=== PATIENT | female | born 1945 | race Caucasian/White ===

== ENCOUNTER 2022-09-15 22:59 | Inpatient (IN) | payer MEDICARE, SELFPAY ==
[2022-09-15 22:43] VITALS: BP 115/87; PULSE 104; RESP 18; TEMP 35.9; O2SAT 97; BMI 29.7
[2022-09-15 22:44] VITALS: BP 115/87; O2SAT 93
--- NOTE | 2022-09-15 22:55 | ED_ITS ---
HPI - SOB/Dyspnea General Stated Complaint: SHORT OF BREATH Time Seen by Provider: 09/15/22 23:00 Source: patient and EMR Mode of arrival: ambulance Limitations: physical limitation History of Present Illness HPI Narrative: longterm patient DNRCC. Reportedly short of breath tonight. Pulse ox 88%. Patient has no specific complaint. denies pain. no fever or nausea. Transferred via squad with NRB mask in place. Arrives in no distress Related Data Allergies Allergy/AdvReac Type Severity Reaction Status Date / Time No Known Drug Allergies Allergy Verified 09/15/22 22:53 Review of Systems ROS Status of ROS 10 or more systems reviewed and unremarkable except as noted in history and below PFSH PFSH Social History Smoking status: Never smoker Exam Constitutional: Vital Signs - 24 hr 09/15/22 22:43 09/15/22 23:11 Temperature 96.7 F L Pulse Rate [Monito r] 104 H Respiratory Rate 18 Blood Pressure [Ri ght Arm] 115/87 H Pulse Oximetry 97 91 L Oxygen Delivery Me thod Nonrebreather Nonrebreather Oxygen Delivery Fl ow Rate 15 15 Common normals: no apparent distress HENMT: Common normals: normocephalic Face and sinus: normal facial exam Eye: Common normals: EOMs intact bilaterally and conjunctivae normal Neck & C-Spine: Common normals: full ROM Chest: Common normals: inspection of chest normal Other: diminished BS left chest Cardio: Rate: tachycardic GI: Common normals: Normal to inspection, nondistended, normoactive bowel sounds present, soft to palpation and non-tender Extremity: Common normals: normal to inspection Neuro: Common normals: oriented x3 Other: normal strength and ROM of the upper extremities able to wiggles toes and move both feet. Little movement of her legs Psych: Common normals: mental status grossly normal Skin: Common normals: no rashes or lesions noted Course Vital Signs Vital signs: Vital Signs Temperature 96.7 F L 09/15/22 22:43 Pulse Rate 104 H 09/15/22 22:43 Respiratory Rate 18 09/15/22 22:43 Blood Pressure 115/87 H 09/15/22 22:43 Pulse Oximetry 97 09/15/22 22:43 Oxygen Delivery Method Nonrebreather 09/15/22 22:43 Oxygen Delivery Flow Rate 15 09/15/22 22:43 Temperature 96.7 F L 09/15/22 22:43 Pulse Rate 104 H 09/15/22 22:43 Respiratory Rate 18 09/15/22 22:43 Blood Pressure 115/87 H 09/15/22 22:43 Pulse Oximetry 91 L 09/15/22 23:11 Oxygen Delivery Method Nonrebreather 09/15/22 23:11 Oxygen Delivery Flow Rate 15 09/15/22 23:11 MDM - SOB/Dyspnea MDM Narrative Medical decision making narrative: NHP DNRCC who presents with hypoxemia. Found to have left pleural effusion. Workup also demonstrated leukocytosis and UTI per straight cath urine. WBC 23.6. Discussed with the hospitalist and patient accepted for admission Lab Data Labs: Lab Results 09/15/22 09/16/22 Range/Units 23:15 01:05 WBC 23.6 H (4.0-11.0) 10^3/uL RBC 5.01 (4.20-5.40) 10^6/uL Hgb 15.0 (12.0-16.0) g/dL Hct 44.9 (36.0-48.0) % MCV 89.6 (81.0-99.0) fL MCH 29.9 (26.7-34.0) pg MCHC 33.4 (29.9-35.2) g/dL RDW 14.6 (11.0-15.0) % Plt Count 405 (150-450) 10^3/uL MPV 8.5 L (9.5-13.5) fL Seg Neuts % (Manual) 89.0 Lymphocytes % (Manual) 5.0 L (20.5-60.0) % Monocytes % (Manual) 6.0 (1.7-12.0) % Eosinophils % (Manual) 0.0 L (0.9-7.0) % Basophils % (Manual) 0.0 L (0.2-2.0) % Neutrophils # (Manual) 21.00 H (1.4-6.5) 10^3/uL Lymphocytes # (Manual) 1.18 L (1.20-3.80) 10^3/uL Monocytes # (Manual) 1.41 H (0.30-0.80) 10^3/uL Eosinophils # (Manual) 0.00 (0.00-0.70) 10^3/uL Basophils # (Manual) 0.00 (0.00-0.10) 10^3/uL Sodium 138 (136-145) mmol/L Potassium 4.0 (3.5-5.1) mmol/L Chloride 102 (98-107) mmol/L Carbon Dioxide 29.4 (21.0-32.0) mmol/L Anion Gap 10.6 BUN 22.0 H (7.0-18.0) mg/dL Creatinine 0.67 (0.55-1.02) mg/dL Est GFR ( Amer) >60 (>=60) Est GFR (Non-Af Amer) >60 (>=60) BUN/Creatinine Ratio 32.8 Glucose 148 H (74-106) mg/dL Calcium 8.7 (8.5-10.1) mg/dL Troponin I High Sens 12.1 (4.0-51.3) pg/mL NT-Pro-B Natriuret Pep 391.0 (<=1800.0) pg/mL Urine Color Yellow (YELLOW) Urine Clarity Clear (CLEAR) Urine pH 8.0 (5.0-9.0) Ur Specific [place] 1.020 (1.005-1.025) Urine Protein >=300 A (NEG/TRACE) mg/dL Urine Glucose (UA) 100 A (NEGATIVE) mg/dL Urine Ketones 15 A (NEGATIVE) mg/dL Urine Occult Blood Large A (NEGATIVE) Urine Nitrite Negative (NEGATIVE) Urine Bilirubin Moderate A (NEGATIVE) Urine Urobilinogen 4.0 A (0.2-1.0) EU/dL Ur Leukocyte Esterase Moderate A (NEGATIVE) Urine RBC 10-20 A (0-2) #/HPF Urine WBC 75-100 A (NONE SEEN) #/HPF Ur Squamous Epith Cells Rare (NONE/RARE) #/LPF Discharge Plan Discharge Clinical Impression: Urinary tract infection, Hypoxemia, Pleural effusion on left Patient Disposition: Admitted As Inpatient
--- NOTE | 2022-09-15 23:05 | XR_ITS ---
The [address] [address] Patient Name: WILLARD STOVER MRN: [id number] date: 1945 Sex: F Assigned Patient Location: ER Current Patient Location: ER Accession/Order Number: [id number] Exam Date: 09/15/2022 23:58 Report Date: 09/16/2022 00:22 At the request of: HALLIE ELIZONDO Procedure: XR chest 1V CHEST X-RAY HISTORY: 77-year-old female with dyspnea and chest pain. COMPARISON: None. TECHNIQUE: Frontal view of the chest is submitted for review. FINDINGS: Port-A-Cath is seen on the left with tip overlying the cavoatrial junction. The patient's chin overlies the upper apices. Blunting of the left costophrenic angle is present. The lungs are adequately expanded without evidence for acute infiltrate. The cardiac silhouette is enlarged, Pulmonary vascularity is prominent. Osseous structures are within expected limits for patients age. IMPRESSION: Cardiomegaly with left sided pleural effusion. Electronically authenticated by: HE BOWERS Date: 09/16/2022 00:22
--- NOTE | 2022-09-15 23:05 | ECG_ITS ---
The [facility] Test Date: 2022-09-15 Pat Name: Mayte Gavin Department: Room: - Gender: Female Manager Education: : 1945 Requested By: [id number] Order Number: [id number] Reading MD: CALI DECKER Measurements Intervals [place] Rate: 100 P: 2 [place]: 158 QRS: 8 QRSD: 86 T: 35 QT: 294 QTc: 351 Interpretive Statements 1108 Marked sinus arrhythmia 1120 Sinus tachycardia 8102 Low QRS voltage in chest leads 8305 Short QTc interval 9150 abnormal ECG No previous ECG available for comparison Artifact present Electronically Signed On 09-16-2022 15:40:57 EDT by CALI DECKER
[2022-09-15 23:11] VITALS: O2SAT 91
--- NOTE | 2022-09-15 23:15 | PC.NURSE ---
patient brought in by ems for SOB. patient covid+ 2weeks ago. Patient is a DNRCC, labs drawn with IV start. patient appears SOB and diaphoretic. EKG done, patient A&ox3.
[2022-09-15 23:24] LABS: Hematocrit 44.9 % (36.0-48.0); Mean Corpuscular HGB Conc 33.4 g/dL (29.9-35.2); Mean Corpuscular Hemoglobin 29.9 pg (26.7-34.0); Mean Corpuscular Volume 89.6 fL (81.0-99.0); Mean Platelet Volume 8.5 fL (9.5-13.5); Platelet Count 405 10^3/uL (150-450); Red Blood Count 5.01 10^6/uL (4.20-5.40); Red Cell Distribution Width 14.6 % (11.0-15.0); White Blood Count 23.6 10^3/uL (4.0-11.0)
[2022-09-15 23:45] LABS: Anion Gap 10.6; BUN Creatinine Ratio 32.8; Calcium 8.7 mg/dL (8.5-10.1); Carbon Dioxide 29.4 mmol/L (21.0-32.0); Chloride 102 mmol/L (98-107); Estimated GFR (African America >60 (>=60); Estimated GFR (Non-African Ame >60 (>=60); Glucose 148 mg/dL (74-106); Sodium 138 mmol/L (136-145); Troponin I High Sensitivity 12.1 pg/mL (4.0-51.3)
[2022-09-15 23:49] LABS: Lymphocytes Absolute Manual 1.18 10^3/uL (1.20-3.80); Monocytes Absolute Manual 1.41 10^3/uL (0.30-0.80)
[2022-09-16] VITALS (9 sets, daily range): BP systolic 107–139; BP diastolic 77–85; PULSE 104–123; RESP 18; TEMP 36.7–36.8; O2SAT 90–95; BMI 28.2
[2022-09-16 01:23] LABS: Bilirubin Urine MODERATE (NEGATIVE); Blood Urine LARGE (NEGATIVE); Clarity Urine CLEAR (CLEAR); Color Urine YELLOW (YELLOW); Glucose Urine UA 100 mg/dL (NEGATIVE); Ketones Urine 15 mg/dL (NEGATIVE); Leukocyte Esterase Urine MODERATE (NEGATIVE); Nitrite Urine NEGATIVE (NEGATIVE); Protein Urine >=300 mg/dL (NEG/TRACE)
[2022-09-16 01:31] LABS: WBC Urine 75-100 #/HPF (NONE SEEN)
[2022-09-16 01:32] LABS: Bacteria Urine LARGE #/HPF (NONE SEEN); Cast Seen? NONE SEEN #/LPF (NONE SEEN); Crystals Seen? None Seen #/HPF (None Seen); Mucus Urine LARGE (NONE SEEN); Squamous Epithelial Cell Urine RARE #/LPF (NONE/RARE)
--- NOTE | 2022-09-16 01:35 | PC.NURSE ---
patient began to urinate before cath insertion, large glob of mucus came out of the ureathra. Patient straight cathed, washed up and breif changed
--- NOTE | 2022-09-16 03:06 | PC.NURSE ---
attempted patient on NC 4l/min, per Dr. bustamante. Patient o2 dropped to 88% patient placed back on nonrebreather
[2022-09-16 03:34] LABS: Lactate/Lactic Acid 1.2 mmol/L (0.4-2.0)
[2022-09-16] MEDS: CEFTRIAXONE 1,000 MG in 0.9 % SODIUM CHLORIDE 50 ML 100 MG IV (03:36)
--- NOTE | 2022-09-16 06:49 | PC.NURSE ---
pt with watch and costume bracelets.
--- NOTE | 2022-09-16 09:38 | PM.HP ---
H&P: HPI History of Present Illness Chief complaint: SHORT OF BREATH Review of Systems ROS Status of ROS 10 or more systems reviewed and unremarkable except as noted in history and below [facility] Medical History (Updated 09/16/22 @ 14:27 by Kwame Sampson MD) Social History Smoking status: Never smoker Gender Identity: female Meds Home Medications and Allergies Home Medications Medication Instructions Recorded Confirmed Type acetaminophen 500 mg capsule 500 mg PO Q8H PRN fever or pain 09/16/22 09/16/22 History albuterol sulfate 90 mcg/actuation 2 inh inhalation BID 09/16/22 09/16/22 History aerosol inhaler albuterol sulfate 90 mcg/actuation 2 puff inhalation Q4H PRN 09/16/22 09/16/22 History aerosol inhaler shortness of breath or wheezing aripiprazole 2 mg tablet 2 mg PO BEDTIME depression 09/16/22 09/16/22 History aripiprazole 5 mg tablet 5 mg PO BEDTIME depression 09/16/22 09/16/22 History aspirin 81 mg capsule 81 mg PO BEDTIME 09/16/22 09/16/22 History carvedilol 6.25 mg tablet 6.25 mg PO BID hypertension 09/16/22 09/16/22 History cetirizine 10 mg capsule (All Day 10 mg PO DAILY PRN allergy symptoms 09/16/22 09/16/22 History Allergy (cetirizine)) cetirizine 10 mg tablet (24Hour 10 mg PO DAILY allergies 09/16/22 09/16/22 History Allergy) cholecalciferol (vitamin D3) 125 125 mcg PO DAILY supplement 09/16/22 09/16/22 History mcg (5,000 unit) tablet (Vitamin D3) diclofenac sodium 1 % topical gel 4 g topical BID knee pain 09/16/22 09/16/22 History (Aspercreme Arthritis Pain) duloxetine 20 mg capsule,delayed 60 mg PO DAILY depression 09/16/22 09/16/22 History release famotidine 20 mg tablet 20 mg PO DAILY GERD 09/16/22 09/16/22 History ferrous sulfate 325 mg (65 mg 325 mg PO BID 09/16/22 09/16/22 History iron) tablet gabapentin 100 mg capsule 100 mg PO DAILY neuropathy 09/16/22 09/16/22 History guaifenesin 100 mg/5 mL oral 100 mg PO BID 09/16/22 09/16/22 History liquid (Adult Tussin Chest Congestion) guaifenesin 100 mg/5 mL oral 100 mg PO Q4H PRN cough 09/16/22 09/16/22 History liquid (Adult Tussin Chest Congestion) hydrocortisone 1 % topical cream 1 applic topical DAILY PRN itching 09/16/22 09/16/22 History (Ala-Jos[place] Antonio) hydroxyzine pamoate 25 mg capsule 25 mg PO TID anxiety 09/16/22 09/16/22 History levothyroxine 100 mcg tablet 100 mcg PO DAILY 09/16/22 09/16/22 History levothyroxine 50 mcg tablet 50 mcg PO DAILY 09/16/22 09/16/22 History menthol 4 % topical gel (Pain 1 applic topical Q8H PRN pain 09/16/22 09/16/22 History Relief (menthol)) mirabegron 50 mg tablet,extended 50 mg PO Q24H 09/16/22 09/16/22 History release 24 hr (Myrbetriq) montelukast 10 mg tablet 10 mg PO DAILY COVID 09/16/22 09/16/22 History nystatin 100,000 unit/gram topical 1 applic topical BID PRN 09/16/22 09/16/22 History cream excoriation nystatin 100,000 unit/gram topical 1 applic topical BID excoriation 09/16/22 09/16/22 History powder oxygen 2 l continuous inhalation CONT 09/16/22 09/16/22 History polyethylene glycol 3350 17 17 g PO BID constipation 09/16/22 09/16/22 History gram/dose oral powder (ClearLax) rivaroxaban 10 mg tablet (Xarelto) 10 mg PO Q24H anticoagulant 09/16/22 09/16/22 History tramadol 50 mg tablet 50 mg PO Q6H PRN pain 09/16/22 09/16/22 History Allergies Allergy/AdvReac Type Severity Reaction Status Date / Time iodine Allergy Unknown Verified 09/16/22 09:26 Penicillins Allergy Unknown Verified 09/16/22 09:26 Sulfa (Sulfonamide Allergy Unknown Verified 09/16/22 09:26 Antibiotics) Exam Constitutional Vital Signs - 24 hr 09/15/22 22:43 09/15/22 23:11 09/15/22 22:44 Temperature 96.7 F L Pulse Rate Pulse Rate [Monitor] 104 H Respiratory Rate 18 Blood Pressure 115/87 H Blood Pressure [Right Arm] 115/87 H Pulse Oximetry 97 91 L 93 L Oxygen Delivery Method Nonrebreather Nonrebreather Oxygen Delivery Flow Rate 15 15 09/16/22 02:00 09/16/22 02:30 09/16/22 03:00 Temperature Pulse Rate Pulse Rate [Monitor] Respiratory Rate Blood Pressure 123/84 H 139/78 H 126/85 H Blood Pressure [Right Arm] Pulse Oximetry 94 L 95 Oxygen Delivery Method Oxygen Delivery Flow Rate 09/16/22 05:58 09/16/22 05:58 09/16/22 05:58 Temperature 98.2 F Pulse Rate 104 H Pulse Rate [Monitor] Respiratory Rate 18 Blood Pressure Blood Pressure [Right Arm] 107/80 H 130/84 H Pulse Oximetry 93 L 93 L Oxygen Delivery Method Nonrebreather Nonrebreather Nonrebreather Oxygen Delivery Flow Rate 15 15 Common normals: no apparent distress Respiratory Effort & inspection: able to speak in complete sentences and symmetric chest movement Auscultation: clear to auscultation bilaterally and diminished lung sounds on the left Cardio Common normals: regular rate and regular rhythm GI Common normals: Normal to inspection, nondistended, normoactive bowel sounds present Extremity General: edema (2+) Results Labs Labs: Short CBC 09/15/22 Range/Units 23:15 WBC 23.6 H (4.0-11.0) 10^3/uL Hgb 15.0 (12.0-16.0) g/dL Hct 44.9 (36.0-48.0) % Plt Count 405 (150-450) 10^3/uL BMP 09/15/22 23:15 Sodium 138 Potassium 4.0 Chloride 102 Carbon Dioxide 29.4 BUN 22.0 H Creatinine 0.67 Glucose 148 H Calcium 8.7 Urine 09/16/22 Range/Units 01:05 Urine Color Yellow (YELLOW) Urine Clarity Clear (CLEAR) Urine pH 8.0 (5.0-9.0) Ur Specific [place] 1.020 (1.005-1.025) Urine Protein >=300 A (NEG/TRACE) mg/dL Urine Glucose (UA) 100 A (NEGATIVE) mg/dL Assessment and Plan Assessment and Plan (1) Urinary tract infection: (2) Hypoxemia: (3) Pleural effusion on left: (4) Leukocytosis: (5) CKD (chronic kidney disease), stage II: (6) Oxygen dependent: (7) Asthma: (8) Hypertension: (9) Cardiomegaly: Plan Acute hypoxia secondary to left pleural effusion With peripheral edema-patient with a history of COPD oxygen dependent at 2 L but on nonrebreather currently. Try to wean that today. Bumex drip for diuresis. Leukocytosis, sinus tachycardia secondary to Acute UTI-urine culture pending. On IV antibiotics. Hypertension With cardiomegaly-continue with home medications Dementia-continue current medications We will change patient to inpatient status. Based on medical treatment requiring over 2 midnights. Patient unable to be discharged initially. Continues to be hypoxic and is on a nonrebreather. Possible discharge in a.m. if diuresis effective.
[2022-09-16] MEDS: LEVOFLOXACIN IN DEXTROSE 5 % 750 MG/150 ML PIGGYBACK IV (10:10)
[2022-09-16] MEDS: HYDRALAZINE HCL 20 MG/ML VIAL 10 MG IVP (10:11)
[2022-09-16 10:52] LABS: Basophils Absolute Auto 0.1 10^3/uL (0.0-0.1); Basophils Percent Auto 0.4 % (0.2-2.0); Eosinophils Percent Auto 0.1 % (0.9-7.0); Hematocrit 43.4 % (36.0-48.0); Hemoglobin 14.4 g/dL (12.0-16.0); Immature Granulocytes Abs Auto 0.28 10^3/uL (0.00-0.03); Immature Granulocytes Pct Auto 1.2 % (0.0-0.5); Lymphocytes Absolute Auto 1.2 10^3/uL (1.2-3.8); Lymphocytes Percent Auto 4.9 % (20.5-60.0); Mean Corpuscular HGB Conc 33.2 g/dL (29.9-35.2); Mean Corpuscular Hemoglobin 30.1 pg (26.7-34.0); Mean Corpuscular Volume 90.6 fL (81.0-99.0); Mean Platelet Volume 8.7 fL (9.5-13.5); Monocytes Absolute Auto 1.1 10^3/uL (0.3-0.8); Monocytes Percent Auto 4.6 % (1.7-12.0); Neutrophils Absolute Auto 21.5 10^3/uL (1.4-6.5); Neutrophils Percent Auto 88.8 % (43.0-75.0); Platelet Count 412 10^3/uL (150-450); Red Blood Count 4.79 10^6/uL (4.20-5.40); Red Cell Distribution Width 14.5 % (11.0-15.0); White Blood Count 24.1 10^3/uL (4.0-11.0)
[2022-09-16 12:19] LABS: Alanine Aminotransferase 38 U/L (14-59); Albumin Globulin Ratio 0.5; Albumin Level 1.9 g/dL (3.4-5.0); Alkaline Phosphatase 199 U/L (46-116); Anion Gap 11.5; Aspartate Amino Transferase 24 U/L (15-37); BUN Creatinine Ratio 42.6; Bilirubin Total 0.6 mg/dL (0.2-1.0); Calcium 8.8 mg/dL (8.5-10.1); Carbon Dioxide 28.4 mmol/L (21.0-32.0); Chloride 103 mmol/L (98-107); Estimated GFR (African America >60 (>=60); Estimated GFR (Non-African Ame >60 (>=60); Globulin 4.1 g/dL; Glucose 128 mg/dL (74-106); Magnesium 1.9 mg/dL (1.8-2.4); Potassium 3.9 mmol/L (3.5-5.1); Sodium 139 mmol/L (136-145)
[2022-09-16] MEDS: L. ACIDOPHILUS/L.BULGARICUS 1 PACKET GRAN.PACK PO ×2 (12:38→17:57)
[2022-09-16] MEDS: BUMETANIDE 10 MG in 0.9 % SODIUM CHLORIDE 160 ML 20 MG IV (12:38)
[2022-09-17] VITALS (8 sets, daily range): BP systolic 110–131; BP diastolic 68–85; PULSE 62–120; RESP 16–20; TEMP 36.1–36.4; O2SAT 88–92
[2022-09-17] MEDS: CEFTRIAXONE 1,000 MG in 0.9 % SODIUM CHLORIDE 50 ML 100 MG IV (02:24)
--- NOTE | 2022-09-17 04:48 | PC.NURSE ---
pts SPO2 noted 85% on 6L via NC, non-rebreather mask applied, SPO2 noted 93%
--- NOTE | 2022-09-17 08:33 | XR_ITS ---
[address] [address] Patient Name: WILLARD STOVER MRN: [id number] date: 1945 Sex: F Assigned Patient Location: MS Current Patient Location: MS Accession/Order Number: [id number] Exam Date: 09/17/2022 09:00 Report Date: 09/17/2022 09:20 At the request of: XANDER TURNER Procedure: XR chest 1V Exam: Radiographs: XR chest 1V Reason for exam: Dyspnea Comparison: Chest x-ray dated 09/15/2022 IMPRESSION: Left pleural effusion is likely moderate in size. Atelectasis and/or infiltrate in the left mid and lower lung. These are not substantially changed. Left IJ approach port with tip in the low SVC. Remainder unremarkable. Electronically authenticated by: JEAN CLAUDE MO Date: 09/17/2022 09:20
[2022-09-17] MEDS: ENSURE HP 237 ML LIQUID PO ×2 (09:52→21:26)
[2022-09-17] MEDS: L. ACIDOPHILUS/L.BULGARICUS 1 PACKET GRAN.PACK PO ×2 (09:53→16:39)
[2022-09-17 09:57] LABS: Basophils Absolute Auto 0.1 10^3/uL (0.0-0.1); Basophils Percent Auto 0.3 % (0.2-2.0); Hematocrit 44.3 % (36.0-48.0); Hemoglobin 15.1 g/dL (12.0-16.0); Immature Granulocytes Abs Auto 0.52 10^3/uL (0.00-0.03); Immature Granulocytes Pct Auto 1.6 % (0.0-0.5); Lymphocytes Absolute Auto 1.4 10^3/uL (1.2-3.8); Lymphocytes Percent Auto 4.5 % (20.5-60.0); Mean Corpuscular HGB Conc 34.1 g/dL (29.9-35.2); Mean Corpuscular Hemoglobin 29.8 pg (26.7-34.0); Mean Corpuscular Volume 87.4 fL (81.0-99.0); Mean Platelet Volume 8.8 fL (9.5-13.5); Monocytes Absolute Auto 1.6 10^3/uL (0.3-0.8); Neutrophils Absolute Auto 27.9 10^3/uL (1.4-6.5); Neutrophils Percent Auto 88.6 % (43.0-75.0); Platelet Count 444 10^3/uL (150-450); Red Blood Count 5.07 10^6/uL (4.20-5.40); Red Cell Distribution Width 14.6 % (11.0-15.0)
[2022-09-17 10:11] LABS: White Blood Count 31.6 10^3/uL (4.0-11.0)
[2022-09-17 10:20] LABS: Alanine Aminotransferase 28 U/L (14-59); Albumin Globulin Ratio 0.4; Albumin Level 1.9 g/dL (3.4-5.0); Alkaline Phosphatase 210 U/L (46-116); Anion Gap 13.4; Aspartate Amino Transferase 14 U/L (15-37); BUN Creatinine Ratio 29.5; Bilirubin Total 0.6 mg/dL (0.2-1.0); Calcium 8.7 mg/dL (8.5-10.1); Carbon Dioxide 30.5 mmol/L (21.0-32.0); Chloride 96 mmol/L (98-107); Estimated GFR (African America >60 (>=60); Estimated GFR (Non-African Ame 51 (>=60); Globulin 4.6 g/dL; Glucose 125 mg/dL (74-106); Sodium 137 mmol/L (136-145); Total Protein 6.5 g/dL (6.4-8.2)
[2022-09-17 10:24] LABS: Potassium 2.9 mmol/L (3.5-5.1)
[2022-09-17] MEDS: LEVOFLOXACIN IN DEXTROSE 5 % 750 MG/150 ML IV.SOLN 100 MG IV (11:22)
--- NOTE | 2022-09-17 11:27 | P.PN_ITS ---
Progress Note: Subjective Subjective Interval history: Patient alert this morning. Answers questions, states breathing somewhat better. Exam Constitutional Vital Signs - 24 hr 09/17/22 09:58 09/17/22 11:24 09/16/22 12:25 Temperature Pulse Rate Respiratory Rate Blood Pressure [Right Arm] Pulse Oximetry 90 L 92 L 90 L Oxygen Delivery Method Nasal Cannula Nasal Cannula Nasal Cannula Oxygen Delivery Flow Rate 6 6 6 09/16/22 14:23 09/16/22 19:50 09/16/22 21:00 Temperature 98.0 F 98.0 F Pulse Rate 123 H Respiratory Rate 18 18 Blood Pressure [Right Arm] 134/79 H 126/77 H Pulse Oximetry 90 L 90 L 90 L Oxygen Delivery Method Nasal Cannula Nasal Cannula Nasal Cannula Oxygen Delivery Flow Rate 6 6 6 09/17/22 02:25 09/17/22 04:33 Temperature 97.5 F L Pulse Rate 120 H Respiratory Rate 18 18 Blood Pressure [Right Arm] 110/68 Pulse Oximetry 91 L 88 L Oxygen Delivery Method Nasal Cannula Nasal Cannula Oxygen Delivery Flow Rate 6 6 HENMT Common normals: normocephalic Chest Common normals: inspection of chest normal Respiratory Common normals: normal respiratory effort (Diminished breath sounds left-sided) Cardio Rate: other (Irregularly irregular) GI Common normals: Normal to inspection, nondistended, normoactive bowel sounds present Progress Note: Objective Labs Labs: Short CBC 09/17/22 Range/Units 09:34 WBC 31.6 H* (4.0-11.0) 10^3/uL Hgb 15.1 (12.0-16.0) g/dL Hct 44.3 (36.0-48.0) % Plt Count 444 (150-450) 10^3/uL BMP 09/16/22 09/17/22 10:25 09:34 Sodium 139 137 Potassium 3.9 2.9 L* Chloride 103 96 L Carbon Dioxide 28.4 30.5 BUN 26.0 H 31.0 H Creatinine 0.61 1.05 H Glucose 128 H 125 H Calcium 8.8 8.7 Liver Function 09/16/22 09/17/22 Range/Units 10:25 09:34 Total Bilirubin 0.6 0.6 (0.2-1.0) mg/dL AST 24 14 L (15-37) U/L ALT 38 28 (14-59) U/L Albumin 1.9 L 1.9 L (3.4-5.0) g/dL Progress Note: A&P Assessment and Plan (1) Urinary tract infection: (2) Hypoxemia: (3) Pleural effusion on left: (4) Leukocytosis: (5) CKD (chronic kidney disease), stage II: (6) Oxygen dependent: (7) Asthma: (8) Hypertension: (9) Cardiomegaly: Plan Acute hypoxia secondary to left pleural effusion With peripheral edema-patient with a history of COPD oxygen dependent at 2 L but on 6 L overnight, somewhat down this morning. Not sure what her baseline oxygen runs. Repeat chest x-ray. Consider repeat diuresis based on laboratory evaluation Leukocytosis, sinus tachycardia secondary to Acute UTI-urine culture pending.? On IV antibiotics. Hypertension With cardiomegaly-continue with home medications Chronic kidney disease-monitor daily. Medications may need adjusted based on creatinine function Dementia-continue current medications We will change patient to inpatient status.Likely 2-3 more hospital days Fall Risk Details Archuleta Fall Scale Risk Level: High Fall Risk Current Medications: Current Medications Acetaminophen (Acetaminophen 325 Mg Tablet) 650 mg PO Q6H PRN PRN Reason: Fever Docusate Sodium (Docusate Sodium 100 Mg Capsule) 200 mg PO QD PRN PRN Reason: Constipation Enteral Nutritional Formula (Ensure Hp 237 Ml Liquid) 237 ml PO BID [facility] Last Admin: 09/17/22 09:52 Dose: 237 ml Levofloxacin/Dextrose (Levaquin 750 Mg/150 Ml-D5w) 750 mg in 150 mls @ 100 mls/hr IV Q24H [facility] Last Admin: 09/17/22 11:22 Dose: 100 ml/hr, 100 mls/hr Clindamycin Phosphate/Dextrose (Cleocin 600 Mg/50 Ml-D5w) 600 mg in 50 mls @ 100 mls/hr IV Q8H [facility] Ketorolac Tromethamine (Ketorolac Tromethamine 30 Mg/Ml Vial) 15 mg IVP Q6H PRN PRN Reason: Pain Lactobacillus Acidophilus (L. Acidophilus/L.Bulgaricus 1 Packet Gran.Pack) 1 packet PO WM [facility] Last Admin: 09/17/22 09:53 Dose: 1 packet Ondansetron HCl (Ondansetron Pf 4 Mg/2 Ml Vial) 4 mg IV Q6H PRN PRN Reason: Nausea And Vomiting Polyethylene Glycol (Polyethylene Glycol 3350 17 Gm Powder Packet) 17 gm PO QD PRN PRN Reason: Constipation Senna (Sennosides 8.6 Mg Tablet) 8.6 mg PO QD PRN PRN Reason: Constipation Temazepam (Temazepam 15 Mg Capsule) 15 mg PO BEDTIME PRN PRN Reason: Sleep Time Spent With Patient Time: Total time spent is greater than 50% in coordination of care (as documented) at patient's floor/unit and/or counseling patient:
[2022-09-17] MEDS: CLINDAMYCIN PHOSPHATE/D5W 900 MG/50 ML PIGGYBACK 50 MG IV (14:18)
[2022-09-17] MEDS: AZTREONAM 1 GM in 0.9 % SODIUM CHLORIDE 50 ML 100 MG IV ×2 (15:01→22:13)
[2022-09-17] MEDS: POTASSIUM CHLORIDE 40 MEQ in 0.9 % SODIUM CHLORIDE 250 ML 67.5 MEQ IV (15:01)
[2022-09-17 18:20] LABS: Anion Gap 11.6; BUN Creatinine Ratio 34.3; Calcium 8.4 mg/dL (8.5-10.1); Carbon Dioxide 30.8 mmol/L (21.0-32.0); Chloride 95 mmol/L (98-107); Estimated GFR (African America >60 (>=60); Estimated GFR (Non-African Ame 55 (>=60); Glucose 97 mg/dL (74-106); Potassium 3.4 mmol/L (3.5-5.1); Sodium 134 mmol/L (136-145)
[2022-09-17] MEDS: 0.9 % SODIUM CHLORIDE 250 ML 100 ML IV (21:20)
[2022-09-17] MEDS: CLINDAMYCIN PHOSPHATE/D5W 900 MG/50 ML PIGGYBACK 100 MG IV (21:26)
[2022-09-18] VITALS (9 sets, daily range): BP systolic 117–127; BP diastolic 78–81; PULSE 102–113; RESP 18–22; TEMP 36.2–36.7; O2SAT 90–94; BMI 28.1
--- NOTE | 2022-09-18 04:54 | RESP.RT ---
turned down to 3L at this time
[2022-09-18] MEDS: CLINDAMYCIN PHOSPHATE/D5W 900 MG/50 ML PIGGYBACK 50 MG IV ×2 (05:35→21:15)
[2022-09-18 05:56] LABS: Basophils Absolute Auto 0.1 10^3/uL (0.0-0.1); Basophils Percent Auto 0.2 % (0.2-2.0); Eosinophils Percent Auto 0.2 % (0.9-7.0); Hematocrit 39.2 % (36.0-48.0); Hemoglobin 13.2 g/dL (12.0-16.0); Immature Granulocytes Abs Auto 0.43 10^3/uL (0.00-0.03); Immature Granulocytes Pct Auto 1.8 % (0.0-0.5); Lymphocytes Absolute Auto 1.2 10^3/uL (1.2-3.8); Mean Corpuscular HGB Conc 33.7 g/dL (29.9-35.2); Mean Corpuscular Hemoglobin 29.9 pg (26.7-34.0); Mean Corpuscular Volume 88.7 fL (81.0-99.0); Mean Platelet Volume 8.9 fL (9.5-13.5); Monocytes Absolute Auto 1.1 10^3/uL (0.3-0.8); Monocytes Percent Auto 4.7 % (1.7-12.0); Neutrophils Absolute Auto 20.5 10^3/uL (1.4-6.5); Neutrophils Percent Auto 88.1 % (43.0-75.0); Platelet Count 402 10^3/uL (150-450); Red Blood Count 4.42 10^6/uL (4.20-5.40); Red Cell Distribution Width 14.6 % (11.0-15.0); White Blood Count 23.3 10^3/uL (4.0-11.0)
[2022-09-18 05:58] LABS: Alanine Aminotransferase 25 U/L (14-59); Albumin Globulin Ratio 0.4; Albumin Level 1.6 g/dL (3.4-5.0); Alkaline Phosphatase 176 U/L (46-116); Anion Gap 9.3; Aspartate Amino Transferase 22 U/L (15-37); BUN Creatinine Ratio 43.4; Bilirubin Total 0.5 mg/dL (0.2-1.0); Calcium 7.9 mg/dL (8.5-10.1); Carbon Dioxide 29.8 mmol/L (21.0-32.0); Chloride 96 mmol/L (98-107); Estimated GFR (African America >60 (>=60); Estimated GFR (Non-African Ame >60 (>=60); Globulin 3.8 g/dL; Glucose 77 mg/dL (74-106); Potassium 3.1 mmol/L (3.5-5.1); Sodium 132 mmol/L (136-145); Total Protein 5.4 g/dL (6.4-8.2)
[2022-09-18] MEDS: AZTREONAM 1 GM in 0.9 % SODIUM CHLORIDE 50 ML 100 MG IV ×2 (06:19→15:56)
--- NOTE | 2022-09-18 08:50 | CA_ITS ---
Patient: WILLARD STOVER Exam Date: 09/18/2022 : 1945 Gender:F Ordering : DR Kwame Sampson . Admission #: [id number] Family : Order #: [id number] CLICK HERE TO VIEW EXAM ECHOCARDIOGRAM REPORT PROCEDURE: CA ECHO LIMITED INDICATIONS: ABNORMAL EKG, SHORTNESS OF BREATH COMPARISON: None. DESCRIPTION: Limited ECHOCARDIOGRAM Real-time transthoracic echocardiography with 2D and M-mode performed. QUALITY: Technical quality was adequate. LEFT VENTRICLE: Normal chamber size. Thickened septal wall. Global left ventricular systolic function is normal. LV EF: Visual estimation of left ventricular ejection fraction is 55-60% DIASTOLIC: ATRIAL SEPTUM: LEFT ATRIUM: RIGHT ATRIUM: RIGHT VENTRICLE: TRICUSPID VALVE: Normal mobility and thickness. MITRAL VALVE: Normal mobility and thickness. Mitral annular calcification. AORTIC VALVE: Normal trileaflet appearance. No visible sclerosis. AORTIC ROOT: PULMONIC VALVE: Normal thickness and mobility. PERICARDIUM: Small anterior pericardial effusion. Anterior fat pad is seen. IVC: PLEURA: CONCLUSION: 1. Normal ventricular systolic function. Estimated LVEF is 55 to 60%. 2. The aortic valve opens well. 3. Small anterior pericardial effusion is seen. Adult Echocardiography Procedure Report Left Ventricle LVEDD (3.7 - 5.6 cm): 4.10 cm LVESD (2.2 - 4.0 cm): 2.80 cm LVIVS thickness (0.6 - 1.2 cm): 1.33 cm LVPW thickness (0.5 - 1.0 cm): 0.93 cm LVOT Diameter 1.86 cm Left Atrium Left Atrium Systolic Dimension: 2.92 cm Mitral Valve Right Ventricle RV Internal Diastolic Dimension: 2.95 cm Aorta AO Root Diam: 3.66 cm Aortic Valve Tricuspid Valve Pulmonic Valve Right Atrium Dictated by: Chris Rivera M.D. on 09/20/2022 at 10:00 Approved by: Chris Rivera M.D. on 09/20/2022 at 10:06
--- NOTE | 2022-09-18 09:20 | P.PN_ITS ---
Progress Note: Subjective Subjective Interval history: Patient alert this morning. No new complaint this morning Exam Constitutional Vital Signs - 24 hr 09/17/22 09:58 09/17/22 11:24 09/17/22 14:37 Temperature 97.0 F L Pulse Rate 62 Respiratory Rate 16 Blood Pressure [Right Arm] 116/79 Pulse Oximetry 90 L 92 L 92 L Oxygen Delivery Method Nasal Cannula Nasal Cannula Nasal Cannula Oxygen Delivery Flow Rate 6 6 5 Fraction of Inspired Oxygen 09/17/22 15:25 09/17/22 15:55 09/17/22 20:26 Temperature Pulse Rate Respiratory Rate Blood Pressure [Right Arm] Pulse Oximetry 91 L 90 L Oxygen Delivery Method Nasal Cannula Nasal Cannula Nasal Cannula Oxygen Delivery Flow Rate 4 4 4 Fraction of Inspired Oxygen 91 09/17/22 21:43 09/18/22 04:40 09/18/22 04:53 Temperature 97.0 F L Pulse Rate 112 H Respiratory Rate 20 Blood Pressure [Right Arm] 131/85 H Pulse Oximetry 90 L 94 L 94 L Oxygen Delivery Method Nasal Cannula Nasal Cannula Nasal Cannula Oxygen Delivery Flow Rate 4 4 4 Fraction of Inspired Oxygen 09/18/22 05:48 09/18/22 07:36 Temperature 97.7 F Pulse Rate 102 H Respiratory Rate 20 Blood Pressure [Right Arm] 127/81 H Pulse Oximetry 90 L 94 L Oxygen Delivery Method Nasal Cannula Nasal Cannula Oxygen Delivery Flow Rate 3 4 Fraction of Inspired Oxygen Chest Common normals: inspection of chest normal Other: Decreased breath sounds left-sided Respiratory Common normals: normal respiratory effort Cardio Rate: regular rate Progress Note: Objective Labs Labs: Short CBC 09/17/22 09/18/22 Range/Units 09:34 04:57 WBC 31.6 H* 23.3 H (4.0-11.0) 10^3/uL Hgb 15.1 13.2 (12.0-16.0) g/dL Hct 44.3 39.2 (36.0-48.0) % Plt Count 444 402 (150-450) 10^3/uL BMP 09/17/22 09/17/22 09/18/22 09:34 18:04 04:57 Sodium 137 134 L 132 L Potassium 2.9 L* 3.4 L 3.1 L Chloride 96 L 95 L 96 L Carbon Dioxide 30.5 30.8 29.8 BUN 31.0 H 34.0 H 36.0 H Creatinine 1.05 H 0.99 0.83 Glucose 125 H 97 77 Calcium 8.7 8.4 L 7.9 L Liver Function 09/17/22 09/18/22 Range/Units 09:34 04:57 Total Bilirubin 0.6 0.5 (0.2-1.0) mg/dL AST 14 L 22 (15-37) U/L ALT 28 25 (14-59) U/L Albumin 1.9 L 1.6 L (3.4-5.0) g/dL Progress Note: A&P Assessment and Plan (1) Urinary tract infection: (2) Hypoxemia: (3) Pleural effusion on left: (4) Leukocytosis: (5) CKD (chronic kidney disease), stage II: (6) Oxygen dependent: (7) Asthma: (8) Hypertension: (9) Cardiomegaly: Plan Acute hypoxia secondary to left pleural effusion With peripheral edema-patient with a history of COPD oxygen dependent at 2 L but on 3 L nasal, diuresed 1 more day, likely discharge back tomorrow Leukocytosis, sinus tachycardia secondary to Acute UTI-urine culture pending.? On IV antibiotics.Proteus and Klebsiella-check on sensitivities later today, White blood cell count improving Hypertension With cardiomegaly-continue with home medications Chronic kidney disease-monitor daily.? Medications may need adjusted based on creatinine function Dementia-continue current medications We will change patient to inpatient status.Likely 2-3 more hospital days Fall Risk Details Archuleta Fall Scale Risk Level: High Fall Risk Current Medications: Current Medications Acetaminophen (Acetaminophen 325 Mg Tablet) 650 mg PO Q6H PRN PRN Reason: Fever Docusate Sodium (Docusate Sodium 100 Mg Capsule) 200 mg PO QD PRN PRN Reason: Constipation Enteral Nutritional Formula (Ensure Hp 237 Ml Liquid) 237 ml PO BID [facility] Last Admin: 09/17/22 21:26 Dose: 237 ml Levofloxacin/Dextrose (Levaquin 750 Mg/150 Ml-D5w) 750 mg in 150 mls @ 100 mls/hr IV Q24H [facility] Last Infusion: 09/17/22 13:05 Dose: Infused Aztreonam 1 gm/ Sodium (Chloride) 50 mls @ 100 mls/hr IV Q8H [facility] Last Infusion: 09/18/22 07:16 Dose: Infused Clindamycin Phosphate/Dextrose (Cleocin Phosphate/D5w 900 Mg/50 Ml Piggyback) 900 mg in 50 mls @ 100 mls/hr IV Q8H [facility] Last Infusion: 09/18/22 07:16 Dose: Infused Potassium Chloride 40 meq/ (Sodium Chloride) 270 mls @ 67.5 mls/hr IV Q6H PRN PRN Reason: HYPOkalemia Last Infusion: 09/17/22 19:55 Dose: Infused Ketorolac Tromethamine (Ketorolac Tromethamine 30 Mg/Ml Vial) 15 mg IVP Q6H PRN PRN Reason: Pain Lactobacillus Acidophilus (L. Acidophilus/L.Bulgaricus 1 Packet Gran.Pack) 1 packet PO WM [facility] Last Admin: 09/17/22 16:39 Dose: 1 packet Ondansetron HCl (Ondansetron Pf 4 Mg/2 Ml Vial) 4 mg IV Q6H PRN PRN Reason: Nausea And Vomiting Polyethylene Glycol (Polyethylene Glycol 3350 17 Gm Powder Packet) 17 gm PO QD PRN PRN Reason: Constipation Potassium Chloride (Potassium Chloride 10 Meq Er Tablet) 20 meq PO BID [facility] Senna (Sennosides 8.6 Mg Tablet) 8.6 mg PO QD PRN PRN Reason: Constipation Temazepam (Temazepam 15 Mg Capsule) 15 mg PO BEDTIME PRN PRN Reason: Sleep Time Spent With Patient Time: Total time spent is greater than 50% in coordination of care (as documented) at patient's floor/unit and/or counseling patient:
--- NOTE | 2022-09-18 10:17 | CM.NOTE ---
Rounds made with Dr. Sampson. Currently on 3L/NC of oxygen--plan per Dr. Sampson is back down to home oxygen before discharge. [facility] currently [facility].
--- NOTE | 2022-09-18 10:36 | SWNOTE1 ---
SW reached out to [facility] and pt is there [facility]. SW sent updates.
[2022-09-18] MEDS: L. ACIDOPHILUS/L.BULGARICUS 1 PACKET GRAN.PACK PO (12:27)
[2022-09-18] MEDS: POTASSIUM CHLORIDE 10 MEQ ER TABLET 20 MEQ PO ×2 (12:27→21:15)
[2022-09-18] MEDS: LEVOFLOXACIN IN DEXTROSE 5 % 750 MG/150 ML IV.SOLN 100 MG IV (12:28)
[2022-09-18] MEDS: BUMETANIDE 10 MG in 0.9 % SODIUM CHLORIDE 160 ML IV (12:28)
--- NOTE | 2022-09-18 13:30 | DIETREC ---
1. Add Ensure HP BID. Reviewed with
[2022-09-18] MEDS: CLINDAMYCIN PHOSPHATE/D5W 900 MG/50 ML PIGGYBACK 100 MG IV (14:30)
--- NOTE | 2022-09-18 15:52 | SWNOTE1 ---
SW reviewed IMM form with pt, she voiced understanding, no questions/concerns. Pt signed form, original given to pt and copy placed in chart. SW did ask pt if she was happy at [facility], and she was. Plan is to return.
[2022-09-18] MEDS: ENSURE HP 237 ML LIQUID PO (21:15)
[2022-09-18] MEDS: ACETAMINOPHEN 325 MG TABLET 650 MG PO (21:19)
[2022-09-19] VITALS (7 sets, daily range): BP systolic 105–134; BP diastolic 70–82; PULSE 96–113; RESP 18–22; TEMP 36.1–36.7; O2SAT 88–99
[2022-09-19] MEDS: AZTREONAM 1 GM in 0.9 % SODIUM CHLORIDE 50 ML 100 MG IV ×4 (00:58→21:54)
[2022-09-19 04:46] LABS: Basophils Absolute Auto 0.1 10^3/uL (0.0-0.1); Basophils Percent Auto 0.4 % (0.2-2.0); Eosinophils Absolute Auto 0.1 10^3/uL (0.0-0.7); Eosinophils Percent Auto 0.6 % (0.9-7.0); Hematocrit 39.7 % (36.0-48.0); Hemoglobin 13.5 g/dL (12.0-16.0); Immature Granulocytes Abs Auto 0.22 10^3/uL (0.00-0.03); Immature Granulocytes Pct Auto 1.3 % (0.0-0.5); Lymphocytes Absolute Auto 1.5 10^3/uL (1.2-3.8); Lymphocytes Percent Auto 8.6 % (20.5-60.0); Mean Corpuscular Hemoglobin 29.7 pg (26.7-34.0); Mean Corpuscular Volume 87.3 fL (81.0-99.0); Mean Platelet Volume 8.6 fL (9.5-13.5); Monocytes Absolute Auto 1.1 10^3/uL (0.3-0.8); Monocytes Percent Auto 6.5 % (1.7-12.0); Neutrophils Percent Auto 82.6 % (43.0-75.0); Platelet Count 414 10^3/uL (150-450); Red Blood Count 4.55 10^6/uL (4.20-5.40); Red Cell Distribution Width 14.6 % (11.0-15.0); White Blood Count 16.9 10^3/uL (4.0-11.0)
[2022-09-19] MEDS: CLINDAMYCIN PHOSPHATE/D5W 900 MG/50 ML PIGGYBACK 100 MG IV (05:28)
[2022-09-19 07:23] LABS: Alanine Aminotransferase 39 U/L (14-59); Albumin Globulin Ratio 0.4; Albumin Level 1.7 g/dL (3.4-5.0); Alkaline Phosphatase 184 U/L (46-116); Anion Gap 12.9; Aspartate Amino Transferase 50 U/L (15-37); BUN Creatinine Ratio 39.5; Bilirubin Total 0.3 mg/dL (0.2-1.0); Calcium 8.2 mg/dL (8.5-10.1); Carbon Dioxide 31.2 mmol/L (21.0-32.0); Chloride 96 mmol/L (98-107); Estimated GFR (African America >60 (>=60); Estimated GFR (Non-African Ame >60 (>=60); Globulin 4.1 g/dL; Glucose 114 mg/dL (74-106); Potassium 3.1 mmol/L (3.5-5.1); Sodium 137 mmol/L (136-145); Total Protein 5.8 g/dL (6.4-8.2)
--- NOTE | 2022-09-19 09:36 | P.PN_ITS ---
Progress Note: Subjective Subjective Interval history: Sleep at this point will awaken easily, answers questions less inappropriate Exam Constitutional Vital Signs - 24 hr 09/18/22 15:53 09/18/22 19:34 09/18/22 21:46 Temperature 98.0 F 97.2 F L Pulse Rate 106 H 113 H Respiratory Rate 18 22 22 Blood Pressure [Left Arm] Blood Pressure [Right Arm] 117/78 120/79 H Pulse Oximetry 93 L 90 L Oxygen Delivery Method Nasal Cannula Simple Mask Oxygen Delivery Flow Rate 3 6 Fraction of Inspired Oxygen 09/18/22 21:40 09/18/22 22:00 09/19/22 06:00 Temperature 97.2 F L 97.9 F Pulse Rate 113 H 96 H Respiratory Rate 22 18 Blood Pressure [Left Arm] 125/74 H Blood Pressure [Right Arm] 120/79 H Pulse Oximetry 90 L 90 L 88 L Oxygen Delivery Method Simple Mask Simple Mask Nasal Cannula Oxygen Delivery Flow Rate 6 6 6 Fraction of Inspired Oxygen 91 09/19/22 06:00 Temperature 97.2 F L Pulse Rate 113 H Respiratory Rate 22 Blood Pressure [Left Arm] Blood Pressure [Right Arm] 120/79 H Pulse Oximetry 90 L Oxygen Delivery Method Simple Mask Oxygen Delivery Flow Rate 6 Fraction of Inspired Oxygen 91 Chest Common normals: inspection of chest normal Respiratory Common normals: normal respiratory effort (Overall lung sounds improved) Cardio Common normals: regular rate and regular rhythm GI Common normals: Normal to inspection, nondistended, normoactive bowel sounds present Progress Note: Objective Labs Labs: Short CBC 09/19/22 Range/Units 04:27 WBC 16.9 H (4.0-11.0) 10^3/uL Hgb 13.5 (12.0-16.0) g/dL Hct 39.7 (36.0-48.0) % Plt Count 414 (150-450) 10^3/uL BMP 09/19/22 04:27 Sodium 137 Potassium 3.1 L Chloride 96 L Carbon Dioxide 31.2 BUN 34.0 H Creatinine 0.86 Glucose 114 H Calcium 8.2 L Liver Function 09/19/22 Range/Units 04:27 Total Bilirubin 0.3 (0.2-1.0) mg/dL AST 50 H (15-37) U/L ALT 39 (14-59) U/L Alkaline Phosphatase 184 H (46-116) U/L Albumin 1.7 L (3.4-5.0) g/dL Progress Note: A&P Assessment and Plan (1) Urinary tract infection: (2) Hypoxemia: (3) Pleural effusion on left: (4) Leukocytosis: (5) CKD (chronic kidney disease), stage II: (6) Oxygen dependent: (7) Asthma: (8) Hypertension: (9) Cardiomegaly: Plan Acute hypoxia secondary to left pleural effusion With peripheral edema-patient with a history of COPD oxygen dependent at 2 L had a bump up to 6 L/months because she is breathing through her mouth when trying to sleep. Will check CT scan of chest today. CTA if iodine allergy not significant Leukocytosis, sinus tachycardia secondary to Acute UTI-urine culture pending.? infection resistant to current antibiotic treatment. We will adjust medications today. White blood cell count has been improving however Hypertension With cardiomegaly-continue with home medications Chronic kidney disease-monitor daily.? Medications may need adjusted based on creatinine function Dementia-continue current medications if continues to improve possible discharge back [facility] tomorrow Fall Risk Details Archuleta Fall Scale Risk Level: High Fall Risk Current Medications: Current Medications Acetaminophen (Acetaminophen 325 Mg Tablet) 650 mg PO Q6H PRN PRN Reason: Fever Last Admin: 09/18/22 21:19 Dose: 650 mg Docusate Sodium (Docusate Sodium 100 Mg Capsule) 200 mg PO QD PRN PRN Reason: Constipation Enteral Nutritional Formula (Ensure Hp 237 Ml Liquid) 237 ml PO BID [facility] Last Admin: 09/18/22 21:15 Dose: 237 ml Aztreonam 1 gm/ Sodium (Chloride) 50 mls @ 100 mls/hr IV Q8H [facility] Last Infusion: 09/19/22 06:56 Dose: Infused Potassium Chloride 40 meq/ (Sodium Chloride) 270 mls @ 67.5 mls/hr IV Q6H PRN PRN Reason: HYPOkalemia Last Infusion: 09/17/22 19:55 Dose: Infused Ceftriaxone Sodium 1,000 mg/ (Sodium Chloride) 50 mls @ 100 mls/hr IV Q24H [facility] Ketorolac Tromethamine (Ketorolac Tromethamine 30 Mg/Ml Vial) 15 mg IVP Q6H PRN PRN Reason: Pain Lactobacillus Acidophilus (L. Acidophilus/L.Bulgaricus 1 Packet Gran.Pack) 1 packet PO WM [facility] Last Admin: 09/18/22 19:48 Dose: Not Given Ondansetron HCl (Ondansetron Pf 4 Mg/2 Ml Vial) 4 mg IV Q6H PRN PRN Reason: Nausea And Vomiting Polyethylene Glycol (Polyethylene Glycol 3350 17 Gm Powder Packet) 17 gm PO QD PRN PRN Reason: Constipation Potassium Chloride (Potassium Chloride 10 Meq Er Tablet) 20 meq PO BID [facility] Last Admin: 09/18/22 21:15 Dose: 20 meq Senna (Sennosides 8.6 Mg Tablet) 8.6 mg PO QD PRN PRN Reason: Constipation Temazepam (Temazepam 15 Mg Capsule) 15 mg PO BEDTIME PRN PRN Reason: Sleep Time Spent With Patient Time: Total time spent is greater than 50% in coordination of care (as documented) at patient's floor/unit and/or counseling patient:
--- NOTE | 2022-09-19 09:40 | CT_ITS ---
[address] [address] Patient Name: WILLARD STOVER MRN: [id number] date: 1945 Sex: F Assigned Patient Location: Current Patient Location: Accession/Order Number: [id number] Exam Date: 09/19/2022 11:05 Report Date: 09/19/2022 11:32 At the request of: XANDER TURNER Procedure: CT chest wo con EXAM: CT chest wo con; [id number] REASON FOR EXAM: dyspnea TECHNIQUE: Helical CT images of the chest were obtained without contrast. Multiplanar reformats and maximum intensity projection images were generated at the scanner. Dose reduction technique used: Automated exposure control and/or adjustment of the mA and/or kV according to patient size and/or use of iterative reconstruction technique. COMPARISON: None FINDINGS: Note: Compared with contrasted CT exams, noncontrast images are less sensitive for the detection of various types of soft tissue, solid organ, and vascular pathologies. Chest: Support devices: Left-sided Port-A-Cath which terminates in the mid one third of the SVC. Visualized Thyroid: No nodules. Chest wall: Within normal limits. Martine/mediastinum/esophagus: -Small paraesophageal hernia containing less than 5% of the stomach. -Leftward mediastinal shift secondary to left lung volume loss. Thoracic lymph nodes: No enlarged supraclavicular, mediastinal, hilar or axillary lymph nodes. Heart and vasculature: -No pericardial effusion or aortic aneurysm. -Mild coronary artery calcifications. Visualized portions of the upper abdomen: Within normal limits. Musculoskeletal: No acute abnormality or suspicious osseous lesion. Lungs/airways: -Complete collapse of the left lower lobe with partial collapse of the left upper lobe. -Irregular moderate consolidation with groundglass opacification in the aerated portion of the left apex. -The right lung is clear. -Complete obstruction of the distal left mainstem bronchus. No definite external compressive lesion. There is a small amount of layering fluid in the partially obstructed portion of the left mainstem bronchus. Pleura: No pleural effusion or pneumothorax. IMPRESSION: 1. Complete collapse of the left lower lobe and partial collapse of the left upper lobe secondary to left mainstem bronchus obstruction. Consolidated lung surrounding the bronchus makes it difficult to differentiate lung tissue from potentially compressive or obstructive lesion. Differential for proximal obstruction includes mucus plugging, aspiration, endobronchial lesion, or radiographically occult external compressive lesion. 2. Irregular consolidation groundglass opacification the aerated portion of the left apex which could represent atelectasis versus pneumonia. 3. No significant pleural effusion. The right lung is within normal limits. Electronically authenticated by: KARINA PRICE Date: 09/19/2022 11:32
[2022-09-19] MEDS: FUROSEMIDE 40 MG TABLET PO (10:02)
[2022-09-19] MEDS: ENSURE HP 237 ML LIQUID PO ×2 (10:03→21:54)
[2022-09-19] MEDS: CEFTRIAXONE 1,000 MG in 0.9 % SODIUM CHLORIDE 50 ML 100 MG IV (10:07)
[2022-09-19] MEDS: POTASSIUM CHLORIDE 10 MEQ ER TABLET 20 MEQ PO ×3 (10:09→21:56)
--- NOTE | 2022-09-19 10:50 | CM.NOTE ---
Rounds made with Dr. Sampson. Plan to wean oxygen back to her chronic usage of 2L/NC at [facility].
--- NOTE | 2022-09-19 14:03 | PC.NURSE ---
Addendum entered by Wendy Herbert 09/19/22 14:05: added note for 1000 SpO2 Original Note: titrated to 4 LPM
--- NOTE | 2022-09-19 14:13 | P.PLCN_ITS ---
History of Present Illness History of Present Illness Requesting physician: Kwame Sampson Reason for consult: abnormal CXR/CT (Left lung atelectasis) Chief complaint: SHORT OF BREATH Narrative: 77yo female, whom I find to be a somewhat poor historian, presented to [facility] ER with dyspnea. She is very hard of hearing which also makes conversation difficult. She denied any history of respiratory illness or disease, including COPD or asthma (though she has an albuterol inhaler listed as an outpatient medication and I specifically asked her if she were on anything inhaled - inhalers, puffers, nebulizer, etc.). SpO2 88% on RA. Originally treated for asthma exacerbation and UTI. CXR was read as a pleural effusion. Patient's breathing was not improving, CT chest was done which showed complete collapse of the left lower lung and partial left upper lung collapse. No extrinsic source was noted on CT. Suspicion is for an endobronchial mass. She notes she is on Xarelto for some sort of bone cancer ... I asked if it were leukemia and she said yes. She states she wants to breathe better. I discussed a bronchoscopy with her along with risks. As I am very concerned about an endobronchial lesion, she would need to be off her Xarelto. She replied that she would get back to me. Review of Systems ROS Status of ROS 10 or more systems reviewed and unremarkable except as noted in history and below Respiratory Reports: shortness of breath, cough and chest congestion [facility] Medical History (Updated 09/19/22 @ 14:25 by Jewel Delgado DO) Social History Smoking status: Never smoker Gender Identity: female Meds Home Medications and Allergies Home Medications Medication Instructions Recorded Confirmed Type acetaminophen 500 mg capsule 500 mg PO Q8H PRN fever or pain 09/16/22 09/16/22 History albuterol sulfate 90 mcg/actuation 2 inh inhalation BID 09/16/22 09/16/22 History aerosol inhaler albuterol sulfate 90 mcg/actuation 2 puff inhalation Q4H PRN 09/16/22 09/16/22 History aerosol inhaler shortness of breath or wheezing aripiprazole 2 mg tablet 2 mg PO BEDTIME depression 09/16/22 09/16/22 History aripiprazole 5 mg tablet 5 mg PO BEDTIME depression 09/16/22 09/16/22 History aspirin 81 mg capsule 81 mg PO BEDTIME 09/16/22 09/16/22 History carvedilol 6.25 mg tablet 6.25 mg PO BID hypertension 09/16/22 09/16/22 History cetirizine 10 mg capsule (All Day 10 mg PO DAILY PRN allergy symptoms 09/16/22 09/16/22 History Allergy (cetirizine)) cetirizine 10 mg tablet (24Hour 10 mg PO DAILY allergies 09/16/22 09/16/22 History Allergy) cholecalciferol (vitamin D3) 125 125 mcg PO DAILY supplement 09/16/22 09/16/22 History mcg (5,000 unit) tablet (Vitamin D3) diclofenac sodium 1 % topical gel 4 g topical BID knee pain 09/16/22 09/16/22 History (Aspercreme Arthritis Pain) duloxetine 20 mg capsule,delayed 60 mg PO DAILY depression 09/16/22 09/16/22 History release famotidine 20 mg tablet 20 mg PO DAILY GERD 09/16/22 09/16/22 History ferrous sulfate 325 mg (65 mg 325 mg PO BID 09/16/22 09/16/22 History iron) tablet gabapentin 100 mg capsule 100 mg PO DAILY neuropathy 09/16/22 09/16/22 History guaifenesin 100 mg/5 mL oral 100 mg PO BID 09/16/22 09/16/22 History liquid (Adult Tussin Chest Congestion) guaifenesin 100 mg/5 mL oral 100 mg PO Q4H PRN cough 09/16/22 09/16/22 History liquid (Adult Tussin Chest Congestion) hydrocortisone 1 % topical cream 1 applic topical DAILY PRN itching 09/16/22 09/16/22 History (Ala-José Antonio) hydroxyzine pamoate 25 mg capsule 25 mg PO TID anxiety 09/16/22 09/16/22 History levothyroxine 100 mcg tablet 100 mcg PO DAILY 09/16/22 09/16/22 History levothyroxine 50 mcg tablet 50 mcg PO DAILY 09/16/22 09/16/22 History menthol 4 % topical gel (Pain 1 applic topical Q8H PRN pain 09/16/22 09/16/22 History Relief (menthol)) mirabegron 50 mg tablet,extended 50 mg PO Q24H 09/16/22 09/16/22 History release 24 hr (Myrbetriq) montelukast 10 mg tablet 10 mg PO DAILY COVID 09/16/22 09/16/22 History nystatin 100,000 unit/gram topical 1 applic topical BID PRN 09/16/22 09/16/22 History cream excoriation nystatin 100,000 unit/gram topical 1 applic topical BID excoriation 09/16/22 09/16/22 History powder oxygen 2 l continuous inhalation CONT 09/16/22 09/16/22 History polyethylene glycol 3350 17 17 g PO BID constipation 09/16/22 09/16/22 History gram/dose oral powder (ClearLax) rivaroxaban 10 mg tablet (Xarelto) 10 mg PO Q24H anticoagulant 09/16/22 09/16/22 History tramadol 50 mg tablet 50 mg PO Q6H PRN pain 09/16/22 09/16/22 History Allergies Allergy/AdvReac Type Severity Reaction Status Date / Time iodine Allergy Unknown Verified 09/16/22 09:26 Penicillins Allergy Unknown Verified 09/16/22 09:26 Sulfa (Sulfonamide Allergy Unknown Verified 09/16/22 09:26 Antibiotics) Exam Constitutional Vital Signs - 24 hr 09/18/22 15:53 09/18/22 19:34 09/18/22 21:46 Temperature 98.0 F 97.2 F L Pulse Rate 106 H 113 H Respiratory Rate 18 22 22 Blood Pressure [Left Arm] Blood Pressure [Right Arm] 117/78 120/79 H Pulse Oximetry 93 L 90 L Oxygen Delivery Method Nasal Cannula Simple Mask Oxygen Delivery Flow Rate 3 6 Fraction of Inspired Oxygen 09/18/22 21:40 09/18/22 22:00 09/19/22 06:00 Temperature 97.2 F L 97.9 F Pulse Rate 113 H 96 H Respiratory Rate 22 18 Blood Pressure [Left Arm] 125/74 H Blood Pressure [Right Arm] 120/79 H Pulse Oximetry 90 L 90 L 88 L Oxygen Delivery Method Simple Mask Simple Mask Nasal Cannula Oxygen Delivery Flow Rate 6 6 6 Fraction of Inspired Oxygen 91 09/19/22 06:00 09/19/22 10:34 09/19/22 13:36 Temperature 97.2 F L 97.6 F Pulse Rate 113 H 99 H Respiratory Rate 22 18 Blood Pressure [Left Arm] Blood Pressure [Right Arm] 120/79 H 107/70 Pulse Oximetry 90 L 92 L Oxygen Delivery Method Simple Mask Nasal Cannula Nasal Cannula Oxygen Delivery Flow Rate 6 4 Fraction of Inspired Oxygen 91 92 09/19/22 10:00 Temperature Pulse Rate Respiratory Rate Blood Pressure [Left Arm] Blood Pressure [Right Arm] Pulse Oximetry 97 Oxygen Delivery Method Nasal Cannula Oxygen Delivery Flow Rate 6 Fraction of Inspired Oxygen Other: Sitting up in bed, coughed in my face without making an effort to raise her arm to cover her mouth...thankfully I was wearing a mask. [facility] Other: Mallampati III, poor dentition Eye Common normals: PERRL Neck & C-Spine General: trachea midline Respiratory Other: Absent breath sounds on left. Right side has rhonchi. Cardio Rate: regular rate Rhythm: regular rhythm GI Common normals: soft to palpation and non-tender Extremity Common normals: no clubbing, cyanosis or edema Neuro Cranial nerves: no CN VIII (vestibulocochlear) (Very hard of hearing!) Psych Attitude: calm Results Laboratory Findings Abnormal lab findings: Abnormal Labs 09/15/22 09/16/22 09/16/22 23:15 01:05 10:25 WBC 23.6 H 24.1 H MPV 8.5 L 8.7 L Neut % (Auto) 88.8 H Lymph % (Auto) 4.9 L Eos % (Auto) 0.1 L Neut # (Auto) 21.5 H [place] # (Auto) 1.1 H Abs Immat Gran (auto) Lymphocytes % (Manual) 5.0 L Eosinophils % (Manual) 0.0 L Basophils % (Manual) 0.0 L Imm/Tot Granulo (auto) Neutrophils # (Manual) 21.00 H Lymphocytes # (Manual) 1.18 L Monocytes # (Manual) 1.41 H Sodium Potassium Chloride BUN 22.0 H 26.0 H Creatinine Est GFR (Non-Af Amer) Glucose 148 H 128 H Calcium AST Alkaline Phosphatase Total Protein 6.0 L Albumin 1.9 L Urine Protein >=300 A Urine Glucose (UA) 100 A Urine Ketones 15 A Urine Occult Blood Large A Urine Bilirubin Moderate A Urine Urobilinogen 4.0 A Ur Leukocyte Esterase Moderate A Urine RBC 10-20 A Urine WBC 75-100 A 09/17/22 09/17/22 09/18/22 09:34 18:04 04:57 WBC 31.6 H* 23.3 H MPV 8.8 L 8.9 L Neut % (Auto) 88.6 H 88.1 H Lymph % (Auto) 4.5 L 5.0 L Eos % (Auto) 0.0 L 0.2 L Neut # (Auto) 27.9 H 20.5 H [place] # (Auto) 1.6 H 1.1 H Abs Immat Gran (auto) Lymphocytes % (Manual) Eosinophils % (Manual) Basophils % (Manual) Imm/Tot Granulo (auto) Neutrophils # (Manual) Lymphocytes # (Manual) Monocytes # (Manual) Sodium 134 L 132 L Potassium 2.9 L* 3.4 L 3.1 L Chloride 96 L 95 L 96 L BUN 31.0 H 34.0 H 36.0 H Creatinine 1.05 H Est GFR (Non-Af Amer) 51 L 55 L Glucose 125 H Calcium 8.4 L 7.9 L AST 14 L Alkaline Phosphatase Total Protein 5.4 L Albumin 1.9 L 1.6 L Urine Protein Urine Glucose (UA) Urine Ketones Urine Occult Blood Urine Bilirubin Urine Urobilinogen Ur Leukocyte Esterase Urine RBC Urine WBC 09/19/22 04:27 WBC 16.9 H MPV 8.6 L Neut % (Auto) 82.6 H Lymph % (Auto) 8.6 L Eos % (Auto) 0.6 L Neut # (Auto) 14.0 H [place] # (Auto) 1.1 H Abs Immat Gran (auto) 0.22 H Lymphocytes % (Manual) Eosinophils % (Manual) Basophils % (Manual) Imm/Tot Granulo (auto) 1.3 H Neutrophils # (Manual) Lymphocytes # (Manual) Monocytes # (Manual) Sodium Potassium 3.1 L Chloride 96 L BUN 34.0 H Creatinine Est GFR (Non-Af Amer) Glucose 114 H Calcium 8.2 L AST 50 H Alkaline Phosphatase 184 H Total Protein 5.8 L Albumin 1.7 L Urine Protein Urine Glucose (UA) Urine Ketones Urine Occult Blood Urine Bilirubin Urine Urobilinogen Ur Leukocyte Esterase Urine RBC Urine WBC Diagnostic Findings CT scan - chest: image reviewed (left bronchial obstruction) Assessment and Plan Assessment and Plan (1) Atelectasis of left lung: Assessment and Plan: 1. Left lung atelectasis (entire LLL, partial SHANTI). This mimicked a pleural effusion on CXR (which no significant fluid is present). Working diagnosis is endobronchial obstruction, either neoplasm or mucus plug. A bronchoscopy is indicated to evaluate the area, and if an endobronchial lesion is present, it will need biopsied. Discussed risks of bronchoscopy including pain, infection, bleeding (on Xarelto, would need to be held), pneumothorax (increased risk in this case with near entire left lung collapse, all air would go into right lung), ventilator support, and . I explained to patient that I do not believe medications would work in this instance given the degree of the atelectasis. The patient stated I'll get back to you. I explained she can, but in order to get the procedure done tomorrow, Xarelto would need to be held and OR contacted to schedule time. She does not have anyone locally to assist her (only a brother in [place]). As she did not provide consent, will attempt to promote a good pulmonary toilet with postural drainage, IPV, PEP, nebs, etc. 2. Acute hypoxic respiratory failure. 88% on RA on presentation, exacerbated by #1. 3. Unspecified cancer. Follows with oncology, but I am not clear exactly which group. Obtaining records from them would be very helpful. Xarelto would need to be held 24 hours prior to procedure. 4. Hard of hearing. Makes communication very difficult. I had the patient repeat back to me what I said to verify at least she retained short-term memory of the conversation. Plan Acute hypoxia secondary to left pleural effusion With peripheral edema-patient with a history of COPD oxygen dependent at 2 L but on nonrebreather currently. Try to wean that today. Bumex drip for diuresis. Leukocytosis, sinus tachycardia secondary to Acute UTI-urine culture pending. On IV antibiotics. Hypertension With cardiomegaly-continue with home medications Dementia-continue current medications We will change patient to inpatient status. Based on medical treatment requiring over 2 midnights. Patient unable to be discharged initially. Continues to be hypoxic and is on a nonrebreather. Possible discharge in a.m. if diuresis effective.
[2022-09-19] MEDS: 0.9 % SODIUM CHLORIDE 250 ML 30 ML IV (14:43)
--- NOTE | 2022-09-19 15:20 | SWNOTE1 ---
Updates sent to [facility].
[2022-09-19] MEDS: L. ACIDOPHILUS/L.BULGARICUS 1 PACKET GRAN.PACK PO (17:48)
[2022-09-19] MEDS: SODIUM CHLORIDE 0.9% INHALATION 3 ML NEB 9 ML IH (20:33)
--- NOTE | 2022-09-19 21:54 | RESP.RT ---
patient decreased to 2L at this time: Spo2 taken with ear probe.
[2022-09-20 04:12] VITALS: O2SAT 91
[2022-09-20 04:21] VITALS: BP 130/79; PULSE 96; TEMP 36.6
[2022-09-20 05:25] LABS: Basophils Absolute Auto 0.1 10^3/uL (0.0-0.1); Basophils Percent Auto 0.5 % (0.2-2.0); Eosinophils Absolute Auto 0.2 10^3/uL (0.0-0.7); Eosinophils Percent Auto 0.9 % (0.9-7.0); Hematocrit 38.9 % (36.0-48.0); Hemoglobin 13.2 g/dL (12.0-16.0); Immature Granulocytes Pct Auto 1.2 % (0.0-0.5); Lymphocytes Absolute Auto 1.5 10^3/uL (1.2-3.8); Lymphocytes Percent Auto 8.8 % (20.5-60.0); Mean Corpuscular HGB Conc 33.9 g/dL (29.9-35.2); Mean Corpuscular Hemoglobin 29.9 pg (26.7-34.0); Mean Platelet Volume 8.5 fL (9.5-13.5); Monocytes Percent Auto 6.1 % (1.7-12.0); Neutrophils Absolute Auto 13.6 10^3/uL (1.4-6.5); Neutrophils Percent Auto 82.5 % (43.0-75.0); Platelet Count 438 10^3/uL (150-450); Red Blood Count 4.42 10^6/uL (4.20-5.40); Red Cell Distribution Width 14.8 % (11.0-15.0); White Blood Count 16.5 10^3/uL (4.0-11.0)
[2022-09-20 05:50] LABS: Alanine Aminotransferase 37 U/L (14-59); Albumin Globulin Ratio 0.4; Albumin Level 1.7 g/dL (3.4-5.0); Alkaline Phosphatase 181 U/L (46-116); Anion Gap 9.2; Aspartate Amino Transferase 36 U/L (15-37); BUN Creatinine Ratio 50.8; Bilirubin Total 0.3 mg/dL (0.2-1.0); Calcium 8.6 mg/dL (8.5-10.1); Carbon Dioxide 30.5 mmol/L (21.0-32.0); Chloride 100 mmol/L (98-107); Estimated GFR (African America >60 (>=60); Estimated GFR (Non-African Ame >60 (>=60); Globulin 3.9 g/dL; Glucose 103 mg/dL (74-106); Potassium 3.7 mmol/L (3.5-5.1); Sodium 136 mmol/L (136-145); Total Protein 5.6 g/dL (6.4-8.2)
[2022-09-20] MEDS: AZTREONAM 1 GM in 0.9 % SODIUM CHLORIDE 50 ML 50 MG IV (06:00)
[2022-09-20] MEDS: POTASSIUM CHLORIDE 10 MEQ ER TABLET 20 MEQ PO (06:01)
--- NOTE | 2022-09-20 08:10 | PM.PLPN ---
Progress Note: A&P Assessment and Plan (1) Atelectasis of left lung: Assessment and Plan: 1. Left lung atelectasis (entire LLL, partial SHANTI).? No improvement in breath sounds despite pulmonary toilet treatment. Differential remains endobronchial lesion vs. mucus plug. Bronchoscopy indicated but patient has refused. It is fine if she does not want the procedure, but I am unsure if she understands the risks involved if she does not proceed. I am still concerned about patient's ability to make informed medical decisions for herself. No procedure planned at this point. If she were to agree, would need to be off Xarelto at least 24 hours. 2. Acute hypoxic respiratory failure.? Improved. 3. Unspecified cancer.? Follows with oncology, unclear what exactly she has. 4. Hard of hearing.? Impacts communication. Fall Risk Details Archuleta Fall Scale Risk Level: High Fall Risk Current Medications: Current Medications Acetaminophen (Acetaminophen 325 Mg Tablet) 650 mg PO Q6H PRN PRN Reason: Fever Last Admin: 09/18/22 21:19 Dose: 650 mg Docusate Sodium (Docusate Sodium 100 Mg Capsule) 200 mg PO QD PRN PRN Reason: Constipation Enteral Nutritional Formula (Ensure Hp 237 Ml Liquid) 237 ml PO BID [facility] Last Admin: 09/19/22 21:54 Dose: 237 ml Furosemide (Furosemide 40 Mg Tablet) 40 mg PO QD [facility] Last Admin: 09/19/22 10:02 Dose: 40 mg Aztreonam 1 gm/ Sodium (Chloride) 50 mls @ 100 mls/hr IV Q8H [facility] Last Infusion: 09/20/22 07:07 Dose: Infused Potassium Chloride 40 meq/ (Sodium Chloride) 270 mls @ 67.5 mls/hr IV Q6H PRN PRN Reason: HYPOkalemia Last Infusion: 09/17/22 19:55 Dose: Infused Ceftriaxone Sodium 1,000 mg/ (Sodium Chloride) 50 mls @ 100 mls/hr IV Q24H [facility] Last Infusion: 09/19/22 11:17 Dose: Infused Ketorolac Tromethamine (Ketorolac Tromethamine 30 Mg/Ml Vial) 15 mg IVP Q6H PRN PRN Reason: Pain Lactobacillus Acidophilus (L. Acidophilus/L.Bulgaricus 1 Packet Gran.Pack) 1 packet PO WM [facility] Last Admin: 09/19/22 17:48 Dose: 1 packet Ondansetron HCl (Ondansetron Pf 4 Mg/2 Ml Vial) 4 mg IV Q6H PRN PRN Reason: Nausea And Vomiting Polyethylene Glycol (Polyethylene Glycol 3350 17 Gm Powder Packet) 17 gm PO QD PRN PRN Reason: Constipation Potassium Chloride (Potassium Chloride 10 Meq Er Tablet) 20 meq PO TID [facility] Last Admin: 09/20/22 06:01 Dose: 20 meq Senna (Sennosides 8.6 Mg Tablet) 8.6 mg PO QD PRN PRN Reason: Constipation Sodium Chloride (Sodium Chloride 0.9% Inhalation 3 Ml Neb) 9 ml IH TID@0900,1500,2100 [facility] Last Admin: 09/19/22 20:33 Dose: 9 ml Temazepam (Temazepam 15 Mg Capsule) 15 mg PO BEDTIME PRN PRN Reason: Sleep Subjective Subjective Interval history: Patient has rhonchorous cough. She states she is breathing a little better today. Continues to have absent breath sounds on the right. Had discussion with RN. Patient yesterday stated to her that she did not want to go through with the bronchoscopy. The patient once again states today that she is not interested in it. I replied that I am okay with her decision if she understands the risks of not investigating it, and if it were a cancer that were untreated, it could ultimately be fatal. I asked her to voice to me understanding, but she did not. A contact worker in the patient's chart was called yesterday, and claimed they knew nothing about this patient. They are attempting to call [facility] to get any more information. Exam Constitutional Vital Signs - 24 hr 09/19/22 10:34 09/19/22 13:36 09/19/22 10:00 Temperature 97.6 F Pulse Rate 99 H Respiratory Rate 18 Blood Pressure [Left Arm] Blood Pressure [Right Arm] 107/70 Pulse Oximetry 92 L 97 Oxygen Delivery Method Nasal Cannula Nasal Cannula Nasal Cannula Oxygen Delivery Flow Rate 4 6 Fraction of Inspired Oxygen 92 09/19/22 14:56 09/19/22 16:51 09/19/22 20:18 Temperature 97.0 F L 98.1 F Pulse Rate 105 H Respiratory Rate 18 18 Blood Pressure [Left Arm] 134/82 H 105/70 Blood Pressure [Right Arm] Pulse Oximetry 92 L 99 Oxygen Delivery Method Nasal Cannula Nasal Cannula Nasal Cannula Oxygen Delivery Flow Rate 4 4 3 Fraction of Inspired Oxygen 09/19/22 21:49 09/19/22 21:49 09/20/22 04:21 Temperature 97.8 F Pulse Rate 106 H 96 H Respiratory Rate 20 Blood Pressure [Left Arm] 130/79 H Blood Pressure [Right Arm] Pulse Oximetry 97 97 Oxygen Delivery Method Nasal Cannula Nasal Cannula Nasal Cannula Oxygen Delivery Flow Rate 3 3 2 Fraction of Inspired Oxygen 09/20/22 04:12 Temperature Pulse Rate Respiratory Rate Blood Pressure [Left Arm] Blood Pressure [Right Arm] Pulse Oximetry 91 L Oxygen Delivery Method Nasal Cannula Oxygen Delivery Flow Rate 2 Fraction of Inspired Oxygen Other: Laying in bed, once again coughing without making an effort to cover her mouth... HENMT Other: Wearing nasal cannula Eye Common normals: PERRL Chest Chest: abnormal inspection of the chest (Decreased rise on left side) Respiratory Common normals: normal respiratory effort Auscultation: crackles Laterality: right and anterior and breath sounds absent on th left Cardio Rate: regular rate Rhythm: regular rhythm Neuro Sensorium/orientation: awake Psych Thought process: confused (?) Urinary Catheter Management Urinary Catheter Management Straight: Cath placed during this visit: yes Urethral indwelling: No Insertion date: 09/16/22 Insertion time: 00:10
[2022-09-20] MEDS: SODIUM CHLORIDE 0.9% INHALATION 3 ML NEB 9 ML IH (08:57)
[2022-09-20 09:00] VITALS: O2SAT 88; O2SAT 95
--- NOTE | 2022-09-20 09:00 | P.DS_ITS ---
DS: Providers Provider Date of admission: 09/16/22 05:40 Primary care physician: Non-Staff Physician, Consults: 09/16/22 Consult to [employer]er Routine 09/19/22 12:50 Consult to Pulmonology Routine Consulting Provider: Jewel Delgado DS: Diagnosis Discharge Diagnosis (1) Atelectasis of left lung: Plan Acute hypoxia secondary to left pleural effusion With peripheral edema-patient with a history of COPD oxygen dependent at 2 L had a bump up to 6 L/months because she is breathing through her mouth when trying to sleep.? Will check CT scan of chest today.? CTA if iodine allergy not significant Leukocytosis, sinus tachycardia secondary to Acute UTI-urine culture pending.?? infection resistant to current antibiotic treatment.? We will adjust medications today.? White blood cell count has been improving however Hypertension With cardiomegaly-continue with home medications Chronic kidney disease-monitor daily.? Medications may need adjusted based on creatinine function Dementia-continue current medications ?if continues to improve possible discharge back [facility] tomorrow DS: Summary Hospital Course Hospital Course: Patient was admitted through the emergency room with acute hypoxic respiratory failure secondary to left pleural effusion as well as acute UTI complicating the above. She grew 2 organisms Proteus and Klebsiella. Unfortunate the 1 was resistant to Cipro which is the antibiotic she was placed on on admission. Antibiotics were changed in the last 24 hours. She has improved to her baseline oxygen supplementation needed at 2 L. To consult to pulmonology as CTA of her chest showed mucous plugging. To see if there is any benefit for bronchoscopy. Patient denied wanting to have that procedure done. Did not pursue it further. As patient was improved. Presently she is back to her stable O2 supplementation of 2 L should be discharged back to her assisted facility the cefdinir will cover the 2 infections. Can follow-up with pulmonology if the family wants to at a later date. Medications see list. Follow-up with PCP at nursing room Time Spent with Patient Time attestation: Total time spent providing and/or coordinating discharge services: Exam Constitutional Vital Signs - 24 hr 09/19/22 10:34 09/19/22 13:36 09/19/22 10:00 Temperature 97.6 F Pulse Rate 99 H Respiratory Rate 18 Blood Pressure [Left Arm] Blood Pressure [Right Arm] 107/70 Pulse Oximetry 92 L 97 Oxygen Delivery Method Nasal Cannula Nasal Cannula Nasal Cannula Oxygen Delivery Flow Rate 4 6 Fraction of Inspired Oxygen 92 09/19/22 14:56 09/19/22 16:51 09/19/22 20:18 Temperature 97.0 F L 98.1 F Pulse Rate 105 H Respiratory Rate 18 18 Blood Pressure [Left Arm] 134/82 H 105/70 Blood Pressure [Right Arm] Pulse Oximetry 92 L 99 Oxygen Delivery Method Nasal Cannula Nasal Cannula Nasal Cannula Oxygen Delivery Flow Rate 4 4 3 Fraction of Inspired Oxygen 09/19/22 21:49 09/19/22 21:49 09/20/22 04:21 Temperature 97.8 F Pulse Rate 106 H 96 H Respiratory Rate 20 Blood Pressure [Left Arm] 130/79 H Blood Pressure [Right Arm] Pulse Oximetry 97 97 Oxygen Delivery Method Nasal Cannula Nasal Cannula Nasal Cannula Oxygen Delivery Flow Rate 3 3 2 Fraction of Inspired Oxygen 09/20/22 04:12 Temperature Pulse Rate Respiratory Rate Blood Pressure [Left Arm] Blood Pressure [Right Arm] Pulse Oximetry 91 L Oxygen Delivery Method Nasal Cannula Oxygen Delivery Flow Rate 2 Fraction of Inspired Oxygen Chest Common normals: inspection of chest normal (Diminished breath sounds left worse than right.) Cardio Common normals: no JVD, regular rate, regular rhythm and S1 normal heart sound Neuro Common normals: no focal motor deficits; not oriented x3 (Does know who she is where she is, uncertain of date,) DS: Data Data Completed and Pending Labs on day of discharge: Labs from last 24 hours 09/20/22 05:11 WBC 16.5 H RBC 4.42 Hgb 13.2 Hct 38.9 MCV 88.0 MCH 29.9 MCHC 33.9 RDW 14.8 Plt Count 438 MPV 8.5 L Neut % (Auto) 82.5 H Lymph % (Auto) 8.8 L [place] % (Auto) 6.1 Eos % (Auto) 0.9 Baso % (Auto) 0.5 Neut # (Auto) 13.6 H Lymph # (Auto) 1.5 [place] # (Auto) 1.0 H Eos # (Auto) 0.2 Baso # (Auto) 0.1 Abs Immat Gran (auto) 0.20 H Imm/Tot Granulo (auto) 1.2 H Sodium 136 Potassium 3.7 Chloride 100 Carbon Dioxide 30.5 Anion Gap 9.2 BUN 32.0 H Creatinine 0.63 Est GFR ( Amer) >60 Est GFR (Non-Af Amer) >60 BUN/Creatinine Ratio 50.8 Glucose 103 Calcium 8.6 Total Bilirubin 0.3 AST 36 ALT 37 Alkaline Phosphatase 181 H NT-Pro-B Natriuret Pep 245.0 Total Protein 5.6 L Albumin 1.7 L Globulin 3.9 Albumin/Globulin Ratio 0.4 Discharge Plan Discharge Disposition: Xfer SNF Discharge Medications: New furosemide 40 mg Tablet 40 mg PO QD Qty: 30 11RF cefdinir 300 mg capsule 600 mg PO DAILY 10 Days Qty: 20 0RF Continued carvedilol 6.25 mg tablet 6.25 mg PO BID levothyroxine 100 mcg tablet 100 mcg PO DAILY Rx Instructions: Sunday and Fridays famotidine 20 mg tablet 20 mg PO DAILY levothyroxine 50 mcg tablet 50 mcg PO DAILY Rx Instructions: sunday, , sunday and sunday montelukast 10 mg tablet 10 mg PO DAILY Rx Instructions: for 2 weeks Stop on 09/21/22 gabapentin 100 mg capsule 100 mg PO DAILY albuterol sulfate 90 mcg/actuation HFA aerosol inhaler 2 puff INHALATION Q4H PRN (Reason: shortness of breath or wheezing) Patient Comments: give with spacer acetaminophen 500 mg capsule 500 mg PO Q8H PRN (Reason: fever or pain) hydroxyzine pamoate 25 mg capsule 25 mg PO TID aripiprazole 5 mg tablet 5 mg PO BEDTIME Rx Instructions: on sunday duloxetine 20 mg capsule,delayed release(DR/EC) 60 mg PO DAILY aripiprazole 2 mg tablet 2 mg PO BEDTIME Rx Instructions: Sunday, sunday, , sunday, sunday, sunday Xarelto 10 mg tablet 10 mg PO Q24H Myrbetriq 50 mg tablet extended release 24 hr 50 mg PO Q24H Rx Instructions: urinary spasms aspirin 81 mg capsule 81 mg PO BEDTIME All Day Allergy (cetirizine) 10 mg capsule 10 mg PO DAILY PRN (Reason: allergy symptoms) ferrous sulfate 325 mg (65 mg iron) tablet 325 mg PO BID nystatin 100,000 unit/gram powder 1 applic TOPICAL BID Patient Comments: to groin Pain Relief (menthol) 4 % gel 1 applic topical Q8H PRN (Reason: pain) Rx Instructions: ribs albuterol sulfate 90 mcg/actuation HFA aerosol inhaler 2 inh inhalation BID Rx Instructions: Stop on 09/20/22 cetirizine [24Hour Allergy] 10 mg tablet 10 mg PO DAILY diclofenac sodium [Aspercreme Arthritis Pain] 1 % gel 4 g topical BID Patient Comments: evening and HS Rx Instructions: apply to single knee, ankle, foot; for foot includes sole/toes/top of foot guaifenesin [Adult Tussin Chest Congestion] 100 mg/5 mL liquid 100 mg PO Q4H PRN (Reason: cough) Rx Instructions: stop 09/25/22 guaifenesin [Adult Tussin Chest Congestion] 100 mg/5 mL liquid 100 mg PO BID Rx Instructions: for 2 weeks stop on 09/25/22 hydrocortisone [Ala-José Antonio] 1 % cream 1 applic topical DAILY PRN (Reason: itching) polyethylene glycol 3350 [ClearLax] 17 gram/dose powder 17 g PO BID nystatin 100,000 unit/gram cream 1 applic topical BID PRN (Reason: excoriation) Rx Instructions: under breast tramadol 50 mg tablet 50 mg PO Q6H PRN (Reason: pain) cholecalciferol (vitamin D3) [Vitamin D3] 125 mcg (5,000 unit) tablet 125 mcg PO DAILY oxygen 2 l continuous inhalation CONT Admissions Counselor/Wet [employer] [place] Instructions: Patient will be returning to [facility] manager intermediate. Forms: Portal Instructions Discharge Date/Time: 09/20/22 13:16
--- NOTE | 2022-09-20 09:06 | RESP.RT ---
Decreased O2 to 1 lpm pt desated to 88% so increased O2 back to 2 lpm
[2022-09-20 09:13] VITALS: O2SAT 95
[2022-09-20] MEDS: FUROSEMIDE 40 MG TABLET PO (09:30)
[2022-09-20] MEDS: L. ACIDOPHILUS/L.BULGARICUS 1 PACKET GRAN.PACK PO (09:30)
[2022-09-20] MEDS: ENSURE HP 237 ML LIQUID PO (09:30)
--- NOTE | 2022-09-20 09:50 | CM.NOTE ---
Rounds made with Dr. Sampson. Plan for discharge is today returning to [facility].
--- NOTE | 2022-09-20 10:10 | SWNOTE1 ---
Pt will be dc back to [facility] fpc, SW to work on transport.
--- NOTE | 2022-09-20 11:27 | SWNOTE1 ---
Patient is returning to [facility] termination clerk. SW spoke with nursing and pt does need stretcher for transport. SW called [facility] and set up transport for 12:30pm. SW notified nursing, [facility], and attempted family listed in chart of time of dc. JENNIFER sent over dc orders and updated packet.
--- NOTE | 2022-09-20 11:38 | SWNOTE1 ---
JENNIFER notified yusef Lopez in pt's chart of dc time.
== END 2022-09-20 13:16 | DRG 689 ==
LOC: ER 09-16 02:53 → MS 09-16 05:58
PROVIDERS: Admitting Provider Family Medicine; Emergency Provider Internal Medicine; Visit Provider Family Medicine
DX: N39.0 Urinary tract infection, site not specified (principal); J96.01 Acute respiratory failure with hypoxia; J90 Pleural effusion, not elsewhere classified; J98.11 Atelectasis; Z16.23 Resistance to quinolones and fluoroquinolones; D72.829 Elevated white blood cell count, unspecified; N18.2 Chronic kidney disease, stage 2 (mild); Z99.81 Dependence on supplemental oxygen; F03.90 Unspecified dementia, unspecified severity, without behavioral disturbance, psychotic disturbance, mood disturbance, and anxiety; J44.9 Chronic obstructive pulmonary disease, unspecified; I13.10 Hypertensive heart and chronic kidney disease without heart failure, with stage 1 through stage 4 chronic kidney disease, or unspecified chronic kidney disease; Z53.20 Procedure and treatment not carried out because of patient's decision for unspecified reasons; B96.4 Proteus (mirabilis) (morganii) as the cause of diseases classified elsewhere; B96.1 Klebsiella pneumoniae [K. pneumoniae] as the cause of diseases classified elsewhere; J98.09 Other diseases of bronchus, not elsewhere classified; H91.90 Unspecified hearing loss, unspecified ear; C80.1 Malignant (primary) neoplasm, unspecified; Z66 Do not resuscitate; Z51.5 Encounter for palliative care; Z79.01 Long term (current) use of anticoagulants; Z79.1 Long term (current) use of non-steroidal anti-inflammatories (NSAID); Z79.82 Long term (current) use of aspirin; Z79.899 Other long term (current) drug therapy; Z88.0 Allergy status to penicillin; Z88.2 Allergy status to sulfonamides; Z91.041 Radiographic dye allergy status
CPT/HCPCS: 36415; 71045; 71250; 80048; 80053; 81001; 83605; 83735; 83880; 84484; 85007; 85025; 87086; 87150; 87186; 93005; 93308; 94640; 94667; 94668; 94761; 96365; 96366; 96367; 96368; 96375; 96376; 99285; J3480

== ENCOUNTER 2022-09-22 01:01 | Outpatient (REF) | payer MEDICARE, MEDICAID, SELFPAY ==
[2022-09-22 08:41] LABS: Basophils Absolute Auto 0.1 10^3/uL (0.0-0.1); Basophils Percent Auto 0.6 % (0.2-2.0); Eosinophils Absolute Auto 0.4 10^3/uL (0.0-0.7); Eosinophils Percent Auto 4.1 % (0.9-7.0); Hematocrit 38.8 % (36.0-48.0); Hemoglobin 12.8 g/dL (12.0-16.0); Immature Granulocytes Abs Auto 0.18 10^3/uL (0.00-0.03); Immature Granulocytes Pct Auto 1.9 % (0.0-0.5); Lymphocytes Absolute Auto 1.5 10^3/uL (1.2-3.8); Mean Corpuscular Hemoglobin 29.6 pg (26.7-34.0); Mean Corpuscular Volume 89.6 fL (81.0-99.0); Mean Platelet Volume 9.2 fL (9.5-13.5); Monocytes Absolute Auto 0.7 10^3/uL (0.3-0.8); Monocytes Percent Auto 7.1 % (1.7-12.0); Neutrophils Absolute Auto 6.6 10^3/uL (1.4-6.5); Neutrophils Percent Auto 70.3 % (43.0-75.0); Platelet Count 394 10^3/uL (150-450); Red Blood Count 4.33 10^6/uL (4.20-5.40); Red Cell Distribution Width 15.1 % (11.0-15.0); White Blood Count 9.5 10^3/uL (4.0-11.0)
[2022-09-22 10:05] LABS: Estimated GFR (African America >60 (>=60); Estimated GFR (Non-African Ame >60 (>=60); Glucose 81 mg/dL (74-106)
== END 2022-09-22 01:02 ==
LOC: LAB 01:01
DX: J90 Pleural effusion, not elsewhere classified (principal); E11.9 Type 2 diabetes mellitus without complications; S72.002D Fracture of unspecified part of neck of left femur, subsequent encounter for closed fracture with routine healing; D45 Polycythemia vera; I25.10 Atherosclerotic heart disease of native coronary artery without angina pectoris; M19.90 Unspecified osteoarthritis, unspecified site; F33.9 Major depressive disorder, recurrent, unspecified; E03.9 Hypothyroidism, unspecified; R13.12 Dysphagia, oropharyngeal phase; I10 Essential (primary) hypertension; E78.2 Mixed hyperlipidemia; H25.13 Age-related nuclear cataract, bilateral; M81.0 Age-related osteoporosis without current pathological fracture; K21.9 Gastro-esophageal reflux disease without esophagitis; R91.1 Solitary pulmonary nodule; J30.2 Other seasonal allergic rhinitis; D64.9 Anemia, unspecified; E55.9 Vitamin D deficiency, unspecified; F41.9 Anxiety disorder, unspecified; M25.552 Pain in left hip; M62.81 Muscle weakness (generalized); R26.9 Unspecified abnormalities of gait and mobility; R41.841 Cognitive communication deficit; R63.4 Abnormal weight loss; R94.31 Abnormal electrocardiogram [ECG] [EKG]; R94.39 Abnormal result of other cardiovascular function study; Z73.6 Limitation of activities due to disability; Z74.1 Need for assistance with personal care; Z86.718 Personal history of other venous thrombosis and embolism; Z91.81 History of falling
CPT/HCPCS: 36415; 82565; 82947; 83880; 84520; 85025

== ENCOUNTER 2022-11-17 02:13 | Outpatient (REF) | payer MEDICARE, MEDICAID, SELFPAY ==
[2022-11-17 08:57] LABS: Basophils Absolute Auto 0.1 10^3/uL (0.0-0.1); Basophils Percent Auto 0.9 % (0.2-2.0); Eosinophils Absolute Auto 0.4 10^3/uL (0.0-0.7); Eosinophils Percent Auto 5.9 % (0.9-7.0); Hematocrit 44.9 % (36.0-48.0); Hemoglobin 14.7 g/dL (12.0-16.0); Immature Granulocytes Abs Auto 0.02 10^3/uL (0.00-0.03); Immature Granulocytes Pct Auto 0.3 % (0.0-0.5); Lymphocytes Absolute Auto 1.1 10^3/uL (1.2-3.8); Lymphocytes Percent Auto 16.4 % (20.5-60.0); Mean Corpuscular HGB Conc 32.7 g/dL (29.9-35.2); Mean Corpuscular Hemoglobin 30.3 pg (26.7-34.0); Mean Corpuscular Volume 92.6 fL (81.0-99.0); Mean Platelet Volume 9.1 fL (9.5-13.5); Monocytes Absolute Auto 0.5 10^3/uL (0.3-0.8); Neutrophils Absolute Auto 4.6 10^3/uL (1.4-6.5); Neutrophils Percent Auto 69.5 % (43.0-75.0); Platelet Count 287 10^3/uL (150-450); Red Blood Count 4.85 10^6/uL (4.20-5.40); Red Cell Distribution Width 15.9 % (11.0-15.0); White Blood Count 6.6 10^3/uL (4.0-11.0)
[2022-11-17 10:14] LABS: Alanine Aminotransferase 23 U/L (14-59); Albumin Globulin Ratio 0.9; Albumin Level 3.1 g/dL (3.4-5.0); Alkaline Phosphatase 153 U/L (46-116); Aspartate Amino Transferase 28 U/L (15-37); Bilirubin Direct 0.1 mg/dL (0.0-0.2); Bilirubin Total 0.5 mg/dL (0.2-1.0); Globulin 3.6 g/dL; Total Protein 6.7 g/dL (6.4-8.2)
== END 2022-11-17 02:14 | disposition home or self-care (01) ==
LOC: LAB 02:13
DX: D45 Polycythemia vera (principal)
CPT/HCPCS: 36415; 80076; 85025

== ENCOUNTER 2023-01-29 08:55 | Outpatient (REF) | payer MEDICARE, MEDICAID, SELFPAY ==
[2023-01-29 09:24] LABS: Bilirubin Urine NEGATIVE (NEGATIVE); Blood Urine NEGATIVE (NEGATIVE); Clarity Urine CLEAR (CLEAR); Color Urine LT. YELLOW (YELLOW); Glucose Urine UA NEGATIVE (NEGATIVE); Ketones Urine NEGATIVE (NEGATIVE); Leukocyte Esterase Urine TRACE (NEGATIVE); Nitrite Urine POSITIVE (NEGATIVE); Protein Urine NEGATIVE (NEG/TRACE); Specific Gravity Urine 1.015 (1.005-1.025); Urobilinogen Urine 0.2 EU/dL (0.2-1.0); pH Urine 6.5 (5.0-9.0)
[2023-01-29 09:32] LABS: Urine Microscopic Indicated YES
[2023-01-29 09:45] LABS: Bacteria Urine LARGE #/HPF (NONE SEEN); Cast Seen? NONE SEEN #/LPF (NONE SEEN); Crystals Seen? None Seen #/HPF (None Seen); Mucus Urine NONE SEEN (NONE SEEN); RBC Urine 0-2 #/HPF (0-2); Squamous Epithelial Cell Urine RARE #/LPF (NONE/RARE); Urine Culture Indicated YES
== END 2023-01-29 08:56 | disposition home or self-care (01) ==
LOC: LAB 08:55
DX: R30.0 Dysuria (principal)
CPT/HCPCS: 81001; 87086; 87150; 87186

== ENCOUNTER 2023-03-19 12:26 | Outpatient (OUT) | payer MEDICARE, MEDICAID, SELFPAY ==
--- NOTE | 2023-03-19 | FL_ITS ---
The [address] [address] Patient Name: WILLARD STOVER MRN: [id number] date: 1945 Sex: F Assigned Patient Location: CT Current Patient Location: CT Accession/Order Number: [id number] Exam Date: 03/19/2023 13:05 Report Date: 03/19/2023 14:53 At the request of: KERRIE PLASCENCIA Procedure: FL modified barium swallow EXAMINATION: FL modified barium swallow HISTORY: Dysphagia COMPARISON: No relevant comparison available. TECHNIQUE: A swallowing evaluation was performed with fluoroscopy in the usual manner. Standard level fluoroscopic mode of operation utilized. FINDINGS: ORAL PHASE: Normal deglutition. PHARYNGEAL PHASE: Normal swallowing. ASPIRATION: None. STRUCTURE: Normal. No visible obstruction, stricture, or dilatation. OTHER: Negative. FL/FL modified barium swallow IMPRESSION: 1. Normal modified barium swallowing study. Electronically authenticated by: TIFFANIE LOPEZ Date: 03/19/2023 14:53
== END 2023-03-19 12:27 | disposition home or self-care (01) ==
LOC: FL 12:26
PROVIDERS: Visit Provider Internal Medicine
DX: R13.12 Dysphagia, oropharyngeal phase (principal)
CPT/HCPCS: 74230; 92611

== ENCOUNTER 2023-05-25 01:59 | Outpatient (REF) | payer MEDICARE, MEDICAID, SELFPAY ==
--- OUTSIDE RECORDS SUMMARY | 2023-05-25 02:09 | XMS_ITS | CCD ---
Author Name Unknown Address [address] [place] [address] [address] [place] [id number] Organization [facility] Care Team Providers Care Field Service Technician Name Role Phone TEMO, DR SY Primary Care Unavailable VALONE, DR SY Admitting Unavailable VALONE, DR SY Attending Unavailable VALONE, DR SY Consulting Unavailable VALONE, DR SY Primary Care Unavailable VALONE, DR SY Admitting Unavailable VALONE, DR SY Attending Unavailable VALONE, DR SY Primary Care Unavailable VALONE, DR SY Admitting Unavailable VALONE, DR SY Attending Unavailable VALONE, DR SY Consulting Unavailable MIKHAIL, HALLIE Admitting Unavailable MIKHAIL, HALLIE Attending Unavailable MIKHAIL, HALLIE Consulting Unavailable KYLIEONE, DR SY Primary Care Unavailable HARVEY BERG Consulting Unavailable DAVID ALONSO Consulting Unavailable Allergies Allergy Classification Reported Allergen(s) Allergy Type Date of Onset Reaction(s) Facility (1 source) Fish derivative Drug allergy (disorder) 02-11-2021 [facility] (1 source) Iodine Drug Allergy [facility] (1 source) Iodine (And Iodine Containting Drugs) Drug allergy (disorder) [facility] (1 source) Penicillins Drug allergy (disorder) [facility] (1 source) Sulfonamides (Antibiotic) Drug allergy (disorder) [facility] Problems Active Problems Problem Classification Problem Date Documented Date Episodic/Chronic Coronary atherosclerosis and other heart disease (4 sources) Atherosclerotic heart disease of [place] coronary artery without angina pectoris; Translations: [ASHD [place] CA W/O ANGINA PECTORIS] Onset: 08-09-2022 Chronic Diabetes mellitus without complication (1 source) Type 2 diabetes mellitus without complications; Translations: [TYPE 2 DM WITHOUT COMPLICATIONS] Onset: 08-10-2022 Chronic Essential hypertension (1 source) Essential (primary) hypertension; Translations: [ESSENTIAL PRIMARY HYPERTENSION] Onset: 08-10-2022 Chronic Multiple myeloma (1 source) Multiple myeloma not having achieved remission; Translations: [MX MYELOMA NOT ACHIEVED REMISSION] Onset: 04-11-2022 Chronic Thyroid disorders (4 sources) Hypothyroidism, unspecified; Translations: [HYPOTHYROIDISM UNSPECIFIED] Onset: 08-04-2022 Chronic Past or Other Problems Problem Classification Problem Date Documented Da te Episodic/Chronic E Codes: Fall (1 source) Fall on same level from slipping, tripping and stumbling with subsequent striking against unspecified object, initial encounter; Translations: [FALL SAME LVL SLIP STRK UNS OBJ INT] Onset: 04-11-2022 Episodic Open wounds of head; neck; and trunk (5 sources) Laceration without foreign body of other part of head, initial encounter; Translations: [Laceration without foreign body of nose, initial encounter] Onset: 04-05-2022 Episodic Other aftercare (1 source) custodial (current) use of anticoagulants; Translations: [HALF-WAY CURRNT USE ANTICOAGULANTS] Onset: 04-11-2022 Episodic Other aftercare (1 source) Other fpc (current) drug therapy; Translations: [OTH SUPPLY AIDE CURRENT DRUG THERAPY] Onset: 04-11-2022 Episodic Other injuries and conditions due to external causes (1 source) Unspecified injury of head, initial encounter; Translations: [UNSPECIFIED INJURY HEAD INITIAL ENC] Onset: 04-11-2022 Episodic Spondylosis; intervertebral disc disorders; other back problems (1 source) Spinal stenosis, lumbar region without neurogenic claudication; Translations: [SPINAL STENOSIS LUMBAR REGION NO NC] Onset: 04-11-2022 Episodic Results Test Name Value Interpretation Reference Range [facility] Natriuretic peptide B (Bld) [Mass/Vol] 124.0 pg/mL Normal <=1,800.0 [facility] Comment on above: Performed By: #### T SH, BNP, CREA, ELEC, BUN ####[facility] [address] [place], [place] [address]EvLadan Miranda Duffy BUNon 08-07-2022 Urea nitrogen [Mass/Vol] 13.0 mg/dL Normal 7.0-18.0 [facility] Comment on above: Performed By: #### T SH, BNP, CREA, ELEC, BUN ####[facility] [address] [place], [place] [address]Dr. Miranda Duffy CREATININEon 08-07-2022 Creatinine [Mass/Vol] 0.60 mg/dL Normal 0.55-1.02 [facility] Comment on above: Performed By: #### T SH, BNP, CREA, ELEC, BUN ####[facility] [address] [place], [place] [address]Dr. Miranda Duffy EGFR-AF MALAGASY >60 Normal >=60 [facility] Comment on above: Performed By: #### T SH, BNP, CREA, ELEC, BUN ####[facility] [address] [place], [place] [address]Dr. Miranda Duffy EGFR-NON AF MALAGASY >60 Normal >=60 [facility] Comment on above: Performed By: #### T SH, BNP, CREA, ELEC, BUN ####[facility] [address] [place], [place] [address]Dr. Miranda Duffy ELECTROLYTESon 08-07-2022 Anion gap [Moles/Vol] 14.0 mmol/L Normal [facility] Comment on above: Performed By: #### T SH, BNP, CREA, ELEC, BUN ####[facility] [address] [place], [place] [address]Dr. Miranda Duffy Chloride [Moles/Vol] 106 mmol/L Normal 98-107 [facility] Comment on above: Performed By: #### T SH, BNP, CREA, ELEC, BUN ####[facility] [address] [place], [place] [address]Dr. Miranda Duffy CO2 [Moles/Vol] 28.3 mmol/L Normal 21.0-32.0 [facility] Comment on above: Performed By: #### T SH, BNP, CREA, ELEC, BUN ####[facility] [address] [place], [place] [address]Dr. Miranda Duffy Potassium [Moles/Vol] 4.3 mmol/L Normal 3.5-5.1 [facility] Comment on above: Performed By: #### T SH, BNP, CREA, ELEC, BUN ####[facility] [address] [place] [address]Dr. Miranda Duffy Sodium [Moles/Vol] 144 mmol/L Normal 136-145 [facility] Comment on above: Performed By: #### T SH, BNP, CREA, ELEC, BUN ####[facility] [address] [place] [address]Dr. Miranda Duffy TSHon 08-07-2022 TSH 3.287 uIU/mL Normal 0.358-3.740 [facility] Comment on above: Performed By: #### T SH, BNP, CREA, ELEC, BUN ####[facility] [address] [place] [address]Dr. Miranda Duffy BNPon 08-04-2022 Natriuretic peptide B (Bld) [Mass/Vol] 70.0 pg/mL Normal <=1,800.0 [facility] Comment on above: Performed By: #### B HERD TESTER, BMP #### [facility] [address] [place] [address] Dr. Miranda Duffy CBC AUTO DIFFon 08-04-2022 BASO # 0.1 103/ul Normal 0.0-0.1 [facility] Comment on above: Performed By: #### C BC #### [facility] [address] [place] [address] Dr. Miranda Duffy Basophils/100 WBC (Bld) 0.9 % Normal 0.2-2.0 [facility] Comment on above: Performed By: #### C BC #### [facility] [address] [place] [address] Dr. Miranda Duffy EO # 0.5 103/ul Normal 0.0-0.7 [facility] Comment on above: Performed By: #### C BC #### [facility] [address] [place] [address] Dr. Miranda Duffy Eosinophils/100 WBC (Bld) 9.0 % Critically high 0.9-7.0 [facility] Comment on above: Performed By: #### C BC #### [facility] [address] [place] [address] Dr. Miranda Duffy Erythrocyte distribution width (RBC) [Ratio] 15.0 % Normal 11.0-15.0 [facility] Comment on above: Performed By: #### C BC #### [facility] [address] [place] [address] Dr. Miranda Duffy Hematocrit (Bld) [Volume fraction] 34.2 % Critically low 36.0-48.0 [facility] Comment on above: Performed By: #### C BC #### [facility] [address] [place] [address] Dr. Miranda Duffy Hemoglobin (Bld) [Mass/Vol] 10.9 g/dL Critically low 12.0-16.0 [facility] Comment on above: Performed By: #### C BC #### [facility] [address] [place] [address] Dr. Miranda Duffy IG # 0.04 10e3/ul Critically high 0.00-0.03 [facility] Comment on above: Performed By: #### C BC #### [facility] [address] [place] [address] Dr. Miranda Duffy IG % 0.7 % Critically high 0.0-0.5 [facility] Comment on above: Performed By: #### C BC #### [facility] [address] [place] [address] Dr. Miranda Duffy LYMPH # 1.1 103/ul Critically low 1.2-3.8 [facility] Comment on above: Performed By: #### C BC #### [facility] [address] [place] [address] Dr. Miranda Duffy Lymphocytes/100 WBC (Bld) 20.1 % Critically low 20.5-60.0 [facility] Comment on above: Performed By: #### C BC #### [facility] [address] [place] [address] Dr. Miranda Duffy MANUAL DIFF REQ NO Normal [facility] Comment on above: Performed By: #### C BC #### [facility] [address] [place] [address] Dr. Miranda Duffy MCH (RBC) [Entitic mass] 30.4 pg Normal 26.7-34.0 [facility] Comment on above: Performed By: #### C BC #### [facility] [address] [place] [address] Dr. Miranda Duffy MCHC (RBC) [Mass/Vol] 31.9 g/dL Normal 29.9-35.2 [facility] Comment on above: Performed By: #### C BC #### [facility] [address] [place] [address] Dr. Miranda Duffy MCV (RBC) [Entitic vol] 95.3 fL Normal 81.0-99.0 [facility] Comment on above: Performed By: #### C BC #### [facility] [address] [place] [address] Dr. Miranda Duffy MONO # 0.5 103/ul Normal 0.3-0.8 [facility] Comment on above: Performed By: #### C BC #### [facility] [address] [place] [address] Dr. Miranda Duffy Monocytes/100 WBC (Bld) 7.9 % Normal 1.7-12.0 [facility] Comment on above: Performed By: #### C BC #### [facility] [address] [place] [address] Dr. Miranda Duffy NEUT # 3.5 103/ul Normal 1.4-6.5 [facility] Comment on above: Performed By: #### C BC #### [facility] [address] [place] [address] Dr. Miranda Duffy Neutrophils/100 WBC (Bld) 61.4 % Normal 43.0-75.0 [facility] Comment on above: Performed By: #### C BC #### [facility] [address] [place] [address] Dr. Miranda Duffy Platelet mean volume (Bld) [Entitic vol] 8.7 fL Critically low 9.5-13.5 [facility] Comment on above: Performed By: #### C BC #### [facility] [address] [place] [address] Dr. Miranda Duffy PLT 433 103/ul Normal 150-450 [facility] Comment on above: Performed By: #### C BC #### [facility] [address] [address] [address] Miranda Duffy RBC 3.59 106/ul Critically low 4.20-5.40 [facility] Comment on above: Performed By: #### C BC #### [facility] [address] [address] [address] Miranda Duffy WBC 5.7 103/ul Normal 4.0-11.0 [facility] Comment on above: Performed By: #### C BC #### [facility] [address] [address] [address] Miranda Duffy GLYCOHEMOGLOBIN A1Con 2022 ADA RECOMMENDATION SEE BELOW Normal [facility] Comment on above: Result Comment: ADA RECOMMENDED LIMIT 4.0 - 6.0 ADA THERAPEUTIC TARGET < 7.0 ACTION SUGGESTED > 7.0 Performed By: #### A 1C ####[facility] [address] [place] [address]Dr. Miranda Duffy Glucose [Mass/Vol] 100 mg/dL Normal [facility] Comment on above: Performed By: #### A 1C ####[facility] [address] [place] [address]Dr. Miranda Duffy HbA1c (Bld) [Mass fraction] 5.1 % Normal 4.5-6.2 [facility] Comment on above: Performed By: #### A 1C ####[facility] [address] [place] [address]Dr. Miranda Duffy PROF CHEM 8 (BAS METB)on Anion gap [Moles/Vol] 7.0 mmol/L Normal [facility] Comment on above: Performed By: #### B HERD TESTER, BMP #### [facility] [address] [address] [address] Miranda Duffy Calcium [Mass/Vol] 8.4 mg/dL Critically low 8.5-10.1 [facility] Comment on above: Performed By: #### B HERD TESTER, BMP #### [facility] [address] [address] [address] Miranda Duffy Chloride [Moles/Vol] 107 mmol/L Normal 98-107 [facility] Comment on above: Performed By: #### B HERD TESTER, BMP #### [facility] [address] [place] [address] Dr. Miranda Duffy CO2 [Moles/Vol] 30.5 mmol/L Normal 21.0-32.0 [facility] Comment on above: Performed By: #### B HERD TESTER, BMP #### [facility] [address] [place] [address] Dr. Miranda Duffy Creatinine [Mass/Vol] 0.59 mg/dL Normal 0.55-1.02 [facility] Comment on above: Performed By: #### B HERD TESTER, BMP #### [facility] [address] [place] [address] Dr. Miranda Duffy EGFR-AF MALAGASY >60 Normal >=60 [facility] Comment on above: Performed By: #### B HERD TESTER, BMP #### [facility] [address] [place] [address] Dr. Miranda Duffy EGFR-NON AF MALAGASY >60 Normal >=60 [facility] Comment on above: Performed By: #### B HERD TESTER, BMP #### [facility] [address] [place] [address] Dr. Miranda Duffy Glucose [Mass/Vol] 85 mg/dL Normal 74-106 [facility] Comment on above: Performed By: #### B HERD TESTER, BMP #### [facility] [address] [address] [address] Miranda Duffy Potassium [Moles/Vol] 3.5 mmol/L Normal 3.5-5.1 [facility] Comment on above: Performed By: #### B HERD TESTER, BMP #### [facility] [address] [place] [address] Dr. Miranda Duffy Sodium [Moles/Vol] 141 mmol/L Normal 136-145 [facility] Comment on above: Performed By: #### B HERD TESTER, BMP #### [facility] [address] [place] [address] Dr. Miranda Duffy Urea nitrogen [Mass/Vol] 17.0 mg/dL Normal 7.0-18.0 [facility] Comment on above: Performed By: #### B HERD TESTER, BMP #### [facility] [address] [place] [address] Dr. Miranda Duffy Urea nitrogen/Creatinine [Mass ratio] 28.8 mg/mg Normal [facility] Comment on above: Performed By: #### B HERD TESTER, BMP #### [facility] [address] [address] [address] Miranda Duffy UA (CLEAN/CATCH) SAP SD ANALYST/MICRO I F IND.on 08-04-2022 Bilirubin Ql (U) Negative Normal NEGATIVE [facility] Comment on above: Performed By: #### U ACSIND #### [facility] [address] [place] [address] Dr. Miranda Duffy Clarity (U) SL CLOUDY Abnormal CLEAR [facility] Comment on above: Performed By: #### U ACSIND #### [facility] [address] [place] [address] Dr. Miranda Duffy Color (U) YELLOW Normal YELLOW [facility] Comment on above: Performed By: #### U ACSIND #### [facility] [address] [place] [address] Dr. Miranda Duffy Glucose Ql (U) Negative Normal NEGATIVE [facility] Comment on above: Performed By: #### U ACSIND #### [facility] [address] [place] [address] Dr. Miranda Duffy Hemoglobin Ql (U) Negative Normal NEGATIVE [facility] Comment on above: Performed By: #### U ACSIND #### [facility] [address] [place] [address] Dr. Miranda Duffy Ketones Ql (U) Negative Normal NEGATIVE [facility] Comment on above: Performed By: #### U ACSIND #### [facility] [address] [place] [address] Dr. Miranda Duffy LEUKOCYTES Negative Normal NEGATIVE [facility] Comment on above: Performed By: #### U ACSIND #### [facility] [address] [place] [address] Dr. Miranda Duffy Nitrite Ql (U) Negative Normal NEGATIVE [facility] Comment on above: Performed By: #### U ACSIND #### [facility] [address] [place] [address] Dr. Miranda Duffy pH (U) 5.5 [pH] Normal 5-9 [facility] Comment on above: Performed By: #### U ACSIND #### [facility] [address] [place] [address] Dr. Miranda Duffy SPEC GRAVITY 1.030 Abnormal 1.005-<=1.025 [facility] Comment on above: Performed By: #### U ACSIND #### [facility] [address] [place] [address] Dr. Miranda Duffy UA PROTEIN Negative Normal NEGATIVE/ TRACE [facility] Comment on above: Performed By: #### U ACSIND #### [facility] [address] [place] [address] Dr. Miranda Duffy UR MICRO IND NOT INDICATED Normal [facility] Comment on above: Performed By: #### U ACSIND #### [facility] [address] [place] [address] Dr. Miranda Duffy Urobilinogen Qn (U) 0.2 {Alondra'U}/dL Normal 0.2 - 1. 0 [facility] Comment on above: Performed By: #### U ACSIND #### [facility] [address] [place] [address] Dr. Miranda Duffy CULTURE URINEon 04-07-2022 CULTURE URINE Isolate 1 Klebsiella pneumoniae >100,000 cfu/mL of ORGANISM 1 Klebsiella pneumoniae ANTIBIOTIC M.I.C RX STATUS Ampicillin 4 R F Ampicillin/Sulbactam <=2 S F Piperacillin/Tazobact am <=4 S F Cefazolin <=4 S F Ceftazidime <=1 S F Ceftriaxone <=1 S F Ertapenem <=0.5 S F Imipenem <=0.25 S F Amikacin <=2 S F Gentamicin <=1 S F Tobramycin <=1 S F Ciprofloxacin <=0.25 S F Levofloxacin <=0.12 S F Nitrofurantoin <=16 S F Trimethoprim/Sulfamet hoxazole <=20 S F Normal [facility] Comment on above: Performed By: #### U RCX ####[facility] [address] [place], [place] [address]Dr. Miranda Duffy CARDIAC TUTU 3-6on 2 CK [Catalytic activity/Vol] 134 U/L Normal 26-192 [facility] Comment on above: Performed By: #### C MREP #### [facility] [address] [address] [address] Miranda Duffy CK.MB [Mass/Vol] 3.51 ng/mL Normal <=3.60 [facility] Comment on above: Performed By: #### C MREP #### [facility] [address] [address] [address] Miranda Duffy HSTROP 7.8 pg/mL Normal 4.0-51.3 [facility] Comment on above: Result Comment: CUT- OFF POINTS HAVE BEEN ESTABLISHED BASED ON THE FOURTH UNIVERSAL DEFINITIONS OF MYOCARDIAL INFARCTION. THE UPPER REFERENCE LIMIT (URL) OF TROPONIN, DEFINED THE 99TH PERCENTILE OF cTnI DISTRIBUTION IN A REFERENCE POPULATION, HAS BEEN CONFIRMED THE DECISION THRESHOLD FOR VA DIAGNOSIS. Performed By: #### C MREP #### [facility] [address] [address] [address] Miranda Duffy CARDIAC TUTU ADMITon 022 CK [Catalytic activity/Vol] 90 U/L Normal 26-192 [facility] Comment on above: Performed By: #### B DUSTIN ERICKSON #### [facility] [address] [address] [address] Miranda Duffy CK.MB [Mass/Vol] 1.95 ng/mL Normal <=3.60 [facility] Comment on above: Performed By: #### DUSTIN Velazco MP #### [facility] [address] [address] [address] Miranda Duffy HSTROP 7.7 pg/mL Normal 4.0-51.3 [facility] Comment on above: Result Comment: CUT- OFF POINTS HAVE BEEN ESTABLISHED BASED ON THE FOURTH UNIVERSAL DEFINITIONS OF MYOCARDIAL INFARCTION. THE UPPER REFERENCE LIMIT (URL) OF TROPONIN, DEFINED THE 99TH PERCENTILE OF cTnI DISTRIBUTION IN A REFERENCE POPULATION, HAS BEEN CONFIRMED THE DECISION THRESHOLD FOR VA DIAGNOSIS. Performed By: #### B DUSTIN ERICKSON #### [facility] [address] [address] [address] Miranda Duffy SHELBY 426 ng/mL Critically high 9-82 [facility] Comment on above: Performed By: #### B DUSTIN ERICKSON #### [facility] [address] [address] [address] Miranda Duffy CBC AUTO DIFFon 04-05-2022 BASO # 0.1 103/ul Normal 0.0-0.1 [facility] Comment on above: Performed By: #### C BC ####[facility] [address] [place] [address]DrLadan Duffy Basophils/100 WBC (Bld) 0.7 % Normal 0.2-2.0 [facility] Comment on above: Performed By: #### C BC ####[facility] [address] [place] [address]DrLadan Duffy EO # 0.7 103/ul Normal 0.0-0.7 [facility] Comment on above: Performed By: #### C BC ####[facility] [address] [place] [address]DrLadan Duffy Eosinophils/100 WBC (Bld) 6.3 % Normal 0.9-7.0 [facility] Comment on above: Performed By: #### C BC ####[facility] [address] [place] [address]DrLadan Duffy Erythrocyte distribution width (RBC) [Ratio] 14.4 % Normal 11.0-15.0 [facility] Comment on above: Performed By: #### C BC ####[facility] [address] [place] [address]DrLadan Duffy Hematocrit (Bld) [Volume fraction] 43.7 % Normal 36.0-48.0 [facility] Comment on above: Performed By: #### C BC ####[facility] [address] [place] [id number]. Miranda Duffy Hemoglobin (Bld) [Mass/Vol] 14.8 g/dL Normal 12.0-16.0 [facility] Comment on above: Performed By: #### C BC ####[facility] [address] [place] [id number]. Miranda Duffy IG # 0.06 10e3/ul Critically high 0.00-0.03 [facility] Comment on above: Performed By: #### C BC ####[facility] [address] [place] [address]Dr. Miranda Duffy IG % 0.5 % Normal 0.0-0.5 [facility] Comment on above: Performed By: #### C BC ####[facility] [address] [place] [address]Dr. Miranda Duffy LYMPH # 1.7 103/ul Normal 1.2-3.8 [facility] Comment on above: Performed By: #### C BC ####[facility] [address] [place] [address]Dr. Miranda Duffy Lymphocytes/100 WBC (Bld) 14.7 % Critically low 20.5-60.0 [facility] Comment on above: Performed By: #### C BC ####[facility] [address] [place] [address]Dr. Miranda Duffy MANUAL DIFF REQ NO Normal [facility] Comment on above: Performed By: #### C BC ####[facility] [address] [place], [place] [address]Dr. Miranda Duffy MCH (RBC) [Entitic mass] 31.1 pg Normal 26.7-34.0 [facility] Comment on above: Performed By: #### C BC ####[facility] [address] [place], [place] [address]Dr. Miranda Duffy MCHC (RBC) [Mass/Vol] 33.9 g/dL Normal 29.9-35.2 [facility] Comment on above: Performed By: #### C BC ####[facility] [address] [place] [id number]. Miranda Duffy MCV (RBC) [Entitic vol] 91.8 fL Normal 81.0-99.0 [facility] Comment on above: Performed By: #### C BC ####[facility] [address] [place] [id number]. Miranda Duffy MONO # 0.9 103/ul Critically high 0.3-0.8 [facility] Comment on above: Performed By: #### C BC ####[facility] [address] [place] [id number]. Miranda Duffy Monocytes/100 WBC (Bld) 8.2 % Normal 1.7-12.0 [facility] Comment on above: Performed By: #### C BC ####[facility] [address] [place] [id number]. Miranda Duffy NEUT # 7.8 103/ul Critically high 1.4-6.5 [facility] Comment on above: Performed By: #### C BC ####[facility] [address] [place] [id number]. Miranda Duffy Neutrophils/100 WBC (Bld) 69.6 % Normal 43.0-75.0 [facility] Comment on above: Performed By: #### C BC ####[facility] [address] [place] [id number]. Miranda Duffy Platelet mean volume (Bld) [Entitic vol] 9.0 fL Critically low 9.5-13.5 [facility] Comment on above: Performed By: #### C BC ####[facility] [facility] [id number] [place] [id number]. Miranda Duffy PLT 248 103/ul Normal 150-450 [facility] Comment on above: Performed By: #### C BC ####[facility] [address] [place] [id number]. Miranda Duffy RBC 4.76 106/ul Normal 4.20-5.40 [facility] Comment on above: Performed By: #### C BC ####[facility] [address] [place], [place] [address]Tj. Miranda Duffy WBC 11.2 103/ul Critically high 4.0-11.0 The [facility] Comment on above: Performed By: #### C ####[facility] [address] [place], [place] [address]Qy. Miranda Duffy CT CSPINE WO CONon 2 CT CSPINE WO CON EXAM: CT CSPINE WO CON 04/05/2022 12:32 AM EST [place]001 CLINICAL STATEMENT: UNSPECIFIED INJURY OF HEAD, INITIAL ENCOUNTER COMPARISON: No prior studies are available at the time of dictation. TECHNIQUE: Helically acquired images were obtained of the cervical spine without contrast. AEC is utilized. 2D reformatted images were reviewed FINDINGS: There is no acute fracture or subluxation. There is straightening of the normal lordotic curvature of the cervical spine. There is no prevertebral soft tissue swelling. There is diffuse osteopenia. The visualized portions of the lung apices are clear. The visualized portions of the skull base are intact. IMPRESSION: No acute fracture or subluxation. Straightening of the normal lordotic curvature of the cervical spine. FOLLOW-UP: Follow-up as clinically indicated. Electronically authenticated by: DAVID ALONSO Date: 2022-04-05 01:16 Normal [facility] CT FACIAL BONES WO CONon CT FACIAL BONES WO CON INDICATION: 77 years old; Female. Pain. Fall. TECHNIQUE: CT Head (ax/cor/sag reformats). Ionizing radiation dose reduced via iterative reconstruction/FBP blend and body size kV/mA adjustment. Comparison: Head CT dated 05/29/2019. FINDINGS: POSTOPERATIVE CHANGES: None. BRAIN PARENCHYMA: No intraparenchymal or extra-axial hemorrhage. No mass effect. No midline shift or herniation. Patchy low-density in the periventricular and subcortical white matter consistent with small vessel ischemic change. VENTRICLES/EXTRA-AXIA L SPACES: White, consistent with atrophy. SINUSES/MASTOIDS: Visualized sinuses are clear. Please see the facial bone portion of this report. Nasal septal deviation to the left with spur formation. Mastoid sclerosis on the right. Mastoid air cells and middle ears are clear. MSK: No displaced or depressed calvarial fracture is seen. There is bilateral nasal fracture noted. Please refer to the facial bone portion of this report. Extracranial soft tissue swelling is seen in the supraorbital region greater on the left than the right with a tiny focus of subcutaneous emphysema. OTHER: No hyperdense intraluminal thrombus is seen. Vascular calcifications are noted. TECHNIQUE: CT of the facial bones was performed. IV contrast: None. Axial, coronal, sagittal reformats were created and reviewed. Dose reduction techniques were achieved by using automated exposure control and/or adjustment of mA and/or kV according to patient size and/or use of iterative reconstruction technique. COMPARISON: None FINDINGS: FRONTAL BONES: SUPRAORBITAL SOFT TISSUES: [Supraorbital soft tissue swelling present bilaterally worse on the left than the right. There is a punctate focus of subcutaneous emphysema. No subjacent bony abnormality is noted. ORBITS: Globes: Normal without proptosis or evidence of disruption or intraocular foreign body. Retrobulbar fat: normal without mass or hematoma. Extraocular Muscles: Normal and symmetric without prolapse or evidence of entrapment. Optic Nerves: Normal without mass-effect or evidence of disruption. Preseptal Soft Tissues: Normal without swelling, laceration or foreign body. Wood: Intact without evidence of fracture. MAXILLA AND MANDIBLE: Maxillary and buccal soft tissues: Normal without swelling, laceration or foreign body. Maxillary bones: Patient is essentially edentulous within the maxilla. No fracture is seen. Mandible: Multiple missing teeth. Dental caries. No fracture is seen. Nasal bones and septum: Soft tissue swelling over the nasal bones. There is bilateral nasal fracture with subtle displacement laterally on the right. Soft tissue swelling of the anterior septum is noted. The bony septum is intact. Maxillary spine is intact. Nasal septal deviation with spur formation to the left. PARANASAL SINUSES: Frontal: Hypoplastic frontal sinus on the right. Ethmoid: Clear. Maxillary: Clear. Sphenoid: Clear. Zygomatic arch: Intact bilaterally. Pterygoid plates: Intact bilaterally. IMPRESSION: 1. No acute intracranial abnormality. No hemorrhage or mass effect. 2. Small vessel ischemic changes. 3. Atrophy. 4. Vascular calcification. 5. Bilateral nasal fractures with subtle displacement on the right. Overlying soft tissue swelling is seen. Electronically authenticated by: HARVEY BERG Date: 2022-04-04 23:53 Normal [facility] ER URINE PROFILEon 2 Bilirubin Ql (U) Negative Normal NEGATIVE [facility] Comment on above: Performed By: #### ANANT GREGGRO ####[facility] [address] [place], [place] [address]Dr. Miranda Duffy Clarity (U) CLEAR Normal CLEAR [facility] Comment on above: Performed By: #### ANANT GREGGRO ####[facility] [address] [place] [address]Dr. Cherellealex Duffy Color (U) LT. YELLOW Normal YELLOW [facility] Comment on above: Performed By: #### ANANT GREGGRO ####[facility] [address] [place], [place] [address]Dr. Miranda Duffy ERUAHD A micrscopic examination will be performed if indicated. Normal [facility] Comment on above: Performed By: #### ANANT GREGGRO ####[facility] [address] [place], [place] [address]Dr. Miranda Duffy Glucose Ql (U) Negative Normal NEGATIVE The [facility] Comment on above: Performed By: #### ANANT GREGGRO ####[facility] [address] [place], [place] [address]Dr. Miranda Duffy Hemoglobin Ql (U) Negative Normal NEGATIVE The [facility] Comment on above: Performed By: #### ANANT GREGGRO ####[facility] [address] [place], [place] [address]Dr. Miranda Duffy Ketones Ql (U) 15 mg/dl Abnormal NEGATIVE [facility] Comment on above: Performed By: #### ANANT GREGGRO ####[facility] [address] [place], [place] [address]Dr. Miranda Duffy LEUKOCYTES SMALL Abnormal NEGATIVE [facility] Comment on above: Performed By: #### ANANT GREGGRO ####[facility] [address] [place], [place] [address]Dr. Miranda Duffy Nitrite Ql (U) Positive Abnormal NEGATIVE [facility] Comment on above: Performed By: #### ANANT GREGGRO ####[facility] [address] [place], [place] [address]DrLadan Duffy pH (U) 5.5 [pH] Normal 5-9 [facility] Comment on above: Performed By: #### LEIGHA GREGG ####[facility] [address] [place] [address]Dr. Miranda Duffy SPEC GRAVITY 1.015 Normal 1.005-<=1.025 The [facility] Comment on above: Performed By: #### LEIGHA GREGG ####[facility] [address] [place] [address]DrLadan Duffy UA PROTEIN Negative Normal NEGATIVE/ TRACE [facility] Comment on above: Performed By: #### LEIGHA GREGG ####[facility] [address] [place] [address]DrLadan Duffy UR MICRO IND INDICATED Normal [facility] Comment on above: Performed By: #### LEIGHA GREGG ####[facility] [address]wm[address] [place] [address]DrLadan Duffy Urobilinogen Qn (U) 1.0 {Alondra'U}/dL Normal 0.2 - 1. 0 [facility] Comment on above: Performed By: #### LEIGHA GREGG ####[facility] [address] [place] [address]DrLadan Duffy PROF CHEM 8 (BAS METB)on Anion gap [Moles/Vol] 8.2 mmol/L Normal [facility] Comment on above: Performed By: #### DUSTIN Velazco MP #### [facility] [address] [place] [address] Dr. Miranda Duffy Calcium [Mass/Vol] 9.2 mg/dL Normal 8.5-10.1 [facility] Comment on above: Performed By: #### DUSTIN Velazco MP #### [facility] [address] [place] [address] [address] Miranda Duffy Chloride [Moles/Vol] 103 mmol/L Normal 98-107 [facility] Comment on above: Performed By: #### B MP, CMADM #### [facility] [address] [place] [address] [address] Miranda Duffy CO2 [Moles/Vol] 30.7 mmol/L Normal 21.0-32.0 [facility] Comment on above: Performed By: #### B GEORGINA, CMADM #### [facility] [address] [place] [address] [address] Miranda Duffy Creatinine [Mass/Vol] 0.73 mg/dL Normal 0.55-1.02 [facility] Comment on above: Performed By: #### B GEORGINA, CMADM #### [facility] [address] [place] [address] [address] Miranda Duffy EGFR-AF MALAGASY >60 Normal >=60 [facility] Comment on above: Performed By: #### B GEORGINA, CMADM #### [facility] [address] [place] [address] [address] Miranda Duffy EGFR-NON AF MALAGASY >60 Normal >=60 [facility] Comment on above: Performed By: #### B GEORGINA, CMADM #### [facility] [address] [place] [address] [address] Miranda Duffy Glucose [Mass/Vol] 116 mg/dL Critically high 74-106 [facility] Comment on above: Performed By: #### B GEORGINA, CMADM #### [facility] [address] [place] [address] [address] Miranda Duffy Potassium [Moles/Vol] 3.9 mmol/L Normal 3.5-5.1 [facility] Comment on above: Performed By: #### B GEORGINA, CMADM #### [facility] [address] [place] [address] [address] Miranda Duffy Sodium [Moles/Vol] 138 mmol/L Normal 136-145 [facility] Comment on above: Performed By: #### B GEORGINA, CMADM #### [facility] [address] [place] [address] [address] Miranda Duffy Urea nitrogen [Mass/Vol] 22.0 mg/dL Critically high 7.0-18.0 [facility] Comment on above: Performed By: #### B DUSTIN ERICKSON #### [facility] [address] [place] [address] [address] Miranda Duffy Urea nitrogen/Creatinine [Mass ratio] 30.1 mg/mg Normal [facility] Comment on above: Performed By: #### B DUSTIN ERICKSON #### [facility] [address] [place] [address] [address] Miranda Duffy URINE MICROSCOPIC ONLYon BACTERIA LARGE Abnormal NONE SEEN [facility] Comment on above: Performed By: #### Patel AGUILA UMICRO ####[facility] [address] [place] [address]Dr. Miranda Duffy Bacteria identified Cx Nom (U) INDICATED Normal [facility] Comment on above: Performed By: #### Patel AGUILA UMICRO ####[facility] [address] [place] [address]Dr. Miranda Duffy CAST NONE SEEN Normal NONE SEEN [facility] Comment on above: Performed By: #### Patel AGUILA UMSUJEYRO ####[facility] [address] [place] [address]Dr. Miranda Duffy Crystals LM Nom (Urine sed) NONE SEEN Normal NONE SEEN [facility] Comment on above: Performed By: #### Patel AGUILA UMICRO ####[facility] [address] [place] [address]Dr. Miranda Duffy Epithelial cells LM Ql (Urine sed) FEW Abnormal NONE SEEN /RARE [facility] Comment on above: Performed By: #### SUSAN GREGGICRO ####[facility] [address] [place], [place] [address]Dr. Miranda Duffy MUCOUS NONE SEEN Normal NONE SEEN [facility] Comment on above: Performed By: #### Patel AGUILA UMICRO ####[facility] [address] [place], [place] [address]Dr. Miranda Duffy RBC 0-2 Normal 0-2 [facility] Comment on above: Performed By: #### ANANT GREGGRO ####[facility] [address] [place], [place] [address]Dr. Miranda Duffy WBC 5-10 Abnormal NONE SEEN [facility] Comment on above: Performed By: #### E LEIGHA AGUILA ####[facility] [address] [place], [place] [address]YbLadan Duffy XR HIP LT 2 3V W PELVISon XR HIP LT 2 3V W PELVIS EXAM: XR HIP LT 2 3V W PELVIS 04/04/2022 10:28 PM EST [place]001 CLINICAL STATEMENT: Pain COMPARISON: No prior studies are available at the time of dictation. TECHNIQUE: AP and lateral views of the left hip are submitted. FINDINGS: There is no acute fracture and/or dislocation. The hip joint space is preserved. Soft tissues are unremarkable. Bone mineralization is within normal limits for the patient's age. IMPRESSION: Unremarkable hip radiograph.. FOLLOW UP: Follow-up as clinically indicated. Electronically authenticated by: DAVID ALONSO Date: 2022-04-05 00:12 Normal [facility] Encounters Encounter Date Encounter Type Care Provider Facility Start: 08-09-2022 End: 08-09-[address] KERRIE PLASCENCIA Facility:[facility] Start: 08-07-2022 End: 08-07-[address] KERRIE PLASCENCIA Facility:[facility] Start: 08-04-2022 End: 08-04-[address] KERRIE PLASCENCIA Facility:[facility] Start: 04-05-2022 End: 04-05-2022 ambulatory HALLIE ELIZONDO Facility:[facility] Payers Date Payer Category Payer Unknown [id number] 1945 Unknown [id number] [id number] [id number] 1945 Unknown [id number] [id number] 1945 Unknown [id number] 2.16.84 [id number] 1945 Unknown [id number] [id number] Summary Purpose Family History No Family History Records Found Advance Directives No Advanced Directives Records Found Additional Source Comments INFORMATION SOURCE (unrecogn ized section and content) DATE CREATED AUTHOR 08/12/2022 [facility] RECORDS PERTAINING TO PATIENTS WHO ARE OR HAVE BEEN ENROLLED IN A CHEMICAL DEPENDENCY/SUBSTANCEABUSE PROGRAM, SOME INFORMATION MAY BE OMITTED. This clinical summary was aggregated from multiple sources. Caution should be exercised in using it in the provision of clinical care. This summary normalizes information from multiple sources, and as a consequence, information in this document may materially change the coding, format and clinical context of patient data. In addition, data may be omitted in some cases. CLINICAL DECISIONS SHOULD BE BASED ON THE PRIMARY CLINICAL RECORDS. [facility] [employer] [facility]. provides no warranty or guarantee of the accuracy or completeness of information in this document.
[2023-05-25 09:34] LABS: Thyroid Stimulating Hormone 7.735 uIU/mL (0.358-3.740)
[2023-05-25 09:43] LABS: Basophils Absolute Auto 0.1 10^3/uL (0.0-0.1); Basophils Percent Auto 1.2 % (0.2-2.0); Eosinophils Absolute Auto 0.4 10^3/uL (0.0-0.7); Eosinophils Percent Auto 5.8 % (0.9-7.0); Hematocrit 44.6 % (36.0-48.0); Hemoglobin 14.2 g/dL (12.0-16.0); Immature Granulocytes Abs Auto 0.01 10^3/uL (0.00-0.03); Immature Granulocytes Pct Auto 0.2 % (0.0-0.5); Lymphocytes Percent Auto 16.5 % (20.5-60.0); Mean Corpuscular HGB Conc 31.8 g/dL (29.9-35.2); Mean Corpuscular Hemoglobin 30.5 pg (26.7-34.0); Mean Corpuscular Volume 95.9 fL (81.0-99.0); Mean Platelet Volume 9.6 fL (9.5-13.5); Monocytes Absolute Auto 0.3 10^3/uL (0.3-0.8); Monocytes Percent Auto 5.4 % (1.7-12.0); Neutrophils Absolute Auto 4.3 10^3/uL (1.4-6.5); Neutrophils Percent Auto 70.9 % (43.0-75.0); Platelet Count 241 10^3/uL (150-450); Red Blood Count 4.65 10^6/uL (4.20-5.40); Red Cell Distribution Width 13.5 % (11.0-15.0); White Blood Count 6.1 10^3/uL (4.0-11.0)
== END 2023-05-25 02:00 | disposition home or self-care (01) ==
LOC: LAB 01:59
PROVIDERS: Visit Provider Internal Medicine
DX: D75.1 Secondary polycythemia (principal)
CPT/HCPCS: 36415; 84443; 85025

== ENCOUNTER 2023-06-20 02:35 | Outpatient (REF) | payer MEDICARE, MEDICAID, SELFPAY ==
--- OUTSIDE RECORDS SUMMARY | 2023-06-20 02:39 | XMS_ITS | CCD ---
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 Role Phone TEMO, DR SY Primary [...] HALLIE Attending Unavailable MIKHAIL, HALLIE Consulting Unavailable VALONE, DR SY Primary Care Unavailable MORENA, HARVEY Consulting Unavailable CELESTE, DAVID Consulting Unavailable Allergies Allergy Classification Reported Allergen(s) Allergy Type Date of Onset Reaction(s) Facility (1 source) Fish derivative Drug allergy (disorder) 02-11-2021 [facility] Repository (1 source) Iodine Drug Allergy [facility] Repository (1 source) Iodine (And Iodine Containting Drugs) Drug allergy (disorder) [facility] Repository (1 source) Penicillins Drug allergy (disorder) [facility] Repository (1 source) Sulfonamides (Antibiotic) Drug allergy (disorder) [facility] Repository Problems Active Problems Problem Classification Problem Date Documented Date Episodic/Chronic Coronary atherosclerosis and other heart disease (4 sources) Atherosclerotic heart disease of [place] coronary artery without angina pectoris; 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] Onset: 08-09-2022 Chronic [...] Onset: 04-05-2022 Episodic Other aftercare (1 source) correction (current) use of anticoagulants; Translations: [LEAD CARGOMAN CURRNT USE ANTICOAGULANTS] Onset: 04-11-2022 Episodic Other aftercare (1 source) Other correction (current) drug therapy; Translations: [OTH LEAD CARGOMAN CURRENT DRUG THERAPY] Onset: 04-11-2022 Episodic Other [...] Test Name Value Interpretation Reference Range Facility BNPon 08-07-2022 Natriuretic peptide B (Bld) [Mass/Vol] 124.0 pg/mL Normal <=1,800.0 [facility] Comment on above: Performed By: #### T SH, BNP, CREA, ELEC, BUN ####[facility] [address] [place], [place] [address]UeLadan Miranda Duffy BUNon 08-07-2022 Urea nitrogen [Mass/Vol] 13.0 mg/dL Normal 7.0-18.0 [facility] Comment on above: Performed By: #### T SH, BNP, CREA, ELEC, BUN ####[facility] [address] [place] [address]Dr. Miranda Duffy CREATININEon 08-07-2022 Creatinine [Mass/Vol] 0.60 mg/dL Normal 0.55-1.02 [facility] Comment on above: Performed By: #### T SH, BNP, CREA, ELEC, BUN ####[facility] F[address] [place], [place] [address]Dr. Miranda Duffy EGFR-AF SAMOAN >60 Normal >=60 [facility] Comment on above: Performed By: #### T SH, BNP, CREA, ELEC, BUN ####[facility] [address] [place], [place] [address]Dr. Miranda Duffy EGFR-NON AF SAMOAN >60 Normal >=60 [facility] Comment on above: Performed By: #### T SH, BNP, CREA, ELEC, BUN ####[facility] [address] [place], [place] [address]Dr. Miranda Duffy ELECTROLYTESon 08-07-2022 Anion gap [Moles/Vol] 14.0 mmol/L Normal [facility] Comment on above: Performed By: #### T SH, BNP, CREA, ELEC, BUN ####[facility] [address] [place], [place] [address]Dr. Miranda Duffy Chloride [Moles/Vol] 106 mmol/L Normal 98-107 [facility] Comment on above: Performed By: #### T SH, BNP, CREA, ELEC, BUN ####[facility] [address] [place], [place] [address]Dr. Miranda Duffy CO2 [Moles/Vol] 28.3 mmol/L Normal 21.0-32.0 [facility] Comment on above: Performed By: #### T SH, BNP, CREA, ELEC, BUN ####[facility] [address] [place], [place] [address]Dr. Miranda Duffy Potassium [Moles/Vol] 4.3 mmol/L Normal 3.5-5.1 [facility] Comment on above: Performed By: #### T SH, BNP, CREA, ELEC, BUN ####[facility] [address] [place] [address]DrLadan Duffy Sodium [Moles/Vol] 144 mmol/L Normal 136-145 [facility] [place] [facility] Comment on above: Performed By: #### T SH, BNP, CREA, ELEC, BUN ####[facility] [address] [place] [address]DrLadan Duffy TSHon 08-07-2022 TSH 3.287 uIU/mL Normal 0.358-3.740 [facility] Comment on above: Performed By: #### T SH, BNP, CREA, ELEC, BUN ####[facility] [address] [place] [address]DrLadan Duffy BNPon 08-04-2022 Natriuretic peptide B (Bld) [Mass/Vol] 70.0 pg/mL Normal <=1,800.0 [facility] Comment on above: Performed By: #### B SLPS, BMP #### [facility] [address] [place] [address] Dr. Miranda Duffy CBC AUTO DIFFon 08-04-2022 BASO # 0.1 103/ul Normal 0.0-0.1 [facility] Comment on above: Performed By: #### C BC #### [facility] [address] [place] [address] Dr. Miranda Duffy Basophils/100 WBC (Bld) 0.9 % Normal 0.2-2.0 [facility] Comment on above: Performed By: #### C BC #### [facility] [address] [place] [address] Dr. Miranda Duffy EO # 0.5 103/ul Normal 0.0-0.7 [facility] Comment on above: Performed By: #### C BC #### [facility] [address] [place] [address] Dr. Miranda Duffy Eosinophils/100 WBC (Bld) 9.0 % Critically high 0.9-7.0 [facility] Comment on above: Performed By: #### C BC #### [facility] [address] [place] [address] Dr. Miranda Duffy Erythrocyte distribution width (RBC) [Ratio] 15.0 % Normal 11.0-15.0 [facility] Comment on above: Performed By: #### C BC #### [facility] [address] [place] [address] Dr. Miranda Duffy Hematocrit (Bld) [Volume fraction] 34.2 % Critically low 36.0-48.0 [facility] Comment on above: Performed By: #### C BC #### [facility] [address] [place] [address] Dr. Miranda Duffy Hemoglobin (Bld) [Mass/Vol] 10.9 g/dL Critically low 12.0-16.0 [facility] Comment on above: Performed By: #### C BC #### [facility] [address] [place] [address] Dr. Miranda Duffy IG # 0.04 10e3/ul Critically high 0.00-0.03 [facility] [place] [facility] Comment on above: Performed By: #### C BC #### [facility] [address] [place] [address] Dr. Miranda Duffy IG % 0.7 % Critically high 0.0-0.5 [facility] Comment on above: Performed By: #### C BC #### [facility] [address] [place] [address] Dr. Miranda Duffy LYMPH # 1.1 103/ul Critically low 1.2-3.8 [facility] Comment on above: Performed By: #### C BC #### [facility] [address] [place] [address] Dr. Miranda Duffy Lymphocytes/100 WBC (Bld) 20.1 % Critically low 20.5-60.0 [facility] Comment on above: Performed By: #### C BC #### [facility] [address] [place] [address] Dr. Miranda Duffy MANUAL DIFF REQ NO Normal [facility] Comment on above: Performed By: #### C BC #### [facility] [address] [place] [address] Dr. Miranda Duffy MCH (RBC) [Entitic mass] 30.4 pg Normal 26.7-34.0 [facility] Comment on above: Performed By: #### C BC #### [facility] [address] [place] [address] Dr. Miranda Duffy MCHC (RBC) [Mass/Vol] 31.9 g/dL Normal 29.9-35.2 [facility] Comment on above: Performed By: #### C BC #### [facility] [address] [place] [address] Dr. Miranda Duffy MCV (RBC) [Entitic vol] 95.3 fL Normal 81.0-99.0 [facility] Comment on above: Performed By: #### C BC #### [facility] [address] [place] [address] Dr. Miranda Duffy MONO # 0.5 103/ul Normal 0.3-0.8 [facility] Comment on above: Performed By: #### C BC #### [facility] [address] [place] [address] Dr. Miranda Duffy Monocytes/100 WBC (Bld) 7.9 % Normal 1.7-12.0 [facility] Comment on above: Performed By: #### C BC #### [facility] [address] [place] [address] Dr. Miranda Duffy NEUT # 3.5 103/ul Normal 1.4-6.5 [facility] Comment on above: Performed By: #### C BC #### [facility] [address] [place] [address] Dr. Miranda Duffy Neutrophils/100 WBC (Bld) 61.4 % Normal 43.0-75.0 [facility] Comment on above: Performed By: #### C BC #### [facility] [address] [place] [address] Dr. Miranda Duffy Platelet mean volume (Bld) [Entitic vol] 8.7 fL Critically low 9.5-13.5 [facility] Comment on above: Performed By: #### C BC #### [facility] [address] [place] [address] Dr. Miranda Duffy PLT 433 103/ul Normal 150-450 [facility] Comment on above: Performed By: #### C BC #### [facility] [address] [address] [address] Miranda Duffy RBC 3.59 106/ul Critically low 4.20-5.40 [facility] Comment on above: Performed By: #### C BC #### [facility] [address] [address] [address] Miranda Duffy WBC 5.7 103/ul Normal 4.0-11.0 [facility] Comment on above: Performed By: #### C BC #### [facility] [address] [address] [address] Miranda Duffy GLYCOHEMOGLOBIN A1Con 2022 ADA RECOMMENDATION SEE BELOW Normal [facility] Comment on above: Result Comment: ADA RECOMMENDED LIMIT 4.0 - 6.0 ADA THERAPEUTIC TARGET < 7.0 ACTION SUGGESTED > 7.0 Performed By: #### A 1C ####[facility] [address] [place] [address]Dr. Miranda Duffy Glucose [Mass/Vol] 100 mg/dL Normal [facility] Comment on above: Performed By: #### A 1C ####[facility] [address] [place] [id number]. Miranda Duffy HbA1c (Bld) [Mass fraction] 5.1 % Normal 4.5-6.2 [facility] Comment on above: Performed By: #### A 1C ####[facility] [address] [place] [address]Dr. Miranda Duffy PROF CHEM 8 (BAS METB)on Anion gap [Moles/Vol] 7.0 mmol/L Normal [facility] Comment on above: Performed By: #### B SLPS, BMP #### [facility] [address] [address] [address] Miranda Duffy Calcium [Mass/Vol] 8.4 mg/dL Critically low 8.5-10.1 [facility] Comment on above: Performed By: #### B SLPS, BMP #### [facility] [address] [address] [address] Miranda Duffy Chloride [Moles/Vol] 107 mmol/L Normal 98-107 [facility] Comment on above: Performed By: #### B SLPS, BMP #### [facility] [address] [address] [address] Miranda Duffy CO2 [Moles/Vol] 30.5 mmol/L Normal 21.0-32.0 [facility] Comment on above: Performed By: #### B SLPS, BMP #### [facility] [address] [address] [address] Miranda Duffy Creatinine [Mass/Vol] 0.59 mg/dL Normal 0.55-1.02 [facility] Comment on above: Performed By: #### B SLPS, BMP #### [facility] [address] [address] [address] Miranda Duffy EGFR-AF SAMOAN >60 Normal >=60 [facility] Comment on above: Performed By: #### B SLPS, BMP #### [facility] [address] [address] [address] Miranda Duffy EGFR-NON AF SAMOAN >60 Normal >=60 [facility] Comment on above: Performed By: #### B SLPS, BMP #### [facility] [address] [address] [address] Miranda Duffy Glucose [Mass/Vol] 85 mg/dL Normal 74-106 [facility] [place] [facility] Comment on above: Performed By: #### B SLPS, BMP #### [facility] [address] [address] [address] Miranda Duffy Potassium [Moles/Vol] 3.5 mmol/L Normal 3.5-5.1 [facility] Comment on above: Performed By: #### B SLPS, BMP #### [facility] [address] [address] [address] Miranda Duffy Sodium [Moles/Vol] 141 mmol/L Normal 136-145 [facility] [place] [facility] Comment on above: Performed By: #### B SLPS, BMP #### [facility] [address] [place] [address] Dr. Miranda Duffy Urea nitrogen [Mass/Vol] 17.0 mg/dL Normal 7.0-18.0 [facility] Comment on above: Performed By: #### B SLPS, BMP #### [facility] [address] [place] [address] Dr. Miranda Duffy Urea nitrogen/Creatinine [Mass ratio] 28.8 mg/mg Normal [facility] Comment on above: Performed By: #### B SLPS, BMP #### [facility] [address] [place] [address] Dr. Miranda Duffy UA (CLEAN/CATCH) EDGE WORKER/MICRO I F IND.on 08-04-2022 Bilirubin Ql (U) Negative Normal NEGATIVE [facility] Comment on above: Performed By: #### U ACSIND #### [facility] [address] [place] [address] Dr. Miranda Duffy Clarity (U) SL CLOUDY Abnormal CLEAR [facility] Comment on above: Performed By: #### U ACSIND #### [facility] [address] [place] [address] Dr. Miranda Duffy Color (U) YELLOW Normal YELLOW [facility] Comment on above: Performed By: #### U ACSIND #### [facility] [address] [place] [address] Dr. Miranda Duffy Glucose Ql (U) Negative Normal NEGATIVE [facility] Comment on above: Performed By: #### U ACSIND #### [facility] [address] [place] [address] Dr. Miranda Duffy Hemoglobin Ql (U) Negative Normal NEGATIVE [facility] [place] [facility] Comment on above: Performed By: #### U ACSIND #### [facility] [address] [place] [address] Dr. Miranda Duffy Ketones Ql (U) Negative Normal NEGATIVE [facility] Comment on above: Performed By: #### U ACSIND #### [facility] [address] [place] [address] Dr. Miranda Duffy LEUKOCYTES Negative Normal NEGATIVE [facility] Comment on above: Performed By: #### U ACSIND #### [facility] [address] [place] [address] Dr. Miranda Duffy Nitrite Ql (U) Negative Normal NEGATIVE [facility] Comment on above: Performed By: #### U ACSIND #### [facility] [address] [place] [address] Dr. Miranda Duffy pH (U) 5.5 [pH] Normal 5-9 [facility] Comment on above: Performed By: #### U ACSIND #### [facility] [address] [place] [address] Dr. Miranda Duffy SPEC GRAVITY 1.030 Abnormal 1.005-<=1.025 [facility] Comment on above: Performed By: #### U ACSIND #### [facility] [address] [place] [address] Dr. Miranda Duffy UA PROTEIN Negative Normal NEGATIVE/ TRACE [facility] Comment on above: Performed By: #### U ACSIND #### [facility] [address] [place] [address] Dr. Miranda Duffy UR MICRO IND NOT INDICATED Normal [facility] Comment on above: Performed By: #### U ACSIND #### [facility] [address] [place] [address] Dr. Miranda Duffy Urobilinogen Qn (U) 0.2 {Alondra'U}/dL Normal 0.2 - 1. 0 [facility] Comment on above: Performed By: #### U ACSIND #### [facility] [address] [place] [address] Dr. Miranda Duffy CULTURE URINEon 04-07-2022 CULTURE [...] F Trimethoprim/Sulfamet hoxazole <=20 S F Normal [facility] Comment on above: Performed By: #### U RCX ####[facility] [address] [place], [place] [address]CgDr. Miranda Duffy CARDIAC TUTU 3-6on 2 CK [Catalytic activity/Vol] 134 U/L Normal 26-192 [facility] Comment on above: Performed By: #### C MREP #### [facility] [address] [address] [address] Miranda Duffy CK.MB [Mass/Vol] 3.51 ng/mL Normal <=3.60 [facility] Comment on above: Performed By: #### C MREP #### [facility] [address] [place] [address] Dr. Miranda Duffy HSTROP 7.8 pg/mL Normal 4.0-51.3 [facility] Comment on above: Result Comment: CUT- OFF POINTS HAVE BEEN ESTABLISHED BASED ON THE FOURTH UNIVERSAL DEFINITIONS OF MYOCARDIAL INFARCTION. THE UPPER REFERENCE LIMIT (URL) OF TROPONIN, DEFINED THE 99TH PERCENTILE OF cTnI DISTRIBUTION IN A REFERENCE POPULATION, HAS BEEN CONFIRMED THE DECISION THRESHOLD FOR OK DIAGNOSIS. Performed By: #### C MREP #### [facility] [address] [place] [address] Dr. Miranda Duffy CARDIAC TUTU ADMITon 022 CK [Catalytic activity/Vol] 90 U/L Normal 26-192 [facility] Comment on above: Performed By: #### B ESTRELLITA ERICKSONDM #### [facility] [address] [address] [address] Miranda Duffy CK.MB [Mass/Vol] 1.95 ng/mL Normal <=3.60 [facility] Comment on above: Performed By: #### B ESTRELLITA ERICKSONDM #### [facility] [address] [address] [address] Miranda Duffy HSTROP 7.7 pg/mL Normal 4.0-51.3 [facility] Comment on above: Result Comment: CUT- OFF POINTS HAVE BEEN ESTABLISHED BASED ON THE FOURTH UNIVERSAL DEFINITIONS OF MYOCARDIAL INFARCTION. THE UPPER REFERENCE LIMIT (URL) OF TROPONIN, DEFINED THE 99TH PERCENTILE OF cTnI DISTRIBUTION IN A REFERENCE POPULATION, HAS BEEN CONFIRMED THE DECISION THRESHOLD FOR OK DIAGNOSIS. Performed By: #### B DUSTIN ERICKSON #### [facility] [address] [address] [address] Miranda Duffy SHELBY 426 ng/mL Critically high 9-82 [facility] Comment on above: Performed By: #### B GEORGINA, DUSTIN #### [facility] [address] [address] [address] Miranda Duffy CBC AUTO DIFFon 04-05-2022 BASO # 0.1 103/ul Normal 0.0-0.1 [facility] Comment on above: Performed By: #### C BC ####[facility] [address] [place] [address]DrLadan Duffy Basophils/100 WBC (Bld) 0.7 % Normal 0.2-2.0 [facility] Comment on above: Performed By: #### C BC ####[facility] [address] [place] [address]DrLadan Duffy EO # 0.7 103/ul Normal 0.0-0.7 [facility] Comment on above: Performed By: #### C BC ####[facility] [address] [place] [address]DrLadan Duffy Eosinophils/100 WBC (Bld) 6.3 % Normal 0.9-7.0 [facility] Comment on above: Performed By: #### C BC ####[facility] [address] [place] [address]DrLadan Duffy Erythrocyte distribution width (RBC) [Ratio] 14.4 % Normal 11.0-15.0 [facility] Comment on above: Performed By: #### C BC ####[facility] [address] [place] [address]DrLadan Duffy Hematocrit (Bld) [Volume fraction] 43.7 % Normal 36.0-48.0 [facility] Comment on above: Performed By: #### C BC ####[facility] [address] [place] [id number]. Miranda Duffy Hemoglobin (Bld) [Mass/Vol] 14.8 g/dL Normal 12.0-16.0 [facility] Comment on above: Performed By: #### C BC ####[facility] [address] [place] [id number]. Miranda Duffy IG # 0.06 10e3/ul Critically high 0.00-0.03 [facility] [place] [facility] Comment on above: Performed By: #### C BC ####[facility] [address] [place] [id number]. Miranda Clive IG % 0.5 % Normal 0.0-0.5 [facility] Comment on above: Performed By: #### C BC ####[facility] [address] [place] [address]Dr. Cherellealex Duffy LYMPH # 1.7 103/ul Normal 1.2-3.8 [facility] Comment on above: Performed By: #### C BC ####[facility] [address] [place] [id number]. Miranda Clive Lymphocytes/100 WBC (Bld) 14.7 % Critically low 20.5-60.0 [facility] Comment on above: Performed By: #### C BC ####[facility] [address] [place] [id number]. Cherellealex Duffy MANUAL DIFF REQ NO Normal [facility] Comment on above: Performed By: #### C BC ####[facility] [address] [place] [id number]. Miranda Clive MCH (RBC) [Entitic mass] 31.1 pg Normal 26.7-34.0 [facility] Comment on above: Performed By: #### C BC ####[facility] [address] [place] [phone]. Miranda Clive MCHC (RBC) [Mass/Vol] 33.9 g/dL Normal 29.9-35.2 [facility] Comment on above: Performed By: #### C BC ####[facility] [address] [place] [id number]. Miranda Duffy MCV (RBC) [Entitic vol] 91.8 fL Normal 81.0-99.0 [facility] Comment on above: Performed By: #### C BC ####[facility] [address] [place] [id number]. Miranda Duffy MONO # 0.9 103/ul Critically high 0.3-0.8 [facility] Comment on above: Performed By: #### C BC ####[facility] [address] [place] [id number]. Miranda Duffy Monocytes/100 WBC (Bld) 8.2 % Normal 1.7-12.0 [facility] Comment on above: Performed By: #### C BC ####[facility] [address] [place], [place] [address]Dr. Miranda Duffy NEUT # 7.8 103/ul Critically high 1.4-6.5 [facility] Comment on above: Performed By: #### C BC ####[facility] [address] [place], [place] [address]Dr. Miranda Duffy Neutrophils/100 WBC (Bld) 69.6 % Normal 43.0-75.0 [facility] Comment on above: Performed By: #### C BC ####[facility] [address] [place], [place] [address]Dr. Miranda Duffy Platelet mean volume (Bld) [Entitic vol] 9.0 fL Critically low 9.5-13.5 [facility] Comment on above: Performed By: #### C BC ####[facility] [address] [place], [place] [id number]. Miranda Duffy PLT 248 103/ul Normal 150-450 [facility] Comment on above: Performed By: #### C BC ####[facility] [address] [place] [id number]. Cherellealex Clive RBC 4.76 106/ul Normal 4.20-5.40 [facility] Comment on above: Performed By: #### C BC ####[facility] [address] [place], [place] [address]Xu. Miranda Duffy WBC 11.2 103/ul Critically high 4.0-11.0 [facility] Comment on above: Performed By: #### C BC ####[facility] [address] [place], [place] [address]l. Miranda D[address] CT CSPINE WO CONon 2 [...] DAVID ALONSO Date: 2022-04-05 01:16 Normal [facility] CT FACIAL BONES WO CONon CT [...] HARVEY BERG Date: 2022-04-04 23:53 Normal [facility] URINE PROFILEon 2 Bilirubin Ql (U) Negative Normal NEGATIVE [facility] Comment on above: Performed By: #### Patel AGUILA UMICRO ####[facility] [address] [place] [address]Dr. Miranda Duffy Clarity (U) CLEAR Normal CLEAR [facility] Comment on above: Performed By: #### Patel AGUILA UMICRO ####[facility] [address] [place] [address]Dr. Miranda Duffy Color (U) LT. YELLOW Normal YELLOW [facility] Comment on above: Performed By: #### Patel AGUILA UMICRO ####[facility] [address] [place], [place] [address]Dr. Miranda ASCENCIOAHD A micrscopic examination will be performed if indicated. Normal [facility] Comment on above: Performed By: #### Patel AGUILA UMICRO ####[facility] [address] [place], [place] [address]Dr. Miranda Duffy Glucose Ql (U) Negative Normal NEGATIVE [facility] Comment on above: Performed By: #### Patel AGUILA UMICRO ####[facility] [address] [place], [place] [address]Dr. Miranda Clive Hemoglobin Ql (U) Negative Normal NEGATIVE [facility] Comment on above: Performed By: #### Patel AGUILA UMICRO ####[facility] [address] [place], [place] [address]Dr. Miranda Duffy Ketones Ql (U) 15 mg/dl Abnormal NEGATIVE [facility] Comment on above: Performed By: #### Patel AGUILA UMICRO ####[facility] [address] [place], [place] [address]Dr. Miranda Duffy LEUKOCYTES SMALL Abnormal NEGATIVE [facility] Comment on above: Performed By: #### Patel AGUILA UMICRO ####[facility] [address] [place], [place] [address]Dr. Miranda Duffy Nitrite Ql (U) Positive Abnormal NEGATIVE [facility] Comment on above: Performed By: #### Patel AGUILA UMICRO ####[facility] [address] [address]Dr. Miranda Duffy pH (U) 5.5 [pH] Normal 5-9 [facility] Comment on above: Performed By: #### LEIGHA GREGG ####[facility] [address] [id number]. Miranda Duffy SPEC GRAVITY 1.015 Normal 1.005-<=1.025 [facility] Comment on above: Performed By: #### LEIGHA GREGG ####[facility] [address] [address]Dr. Miranda Duffy UA PROTEIN Negative Normal NEGATIVE/ TRACE [facility] Comment on above: Performed By: #### LEIGHA GREGG ####[facility] [address] [place] [address]Dr. Miranda Duffy UR MICRO IND INDICATED Normal [facility] Comment on above: Performed By: #### LEIGHA GREGG ####[facility] [address] [address]Dr. Miranda Duffy Urobilinogen Qn (U) 1.0 {Alondra'U}/dL Normal 0.2 - 1. 0 [facility] Comment on above: Performed By: #### LEIGHA GREGG ####[facility] [address] [address]Dr. Miranda Duffy PROF CHEM 8 (BAS METB)on Anion gap [Moles/Vol] 8.2 mmol/L Normal [facility] Comment on above: Performed By: #### B DUSTIN ERICKSON #### [facility] [address] [address] [address] Miranda Duffy Calcium [Mass/Vol] 9.2 mg/dL Normal 8.5-10.1 [facility] [place] [facility] Comment on above: Performed By: #### B ESTRELLITA ERICKSONDM #### [facility] [address] [address] [address] Miranda Duffy Chloride [Moles/Vol] 103 mmol/L Normal 98-107 [facility] Comment on above: Performed By: #### B MP, CMADM #### [facility] [address] [address] [address] Miranda Duffy CO2 [Moles/Vol] 30.7 mmol/L Normal 21.0-32.0 [facility] Comment on above: Performed By: #### B MP, CMADM #### [facility] [address] [address] [address] Miranda Duffy Creatinine [Mass/Vol] 0.73 mg/dL Normal 0.55-1.02 [facility] Comment on above: Performed By: #### B MP, CMADM #### [facility] [address] [address] [address] Miranda Duffy EGFR-AF SAMOAN >60 Normal >=60 [facility] Comment on above: Performed By: #### B GEORGINA, CMADM #### [facility] [address] [address] [address] Miranda Duffy EGFR-NON AF SAMOAN >60 Normal >=60 [facility] Comment on above: Performed By: #### B GEORGINA, CMADM #### [facility] [address] [address] [address] Miranda Duffy Glucose [Mass/Vol] 116 mg/dL Critically high 74-106 [facility] Comment on above: Performed By: #### B GEORGINA, CMADM #### [facility] [address] [address] [address] Miranda Duffy Potassium [Moles/Vol] 3.9 mmol/L Normal 3.5-5.1 [facility] Comment on above: Performed By: #### B MP, CMADM #### [facility] [address] [address] [address] Miranda Duffy Sodium [Moles/Vol] 138 mmol/L Normal 136-145 [facility] Comment on above: Performed By: #### B MP, CMADM #### [facility] [address] [address] [address] Miranda Duffy Urea nitrogen [Mass/Vol] 22.0 mg/dL Critically high 7.0-18.0 [facility] Comment on above: Performed By: #### B DUSTIN ERICKSON #### [facility] [address] [address] [address] Miranda Duffy Urea nitrogen/Creatinine [Mass ratio] 30.1 mg/mg Normal [facility] Comment on above: Performed By: #### B DUSTIN ERICKSON #### [facility] [address] [address] [address] Miranda Duffy URINE MICROSCOPIC ONLYon BACTERIA LARGE Abnormal NONE SEEN [facility] Comment on above: Performed By: #### Patel AGUILA UMICRO ####[facility] [address] [address]Dr. Miranda Duffy Bacteria identified Cx Nom (U) INDICATED Normal [facility] Comment on above: Performed By: #### Patel AGUILA UMICRO ####[facility] [address] [address]Dr. Miranda Duffy CAST NONE SEEN Normal NONE SEEN [facility] Comment on above: Performed By: #### Patel AGUILA UMICRO ####[facility] [address] [place] [address]Dr. Miranda Duffy Crystals LM Nom (Urine sed) NONE SEEN Normal NONE SEEN [facility] Comment on above: Performed By: #### Patel AGUILA UMICRO ####[facility] [address] [place] [address]Dr. Miranda Duffy Epithelial cells LM Ql (Urine sed) FEW Abnormal NONE SEEN /RARE [facility] Comment on above: Performed By: #### Patel AGUILA UMICRO ####[facility] [address] [place] [address]DrLadan Duffy MUCOUS NONE SEEN Normal NONE SEEN [facility] Comment on above: Performed By: #### Patel AGUILA UMICRO ####[facility] [address] [place] [address]DrLadan Duffy RBC 0-2 Normal 0-2 [facility] Comment on above: Performed By: #### Patel AGUILA UMICRO ####[facility] [address] [place], [place] [address]Ns. Miranda Duffy WBC 5-10 Abnormal NONE SEEN [facility] Comment on above: Performed By: #### LEIGHA GREGG ####[facility] [address] [place], [place] [address]Iu. Miranda Duffy XR HIP LT 2 3V W [...] DAVID ALONSO Date: 2022-04-05 00:12 Normal [facility] Encounters Encounter Date Encounter Type Care Provider Facility Start: 08-09-2022 End: 08-09-[address] KERRIE PLASCENCIA Facility:[facility] Start: 08-07-2022 End: 08-07-[address] KERRIE PLASCENCIA Facility:[facility] Start: 08-04-2022 End: 08-04-[address] KERRIE PLASCENCIA Facility:[facility] Start: 04-05-2022 End: 04-05-2022 ambulatory HALLIE ELIZONDO Facility:[facility] Payers Date Payer Category Payer Unknown [id number] 1945 Unknown [id number] [id number] 1945 Unknown [id number] [id number] 1945 Unknown [id number] 2.16.84 [id number] 1945 Unknown [id number] [id number] Summary Purpose Family History No Family History Records Found Advance Directives No Advanced Directives Records Found Additional Source Comments INFORMATION SOURCE (unrecogn ized section and content) DATE CREATED AUTHOR 08/12/2022 The [facility] FOR RECORDS PERTAINING TO PATIENTS WHO ARE [...] BE BASED ON THE PRIMARY CLINICAL RECORDS. [facility] [employer] [facility]. provides no warranty or guarantee of the accuracy or completeness of information in this document.
[2023-06-20 08:04] LABS: Basophils Absolute Auto 0.1 10^3/uL (0.0-0.1); Basophils Percent Auto 0.8 % (0.2-2.0); Eosinophils Absolute Auto 0.4 10^3/uL (0.0-0.7); Eosinophils Percent Auto 6.7 % (0.9-7.0); Hematocrit 42.3 % (36.0-48.0); Hemoglobin 13.7 g/dL (12.0-16.0); Immature Granulocytes Abs Auto 0.02 10^3/uL (0.00-0.03); Immature Granulocytes Pct Auto 0.3 % (0.0-0.5); Lymphocytes Absolute Auto 1.2 10^3/uL (1.2-3.8); Lymphocytes Percent Auto 17.8 % (20.5-60.0); Mean Corpuscular HGB Conc 32.4 g/dL (29.9-35.2); Mean Corpuscular Hemoglobin 30.5 pg (26.7-34.0); Mean Corpuscular Volume 94.2 fL (81.0-99.0); Mean Platelet Volume 9.8 fL (9.5-13.5); Monocytes Absolute Auto 0.7 10^3/uL (0.3-0.8); Monocytes Percent Auto 10.6 % (1.7-12.0); Neutrophils Absolute Auto 4.2 10^3/uL (1.4-6.5); Neutrophils Percent Auto 63.8 % (43.0-75.0); Platelet Count 217 10^3/uL (150-450); Red Blood Count 4.49 10^6/uL (4.20-5.40); Red Cell Distribution Width 13.9 % (11.0-15.0); White Blood Count 6.5 10^3/uL (4.0-11.0)
[2023-06-20 08:47] LABS: Alanine Aminotransferase 24 U/L (14-59); Albumin Globulin Ratio 0.8; Albumin Level 2.6 g/dL (3.4-5.0); Alkaline Phosphatase 124 U/L (46-116); Anion Gap 8.6; Aspartate Amino Transferase 21 U/L (15-37); BUN Creatinine Ratio 35.2; Bilirubin Total 0.4 mg/dL (0.2-1.0); Calcium 8.3 mg/dL (8.5-10.1); Carbon Dioxide 31.2 mmol/L (21.0-32.0); Chloride 103 mmol/L (98-107); Chol HDL Ratio 4.7; Cholesterol 161 mg/dL (<=200); Estimated GFR (African America >60 (>=60); Estimated GFR (Non-African Ame >60 (>=60); Globulin 3.4 g/dL; Glucose 80 mg/dL (74-106); HDL Cholesterol 34 mg/dL (40-60); Potassium 3.8 mmol/L (3.5-5.1); Sodium 139 mmol/L (136-145); Thyroid Stimulating Hormone 7.535 uIU/mL (0.358-3.740); Triglycerides 97 mg/dL (<=150); VLDL CHOLESTEROL 19.4 mg/dL
[2023-06-20 08:55] LABS: Estimated Average Glucose 100 mg/dL; Glycohemoglobin A1C 5.1 % (4.5-6.2)
== END 2023-06-20 02:36 | disposition home or self-care (01) ==
LOC: LAB 02:35
PROVIDERS: Visit Provider Internal Medicine
DX: E11.8 Type 2 diabetes mellitus with unspecified complications (principal); E03.9 Hypothyroidism, unspecified; I10 Essential (primary) hypertension
CPT/HCPCS: 36415; 80053; 80061; 82306; 83036; 83880; 84443; 85025

== ENCOUNTER 2023-07-27 02:34 | Outpatient (REF) | payer MEDICARE, MEDICAID, SELFPAY ==
--- OUTSIDE RECORDS SUMMARY | 2023-07-27 02:39 | XMS_ITS | CCD ---
Author Organization [facility] Care Team Providers Care Worship Pastor Name Role Phone TEMO, DR SY Primary [...] Unavailable KYLIEONE, DR SY Primary Care Unavailable MORENA, HARVEY Consulting Unavailable DAVID ALONSO Consulting Unavailable Allergies Allergy Classification Reported Allergen(s) Allergy Type Date of Onset Reaction(s) Facility (1 source) Fish derivative Drug allergy (disorder) 02-11-2021 [facility] Repository (1 source) Iodine Drug Allergy [facility] Repository (1 source) Iodine (And Iodine Containting Drugs) Drug allergy (disorder) [facility] Rep[facility] (1 source) Penicillins Drug allergy (disorder) [facility] Rep[facility] (1 source) Sulfonamides (Antibiotic) Drug allergy (disorder) [facility] Repository Problems Active Problems Problem Classification Problem Date Documented Date Episodic/Chronic Coronary atherosclerosis and other heart disease (4 sources) Atherosclerotic heart disease of habematolel coronary artery without angina pectoris; 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] Onset: 08-09-2022 Chronic [...] Onset: 04-05-2022 Episodic Other aftercare (1 source) skilled nursing (current) use of anticoagulants; Translations: [SONG WRITER CURRNT USE ANTICOAGULANTS] Onset: 04-11-2022 Episodic Other aftercare (1 source) Other technician terminal and repeater (current) drug therapy; Translations: [OTH SONG WRITER CURRENT DRUG THERAPY] Onset: 04-11-2022 Episodic Other [...] (Bld) [Mass/Vol] 124.0 pg/mL Normal <=1,800.0 [facility] Comment on above: Performed By: #### T SH, BNP, CREA, ELEC, BUN ####[facility] [address] [place] [address]DrLadan Duffy BUNon 08-07-2022 Urea nitrogen [Mass/Vol] 13.0 mg/dL Normal 7.0-18.0 [facility] Comment on above: Performed By: #### T SH, BNP, CREA, ELEC, BUN ####[facility] [address] [place] [address]DrLadan Duffy CREATININEon 08-07-2022 Creatinine [Mass/Vol] 0.60 mg/dL Normal 0.55-1.02 [facility] Comment on above: Performed By: #### T SH, BNP, CREA, ELEC, BUN ####[facility] [address] [place] [address]Dr. Miranda Duffy EGFR-AF SAO TOMEAN >60 Normal >=60 [facility] Comment on above: Performed By: #### T SH, BNP, CREA, ELEC, BUN ####[facility] [address] [place] [address]Dr. Miranda Duffy EGFR-NON AF SAO TOMEAN >60 Normal >=60 [facility] Comment on above: Performed By: #### T SH, BNP, CREA, ELEC, BUN ####[facility] [address] [place], [place] [address]Dr. Miranda Duffy ELECTROLYTESon 08-07-2022 Anion gap [Moles/Vol] 14.0 mmol/L Normal [facility] Comment on above: Performed By: #### T SH, BNP, CREA, ELEC, BUN ####[facility] [address] [place], [place] [address]Dr. Miranda Duffy Chloride [Moles/Vol] 106 mmol/L Normal 98-107 [facility] Comment on above: Performed By: #### T SH, BNP, CREA, ELEC, BUN ####[facility] [address] [place] [address]Dr. Miranda Duffy CO2 [Moles/Vol] 28.3 mmol/L Normal 21.0-32.0 [facility] Comment on above: Performed By: #### T SH, BNP, CREA, ELEC, BUN ####[facility] [address] [place], [place] [address]Dr. Miranda Duffy Potassium [Moles/Vol] 4.3 mmol/L Normal 3.5-5.1 [facility] Comment on above: Performed By: #### T SH, BNP, CREA, ELEC, BUN ####[facility] [address] [place], [place] [address]DrLadan Duffy Sodium [Moles/Vol] 144 mmol/L Normal 136-145 [facility] Comment on above: Performed By: #### T SH, BNP, CREA, ELEC, BUN ####[facility] [address] [place] [address]DrLadan Duffy TSHon 08-07-2022 TSH 3.287 uIU/mL Normal 0.358-3.740 [facility] Comment on above: Performed By: #### T SH, BNP, CREA, ELEC, BUN ####[facility] [address] [place] [address]DrLadan Duffy BNPon 08-04-2022 Natriuretic peptide B (Bld) [Mass/Vol] 70.0 pg/mL Normal <=1,800.0 [facility] Comment on above: Performed By: #### B GLOVE CLEANER, BMP #### [facility] [address] [place] [address] Dr. Miranda Duffy CBC AUTO DIFFon 08-04-2022 BASO # 0.1 103/ul Normal 0.0-0.1 [facility] Comment on above: Performed By: #### C BC #### [facility] [address] [place] [address] Dr. Miranda Duffy Basophils/100 WBC (Bld) 0.9 % Normal 0.2-2.0 [facility] Comment on above: Performed By: #### C BC #### [facility] [address] [place] [address] Dr. Miranda Duffy EO # 0.5 103/ul Normal 0.0-0.7 [facility] Comment on above: Performed By: #### C BC #### [facility] [address] [place] [address] Dr. Miranda Duffy Eosinophils/100 WBC (Bld) 9.0 % Critically high 0.9-7.0 [facility] Comment on above: Performed By: #### C BC #### [facility] [address] [place] [address] Dr. Miranda Duffy Erythrocyte distribution width (RBC) [Ratio] 15.0 % Normal 11.0-15.0 [facility] Comment on above: Performed By: #### C BC #### [facility] [address] [place] [address] Dr. Miranda Duffy Hematocrit (Bld) [Volume fraction] 34.2 % Critically low 36.0-48.0 [facility] Comment on above: Performed By: #### C BC #### [facility] [address] [place] [address] Dr. Miranda Duffy Hemoglobin (Bld) [Mass/Vol] 10.9 g/dL Critically low 12.0-16.0 [facility] Comment on above: Performed By: #### C BC #### [facility] [address] [place] [address] Dr. Miranda Duffy IG # 0.04 10e3/ul Critically high 0.00-0.03 [facility] Comment on above: Performed By: #### C BC #### [facility] [address] [place] [address] Dr. Miranda Duffy IG % 0.7 % Critically high 0.0-0.5 [facility] Comment on above: Performed By: #### C BC #### [facility] [address] [place] [address] Dr. Miranda Duffy LYMPH # 1.1 103/ul Critically low 1.2-3.8 [facility] Comment on above: Performed By: #### C BC #### [facility] [address] [place] [address] Dr. Miranda Duffy Lymphocytes/100 WBC (Bld) 20.1 % Critically low 20.5-60.0 [facility] Comment on above: Performed By: #### C BC #### [facility] [address] [place] [address] Dr. Miranda Duffy MANUAL DIFF REQ NO Normal [facility] Comment on above: Performed By: #### C BC #### [facility] [address] [place] [address] Dr. Miranda Duffy MCH (RBC) [Entitic mass] 30.4 pg Normal 26.7-34.0 [facility] Comment on above: Performed By: #### C BC #### [facility] [address] [address] [address] Miranda Duffy MCHC (RBC) [Mass/Vol] 31.9 g/dL Normal 29.9-35.2 [facility] Comment on above: Performed By: #### C BC #### [facility] [address] [address] [address] Miranda Duffy MCV (RBC) [Entitic vol] 95.3 fL Normal 81.0-99.0 [facility] Comment on above: Performed By: #### C BC #### [facility] [address] [place] [address] Dr. Miranda Duffy MONO # 0.5 103/ul Normal 0.3-0.8 [facility] Comment on above: Performed By: #### C BC #### [facility] [address] [place] [address] Dr. Miranda Duffy Monocytes/100 WBC (Bld) 7.9 % Normal 1.7-12.0 [facility] Comment on above: Performed By: #### C BC #### [facility] [address] [place] [address] Dr. Miranda Duffy NEUT # 3.5 103/ul Normal 1.4-6.5 [facility] Comment on above: Performed By: #### C BC #### [facility] [address] [address] [address] Miranda Duffy Neutrophils/100 WBC (Bld) 61.4 % Normal 43.0-75.0 [facility] Comment on above: Performed By: #### C BC #### [facility] [address] [address] [address] Miranda Duffy Platelet mean volume (Bld) [Entitic vol] 8.7 fL Critically low 9.5-13.5 [facility] Comment on above: Performed By: #### C BC #### [facility] [address] [address] [address] Miranda Duffy PLT 433 103/ul Normal 150-450 [facility] Comment on above: Performed By: #### C BC #### [facility] [address] [address] [address] Miranda Duffy RBC 3.59 106/ul Critically low 4.20-5.40 [facility] Comment on above: Performed By: #### C BC #### [facility] [address] [address] [address] Miranda Duffy WBC 5.7 103/ul Normal 4.0-11.0 [facility] Comment on above: Performed By: #### C BC #### [facility] [address] [address] [address] Miranda Duffy GLYCOHEMOGLOBIN A1Con 2022 ADA RECOMMENDATION SEE BELOW Normal [facility] Comment on above: Result Comment: ADA RECOMMENDED LIMIT 4.0 - 6.0 ADA THERAPEUTIC TARGET < 7.0 ACTION SUGGESTED > 7.0 Performed By: #### A 1C ####[facility] [address] [place] [address]Dr. Miranda Duffy Glucose [Mass/Vol] 100 mg/dL Normal [facility] Comment on above: Performed By: #### A 1C ####[facility] [address] [place] [address]Dr. Miranda Duffy HbA1c (Bld) [Mass fraction] 5.1 % Normal 4.5-6.2 [facility] Comment on above: Performed By: #### A 1C ####[facility] [address] [place] [address]Dr. Miranda Duffy PROF CHEM 8 (BAS METB)on Anion gap [Moles/Vol] 7.0 mmol/L Normal [facility] Comment on above: Performed By: #### B GLOVE CLEANER, BMP #### [facility] [address] [address] [address] Miranda Duffy Calcium [Mass/Vol] 8.4 mg/dL Critically low 8.5-10.1 [facility] Comment on above: Performed By: #### B GLOVE CLEANER, BMP #### [facility] [address] [address] [address] Miranda Duffy Chloride [Moles/Vol] 107 mmol/L Normal 98-107 [facility] Comment on above: Performed By: #### B GLOVE CLEANER, BMP #### [facility] [address] [place] [address] Dr. Miranda Duffy CO2 [Moles/Vol] 30.5 mmol/L Normal 21.0-32.0 [facility] Comment on above: Performed By: #### B GLOVE CLEANER, BMP #### [facility] [address] [place] [address] Dr. Miranda Duffy Creatinine [Mass/Vol] 0.59 mg/dL Normal 0.55-1.02 [facility] Comment on above: Performed By: #### B GLOVE CLEANER, BMP #### [facility] [address] [place] [address] Dr. Miranda Duffy EGFR-AF SAO TOMEAN >60 Normal >=60 [facility] Comment on above: Performed By: #### B GLOVE CLEANER, BMP #### [facility] [address] [place] [address] Dr. Miranda Duffy EGFR-NON AF SAO TOMEAN >60 Normal >=60 [facility] Comment on above: Performed By: #### B GLOVE CLEANER, BMP #### [facility] [address] [place] [address] Dr. Miranda Duffy Glucose [Mass/Vol] 85 mg/dL Normal 74-106 [facility] Comment on above: Performed By: #### B GLOVE CLEANER, BMP #### [facility] [address] [place] [address] Dr. Miranda Duffy Potassium [Moles/Vol] 3.5 mmol/L Normal 3.5-5.1 [facility] Comment on above: Performed By: #### B GLOVE CLEANER, BMP #### [facility] [address] [place] [address] Dr. Miranda Duffy Sodium [Moles/Vol] 141 mmol/L Normal 136-145 [facility] Comment on above: Performed By: #### B GLOVE CLEANER, BMP #### [facility] [address] [place] [address] Dr. Miranda Duffy Urea nitrogen [Mass/Vol] 17.0 mg/dL Normal 7.0-18.0 [facility] Comment on above: Performed By: #### B GLOVE CLEANER, BMP #### [facility] [address] [place] [address] Dr. Miranda Duffy Urea nitrogen/Creatinine [Mass ratio] 28.8 mg/mg Normal [facility] Comment on above: Performed By: #### B GLOVE CLEANER, BMP #### [facility] [address] [place] [address] Dr. Miranda Duffy UA (CLEAN/CATCH) NUTRITION PROGRAM INSTRUCTOR/MICRO I F IND.on 08-04-2022 Bilirubin Ql (U) Negative Normal NEGATIVE [facility] Comment on above: Performed By: #### U ACSIND #### [facility] [address] [place] [address] Dr. Miranda Duffy Clarity (U) SL CLOUDY Abnormal CLEAR [facility] Comment on above: Performed By: #### U ACSIND #### [facility] [address] [place] [address] Dr. Miranda Duffy Color (U) YELLOW Normal YELLOW [facility] Comment on above: Performed By: #### U ACSIND #### [facility] [address] [place] [address] Dr. Miranda Duffy Glucose Ql (U) Negative Normal NEGATIVE [facility] Comment on above: Performed By: #### U ACSIND #### [facility] [address] [place] [address] Dr. Miranda Duffy Hemoglobin Ql (U) Negative Normal NEGATIVE [facility] Comment on above: Performed By: #### U ACSIND #### [facility] [address] [place] [address] Dr. Miranda Duffy Ketones Ql (U) Negative Normal NEGATIVE [facility] Comment on above: Performed By: #### U ACSIND #### [facility] [address] [place] [address] Dr. Miranda Duffy LEUKOCYTES Negative Normal NEGATIVE [facility] Comment on above: Performed By: #### U ACSIND #### [facility] [address] [place] [address] Dr. Miranda Duffy Nitrite Ql (U) Negative Normal NEGATIVE [facility] Comment on above: Performed By: #### U ACSIND #### [facility] [address] [address] [address] Miranda Duffy pH (U) 5.5 [pH] Normal 5-9 [facility] Comment on above: Performed By: #### U ACSIND #### [facility] [address] [address] [address] Miranda Duffy SPEC GRAVITY 1.030 Abnormal 1.005-<=1.025 [facility] Comment on above: Performed By: #### U ACSIND #### [facility] [address] [address] [address] Miranda Duffy UA PROTEIN Negative Normal NEGATIVE/ TRACE [facility] Comment on above: Performed By: #### U ACSIND #### [facility] [address] [place] [address] Dr. Miranda Duffy UR MICRO IND NOT INDICATED Normal [facility] Comment on above: Performed By: #### U ACSIND #### [facility] [address] [address] [address] Miranda Duffy Urobilinogen Qn (U) 0.2 {Alondra'U}/dL Normal 0.2 - 1. 0 [facility] Comment on above: Performed By: #### U ACSIND #### [facility] [address] [place] [address] Dr. Miranda Duffy CULTURE URINEon 04-07-2022 CULTURE [...] F Trimethoprim/Sulfamet hoxazole <=20 S F Normal [facility] Comment on above: Performed By: #### U RCX ####[facility] [address] [place] [address]Dr. Miranda Duffy CARDIAC TUTU 3-6on 2 CK [Catalytic activity/Vol] 134 U/L Normal 26-192 [facility] Comment on above: Performed By: #### C MREP #### [facility] [address] [address] [address] Miranda Duffy CK.MB [Mass/Vol] 3.51 ng/mL Normal <=3.60 [facility] Comment on above: Performed By: #### C MREP #### [facility] [address] [place] [address] Dr. Miranda Duffy HSTROP 7.8 pg/mL Normal 4.0-51.3 [facility] Comment on above: Result Comment: CUT- OFF POINTS HAVE BEEN ESTABLISHED BASED ON THE FOURTH UNIVERSAL DEFINITIONS OF MYOCARDIAL INFARCTION. THE UPPER REFERENCE LIMIT (URL) OF TROPONIN, DEFINED THE 99TH PERCENTILE OF cTnI DISTRIBUTION IN A REFERENCE POPULATION, HAS BEEN CONFIRMED THE DECISION THRESHOLD FOR VA DIAGNOSIS. Performed By: #### C MREP #### [facility] [address] [address] [address] Miranda Duffy CARDIAC TUTU ADMITon 022 CK [Catalytic activity/Vol] 90 U/L Normal 26-192 [facility] Comment on above: Performed By: #### DUSTIN Velazco MP #### [facility] [address] [place] [address] Dr. Miranda Duffy CK.MB [Mass/Vol] 1.95 ng/mL Normal <=3.60 [facility] Comment on above: Performed By: #### DUSTIN Velazco MP #### [facility] [address] [place] [address] Dr. Miranda Duffy HSTROP 7.7 pg/mL Normal 4.0-51.3 [facility] Comment on above: Result Comment: CUT- OFF POINTS HAVE BEEN ESTABLISHED BASED ON THE FOURTH UNIVERSAL DEFINITIONS OF MYOCARDIAL INFARCTION. THE UPPER REFERENCE LIMIT (URL) OF TROPONIN, DEFINED THE 99TH PERCENTILE OF cTnI DISTRIBUTION IN A REFERENCE POPULATION, HAS BEEN CONFIRMED THE DECISION THRESHOLD FOR VA DIAGNOSIS. Performed By: #### B DUSTIN ERICKSON #### [facility] [address] [address] [address] Miranda Duffy SHELBY 426 ng/mL Critically high 9-82 [facility] Comment on above: Performed By: #### B DUSTIN ERICKSON #### [facility] [address] [address] [address] Miranda Duffy CBC AUTO DIFFon 04-05-2022 BASO # 0.1 103/ul Normal 0.0-0.1 [facility] Comment on above: Performed By: #### C BC ####[facility] [address] [place] [address]DrLadan Duffy Basophils/100 WBC (Bld) 0.7 % Normal 0.2-2.0 [facility] Comment on above: Performed By: #### C BC ####[facility] [address] [place] [address]DrLadan Duffy EO # 0.7 103/ul Normal 0.0-0.7 [facility] Comment on above: Performed By: #### C BC ####[facility] [address] [place] [address]Dr. Miranda Duffy Eosinophils/100 WBC (Bld) 6.3 % Normal 0.9-7.0 [facility] Comment on above: Performed By: #### C BC ####[facility] [address] [place] [address]DrLadan Duffy Erythrocyte distribution width (RBC) [Ratio] 14.4 % Normal 11.0-15.0 [facility] Comment on above: Performed By: #### C BC ####[facility] [address] [place], [place] [address]DrLadan Duffy Hematocrit (Bld) [Volume fraction] 43.7 % Normal 36.0-48.0 [facility] Comment on above: Performed By: #### C BC ####[facility] [address] [place] [address]Dr. Miranda Duffy Hemoglobin (Bld) [Mass/Vol] 14.8 g/dL Normal 12.0-16.0 [facility] Comment on above: Performed By: #### C BC ####[facility] [address] [place] [address]. Miranda Duffy IG # 0.06 10e3/ul Critically high 0.00-0.03 [facility] Comment on above: Performed By: #### C BC ####[facility] [address] [place] [address]Dr. Miranda Duffy IG % 0.5 % Normal 0.0-0.5 [facility] Comment on above: Performed By: #### C BC ####[facility] [address] [place] [address]Dr. Miranda Duffy LYMPH # 1.7 103/ul Normal 1.2-3.8 [facility] Comment on above: Performed By: #### C BC ####[facility] [address] [place] [address]Dr. Miranda Duffy Lymphocytes/100 WBC (Bld) 14.7 % Critically low 20.5-60.0 [facility] Comment on above: Performed By: #### C BC ####[facility] [address] [place] [place] [address]Dr. Miranda Duffy MANUAL DIFF REQ NO Normal [facility] Comment on above: Performed By: #### C BC ####[facility] [address] [address]Dr. Miranda Duffy MCH (RBC) [Entitic mass] 31.1 pg Normal 26.7-34.0 [facility] Comment on above: Performed By: #### C BC ####[facility] [address] [place] [address]Dr. Miranda Duffy MCHC (RBC) [Mass/Vol] 33.9 g/dL Normal 29.9-35.2 [facility] Comment on above: Performed By: #### C BC ####[facility] [address] [place], [place] [address]Dr. Miranda Duffy MCV (RBC) [Entitic vol] 91.8 fL Normal 81.0-99.0 [facility] Comment on above: Performed By: #### C BC ####[facility] [address] [place] [address]Dr. Miranda Duffy MONO # 0.9 103/ul Critically high 0.3-0.8 [facility] Comment on above: Performed By: #### C BC ####[facility] [address] [place], [place] [address]Dr. Miranda Duffy Monocytes/100 WBC (Bld) 8.2 % Normal 1.7-12.0 [facility] Comment on above: Performed By: #### C BC ####[facility] [address] [place], [place] [address]Dr. Miranda Duffy NEUT # 7.8 103/ul Critically high 1.4-6.5 [facility] Comment on above: Performed By: #### C BC ####[facility] [address] [place], [place] [address]Dr. Miranda Duffy Neutrophils/100 WBC (Bld) 69.6 % Normal 43.0-75.0 [facility] Comment on above: Performed By: #### C BC ####[facility] [address] [place], [place] [address]Dr. Miranda Duffy Platelet mean volume (Bld) [Entitic vol] 9.0 fL Critically low 9.5-13.5 [facility] Comment on above: Performed By: #### C BC ####[facility] [address] [place], [place] [address]Dr. Miranda Clive PLT 248 103/ul Normal 150-450 [facility] Comment on above: Performed By: #### C BC ####[facility] [address] [place], [place] [address]Dr. Miranda Clive RBC 4.76 106/ul Normal 4.20-5.40 [facility] Comment on above: Performed By: #### C BC ####[facility] [address] [place], [place] [address]Dr. Miranda Duffy WBC 11.2 103/ul Critically high 4.0-11.0 [facility] Comment on above: Performed By: #### C ####[facility] [address] [place], [place] [address]. [address] Duffy CT CSPINE WO CONon CT CSPINE WO CON EXAM: CT CSPINE [...] DAVID ALONSO Date: 2022-04-05 01:16 Normal [facility] CT FACIAL BONES WO CONon CT FACIAL [...] HARVEY BERG Date: 2022-04-04 23:53 Normal [facility] ER URINE PROFILEon 2 Bilirubin Ql (U) Negative Normal NEGATIVE [facility] Comment on above: Performed By: #### E ANANT AGUILARO ####[facility] [address] [place], [place] [address]Dr. Miranda Duffy Clarity (U) CLEAR Normal CLEAR [facility] Comment on above: Performed By: #### ANANT GREGGRO ####[facility] [address] [place] [address]Dr. Miranda Duffy Color (U) LT. YELLOW Normal YELLOW [facility] Comment on above: Performed By: #### ANANT GREGGRO ####[facility] [address] [place], [place] [address]Dr. Miranda Duffy ERUAHD A micrscopic examination will be performed if indicated. Normal [facility] Comment on above: Performed By: #### ANANT GREGGRO ####[facility] [address] [place], [place] [address]Dr. Miranda Duffy Glucose Ql (U) Negative Normal NEGATIVE [facility] Comment on above: Performed By: #### ANANT GREGGRO ####[facility] [address] [place], [place] [address]Dr. Miranda Duffy Hemoglobin Ql (U) Negative Normal NEGATIVE [facility] Comment on above: Performed By: #### ANANT GREGGRO ####[facility] [address] [place], [place] [address]Dr. Miranda Duffy Ketones Ql (U) 15 mg/dl Abnormal NEGATIVE [facility] Comment on above: Performed By: #### ANANT GREGGRO ####[facility] [address] [place], [place] [address]Dr. Miranda Duffy LEUKOCYTES SMALL Abnormal NEGATIVE [facility] Comment on above: Performed By: #### ANANT GREGGRO ####[facility] [address] [place], [place] [address]Dr. Miranda Duffy Nitrite Ql (U) Positive Abnormal NEGATIVE [facility] Comment on above: Performed By: #### ANANT GREGGRO ####[facility] [address] [place], [place] [address]Dr. Miranda Duffy pH (U) 5.5 [pH] Normal 5-9 [facility] Comment on above: Performed By: #### LEIGHA GREGG ####[facility] [address] [place] [address]DrLadan Duffy SPEC GRAVITY 1.015 Normal 1.005-<=1.025 [facility] Comment on above: Performed By: #### LEIGHA GREGG ####[facility] [address] [place] [address]DrLadan Duffy UA PROTEIN Negative Normal NEGATIVE/ TRACE [facility] Comment on above: Performed By: #### LEIGHA GREGG ####[facility] [id number] [place] [address]Dr. Miranda Duffy UR MICRO IND INDICATED Normal [facility] Comment on above: Performed By: #### LEIGHA GREGG ####[facility] [id number] [place] [address]DrLadan Duffy Urobilinogen Qn (U) 1.0 {Alondra'U}/dL Normal 0.2 - 1. 0 [facility] Comment on above: Performed By: #### LEIGHA GREGG ####[facility] [id number] [place] [address]DrLadan Duffy PROF CHEM 8 (BAS METB)on Anion gap [Moles/Vol] 8.2 mmol/L Normal [facility] Comment on above: Performed By: #### DUSTIN Velazco MP #### [facility] [address] [place] [address] Dr. Miranda Duffy Calcium [Mass/Vol] 9.2 mg/dL Normal 8.5-10.1 [facility] Comment on above: Performed By: #### DUSTIN Velazco MP #### [facility] [address] [address] [address] Miranda Duffy Chloride [Moles/Vol] 103 mmol/L Normal 98-107 [facility] Comment on above: Performed By: #### DUSTIN Velazco MP #### [facility] [address] [address] [address] Miranda Duffy CO2 [Moles/Vol] 30.7 mmol/L Normal 21.0-32.0 [facility] Comment on above: Performed By: #### B GEORGINA, ESTRELLITADM #### [facility] [address] [address] [address] Miranda Duffy Creatinine [Mass/Vol] 0.73 mg/dL Normal 0.55-1.02 [facility] Comment on above: Performed By: #### B GEORGINA, CMADM #### [facility] [address] [address] [address] Miranda Duffy EGFR-AF SAO TOMEAN >60 Normal >=60 [facility] Comment on above: Performed By: #### B GEORGINA, ESTRELLITADM #### [facility] [address] [address] [address] Miranda Duffy EGFR-NON AF SAO TOMEAN >60 Normal >=60 [facility] Comment on above: Performed By: #### B DUSTIN ERICKSON #### [facility] [address] [address] [address] Miranda Duffy Glucose [Mass/Vol] 116 mg/dL Critically high 74-106 [facility] Comment on above: Performed By: #### B DUSTIN ERICKSON #### [facility] [address] [address] [address] Miranda Duffy Potassium [Moles/Vol] 3.9 mmol/L Normal 3.5-5.1 [facility] Comment on above: Performed By: #### B GEORGINA, ESTRELLITADM #### [facility] [address] [address] [address] Miranda Duffy Sodium [Moles/Vol] 138 mmol/L Normal 136-145 [facility] Comment on above: Performed By: #### B GEORGINA, DUSTIN #### [facility] [address] [address] [address] Miranda Duffy Urea nitrogen [Mass/Vol] 22.0 mg/dL Critically high 7.0-18.0 [facility] Comment on above: Performed By: #### B DUSTIN ERICKSON #### [facility] [address] [address] [address] Miranda Duffy Urea nitrogen/Creatinine [Mass ratio] 30.1 mg/mg Normal [facility] Comment on above: Performed By: #### DUSTIN Velazco MP #### [facility] [address] [address] [address] Miranda Duffy URINE MICROSCOPIC ONLYon BACTERIA LARGE Abnormal NONE SEEN [facility] Comment on above: Performed By: #### ANANT GREGGRO ####[facility] [id number] [place] [address]Dr. Miranda Duffy Bacteria identified Cx Nom (U) INDICATED Normal [facility] Comment on above: Performed By: #### ANANT GREGGRO ####[facility] [id number] [place] [address]Dr. Miranda Duffy CAST NONE SEEN Normal NONE SEEN [facility] Comment on above: Performed By: #### ANANT GREGGRO ####[facility] [address] [place] [address]Dr. Miranda Duffy Crystals LM Nom (Urine sed) NONE SEEN Normal NONE SEEN [facility] Comment on above: Performed By: #### ANANT GREGGRO ####[facility] [address] [place] [address]Dr. Miranda Duffy Epithelial cells LM Ql (Urine sed) FEW Abnormal NONE SEEN /RARE [facility] Comment on above: Performed By: #### ANANT GREGGRO ####[facility] [address] [place] [address]Dr. Miranda Duffy MUCOUS NONE SEEN Normal NONE SEEN [facility] Comment on above: Performed By: #### ANANT GREGGRO ####[facility] [address] [place], [place] [address]Dr. Miranda Duffy RBC 0-2 Normal 0-2 [facility] Comment on above: Performed By: #### ANANT GREGGRO ####[facility] [address] [place], [place] [address]Dr. Miranda Duffy WBC 5-10 Abnormal NONE SEEN [facility] Comment on above: Performed By: #### E LEIGHA AGUILA ####[facility] [address] [place], [place] [address]DrLadan Duffy XR HIP LT 2 3V W [...] DAVID ALONSO Date: 2022-04-05 00:12 Normal [facility] Encounters Encounter Date Encounter Type Care Provider Facility Start: 08-09-2022 End: 08-09-[address] KERRIE PLASCENCIA Facility:[facility] Start: 08-07-2022 End: 08-07-[address] KERRIE PLASCENCIA Facility:[facility] Start: 08-04-2022 End: 08-04-[address] KERRIE PLASCENCIA Facility:[facility] Start: 04-05-2022 End: 04-05-2022 ambulatory HALLIE ELIZONDO Facility:[facility] Payers Date Payer Category Payer Unknown [id number] 1945 Unknown [id number] 2.16.84 [id number] 1945 Unknown [id number] 2.16.84 [id number] 1945 Unknown [id number] 2.16.84 [id number] 1945 Unknown [id number] [id number] Summary Purpose Family History No Family History Records Found Advance Directives No Advanced Directives Records Found Additional Source Comments INFORMATION SOURCE (unrecogn ized section and content) DATE CREATED AUTHOR 08/12/2022 [facility] PERTAINING TO PATIENTS WHO [...] BE BASED ON THE PRIMARY CLINICAL RECORDS. [facility] [employer] [facility]. provides no warranty or guarantee of the accuracy or completeness of information in this document.
[2023-07-27 14:43] LABS: Estimated Average Glucose 100 mg/dL; Glycohemoglobin A1C 5.1 % (4.5-6.2)
== END 2023-07-27 02:35 | disposition home or self-care (01) ==
LOC: LAB 02:34
PROVIDERS: Visit Provider Internal Medicine
DX: R73.9 Hyperglycemia, unspecified (principal)
CPT/HCPCS: 36415; 83036

== ENCOUNTER 2023-08-14 19:30 | Outpatient (REF) | payer MEDICARE, MEDICAID, SELFPAY ==
--- OUTSIDE RECORDS SUMMARY | 2023-08-15 00:45 | XMS_ITS | CCD ---
Author Organization [facility] Care Team Providers Care A P Mechanic Name Role Phone VALALICE, DR SY Primary Care Unavailable VALONE, DR [...] Unavailable VALONE, DR SY Primary Care Unavailable BERG, HARVEY Consulting Unavailable CELESTE, DAVID Consulting Unavailable ALBERTO, LIZBET Referring Unavailable ALBERTO, LIZBET Primary Care Unavailable ALBERTO, LIZBET Referring Unavailable ALBERTO, LIZBET Primary Care Unavailable ALBERTO, LIZBET Referring Unavailable ALBERTO, LIZBET Primary Care Unavailable Allergies Allergy Classification Reported Allergen(s) Allergy Type Date of Onset Reaction(s) Facility (1 source) Fish derivative Drug allergy (disorder) 1 [facility] Repository (1 source) Iodine Drug Allergy [facility] Repository (1 source) Iodine (And Iodine Containting Drugs) Drug allergy (disorder) [facility] Repository (2 sources) Penicillins; Translations: [PENICILLINS] Drug allergy (disorder) 8 [facility] Repository (1 source) Sulfonamides (Antibiotic) Drug allergy (disorder) [facility] (1 source) Sulfonamides (Antibiotic); Translations: [SULFA (SULFONAMIDE ANTIBIOTICS)] Propensity to adverse reactions to drug (disorder) 8 [facility] Repository (1 source) IODINATED CONTRAST MEDIA; Translations: [IODINATED CONTRAST MEDIA] Propensity to adverse reactions to drug (disorder) 02-05-201 9 [facility] Repository Problems Active Problems Problem Classification Problem Date Documented Date Episodic/Chronic Coronary atherosclerosis and other heart disease (4 sources) Atherosclerotic heart disease of [place] coronary artery without angina pectoris; Translations: [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] Onset: 08-09-2022 Chronic [...] unspecified; Translations: [HYPOTHYROIDISM UNSPECIFIED] Onset: 08-04-2022 Chronic Unclassified (1 source) Port/VAD Care Onset: 06-11-2023 Unclassified (1 source) Labs Only Onset: 04-03-2023 Past or Other Problems Problem Classification Problem [...] Onset: 04-05-2022 Episodic Other aftercare (1 source) 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; Translations: [USP CURRNT USE ANTICOAGULANTS] Onset: 04-11-2022 Episodic Other aftercare (1 source) Other retirement (current) drug therapy; Translations: [OTH SENIOR ATTORNEY CURRENT DRUG THERAPY] Onset: 04-11-2022 Episodic Other hematologic conditions (1 source) Secondary polycythemia; Translations: [Secondary polycythemia] Onset: 09-06-2017 Episodic Other injuries and conditions due to external causes (1 source) Unspecified injury of head, initial encounter; Translations: [UNSPECIFIED INJURY HEAD INITIAL ENC] Onset: 04-11-2022 Episodic Spondylosis; intervertebral disc disorders; other back problems (1 source) Spinal stenosis, lumbar region without neurogenic claudication; Translations: [SPINAL STENOSIS LUMBAR REGION NO NC] Onset: 04-11-2022 Episodic Results Test Name Value Interpretation Reference Range Facility CBC AND AUTO DIFFon 08-09-19 ABSOLUTE BASOPHIL 0.1 X10E9/L Normal 0.0-0.2 [facility] Comment on above: Performed By: #### C BCA #### [facility] ([id number]) [address] [place] [address] 74177 ABSOLUTE NEUTROPHIL 5.2 X10E9/L Normal 1.5-6.6 [facility] Comment on above: Performed By: #### C BCA #### [facility] ([id number]) [address] [place] [address] 36857 Basophils/100 WBC (Bld) 1.2 % Normal [facility] Comment on above: Performed By: #### C BCA #### [facility] ([id number]) [address] [place] [address] 85672 Eosinophils (Bld) [#/Vol] 0.5 10*3/uL High 0.0-0.4 [facility] Comment on above: Performed By: #### C BCA #### [facility] ([id number]) [address] [place] [address] 19257 Eosinophils/100 WBC (Bld) 6.7 % Normal [facility] Comment on above: Performed By: #### C BCA #### [facility] ([id number]) [address] [place] [address] 09909 Erythrocyte distribution width (RBC) [Ratio] 14.6 % Normal 11.5-15.0 [facility] Comment on above: Performed By: #### C BCA #### [facility] ([id number]) [address] [place] [address] 27184 Hematocrit (Bld) [Volume fraction] 41.1 % Normal 35-47 [facility] Comment on above: Performed By: #### C BCA #### [facility] ([id number]) [address] [place] [address] 25568 Hemoglobin (Bld) [Mass/Vol] 14.1 g/dL Normal 11.7-15.5 [facility] Comment on above: Performed By: #### C BCA #### [facility] ([id number]) [address] [place] [address] 18911 Lymphocytes (Bld) [#/Vol] 1.5 10*3/uL Normal 1.0-3.5 [facility] Comment on above: Performed By: #### C BCA #### [facility] ([id number]) [address] [place] [address] 63784 Lymphocytes/100 WBC (Bld) 19.1 % Normal [facility] Comment on above: Performed By: #### C BCA #### [facility] ([id number]) [address] [place] [address] 22643 MCH (RBC) [Entitic mass] 30.9 pg Normal 27-34 [facility] Comment on above: Performed By: #### C BCA #### [facility] ([id number]) [address] [place] [address] 24988 MCHC (RBC) [Mass/Vol] 34.2 g/dL Normal 32-36 [facility] Comment on above: Performed By: #### C BCA #### [facility] ([id number]) [address] [place] [address] 52529 MCV (RBC) [Entitic vol] 90 fL Normal 80-100 [facility] Comment on above: Performed By: #### C BCA #### [facility] ([id number]) [address] [place] [address] 63653 Monocytes (Bld) [#/Vol] 0.6 10*3/uL Normal 0-0.9 [facility] Comment on above: Performed By: #### C BCA #### [facility] ([id number]) [address] [place] [address] 73393 Monocytes/100 WBC (Bld) 7.5 % Normal [facility] Comment on above: Performed By: #### C BCA #### [facility] ([id number]) [address] [place] [address] 95463 Neutrophils/100 WBC (Bld) 65.5 % Normal [facility] Comment on above: Performed By: #### C BCA #### [facility] ([id number]) [address] [place] [address] 97810 Platelet mean volume (Bld) [Entitic vol] 7.9 fL Normal 7-12 [facility] Comment on above: Performed By: #### C BCA #### [facility] ([id number]) [address] [place] [address] 89684 Platelets (Bld) [#/Vol] 277 10*3/uL Normal 150-450 [facility] Comment on above: Performed By: #### C BCA #### [facility] ([id number]) [address] [place] [address] 54000 RBC COUNT 4.55 X10E12/L Normal 3.80-5.20 [facility] Comment on above: Performed By: #### C BCA #### [facility] ([id number]) [address] [place] [address] 85950 WBC (Bld) [#/Vol] 8.0 10*3/uL Normal 4.0-11.0 [facility] Comment on above: Performed By: #### C BCA #### [facility] ([id number]) [address] [place] [address] 60601 CBC AND AUTO DIFFon 06-11-19 24 ABSOLUTE BASOPHIL 0.0 X10E9/L Normal 0.0-0.2 [facility] Comment on above: Performed By: #### C BCA #### [facility] ([id number]) [address] [place] [address] 38781 ABSOLUTE NEUTROPHIL 5.1 X10E9/L Normal 1.5-6.6 [facility] Comment on above: Performed By: #### C BCA #### [facility] ([id number]) [address] [place] [address] 17781 Basophils/100 WBC (Bld) 0.2 % Normal [facility] Comment on above: Performed By: #### C BCA #### [facility] ([id number]) [address] [place] [address] 92759 Eosinophils (Bld) [#/Vol] 0.5 10*3/uL High 0.0-0.4 [facility] Comment on above: Performed By: #### C BCA #### [facility] ([id number]) [address] [place] [address] 77375 Eosinophils/100 WBC (Bld) 6.9 % Normal [facility] Comment on above: Performed By: #### C BCA #### [facility] ([id number]) [address] [place] [address] 28438 Erythrocyte distribution width (RBC) [Ratio] 14.2 % Normal 11.5-15.0 [facility] Comment on above: Performed By: #### C BCA #### [facility] ([id number]) [address] [place] [address] 96630 Hematocrit (Bld) [Volume fraction] 40.8 % Normal 35-47 [facility] Comment on above: Performed By: #### C BCA #### [facility] ([id number]) [address] [place] [address] 34232 Hemoglobin (Bld) [Mass/Vol] 14.0 g/dL Normal 11.7-15.5 [facility] Comment on above: Performed By: #### C BCA #### [facility] ([id number]) [address] [place] [address] 94266 Lymphocytes (Bld) [#/Vol] 1.2 10*3/uL Normal 1.0-3.5 [facility] Comment on above: Performed By: #### C BCA #### [facility] ([id number]) [address] [place] [address] 10003 Lymphocytes/100 WBC (Bld) 16.5 % Normal [facility] Comment on above: Performed By: #### C BCA #### [facility] ([id number]) [address] [place] [address] 07386 MCH (RBC) [Entitic mass] 31.2 pg Normal 27-34 [facility] Comment on above: Performed By: #### C BCA #### [facility] ([id number]) [address] [place] [address] 63922 MCHC (RBC) [Mass/Vol] 34.3 g/dL Normal 32-36 [facility] Comment on above: Performed By: #### C BCA #### [facility] ([id number]) [address] [place] [address] 07460 MCV (RBC) [Entitic vol] 91 fL Normal 80-100 [facility] Comment on above: Performed By: #### C BCA #### [facility] ([id number]) [address] [place] [address] 26519 Monocytes (Bld) [#/Vol] 0.6 10*3/uL Normal 0-0.9 [facility] Comment on above: Performed By: #### C BCA #### [facility] ([id number]) [address] [place] [address] 80460 Monocytes/100 WBC (Bld) 8.0 % Normal [facility] Comment on above: Performed By: #### C BCA #### [facility] ([id number]) [address] [place] [address] 36713 Neutrophils/100 WBC (Bld) 68.4 % Normal [facility] Comment on above: Performed By: #### C BCA #### [facility] ([id number]) [address] [place] [address] 54415 Platelet mean volume (Bld) [Entitic vol] 8.3 fL Normal 7-12 [facility] Comment on above: Performed By: #### C BCA #### [facility] ([id number]) [address] [place] [address] 69055 Platelets (Bld) [#/Vol] 258 10*3/uL Normal 150-450 [facility] Comment on above: Performed By: #### C BCA #### [facility] ([id number]) [address] [place] [address] 05300 RBC COUNT 4.49 X10E12/L Normal 3.80-5.20 [facility] Comment on above: Performed By: #### C BCA #### [facility] ([id number]) [address] [place] [address] 71205 WBC (Bld) [#/Vol] 7.4 10*3/uL Normal 4.0-11.0 [facility] Comment on above: Performed By: #### C BCA #### [facility] ([id number]) [address] [place] [address] 18868 CBC AND AUTO DIFFon 04-03-20 23 ABSOLUTE BASOPHIL 0.1 X10E9/L Normal 0.0-0.2 [facility] Comment on above: Performed By: #### C BCA #### [facility] ([id number]) [address] [place] [address] [place] [address] ABSOLUTE NEUTROPHIL 5.1 X10E9/L Normal 1.5-6.6 [facility] Comment on above: Performed By: #### C BCA #### [facility] ([id number]) [address] [place] [address] [place] [address] Basophils/100 WBC (Bld) 1.4 % Normal [facility] Comment on above: Performed By: #### C BCA #### [facility] ([id number]) [address] [place] [address] [place] [address] Eosinophils (Bld) [#/Vol] 0.5 10*3/uL High 0.0-0.4 [facility] Comment on above: Performed By: #### C BCA #### [facility] ([id number]) [address] [place] [address] [place] [address] Eosinophils/100 WBC (Bld) 7.1 % Normal [facility] Comment on above: Performed By: #### C BCA #### [facility] ([id number]) [address] [place] [address] [place] [address] Erythrocyte distribution width (RBC) [Ratio] 14.4 % Normal 11.5-15.0 [facility] Comment on above: Performed By: #### C BCA #### [facility] ([id number]) [address] [place] [address] [place] [address] Hematocrit (Bld) [Volume fraction] 42.1 % Normal 35-47 [facility] Comment on above: Performed By: #### C BCA #### [facility] ([id number]) [address] [place] [address] [place] [address] Hemoglobin (Bld) [Mass/Vol] 14.2 g/dL Normal 11.7-15.5 [facility] Comment on above: Performed By: #### C BCA #### [facility] ([id number]) [address] [place] [address] [place] [address] Lymphocytes (Bld) [#/Vol] 1.4 10*3/uL Normal 1.0-3.5 [facility] Comment on above: Performed By: #### C BCA #### [facility] ([id number]) [address] [place] [address] [place] [address] Lymphocytes/100 WBC (Bld) 17.6 % Normal [facility] Comment on above: Performed By: #### C BCA #### [facility] ([id number]) [address] [place] [address] [place] [address] MCH (RBC) [Entitic mass] 31.2 pg Normal 27-34 [facility] Comment on above: Performed By: #### C BCA #### [facility] ([id number]) [address] [place] [address] [place] [address] MCHC (RBC) [Mass/Vol] 33.7 g/dL Normal 32-36 [facility] Comment on above: Performed By: #### C BCA #### [facility] ([id number]) [address] [place] [address] [address] [facility] [address] MCV (RBC) [Entitic vol] 93 fL Normal 80-100 [facility] Comment on above: Performed By: #### C BCA #### [facility] ([id number]) [address] [place] [address] [address] [facility] [place] [address] Monocytes (Bld) [#/Vol] 0.6 10*3/uL Normal 0-0.9 [facility] Comment on above: Performed By: #### C BCA #### [facility] ([id number]) [address] [place] [address] [place] [address] Monocytes/100 WBC (Bld) 8.0 % Normal [facility] Comment on above: Performed By: #### C BCA #### [facility] ([id number]) [address] [place] [address] [place] [address] Neutrophils/100 WBC (Bld) 65.9 % Normal [facility] Comment on above: Performed By: #### C BCA #### [facility] ([id number]) [address] [place] [address] [place] [address] Platelet mean volume (Bld) [Entitic vol] 7.4 fL Normal 7-12 [facility] Comment on above: Performed By: #### C BCA #### [facility] ([id number]) [address] [place] [address] [place] [address] Platelets (Bld) [#/Vol] 248 10*3/uL Normal 150-450 [facility] Comment on above: Performed By: #### C BCA #### [facility] ([id number]) [address] [place] [address] [place] [address] RBC COUNT 4.55 X10E12/L Normal 3.80-5.20 [facility] Comment on above: Performed By: #### C BCA #### [facility] ([id number]) [address] [place] [address] [place] [address] WBC (Bld) [#/Vol] 7.7 10*3/uL Normal 4.0-11.0 [facility] Comment on above: Performed By: #### C BCA #### [facility] ([id number]) [address] [place] [address] [place] [address] BNPon 08-07-2022 Natriuretic peptide B (Bld) [Mass/Vol] 124.0 pg/mL Normal <=1,800.0 [facility] Comment on above: Performed By: #### T SH, BNP, CREA, ELEC, BUN ####[facility] [address] [place], [place] [address]Dr. alex Duffy BUNon 08-07-2022 Urea nitrogen [Mass/Vol] 13.0 mg/dL Normal 7.0-18.0 [facility] Comment on above: Performed By: #### T SH, BNP, CREA, ELEC, BUN ####[facility] [address] [place] [address]. [facility] CREATININEon 08-07-2022 Creatinine [Mass/Vol] 0.60 mg/dL Normal 0.55-1.02 [facility] Comment on above: Performed By: #### T SH, BNP, CREA, ELEC, BUN ####[facility] [address] [place] [address]Dr. Miranda Duffy EGFR-AF MONTSERRATIAN >60 Normal >=60 [facility] Comment on above: Performed By: #### T SH, BNP, CREA, ELEC, BUN ####[facility] [address] [address]Dr. Miranda Duffy EGFR-NON AF [place]TSERRATIAN >60 Normal >=60 [facility] Comment on above: Performed By: #### T SH, BNP, CREA, ELEC, BUN ####[facility] [address] [address]Dr. Miranda Duffy ELECTROLYTESon 08-07-2022 Anion gap [Moles/Vol] 14.0 mmol/L Normal [facility] Comment on above: Performed By: #### T SH, BNP, CREA, ELEC, BUN ####[facility] [address] [place], [place] [address]Dr. Miranda Duffy Chloride [Moles/Vol] 106 mmol/L Normal 98-107 [facility] Comment on above: Performed By: #### T SH, BNP, CREA, ELEC, BUN ####[facility] [address] [place], [place] [address]Dr. Miranda Duffy CO2 [Moles/Vol] 28.3 mmol/L Normal 21.0-32.0 [facility] Comment on above: Performed By: #### T SH, BNP, CREA, ELEC, BUN ####[facility] [address] [place], [place] [address]Dr. Miranda Duffy Potassium [Moles/Vol] 4.3 mmol/L Normal 3.5-5.1 [facility] Comment on above: Performed By: #### T SH, BNP, CREA, ELEC, BUN ####[facility] [address] [place], [place] [address]Dr. Miranda Duffy Sodium [Moles/Vol] 144 mmol/L Normal 136-145 [facility] Comment on above: Performed By: #### T SH, BNP, CREA, ELEC, BUN ####[facility] [address] [place] [address]Dr. Miranda Duffy TSHon 08-07-2022 TSH 3.287 uIU/mL Normal 0.358-3.740 [facility] Comment on above: Performed By: #### T SH, BNP, CREA, ELEC, BUN ####[facility] [address] [place] [address]Dr. Miranda Duffy BNPon 08-04-2022 Natriuretic peptide B (Bld) [Mass/Vol] 70.0 pg/mL Normal <=1,800.0 [facility] Comment on above: Performed By: #### B INTERNATIONAL LOGISTICS MANAGER, BMP #### [facility] [address] [place] [address] Dr. Miranda Duffy CBC AUTO DIFFon 08-04-2022 BASO # 0.1 103/ul Normal 0.0-0.1 [facility] Comment on above: Performed By: #### C BC #### [facility] [address] [place] [address] Dr. Miranda Duffy Basophils/100 WBC (Bld) 0.9 % Normal 0.2-2.0 [facility] Comment on above: Performed By: #### C BC #### [facility] [address] [place] [address] Dr. Miranda Duffy EO # 0.5 103/ul Normal 0.0-0.7 [facility] Comment on above: Performed By: #### C BC #### [facility] [address] [place] [address] Dr. Miranda Duffy Eosinophils/100 WBC (Bld) 9.0 % Critically high 0.9-7.0 [facility] Comment on above: Performed By: #### C BC #### [facility] [address] [place] [address] Dr. Miranda Duffy Erythrocyte distribution width (RBC) [Ratio] 15.0 % Normal 11.0-15.0 [facility] Comment on above: Performed By: #### C BC #### [facility] [address] [place] [address] Dr. Miranda Duffy Hematocrit (Bld) [Volume fraction] 34.2 % Critically low 36.0-48.0 [facility] Comment on above: Performed By: #### C BC #### [facility] [address] [place] [address] Dr. Miranda Duffy Hemoglobin (Bld) [Mass/Vol] 10.9 g/dL Critically low 12.0-16.0 [facility] Comment on above: Performed By: #### C BC #### [facility] [address] [address] [address] Miranda Duffy IG # 0.04 10e3/ul Critically high 0.00-0.03 [facility] Comment on above: Performed By: #### C BC #### [facility] [address] [place] [address] Dr. Mirnada Duffy IG % 0.7 % Critically high 0.0-0.5 [facility] Comment on above: Performed By: #### C BC #### [facility] [address] [place] [address] Dr. Miranda Duffy LYMPH # 1.1 103/ul Critically low 1.2-3.8 [facility] Comment on above: Performed By: #### C BC #### [facility] [address] [place] [address] Dr. Miranda Duffy Lymphocytes/100 WBC (Bld) 20.1 % Critically low 20.5-60.0 [facility] Comment on above: Performed By: #### C BC #### [facility] [address] [place] [address] Dr. Miranda Duffy MANUAL DIFF REQ NO Normal [facility] Comment on above: Performed By: #### C BC #### [facility] [address] [address] [address] Miranda Duffy MCH (RBC) [Entitic mass] 30.4 pg Normal 26.7-34.0 [facility] Comment on above: Performed By: #### C BC #### [facility] [address] [place] [address] Dr. Miranda Duffy MCHC (RBC) [Mass/Vol] 31.9 g/dL Normal 29.9-35.2 [facility] Comment on above: Performed By: #### C BC #### [facility] [address] [place] [address] Dr. Miranda Duffy MCV (RBC) [Entitic vol] 95.3 fL Normal 81.0-99.0 [facility] Comment on above: Performed By: #### C BC #### [facility] [address] [place] [address] Dr. Miranda Duffy MONO # 0.5 103/ul Normal 0.3-0.8 [facility] Comment on above: Performed By: #### C BC #### [facility] [address] [place] [address] Dr. Miranda Duffy Monocytes/100 WBC (Bld) 7.9 % Normal 1.7-12.0 [facility] Comment on above: Performed By: #### C BC #### [facility] [address] [place] [address] Dr. Miranda Duffy NEUT # 3.5 103/ul Normal 1.4-6.5 [facility] Comment on above: Performed By: #### C BC #### [facility] [address] [place] [address] Dr. Miranda Duffy Neutrophils/100 WBC (Bld) 61.4 % Normal 43.0-75.0 [facility] Comment on above: Performed By: #### C BC #### [facility] [address] [place] [address] Dr. Miranda Duffy Platelet mean volume (Bld) [Entitic vol] 8.7 fL Critically low 9.5-13.5 [facility] Comment on above: Performed By: #### C BC #### [facility] [address] [place] [address] Dr. Miranda Duffy PLT 433 103/ul Normal 150-450 [facility] Comment on above: Performed By: #### C BC #### [facility] [address] [place], [place] [id number] Dr. Miranda Duffy RBC 3.59 106/ul Critically low 4.20-5.40 [facility] Comment on above: Performed By: #### C BC #### [facility] [address] [address] [address] Miranda Duffy WBC 5.7 103/ul Normal 4.0-11.0 [facility] Comment on above: Performed By: #### C BC #### [facility] [address] [address] [address] Miranda Duffy GLYCOHEMOGLOBIN A1Con 2022 ADA RECOMMENDATION SEE BELOW Normal [facility] Comment on above: Result Comment: ADA RECOMMENDED LIMIT 4.0 - 6.0 ADA THERAPEUTIC TARGET < 7.0 ACTION SUGGESTED > 7.0 Performed By: #### A 1C ####[facility] [address] [place] [address]Dr. Miranda Duffy Glucose [Mass/Vol] 100 mg/dL Normal [facility] Comment on above: Performed By: #### A 1C ####[facility] [address] [place] [address]Dr. Miranda Duffy HbA1c (Bld) [Mass fraction] 5.1 % Normal 4.5-6.2 [facility] Comment on above: Performed By: #### A 1C ####[facility] [address] [place] [address]Dr. Miranda Duffy PROF CHEM 8 (BAS METB)on Anion gap [Moles/Vol] 7.0 mmol/L Normal [facility] Comment on above: Performed By: #### B INTERNATIONAL LOGISTICS MANAGER, BMP #### [facility] [address] [place] [address] Dr. Miranda Duffy Calcium [Mass/Vol] 8.4 mg/dL Critically low 8.5-10.[address] [facility] Comment on above: Performed By: #### B INTERNATIONAL LOGISTICS MANAGER, BMP #### [facility] [address] [place] [address] Dr. Miranda Duffy Chloride [Moles/Vol] 107 mmol/L Normal 98-107 [facility] Comment on above: Performed By: #### B INTERNATIONAL LOGISTICS MANAGER, BMP #### [facility] [address] [place] [address] Dr. Miranda Duffy CO2 [Moles/Vol] 30.5 mmol/L Normal 21.0-32.0 [facility] Comment on above: Performed By: #### B INTERNATIONAL LOGISTICS MANAGER, BMP #### [facility] [address] [place] [address] Dr. Miranda Duffy Creatinine [Mass/Vol] 0.59 mg/dL Normal 0.55-1.02 [facility] Comment on above: Performed By: #### B INTERNATIONAL LOGISTICS MANAGER, BMP #### [facility] [address] [place] [address] Dr. Miranda Duffy EGFR-AF MONTSERRATIAN >60 Normal >=60 [facility] Comment on above: Performed By: #### B INTERNATIONAL LOGISTICS MANAGER, BMP #### [facility] [address] [place] [address] Dr. Miranda Duffy EGFR-NON AF MONTSERRATIAN >60 Normal >=60 [facility] Comment on above: Performed By: #### B INTERNATIONAL LOGISTICS MANAGER, BMP #### [facility] [address] [place] [address] Dr. Miranda Duffy Glucose [Mass/Vol] 85 mg/dL Normal 74-106 [facility] Comment on above: Performed By: #### B INTERNATIONAL LOGISTICS MANAGER, BMP #### [facility] [address] [place] [address] Dr. Miranda Duffy Potassium [Moles/Vol] 3.5 mmol/L Normal 3.5-5.1 [facility] Comment on above: Performed By: #### B INTERNATIONAL LOGISTICS MANAGER, BMP #### [facility] [address] [place] [address] Dr. Miranda Duffy Sodium [Moles/Vol] 141 mmol/L Normal 136-145 [facility] Comment on above: Performed By: #### B INTERNATIONAL LOGISTICS MANAGER, BMP #### [facility] [address] [place] [address] Dr. Miranda Duffy Urea nitrogen [Mass/Vol] 17.0 mg/dL Normal 7.0-18.0 [facility] Comment on above: Performed By: #### B INTERNATIONAL LOGISTICS MANAGER, BMP #### [facility] [address] [place] [address] Dr. Miranda Duffy Urea nitrogen/Creatinine [Mass ratio] 28.8 mg/mg Normal [facility] Comment on above: Performed By: #### B INTERNATIONAL LOGISTICS MANAGER, BMP #### [facility] [address] [address] [address] Miranda Duffy UA (CLEAN/CATCH) SURVEY RESEARCH TEACHER/MICRO I F IND.on 08-04-2022 Bilirubin Ql (U) Negative Normal NEGATIVE [facility] Comment on above: Performed By: #### U ACSIND #### [facility] [address] [place] [address] Dr. Miranda Duffy Clarity (U) SL CLOUDY Abnormal CLEAR [facility] Comment on above: Performed By: #### U ACSIND #### [facility] [address] [place] [address] Dr. Miranda Duffy Color (U) YELLOW Normal YELLOW [facility] Comment on above: Performed By: #### U ACSIND #### [facility] [address] [place] [address] Dr. Miranda Duffy Glucose Ql (U) Negative Normal NEGATIVE [facility] Comment on above: Performed By: #### U ACSIND #### [facility] [address] [place] [address] Dr. Miranda Duffy Hemoglobin Ql (U) Negative Normal NEGATIVE [facility] Comment on above: Performed By: #### U ACSIND #### [facility] [address] [place] [address] Dr. Miranda Duffy Ketones Ql (U) Negative Normal NEGATIVE [facility] Comment on above: Performed By: #### U ACSIND #### [facility] [address] [place] [address] Dr. Miranda Duffy LEUKOCYTES Negative Normal NEGATIVE [facility] Comment on above: Performed By: #### U ACSIND #### [facility] [address] [place] [address] Dr. Miranda Duffy Nitrite Ql (U) Negative Normal NEGATIVE [facility] Comment on above: Performed By: #### U ACSIND #### [facility] [address] [place] [address] Dr. Miranda Duffy pH (U) 5.5 [pH] Normal 5-9 [facility] Comment on above: Performed By: #### U ACSIND #### [facility] [address] [address] [address] Miranda Duffy SPEC GRAVITY 1.030 Abnormal 1.005-<=1.025 [facility] Comment on above: Performed By: #### U ACSIND #### [facility] [address] [address] [address] Miranda Duffy UA PROTEIN Negative Normal NEGATIVE/ TRACE [facility] Comment on above: Performed By: #### U ACSIND #### [facility] [address] [address] [address] Miranda Duffy UR MICRO IND NOT INDICATED Normal [facility] Comment on above: Performed By: #### U ACSIND #### [facility] [address] [address] [address] Miranda Duffy Urobilinogen Qn (U) 0.2 {Alondra'U}/dL Normal 0.2 - 1. 0 [facility] Comment on above: Performed By: #### U ACSIND #### [facility] [address] [address] [address] Miranda Duffy CULTURE URINEon 04-07-2022 CULTURE [...] F Trimethoprim/Sulfamet hoxazole <=20 S F Normal [facility] Comment on above: Performed By: #### U RCX ####[facility] [address] [place] [address]Dr. Miranda Duffy CARDIAC TUTU 3-6on 2 CK [Catalytic activity/Vol] 134 U/L Normal 26-192 [facility] Comment on above: Performed By: #### C MREP #### [facility] [address] [place] [address] Dr. Miranda Duffy CK.MB [Mass/Vol] 3.51 ng/mL Normal <=3.60 [facility] Comment on above: Performed By: #### C MREP #### [facility] [address] [place] [address] Dr. Miranda Duffy HSTROP 7.8 pg/mL Normal 4.0-51.3 [facility] Comment on above: Result Comment: CUT- OFF POINTS HAVE BEEN ESTABLISHED BASED ON THE FOURTH UNIVERSAL DEFINITIONS OF MYOCARDIAL INFARCTION. THE UPPER REFERENCE LIMIT (URL) OF TROPONIN, DEFINED THE 99TH PERCENTILE OF cTnI DISTRIBUTION IN A REFERENCE POPULATION, HAS BEEN CONFIRMED THE DECISION THRESHOLD FOR [place] DIAGNOSIS. Performed By: #### C MREP #### [facility] [address] [place] [address] Dr. Miranda Duffy CARDIAC TUTU ADMITon 022 CK [Catalytic activity/Vol] 90 U/L Normal 26-192 [facility] Comment on above: Performed By: #### DUSTIN Velazco MP #### [facility] [address] [place] [address] Dr. Miranda Duffy CK.MB [Mass/Vol] 1.95 ng/mL Normal <=3.60 [facility] Comment on above: Performed By: #### Mora ERICKSON CMADM #### [facility] [address] [place] [address] Dr. Miranda Duffy HSTROP 7.7 pg/mL Normal 4.0-51.3 [facility] Comment on above: Result Comment: CUT- OFF POINTS HAVE BEEN ESTABLISHED BASED ON THE FOURTH UNIVERSAL DEFINITIONS OF MYOCARDIAL INFARCTION. THE UPPER REFERENCE LIMIT (URL) OF TROPONIN, DEFINED THE 99TH PERCENTILE OF cTnI DISTRIBUTION IN A REFERENCE POPULATION, HAS BEEN CONFIRMED THE DECISION THRESHOLD FOR [place] DIAGNOSIS. Performed By: #### Mora ERICKSON CMADM #### [facility] [address] [address] [address] Miranda Duffy SHELBY 426 ng/mL Critically high 9-82 [facility] Comment on above: Performed By: #### B ESTRELLITA ERICKSONDM #### [facility] [id number] Miranda Duffy CBC AUTO DIFFon 04-05-2022 BASO # 0.1 103/ul Normal 0.0-0.1 [facility] Comment on above: Performed By: #### C BC ####[facility] [address] [place] [address]DrLadan Duffy Basophils/100 WBC (Bld) 0.7 % Normal 0.2-2.0 [facility] Comment on above: Performed By: #### C BC ####[facility] [address] [place] [address]DrLadan Duffy EO # 0.7 103/ul Normal 0.0-0.7 [facility] Comment on above: Performed By: #### C BC ####[facility] [address] [place] [address]DrLadan Duffy Eosinophils/100 WBC (Bld) 6.3 % Normal 0.9-7.0 [facility] Comment on above: Performed By: #### C BC ####[facility] [address] [place] [address]DrLadan Duffy Erythrocyte distribution width (RBC) [Ratio] 14.4 % Normal 11.0-15.0 [facility] Comment on above: Performed By: #### C BC ####[facility] [address] [place] [address]DrLadan Duffy Hematocrit (Bld) [Volume fraction] 43.7 % Normal 36.0-48.0 [facility] Comment on above: Performed By: #### C BC ####[facility] [address] [place] [address]DrLadan Duffy Hemoglobin (Bld) [Mass/Vol] 14.8 g/dL Normal 12.0-16.0 [facility] Comment on above: Performed By: #### C BC ####[facility] [address] [place] [address]Dr. Miranda Duffy IG # 0.06 10e3/ul Critically high 0.00-0.03 [facility] Comment on above: Performed By: #### C BC ####[facility] [address] [place] [address]Dr. Miranda Duffy IG % 0.5 % Normal 0.0-0.5 [facility] Comment on above: Performed By: #### C BC ####[facility] [address] [place] [address]Dr. Miranda Duffy LYMPH # 1.7 103/ul Normal 1.2-3.8 [facility] Comment on above: Performed By: #### C BC ####[facility] [address] [place] [address]Dr. Miranda Duffy Lymphocytes/100 WBC (Bld) 14.7 % Critically low 20.5-60.0 [facility] Comment on above: Performed By: #### C BC ####[facility] [address] [place] [address]Dr. Miranda Duffy MANUAL DIFF REQ NO Normal [facility] Comment on above: Performed By: #### C BC ####[facility] [address] [place] [address]Dr. Miranda Duffy MCH (RBC) [Entitic mass] 31.1 pg Normal 26.7-34.0 [facility] Comment on above: Performed By: #### C BC ####[facility] [address] [place] [address]Dr. Miranda Duffy MCHC (RBC) [Mass/Vol] 33.9 g/dL Normal 29.9-35.2 [facility] Comment on above: Performed By: #### C BC ####[facility] [address] [place] [address]Dr. Miranda Duffy MCV (RBC) [Entitic vol] 91.8 fL Normal 81.0-99.0 [facility] Comment on above: Performed By: #### C BC ####[facility] [address] [place] [address]Dr. Miranda Duffy MONO # 0.9 103/ul Critically high 0.3-0.8 [facility] Comment on above: Performed By: #### C BC ####[facility] [address] [place] [address]Dr. Miranda Duffy Monocytes/100 WBC (Bld) 8.2 % Normal 1.7-12.0 [facility] Comment on above: Performed By: #### C BC ####[facility] [address]fa[address] [place] [address]Dr. Miranda Duffy NEUT # 7.8 103/ul Critically high 1.4-6.5 [facility] Comment on above: Performed By: #### C BC ####[facility] [address]ivswxx[address] [place] [address]Dr. Miranda Duffy Neutrophils/100 WBC (Bld) 69.6 % Normal 43.0-75.0 [facility] Comment on above: Performed By: #### C BC ####[facility] [address] [place] [address]Dr. Miranda Duffy Platelet mean volume (Bld) [Entitic vol] 9.0 fL Critically low 9.5-13.5 [facility] Comment on above: Performed By: #### C BC ####[facility] [address]dkry[address] [place] [address]Dr. Miranda Duffy PLT 248 103/ul Normal 150-450 [facility] Comment on above: Performed By: #### C BC ####[facility] [address] [place], [place] [address]Dr. Miranda Duffy RBC 4.76 106/ul Normal 4.20-5.40 [facility] Comment on above: Performed By: #### C BC ####[facility] [address] [place] [address]Dr. Miranda Duffy WBC 11.2 103/ul Critically high 4.0-11.0 [facility] Comment on above: Performed By: #### C BC ####[facility] [address] [place], [place] [address]Jb. [address] CSPINE WO CONon 2 [...] DAVID ALONSO Date: 2022-04-05 01:16 Normal [facility] CT FACIAL BONES WO CONon CT FACIAL [...] HARVEY BERG Date: 2022-04-04 23:53 Normal [facility] ER URINE PROFILEon 2 Bilirubin Ql (U) Negative Normal NEGATIVE [facility] Comment on above: Performed By: #### E LEIGHA AGUILA ####[facility] [address] [place], [place] [address]PbLadan Miranda Clive Clarity (U) CLEAR Normal CLEAR [facility] Comment on above: Performed By: #### E AYLA UMICRO ####[facility] [address] [place], [place] [address]Dr. Miranda Duffy Color (U) LT. YELLOW Normal YELLOW [facility] Comment on above: Performed By: #### ANANT GREGGRO ####[facility] [address] [place] [address]Dr. Miranda Duffy ERUAHD A micrscopic examination will be performed if indicated. Normal [facility] Comment on above: Performed By: #### Patel AGUILA UMICRO ####[facility] [address] [place], [place] [address]Dr. Miranda Duffy Glucose Ql (U) Negative Normal NEGATIVE [facility] Comment on above: Performed By: #### ANANT GREGGRO ####[facility] Fvf[address]idc[address] [place], [place] [address]Dr. Miranda Duffy Hemoglobin Ql (U) Negative Normal NEGATIVE [facility] Comment on above: Performed By: #### ANANT GREGGRO ####[facility] [address] [place], [place] [address]Dr. Miranda Duffy Ketones Ql (U) 15 mg/dl Abnormal NEGATIVE [facility] Comment on above: Performed By: #### ANANT GREGGRO ####[facility] [address] [place], [place] [address]Dr. Miranda Duffy LEUKOCYTES SMALL Abnormal NEGATIVE [facility] Comment on above: Performed By: #### ANANT GREGGRO ####[facility] Nwtry[address] [place], [place] [address]Dr. Miranda Duffy Nitrite Ql (U) Positive Abnormal NEGATIVE [facility] Comment on above: Performed By: #### ANANT GREGGRO ####[facility] [address] [place], [place] [address]Dr. Miranda Duffy pH (U) 5.5 [pH] Normal 5-9 [facility] Comment on above: Performed By: #### ANANT GREGGRO ####[facility] [address] [place], [place] [address]Dr. Miranda Duffy SPEC GRAVITY 1.015 Normal 1.005-<=1.025 [facility] Comment on above: Performed By: #### LEIGHA GREGG ####[facility] [address]jb[address] [place] [address]DrLadan Duffy UA PROTEIN Negative Normal NEGATIVE/ TRACE [facility] Comment on above: Performed By: #### LEIGHA GREGG ####[facility] [address] [place] [address]Dr. Miranda Duffy UR MICRO IND INDICATED Normal [facility] Comment on above: Performed By: #### LEIGHA GREGG ####[facility] [address] [place] [address]Dr. Miranda Duffy Urobilinogen Qn (U) 1.0 {Alondra'U}/dL Normal 0.2 - 1. 0 [facility] Comment on above: Performed By: #### LEIGHA GREGG ####[facility] [address]ms[address] [place] [address]DrLadan Duffy PROF CHEM 8 (BAS METB)on Anion gap [Moles/Vol] 8.2 mmol/L Normal [facility] Comment on above: Performed By: #### B DUSTIN ERICKSON #### [facility] [address] [address] [address] Miranda Duffy Calcium [Mass/Vol] 9.2 mg/dL Normal 8.5-10.1 [facility] Comment on above: Performed By: #### DUSTIN Velazco MP #### [facility] [address] [address] [address] Miranda Duffy Chloride [Moles/Vol] 103 mmol/L Normal 98-107 [facility] Comment on above: Performed By: #### B DUSTIN ERICKSON #### [facility] [address] [address] [address] Miranda Duffy CO2 [Moles/Vol] 30.7 mmol/L Normal 21.0-32.0 [facility] Comment on above: Performed By: #### B MP, CMADM #### [facility] [address] [address] [address] Miranda Duffy Creatinine [Mass/Vol] 0.73 mg/dL Normal 0.55-1.02 [facility] Comment on above: Performed By: #### B GEORGINA, CMADM #### [facility] [address] [address] [address] Miranda Duffy EGFR-AF MONTSERRATIAN >60 Normal >=60 [facility] Comment on above: Performed By: #### B GEORGINA, CMADM #### [facility] [address] [address] [address] Miranda Duffy EGFR-NON AF MONTSERRATIAN >60 Normal >=60 [facility] Comment on above: Performed By: #### B GEORGINA, CMADM #### [facility] [address] [address] [address] Miranda Duffy Glucose [Mass/Vol] 116 mg/dL Critically high 74-106 [facility] Comment on above: Performed By: #### B GEORGINA, CMADM #### [facility] [address] [address] [address] Miranda Duffy Potassium [Moles/Vol] 3.9 mmol/L Normal 3.5-5.1 [facility] Comment on above: Performed By: #### B GEORGINA, CMADM #### [facility] [address] [address] [address] Miranda Duffy Sodium [Moles/Vol] 138 mmol/L Normal 136-145 [facility] Comment on above: Performed By: #### B GEORGINA, CMADM #### [facility] [address] [address] [address] Miranda Duffy Urea nitrogen [Mass/Vol] 22.0 mg/dL Critically high 7.0-18.0 [facility] Comment on above: Performed By: #### B GEORGINA, CMADM #### [facility] [address] [address] [address] Miranda Duffy Urea nitrogen/Creatinine [Mass ratio] 30.1 mg/mg Normal [facility] Comment on above: Performed By: #### B GEORGINA, CMADM #### [facility] [address] [address] [address] Miranda Duffy URINE MICROSCOPIC ONLYon BACTERIA LARGE Abnormal NONE SEEN [facility] Comment on above: Performed By: #### ANANT GREGGRO ####[facility] [address] [place] [address]Dr. Miranda Duffy Bacteria identified Cx Nom (U) INDICATED Normal [facility] Comment on above: Performed By: #### ANANT GREGGRO ####[facility] [address] [place] [address]Dr. Miranda Duffy CAST NONE SEEN Normal NONE SEEN [facility] Comment on above: Performed By: #### ANANT GREGGRO ####[facility] [address] [place] [address]Dr. Miranda Duffy Crystals LM Nom (Urine sed) NONE SEEN Normal NONE SEEN [facility] Comment on above: Performed By: #### ANANT GREGGRO ####[facility] [address] [place], [place] [address]Dr. Miranda Duffy Epithelial cells LM Ql (Urine sed) FEW Abnormal NONE SEEN /RARE [facility] Comment on above: Performed By: #### ANANT GREGGRO ####[facility] [address] [place] [address]Dr. Miranda Duffy MUCOUS NONE SEEN Normal NONE SEEN [facility] Comment on above: Performed By: #### ANANT GREGGRO ####[facility] [address]zlr[address] [place] [address]Dr. Miranda Duffy RBC 0-2 Normal 0-2 [facility] Comment on above: Performed By: #### ANANT GREGGRO ####[facility] [address] [place], [place] [address]Dr. Miranda Duffy WBC 5-10 Abnormal NONE SEEN [facility] Comment on above: Performed By: #### ANANT GREGGRO ####[facility] [address] [place], [place] [address]Dr. Miranda Duffy XR HIP LT 2 3V [...] as clinically indicated. Electronically authenticated by: DAVID SAID Date: 2022-04-05 00:[address] [facility] Encounters Encounter Date Encounter Type Care Provider Facility Start: 08-09-2023 End: 08-09-2023 ambulatory LIZBET ALBERTORA [facility] Start: 06-11-2023 End: 06-11-2023 ambulatory LIZBET ALBERTO [facility] Start: 04-03-2023 End: 04-03-2023 ambulatory LIZBET ALBERTORA [facility] Start: 08-09-2022 End: 08-09-[address] KERRIE PLASCENCIA Facility:[facility] Start: 08-07-2022 End: 08-07-[address] KERRIE PLASCENCIA Facility:[facility] Start: 08-04-2022 End: 08-04-[address] KERRIE PLASCENCIA Facility:[facility] Start: 04-05-2022 End: 04-05-2022 ambulatory HALLIE ELIZONDO Facility:[facility] Payers Date Payer Category Payer Medicaid [id number] 2001 Medicare [id number] 1958 Unknown [id number] 1945 Unknown [id number] 2.16.84 [id number] 1945 Unknown [id number] 2.16.84 [id number] 1946 Unknown [id number] 2.16.84 [id number] 1946 Unknown [id number] 2.16.84 [id number] 1946 Unknown [id number] 2.16.8 [id number] 1946 Unknown [id number] 2.16.8 [id number] 1946 Unknown [id number] Summary Purpose Family History No Family History Records FoundNo Family History Records Found Advance Directives No Advanced Directives Records FoundNo Advanced Directives Records Found Additional Source Comments INFORMATION SOURCE (unrecogn ized section and content) DATE CREATED AUTHOR 08/12/2022 [facility] DATE CREATED AUTHOR 'S NONI MCKEON 08/11/2023 [facility] FOR RECORDS PERTAINING TO PATIENTS WHO ARE [...] BE BASED ON THE PRIMARY CLINICAL RECORDS. [facility]. provides no warranty or guarantee of the accuracy or completeness of information in this document.
[2023-08-15 08:58] LABS: Bilirubin Urine NEGATIVE (NEGATIVE); Blood Urine NEGATIVE (NEGATIVE); Clarity Urine CLEAR (CLEAR); Color Urine LT. YELLOW (YELLOW); Glucose Urine UA NEGATIVE (NEGATIVE); Ketones Urine NEGATIVE (NEGATIVE); Leukocyte Esterase Urine SMALL (NEGATIVE); Nitrite Urine POSITIVE (NEGATIVE); Protein Urine NEGATIVE (NEG/TRACE); Specific Gravity Urine 1.025 (1.005-1.025); Urobilinogen Urine 0.2 EU/dL (0.2-1.0); pH Urine 5.5 (5.0-9.0)
[2023-08-15 09:12] LABS: Urine Microscopic Indicated YES
[2023-08-15 09:36] LABS: Bacteria Urine SMALL #/HPF (NONE SEEN); Mucus Urine TRACE (NONE SEEN); RBC Urine 0-2 #/HPF (0-2); Squamous Epithelial Cell Urine RARE #/LPF (NONE/RARE)
[2023-08-15 09:37] LABS: Calcium Oxalate Crystals Urine RARE; Cast Seen? NONE SEEN #/LPF (NONE SEEN); Crystals Seen? Seen #/HPF (None Seen); Urine Culture Indicated YES
== END 2023-08-14 19:31 | disposition home or self-care (01) ==
LOC: LAB 19:30
PROVIDERS: Visit Provider Nurse Practitioner Family
DX: R35.0 Frequency of micturition (principal); R30.0 Dysuria
CPT/HCPCS: 81001; 87086; 87150; 87186

== ENCOUNTER 2023-09-04 12:39 | Outpatient (OUT) | payer MEDICARE, MEDICAID, SELFPAY ==
--- NOTE | 2023-09-04 | CONS_ITS ---
PROCEDURE DATE: 09/04/2023 PROCEDURE: Right knee joint injection in the office. PREOPERATIVE DIAGNOSIS: Pain secondary to degenerative joint disease right knee joint. POSTOPERATIVE DIAGNOSIS: Pain secondary to degenerative joint disease right knee joint. SOLUTION USED FOR INJECTION: 2 mL of 2% lidocaine, 2 mL of 0.25% Marcaine and 2 mg of Kenalog, total of 5 mL, and 5 mL used for the injection. IMMEDIATE COMPLICATIONS: None. PROCEDURE: After informed consent was obtained, the patient placed in the sitting position. Skin overlying the area was prepped with alcohol. A 25 gauge, 1 ?? needle was inserted into the right knee joint space using a medial approach. After encountering the joint space, we injected the solution. Needle was removed post procedurally. She reports reduction of pain symptoms. RITA
--- NOTE | 2023-09-04 | CONS_ITS ---
CONSULTATION DATE: 09/04/2023 TO: Dr. Ramirez CHIEF COMPLAINT: Includes left knee pain. HISTORY OF PRESENT ILLNESS: Review of systems, past medical/surgical history were obtained and documented on the health questionnaire and is available upon request. She is a 78-year-old female, reports having pain in her left knee for the last two years. It occurred spontaneously, increased gradually to its present state. Described as a deep aching pain with a sharp component and it is quite stiff at times. This patient was being sedentary for even short periods of time. She has limited mobility and usually ambulates with the use of a walker with one assist. She currently reports that her pain increased with activity such as standing, walking and performing transitioning maneuvers. She feels most comfortable in the semi-recumbent position, along with sitting. She denies any change in bowel and bladder habits or new sensorimotor change in the lower extremities. MEDICATION: Her current medication includes Abilify, diclofenac gel. She is unable to tolerate nonsteroidal agents secondary to concomitant anti-coagulant use. EXAM: Her examination was limited at this time, as she could not get on to the examination table. She had no clinical radiculopathy involving the lower extremities. She had no clinical myelopathy involving the lower extremities. Examination of her right knee revealed the patient to have a moderate amount of edema. There was mild to moderate crepitus of her right knee joint. She had a negative J-sign. She had no appreciable ligamental laxity. She had pain with medial and lateral compartment loading maneuvers. She had more pain with medial compartment loading maneuvers, and she had significant myofascial spasm and tightness of soft tissue including gastrocnemius and hamstrings. IMPRESSION: Patient appears to have chronic pain secondary to degenerative joint disease of the right knee. RECOMMENDATIONS: I recommend a right knee joint injection in the office, and right knee films as well. The details were explained to the patient. She agrees to proceed with the outlined plan. As part of providing excellent, safe, comprehensive care, the following was completed at our patient's visit: 1. A medication reconciliation and review to ensure accurate knowledge of current/active medications, including asking our patients to inform us about any [id number] medications or herbal remedies/nutritional supplements/alternative remedies. 2. A review to specifically ensure our patients have had annual screening for: elevated body mass index (BMI, see intake chart for exact total), tobacco use, screening for depression, and screening for unhealthy alcohol use. When screening is concerning, patients are provided with education and the specific recommendation to discuss the concerning health issue and treatment options with their primary care provider. RITA
== END 2023-09-04 12:40 | disposition home or self-care (01) ==
LOC: PM 12:39
PROVIDERS: Visit Provider Anesthesiology Pain Medicine
DX: M25.562 Pain in left knee (principal)
CPT/HCPCS: 20610

== ENCOUNTER 2023-09-25 18:07 | Outpatient (REF) | payer MEDICARE, MEDICAID, SELFPAY ==
--- OUTSIDE RECORDS SUMMARY | 2023-09-24 02:28 | XMS_ITS | CCD ---
Author Organization [facility] Care Team Providers Care Nuclear Chemistry Technician Name Role Phone TEMO, DR SY [...] Primary Care Unavailable HARVEY BERG Consulting Unavailable CELESTE, DAVID Consulting Unavailable ALBERTO, LIZBET Referring Unavailable ALBERTO, LIZBET Primary Care Unavailable CLIVE VOGT Attending Unavailable ALBERTO, LIZBET Referring Unavailable ALBERTO, LIZBET Primary Care Unavailable ALBERTO, LIZBET Referring Unavailable ALBERTO, LIZBET Primary Care Unavailable ALBERTO, LIZBET Referring Unavailable ALBERTO, LIZBET Primary Care Unavailable AMADOU HOWARD Attending Unavailable NORA CEBALLOS Referring Unavailable JARAD GAY Attending Unavailable AMADOU HOWARD Referring Unavailable Allergies Allergy Classification Reported Allergen(s) Allergy Type Date of Onset Reaction(s) Facility (1 source) Fish derivative Drug allergy (disorder) 1 [facility] (1 source) Iodine Drug Allergy [facility] (1 source) Iodine (And Iodine Containting Drugs) Drug allergy (disorder) [facility] (3 sources) Penicillins; Translations: [PENICILLINS] Drug allergy (disorder) 8 [facility] (1 source) Sulfonamides (Antibiotic) Drug allergy (disorder) [facility] (2 sources) Sulfonamides (Antibiotic); Translations: [SULFA (SULFONAMIDE ANTIBIOTICS)] Propensity to adverse reactions to drug (disorder) 8 [facility] Repository (2 sources) IODINATED CONTRAST MEDIA; Translations: [IODINATED CONTRAST MEDIA] Propensity to adverse reactions to drug (disorder) 9 [facility] Repository Problems Active Problems Problem Classification Problem Date Documented Date Episodic/Chronic Coronary atherosclerosis and other heart disease (4 sources) Atherosclerotic heart disease of [place] coronary artery without angina pectoris; Translations: [ASHD [place] W/O ANGINA PECTORIS] Onset: 08-09-2022 Chronic Diabetes mellitus without complication (1 source) Type 2 diabetes mellitus without complications; Translations: [TYPE 2 DM WITHOUT COMPLICATIONS] Onset: 08-10-2022 Chronic Essential hypertension (1 source) Essential (primary) hypertension; Translations: [ESSENTIAL PRIMARY HYPERTENSION] Onset: 08-10-2022 Chronic Multiple myeloma (1 source) Multiple myeloma not having achieved remission; Translations: [MX MYELOMA NOT ACHIEVED REMISSION] Onset: 04-11-2022 Chronic Osteoarthritis (2 sources) Unilateral primary osteoarthritis, right knee; Translations: [Unilateral primary osteoarthritis, right knee] Onset: 07-19-2023 Chronic Other connective tissue disease (2 sources) Presence of left artificial knee joint; Translations: [Presence of left artificial knee joint] Onset: 09-17-2023 Chronic Other connective tissue disease (2 sources) Other symptoms and signs involving the musculoskeletal system; Translations: [Other symptoms and signs involving the musculoskeletal system] Onset: 09-17-2023 Episodic Other non-traumatic joint disorders (2 sources) Pain in right knee; Translations: [Pain in right knee] Onset: 07-19-2023 Episodic Thyroid disorders (4 sources) Hypothyroidism, unspecified; Translations: [...] skilled nursing (current) use of anticoagulants; Translations: [NURSING HOME CURRNT USE ANTICOAGULANTS] Onset: 04-11-2022 Episodic Other aftercare (1 source) Other mcfp (current) drug therapy; Translations: [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 She reports constant aching and throbbing in her right knee this is worse with walking and standing slightly improved with rest. reports she has previously had injections in her right knee, reports her most recent injections failed to relieve her pain Pain [136] - ongoing right knee pain for multiple years, reports pain is gradually been worsening. She reports constant aching and throbbing in her right knee this is worse with walking and standing slightly improved with rest. reports she has previously had injections in her right knee, reports her most recent injections failed to relieve her pain [facility] CBC AND AUTO DIFFon 08-09-19 ABSOLUTE BASOPHIL 0.1 X10E9/L [facility] 0[facility]0-0.2 [facility] Comment on above: Performed By: #### C BCA #### [facility] ([id number]) [address] [place] [address] 82293 ABSOLUTE NEUTROPHIL 5.2 X10E9/L Normal 1.5-6.6 [facility] Comment on above: Performed By: #### C BCA #### [facility] ([id number]) [address] [place] [address] 93772 Basophils/100 WBC (Bld) 1.2 % Normal [facility] Comment on above: Performed By: #### C BCA #### [facility] ([id number]) [address] [place] [address] 23915 Eosinophils (Bld) [#/Vol] 0.5 10*3/uL High 0.0-0.4 [facility] Comment on above: Performed By: #### C BCA #### [facility] ([id number]) [address] [place] [address] 68398 Eosinophils/100 WBC (Bld) 6.7 % Normal [facility] Comment on above: Performed By: #### C BCA #### [facility] ([id number]) [address] [place] [address] 82461 Erythrocyte distribution width (RBC) [Ratio] 14.6 % Normal 11.5-15.0 [facility] Comment on above: Performed By: #### C BCA #### [facility] ([id number]) [address] [place] [address] 94078 Hematocrit (Bld) [Volume fraction] 41.1 % Normal 35-47 [facility] Comment on above: Performed By: #### C BCA #### [facility] ([id number]) [address] [place] [address] 30195 Hemoglobin (Bld) [Mass/Vol] 14.1 g/dL Normal 11.7-15.5 [facility] Comment on above: Performed By: #### C BCA #### [facility] ([id number]) [address] [place] [address] 05856 Lymphocytes (Bld) [#/Vol] 1.5 10*3/uL Normal 1.0-3.5 [facility] Comment on above: Performed By: #### C BCA #### [facility] ([id number]) [address] [place] [address] 53202 Lymphocytes/100 WBC (Bld) 19.1 % Normal [facility] Comment on above: Performed By: #### C BCA #### [facility] ([id number]) [address] [place] [address] 42392 MCH (RBC) [Entitic mass] 30.9 pg Normal 27-34 [facility] Comment on above: Performed By: #### C BCA #### [facility] ([id number]) [address] [place] [address] 42608 MCHC (RBC) [Mass/Vol] 34.2 g/dL Normal 32-36 [facility] Comment on above: Performed By: #### C BCA #### [facility] ([id number]) [address] [place] [address] 03054 MCV (RBC) [Entitic vol] 90 fL Normal 80-100 [facility] Comment on above: Performed By: #### C BCA #### [facility] ([id number]) [address] [place] [address] 94420 Monocytes (Bld) [#/Vol] 0.6 10*3/uL Normal 0-0.9 [facility] Comment on above: Performed By: #### C BCA #### [facility] ([id number]) [address] [place] [address] 42410 Monocytes/100 WBC (Bld) 7.5 % Normal [facility] Comment on above: Performed By: #### C BCA #### [facility] ([id number]) [address] [place] [address] 02030 Neutrophils/100 WBC (Bld) 65.5 % Normal [facility] Comment on above: Performed By: #### C BCA #### [facility] ([id number]) [address] [place] [address] 36132 Platelet mean volume (Bld) [Entitic vol] 7.9 fL Normal 7-12 [facility] Comment on above: Performed By: #### C BCA #### [facility] ([id number]) [address] [place] [address] 82531 Platelets (Bld) [#/Vol] 277 10*3/uL Normal 150-450 [facility] Comment on above: Performed By: #### C BCA #### [facility] ([id number]) [address] [place] [address] 19557 RBC COUNT 4.55 X10E12/L Normal 3.80-5.20 [facility] Comment on above: Performed By: #### C BCA #### [facility] ([id number]) [address] [place] [address] 36334 WBC (Bld) [#/Vol] 8.0 10*3/uL Normal 4.0-11.0 [facility] Comment on above: Performed By: #### C BCA #### [facility] ([id number]) [address] [place] [address] 30818 Office Visiton 07-19-2023 Follow-up visit [id number] Willard Gavin 1945 F Date Provider Department Center 07/19/2023 AMADOU ALFARO MP ORTHO [facility] Family History Family history unknown: Yes Level of Service:42739 ME OFFICE/OUTPATIENT NEW LOW MDM 30 MINUTES Reason for Visit and Comments: Pain [136] Normal [facility] CBC AND AUTO DIFFon 06-11-19 24 ABSOLUTE BASOPHIL 0.0 X10E9/L Normal 0.0-0.2 [facility] Comment on above: Performed By: #### C BCA #### [facility] ([id number]) [address] [place] [address] 38789 ABSOLUTE NEUTROPHIL 5.1 X10E9/L Normal 1.5-6.6 [facility] Comment on above: Performed By: #### C BCA #### [facility] ([id number]) [address] [place] [address] 26764 Basophils/100 WBC (Bld) 0.2 % Normal [facility] Comment on above: Performed By: #### C BCA #### [facility] ([id number]) [address] [place] [address] 31934 Eosinophils (Bld) [#/Vol] 0.5 10*3/uL High 0.0-0.4 [facility] Comment on above: Performed By: #### C BCA #### [facility] ([id number]) [address] [place] [address] 59533 Eosinophils/100 WBC (Bld) 6.9 % Normal [facility] Comment on above: Performed By: #### C BCA #### [facility] ([id number]) [address] [place] [address] 88676 Erythrocyte distribution width (RBC) [Ratio] 14.2 % Normal 11.5-15.0 [facility] Comment on above: Performed By: #### C BCA #### [facility] ([id number]) [address] [place] [address] 65427 Hematocrit (Bld) [Volume fraction] 40.8 % Normal 35-47 [facility] Comment on above: Performed By: #### C BCA #### [facility] ([id number]) [address] [place] [address] 83500 Hemoglobin (Bld) [Mass/Vol] 14.0 g/dL Normal 11.7-15.5 [facility] Comment on above: Performed By: #### C BCA #### [facility] ([id number]) [address] [place] [address] 82879 Lymphocytes (Bld) [#/Vol] 1.2 10*3/uL Normal 1.0-3.5 [facility] Comment on above: Performed By: #### C BCA #### [facility] ([id number]) [address] [place] [address] 74020 Lymphocytes/100 WBC (Bld) 16.5 % Normal [facility] Comment on above: Performed By: #### C BCA #### [facility] ([id number]) [address] [place] [address] 36428 MCH (RBC) [Entitic mass] 31.2 pg Normal 27-34 [facility] Comment on above: Performed By: #### C BCA #### [facility] ([id number]) [address] [place] [address] 67232 MCHC (RBC) [Mass/Vol] 34.3 g/dL Normal 32-36 [facility] Comment on above: Performed By: #### C BCA #### [facility] ([id number]) [address] [place] [address] 74123 MCV (RBC) [Entitic vol] 91 fL Normal 80-100 [facility] Comment on above: Performed By: #### C BCA #### [facility] ([id number]) [address] [place] [address] 99044 Monocytes (Bld) [#/Vol] 0.6 10*3/uL Normal 0-0.9 [facility] Comment on above: Performed By: #### C BCA #### [facility] ([id number]) [address] [place] [address] 96973 Monocytes/100 WBC (Bld) 8.0 % Normal [facility] Comment on above: Performed By: #### C BCA #### [facility] ([id number]) [address] [place] [address] 59499 Neutrophils/100 WBC (Bld) 68.4 % Normal [facility] Comment on above: Performed By: #### C BCA #### [facility] ([id number]) [address] [place] [address] 38247 Platelet mean volume (Bld) [Entitic vol] 8.3 fL Normal 7-12 [facility] Comment on above: Performed By: #### C BCA #### [facility] ([id number]) [address] [place] [address] 50359 Platelets (Bld) [#/Vol] 258 10*3/uL Normal 150-450 [facility] Comment on above: Performed By: #### C BCA #### [facility] ([id number]) [address] [place] [address] 30957 RBC COUNT 4.49 X10E12/L Normal 3.80-5.20 [facility] Comment on above: Performed By: #### C BCA #### [facility] ([id number]) [address] [place] [address] 25574 WBC (Bld) [#/Vol] 7.4 10*3/uL Normal 4.0-11.0 [facility] Comment on above: Performed By: #### C BCA #### [facility] ([id number]) [address] [place] [address] 57701 CBC AND AUTO DIFFon 04-03-20 23 ABSOLUTE BASOPHIL 0.1 X10E9/L Normal 0.0-0.2 [facility] Comment on above: Performed By: #### C BCA #### [facility] ([id number]) [address] [place] [address] [place] [address] ABSOLUTE NEUTROPHIL 5.1 X10E9/L Normal 1.5-6.6 [facility] Comment on above: Performed By: #### C BCA #### [facility] ([id number]) [address] [place] [address] [place] [address] Basophils/100 WBC (Bld) 1.4 % Normal [facility] Comment on above: Performed By: #### C BCA #### [facility] ([id number]) [address] [place] [address] [place] [address] Eosinophils (Bld) [#/Vol] 0.5 10*3/uL High 0.0-0.4 [facility] Comment on above: Performed By: #### C BCA #### [facility] ([id number]) [address] [place] [address] [place] [address] Eosinophils/100 WBC (Bld) 7.1 % Normal [facility] Comment on above: Performed By: #### C BCA #### [facility] ([id number]) [address] [place] [address] [place] [address] Erythrocyte distribution width (RBC) [Ratio] 14.4 % Normal 11.5-15.0 [facility] Comment on above: Performed By: #### C BCA #### [facility] ([id number]) [address] [place] [address] [place] [address] Hematocrit (Bld) [Volume fraction] 42.1 % Normal 35-47 [facility] Comment on above: Performed By: #### C BCA #### [facility] ([id number]) [address] [place] [address] [place] [address] Hemoglobin (Bld) [Mass/Vol] 14.2 g/dL Normal 11.7-15.5 [facility] Comment on above: Performed By: #### C BCA #### [facility] ([id number]) [address] [place] [address] [place] [address] Lymphocytes (Bld) [#/Vol] 1.4 10*3/uL Normal 1.0-3.5 [facility] Comment on above: Performed By: #### C BCA #### [facility] ([id number]) [address] [place] [address] [place] [address] Lymphocytes/100 WBC (Bld) 17.6 % Normal [facility] Comment on above: Performed By: #### C BCA #### [facility] ([id number]) [address] [place] [address] [place] [address] MCH (RBC) [Entitic mass] 31.2 pg Normal 27-34 [facility] Comment on above: Performed By: #### C BCA #### [facility] ([id number]) [address] [place] [address] [place] [address] MCHC (RBC) [Mass/Vol] 33.7 g/dL Normal 32-36 [facility] Comment on above: Performed By: #### C BCA #### [facility] ([id number]) [address] [place] [address] [place] [address] MCV (RBC) [Entitic vol] 93 fL Normal 80-100 [facility] Comment on above: Performed By: #### C BCA #### [facility] ([id number]) [address] [place] [address] [place] [address] Monocytes (Bld) [#/Vol] 0.6 10*3/uL Normal 0-0.9 [facility] Comment on above: Performed By: #### C BCA #### [facility] ([id number]) [address] [place] [address] [place] [address] Monocytes/100 WBC (Bld) 8.0 % Normal [facility] Comment on above: Performed By: #### C BCA #### [facility] ([id number]) [address] [place] [address] [place] [address] Neutrophils/100 WBC (Bld) 65.9 % Normal [facility] Comment on above: Performed By: #### C BCA #### [facility] ([id number]) [address] [place] [address] [place] [address] Platelet mean volume (Bld) [Entitic vol] 7.4 fL Normal 7-12 [facility] Comment on above: Performed By: #### C BCA #### [facility] ([id number]) [address] [place] [address] [place] [address] Platelets (Bld) [#/Vol] 248 10*3/uL Normal 150-450 [facility] Comment on above: Performed By: #### C BCA #### [facility] ([id number]) [address] [place] [address] [place] [address] RBC COUNT 4.55 X10E12/L Normal 3.80-5.20 [facility] Comment on above: Performed By: #### C BCA #### [facility] ([id number]) [address] [place] [address] [place] [address] WBC (Bld) [#/Vol] 7.7 10*3/uL Normal 4.0-11.0 [facility] Comment on above: Performed By: #### C BCA #### [facility] ([id number]) [address] [place] [address] [place] [address] BNPon 08-07-2022 Natriuretic peptide B (Bld) [Mass/Vol] 124.0 pg/mL Normal <=1,800.0 [facility] Comment on above: Performed By: #### T SH, BNP, CREA, ELEC, BUN ####[facility] [address] [place], [place] [address]Dr. alex Duffy BUNon 08-07-2022 Urea nitrogen [Mass/Vol] 13.0 mg/dL Normal 7.0-18.0 [facility] Comment on above: Performed By: #### T SH, BNP, CREA, ELEC, BUN ####[facility] [address] [place] [address]. [facility] CREATININEon 08-07-2022 Creatinine [Mass/Vol] 0.60 mg/dL Normal 0.55-1.02 [facility] Comment on above: Performed By: #### T SH, BNP, CREA, ELEC, BUN ####[facility] [address] [place] [address]Dr. Miranda Duffy EGFR-AF RUSSIAN >60 Normal >=60 [facility] Comment on above: Performed By: #### T SH, BNP, CREA, ELEC, BUN ####[facility] [address] [place] [address]Dr. Miranda Duffy EGFR-NON AF RUSSIAN >60 Normal >=60 [facility] Comment on above: Performed By: #### T SH, BNP, CREA, ELEC, BUN ####[facility] [address] [place] [address]Dr. Miranda Duffy ELECTROLYTESon 08-07-2022 Anion gap [Moles/Vol] 14.0 mmol/L Normal [facility] Comment on above: Performed By: #### T SH, BNP, CREA, ELEC, BUN ####[facility] [address] [place], [place] [address]Dr. Miranda Duffy Chloride [Moles/Vol] 106 mmol/L Normal 98-107 [facility] Comment on above: Performed By: #### T SH, BNP, CREA, ELEC, BUN ####[facility] [address] [place], [place] [address]Dr. Miranda Duffy CO2 [Moles/Vol] 28.3 mmol/L Normal 21.0-32.0 [facility] Comment on above: Performed By: #### T SH, BNP, CREA, ELEC, BUN ####[facility] [address] [place], [place] [address]Dr. Miranda Duffy Potassium [Moles/Vol] 4.3 mmol/L Normal 3.5-5.1 [facility] Comment on above: Performed By: #### T SH, BNP, CREA, ELEC, BUN ####[facility] [address] [place], [place] [address]Dr. Miranda Duffy Sodium [Moles/Vol] 144 mmol/L Normal 136-145 [facility] Comment on above: Performed By: #### T SH, BNP, CREA, ELEC, BUN ####[facility] [address] [place] [id number][address] Miranda Duffy TSHon 08-07-2022 TSH 3.287 uIU/mL Normal 0.358-3.740 [facility] Comment on above: Performed By: #### T SH, BNP, CREA, ELEC, BUN ####[facility] [address] [place] [address]Dr. Miranda Duffy BNPon 08-04-2022 Natriuretic peptide B (Bld) [Mass/Vol] 70.0 pg/mL Normal <=1,800.0 [facility] Comment on above: Performed By: #### B COMPUTER TYPESETTER KEYLINER, BMP #### [facility] [address] [place] [address] Dr. Miranda Duffy CBC AUTO DIFFon 08-04-2022 BASO # 0.1 103/ul Normal 0.0-0.1 [facility] Comment on above: Performed By: #### C BC #### [facility] [address] [place] [address] Dr. Miranda Duffy Basophils/100 WBC (Bld) 0.9 % Normal 0.2-2.0 [facility] Comment on above: Performed By: #### C BC #### [facility] [address] [place] [address] Dr. Miranda Duffy EO # 0.5 103/ul Normal 0.0-0.7 [facility] Comment on above: Performed By: #### C BC #### [facility] [address] [place] [address] Dr. Miranda Duffy Eosinophils/100 WBC (Bld) 9.0 % Critically high 0.9-7.0 [facility] Comment on above: Performed By: #### C BC #### [facility] [address] [place] [address] Dr. Miranda Duffy Erythrocyte distribution width (RBC) [Ratio] 15.0 % Normal 11.0-15.0 [facility] Comment on above: Performed By: #### C BC #### [facility] [address] [place] [address] Dr. Miranda Duffy Hematocrit (Bld) [Volume fraction] 34.2 % Critically low 36.0-48.0 [facility] Comment on above: Performed By: #### C BC #### [facility] [address] [place] [address] Dr. Miranda Duffy Hemoglobin (Bld) [Mass/Vol] 10.9 g/dL Critically low 12.0-16.0 [facility] Comment on above: Performed By: #### C BC #### [facility] [address] [address] [address] Miranda Duffy IG # 0.04 10e3/ul Critically high 0.00-0.03 [facility] Comment on above: Performed By: #### C BC #### [facility] [address] [place] [address] Dr. Miranda Duffy IG % 0.7 % Critically high 0.0-0.5 [facility] Comment on above: Performed By: #### C BC #### [facility] [address] [place] [address] Dr. Miranda Duffy LYMPH # 1.1 103/ul Critically low 1.2-3.8 [facility] Comment on above: Performed By: #### C BC #### [facility] [address] [place] [address] Dr. Miranda Duffy Lymphocytes/100 WBC (Bld) 20.1 % Critically low 20.5-60.0 [facility] Comment on above: Performed By: #### C BC #### [facility] [address] [place] [address] Dr. Miranda Duffy MANUAL DIFF REQ NO Normal [facility] Comment on above: Performed By: #### C BC #### [facility] [address] [address] [address] Miranda Duffy MCH (RBC) [Entitic mass] 30.4 pg Normal 26.7-34.0 [facility] Comment on above: Performed By: #### C BC #### [facility] [address] [place] [address] Dr. Miranda Duffy MCHC (RBC) [Mass/Vol] 31.9 g/dL Normal 29.9-35.2 [facility] Comment on above: Performed By: #### C BC #### [facility] [address] [place] [address] Dr. Miranda Duffy MCV (RBC) [Entitic vol] 95.3 fL Normal 81.0-99.0 [facility] Comment on above: Performed By: #### C BC #### [facility] [address] [place] [address] Dr. Miranda Duffy MONO # 0.5 103/ul Normal 0.3-0.8 [facility] Comment on above: Performed By: #### C BC #### [facility] [address] [place] [address] Dr. Miranda Duffy Monocytes/100 WBC (Bld) 7.9 % Normal 1.7-12.0 [facility] Comment on above: Performed By: #### C BC #### [facility] [address] [place] [address] Dr. Miranda Duffy NEUT # 3.5 103/ul Normal 1.4-6.5 [facility] Comment on above: Performed By: #### C BC #### [facility] [address] [place] [address] Dr. Miranda Duffy Neutrophils/100 WBC (Bld) 61.4 % Normal 43.0-75.0 [facility] Comment on above: Performed By: #### C BC #### [facility] [address] [place] [address] Dr. Miranda Duffy Platelet mean volume (Bld) [Entitic vol] 8.7 fL Critically low 9.5-13.5 [facility] Comment on above: Performed By: #### C BC #### [facility] [address] [place] [address] Dr. Miranda Duffy PLT 433 103/ul Normal 150-450 [facility] Comment on above: Performed By: #### C BC #### [facility] [address] [place], [place] [id number] Dr. Miranda Duffy RBC 3.59 106/ul Critically low 4.20-5.40 [facility] Comment on above: Performed By: #### C BC #### [facility] [address] [address] [address] Miranda Duffy WBC 5.7 103/ul Normal 4.0-11.0 [facility] Comment on above: Performed By: #### C BC #### [facility] [address] [address] [address] Miranda Duffy GLYCOHEMOGLOBIN A1Con 2022 ADA RECOMMENDATION SEE BELOW Normal [facility] Comment on above: Result Comment: ADA RECOMMENDED LIMIT 4.0 - 6.0 ADA THERAPEUTIC TARGET < 7.0 ACTION SUGGESTED > 7.0 Performed By: #### A 1C ####[facility] [address] [address]Dr. Miranda Duffy Glucose [Mass/Vol] 100 mg/dL Normal [facility] Comment on above: Performed By: #### A 1C ####[facility] [address] [address]Dr. Miranda Duffy HbA1c (Bld) [Mass fraction] 5.1 % Normal 4.5-6.2 [facility] Comment on above: Performed By: #### A 1C ####[facility] [address] [address]Dr. Miranda Duffy PROF CHEM 8 (BAS METB)on Anion gap [Moles/Vol] 7.0 mmol/L Normal [facility] Comment on above: Performed By: #### B COMPUTER TYPESETTER KEYLINER, BMP #### [facility] [address] [place] [address] Dr. Miranda Duffy Calcium [Mass/Vol] 8.4 mg/dL Critically low 8.5-10.1 [facility] Comment on above: Performed By: #### B COMPUTER TYPESETTER KEYLINER, BMP #### [facility] [address] [place] [address] Dr. Miranda Duffy Chloride [Moles/Vol] 107 mmol/L Normal 98-107 [facility] Comment on above: Performed By: #### B COMPUTER TYPESETTER KEYLINER, BMP #### [facility] [address] [place] [address] Dr. Miranda Duffy CO2 [Moles/Vol] 30.5 mmol/L Normal 21.0-32.0 [facility] Comment on above: Performed By: #### B COMPUTER TYPESETTER KEYLINER, BMP #### [facility] [address] [place] [address] Dr. Miranda Duffy Creatinine [Mass/Vol] 0.59 mg/dL Normal 0.55-1.02 [facility] Comment on above: Performed By: #### B COMPUTER TYPESETTER KEYLINER, BMP #### [facility] [address] [place] [address] Dr. Miranda Duffy EGFR-AF RUSSIAN >60 Normal >=60 [facility] Comment on above: Performed By: #### B COMPUTER TYPESETTER KEYLINER, BMP #### [facility] [address] [place] [address] Dr. Miranda Duffy EGFR-NON AF RUSSIAN >60 Normal >=60 [facility] Comment on above: Performed By: #### B COMPUTER TYPESETTER KEYLINER, BMP #### [facility] [address] [place] [address] Dr. Miranda Duffy Glucose [Mass/Vol] 85 mg/dL Normal 74-106 [facility] Comment on above: Performed By: #### B COMPUTER TYPESETTER KEYLINER, BMP #### [facility] [address] [place] [address] Dr. Miranda Duffy Potassium [Moles/Vol] 3.5 mmol/L Normal 3.5-5.1 [facility] Comment on above: Performed By: #### B COMPUTER TYPESETTER KEYLINER, BMP #### [facility] [address] [place] [address] Dr. Miranda Duffy Sodium [Moles/Vol] 141 mmol/L Normal 136-145 [facility] Comment on above: Performed By: #### B COMPUTER TYPESETTER KEYLINER, BMP #### [facility] [address] [place] [address] Dr. Miranda Duffy Urea nitrogen [Mass/Vol] 17.0 mg/dL Normal 7.0-18.0 [facility] Comment on above: Performed By: #### B COMPUTER TYPESETTER KEYLINER, BMP #### [facility] [address] [place] [address] Dr. Miranda Duffy Urea nitrogen/Creatinine [Mass ratio] 28.8 mg/mg Normal [facility] Comment on above: Performed By: #### B COMPUTER TYPESETTER KEYLINER, BMP #### [facility] [address] [address] [address] Miranda Duffy UA (CLEAN/CATCH) PHYSICIAN SPECIALIST/MICRO I F IND.on 08-04-2022 Bilirubin Ql (U) Negative Normal NEGATIVE [facility] Comment on above: Performed By: #### U ACSIND #### [facility] [address] [place] [address] Dr. Miranda Duffy Clarity (U) SL CLOUDY Abnormal CLEAR [facility] Comment on above: Performed By: #### U ACSIND #### [facility] [address] [place] [address] Dr. Miranda Duffy Color (U) YELLOW Normal YELLOW [facility] Comment on above: Performed By: #### U ACSIND #### [facility] [address] [place] [address] Dr. Miranda Duffy Glucose Ql (U) Negative Normal NEGATIVE [facility] Comment on above: Performed By: #### U ACSIND #### [facility] [address] [place] [address] Dr. Miranda Dfufy Hemoglobin Ql (U) Negative Normal NEGATIVE [facility] Comment on above: Performed By: #### U ACSIND #### [facility] [address] [place] [address] Dr. Miranda Duffy Ketones Ql (U) Negative Normal NEGATIVE [facility] Comment on above: Performed By: #### U ACSIND #### [facility] [address] [place] [address] Dr. Miranda Duffy LEUKOCYTES Negative Normal NEGATIVE [facility] Comment on above: Performed By: #### U ACSIND #### [facility] [address] [place] [address] Dr. Miranda Duffy Nitrite Ql (U) Negative Normal NEGATIVE [facility] Comment on above: Performed By: #### U ACSIND #### [facility] [address] [place] [address] Dr. Miranda Duffy pH (U) 5.5 [pH] Normal 5-9 [facility] Comment on above: Performed By: #### U ACSIND #### [facility] [address] [address] [address] Miranda Duffy SPEC GRAVITY 1.030 Abnormal 1.005-<=1.025 [facility] Comment on above: Performed By: #### U ACSIND #### [facility] [address] [address] [address] Miranda Duffy UA PROTEIN Negative Normal NEGATIVE/ TRACE [facility] Comment on above: Performed By: #### U ACSIND #### [facility] [address] [address] [address] Miranda Duffy UR MICRO IND NOT INDICATED Normal [facility] Comment on above: Performed By: #### U ACSIND #### [facility] [address] [address] [address] Miranda Duffy Urobilinogen Qn (U) 0.2 {Alondra'U}/dL Normal 0.2 - 1. 0 [facility] Comment on above: Performed By: #### U ACSIND #### [facility] [address] [address] [address] Miranda Duffy CULTURE URINEon 04-07-2022 CULTURE [...] Trimethoprim/Sulfamet hoxazole <=20 S F Normal [facility] Comment on above: Performed By: #### U RCX ####[facility] [address] [address]Dr. Miranda Duffy CARDIAC TUTU 3-6on 2 CK [Catalytic activity/Vol] 134 U/L Normal 26-192 [facility] Comment on above: Performed By: #### C MREP #### [facility] [address] [place] [address] Dr. Miranda Duffy CK.MB [Mass/Vol] 3.51 ng/mL Normal <=3.60 [facility] Comment on above: Performed By: #### C MREP #### [facility] [address] [place] [address] Dr. Miranda Duffy HSTROP 7.8 pg/mL Normal 4.0-51.3 [facility] Comment on above: Result Comment: CUT- OFF POINTS HAVE BEEN ESTABLISHED BASED ON THE FOURTH UNIVERSAL DEFINITIONS OF MYOCARDIAL INFARCTION. THE UPPER REFERENCE LIMIT (URL) OF TROPONIN, DEFINED THE 99TH PERCENTILE OF cTnI DISTRIBUTION IN A REFERENCE POPULATION, HAS BEEN CONFIRMED THE DECISION THRESHOLD FOR ID DIAGNOSIS. Performed By: #### C MREP #### [facility] [address] [place] [address] Dr. Miranda Duffy CARDIAC TUTU ADMITon 022 CK [Catalytic activity/Vol] 90 U/L Normal 26-192 [facility] Comment on above: Performed By: #### DUSTIN Velazco MP #### [facility] [address] [place] [address] Dr. Miranda Duffy CK.MB [Mass/Vol] 1.95 ng/mL Normal <=3.60 [facility] Comment on above: Performed By: #### Mora ERICKSON CMADM #### [facility] [address] [place] [address] Dr. Miranda Duffy HSTROP 7.7 pg/mL Normal 4.0-51.3 [facility] Comment on above: Result Comment: CUT- OFF POINTS HAVE BEEN ESTABLISHED BASED ON THE FOURTH UNIVERSAL DEFINITIONS OF MYOCARDIAL INFARCTION. THE UPPER REFERENCE LIMIT (URL) OF TROPONIN, DEFINED THE 99TH PERCENTILE OF cTnI DISTRIBUTION IN A REFERENCE POPULATION, HAS BEEN CONFIRMED THE DECISION THRESHOLD FOR ID DIAGNOSIS. Performed By: #### Mora ERICKSON CMADM #### [facility] [address] [address] [address] Miranda Duffy SHELBY 426 ng/mL Critically high 9-82 [facility] Comment on above: Performed By: #### B ESTRELLITA ERICKSONDM #### [facility] [id number] [address] Miranda Duffy CBC AUTO DIFFon 04-05-2022 BASO # 0.1 103/ul Normal 0.0-0.1 [facility] Comment on above: Performed By: #### C BC ####[facility] [address] [id number] Duffy Basophils/100 WBC (Bld) 0.7 % Normal 0.2-2.0 [facility] Comment on above: Performed By: #### C BC ####[facility] [address] [address]DrLadan Duffy EO # 0.7 103/ul Normal 0.0-0.7 [facility] Comment on above: Performed By: #### C BC ####[facility] [address] [address]DrLadan Duffy Eosinophils/100 WBC (Bld) 6.3 % Normal 0.9-7.0 [facility] Comment on above: Performed By: #### C BC ####[facility] [address] [id number] Duffy Erythrocyte distribution width (RBC) [Ratio] 14.4 % Normal 11.0-15.0 [facility] Comment on above: Performed By: #### C BC ####[facility] [address] [id number] Duffy Hematocrit (Bld) [Volume fraction] 43.7 % Normal 36.0-48.0 [facility] Comment on above: Performed By: #### C BC ####[facility] [address] [id number] Duffy Hemoglobin (Bld) [Mass/Vol] 14.8 g/dL Normal 12.0-16.0 [facility] Comment on above: Performed By: #### C BC ####[facility] [address] [id number]. Miranda Duffy IG # 0.06 10e3/ul Critically high 0.00-0.03 [facility] Comment on above: Performed By: #### C BC ####[facility] [address] [id number]. Miranda Duffy IG % 0.5 % Normal 0.0-0.5 [facility] Comment on above: Performed By: #### C BC ####[facility] [address] [address]Dr. Miranda Duffy LYMPH # 1.7 103/ul Normal 1.2-3.8 [facility] Comment on above: Performed By: #### C BC ####[facility] [address] [address]Dr. Miranda Duffy Lymphocytes/100 WBC (Bld) 14.7 % Critically low 20.5-60.0 [facility] Comment on above: Performed By: #### C BC ####[facility] [address] [address]Dr. Miranda Duffy MANUAL DIFF REQ NO Normal [facility] Comment on above: Performed By: #### C BC ####[facility] [address] [address]Dr. Miranda Duffy MCH (RBC) [Entitic mass] 31.1 pg Normal 26.7-34.0 [facility] Comment on above: Performed By: #### C BC ####[facility] [address] [address]Dr. Miranda Duffy MCHC (RBC) [Mass/Vol] 33.9 g/dL Normal 29.9-35.2 [facility] Comment on above: Performed By: #### C BC ####[facility] [address] [address]Dr. Miranda Duffy MCV (RBC) [Entitic vol] 91.8 fL Normal 81.0-99.0 [facility] Comment on above: Performed By: #### C BC ####[facility] [address] [id number]. Miranda Duffy MONO # 0.9 103/ul Critically high 0.3-0.8 [facility] Comment on above: Performed By: #### C BC ####[facility] [address] [id number]. Miranda Duffy Monocytes/100 WBC (Bld) 8.2 % Normal 1.7-12.0 [facility] Comment on above: Performed By: #### C BC ####[facility] [address] [id number]. Miranda Duffy NEUT # 7.8 103/ul Critically high 1.4-6.5 [facility] Comment on above: Performed By: #### C BC ####[facility] [address] [address]Dr. Miranda Duffy Neutrophils/100 WBC (Bld) 69.6 % Normal 43.0-75.0 [facility] Comment on above: Performed By: #### C BC ####[facility] [address] [address]Dr. Miranda Duffy Platelet mean volume (Bld) [Entitic vol] 9.0 fL Critically low 9.5-13.5 [facility] Comment on above: Performed By: #### C BC ####[facility] [address] [id number]. Miranda Duffy PLT 248 103/ul Normal 150-450 [facility] Comment on above: Performed By: #### C BC ####[facility] [address] [place], [place] [address]Dr. Miranda Duffy RBC 4.76 106/ul Normal 4.20-5.40 [facility] Comment on above: Performed By: #### C BC ####[facility] [address] [id number]. Miranda Duffy WBC 11.2 103/ul Critically high 4.0-11.0 [facility] Comment on above: Performed By: #### C BC ####[facility] [address] [place], [place] [address]Rm. Miranda Duffy CT CSPINE WO CONon 2 [...] DAVID ALONSO Date: 2022-04-05 01:16 Normal [facility] CT FACIAL BONES WO CONon CT [...] HARVEY BERG Date: 2022-04-04 23:53 Normal [facility] ER URINE PROFILEon 2 Bilirubin Ql (U) Negative Normal NEGATIVE [facility] Comment on above: Performed By: #### E LEIGHA AGUILA ####[facility] [address] [place], [place] [address]XcLadan Miranda Clive Clarity (U) CLEAR Normal CLEAR [facility] Comment on above: Performed By: #### E AYLA UMICRO ####[facility] [address] [place], [place] [address]Dr. Miranda Duffy Color (U) LT. YELLOW Normal YELLOW [facility] Comment on above: Performed By: #### ANANT GREGGRO ####[facility] [address] [address]Dr. Miranda Duffy ERUAHD A micrscopic examination will be performed if indicated. Normal [facility] Comment on above: Performed By: #### Patel AGUILA UMICRO ####[facility] [address] [place], [place] [address]Dr. Miranda Duffy Glucose Ql (U) Negative Normal NEGATIVE [facility] Comment on above: Performed By: #### ANANT GREGGRO ####[facility] [address] [place], [place] [address]Dr. Miranda Duffy Hemoglobin Ql (U) Negative Normal NEGATIVE [facility] Comment on above: Performed By: #### ANANT GREGGRO ####[facility] [address] [place], [place] [address]Dr. Miranda Duffy Ketones Ql (U) 15 mg/dl Abnormal NEGATIVE [facility] Comment on above: Performed By: #### ANANT GREGGRO ####[facility] [address] [place], [place] [address]Dr. Miranda Duffy LEUKOCYTES SMALL Abnormal NEGATIVE [facility] Comment on above: Performed By: #### ANANT GREGGRO ####[facility] [address] [place], [place] [address]Dr. Miranda Duffy Nitrite Ql (U) Positive Abnormal NEGATIVE [facility] Comment on above: Performed By: #### ANANT GREGGRO ####[facility] [address] [place], [place] [address]Dr. Miranda Duffy pH (U) 5.5 [pH] Normal 5-9 [facility] Comment on above: Performed By: #### ANANT GREGGRO ####[facility] [address] [place], [place] [address]Dr. Miranda Duffy SPEC GRAVITY 1.015 Normal 1.005-<=1.025 [facility] Comment on above: Performed By: #### LEIGHA GREGG ####[facility] [address] [address]DrLadan Duffy UA PROTEIN Negative Normal NEGATIVE/ TRACE [facility] Comment on above: Performed By: #### LEIGHA GREGG ####[facility] [address] [address]Dr. Miranda Duffy UR MICRO IND INDICATED Normal [facility] Comment on above: Performed By: #### LEIGHA GREGG ####[facility] [address] [address]Dr. Miranda Duffy Urobilinogen Qn (U) 1.0 {Alondra'U}/dL Normal 0.2 - 1. 0 [facility] Comment on above: Performed By: #### LEIGHA GREGG ####[facility] [address] [address]DrLadan Duffy PROF CHEM 8 (BAS METB)on Anion gap [Moles/Vol] 8.2 mmol/L Normal [facility] Comment on above: Performed By: #### B DUSTIN ERICKSON #### [facility] [address] [address] [address] Miranda Duffy Calcium [Mass/Vol] 9.2 mg/dL Normal 8.5-10.1 [facility] Comment on above: Performed By: #### DUSTIN Velazco MP #### [facility] [address] [address] [address] Miranda Duffy Chloride [Moles/Vol] 103 mmol/L Normal 98-107 [facility] Comment on above: Performed By: #### B DUSTIN ERICKSON #### [facility] [address] [address] [address] Miranda Duffy CO2 [Moles/Vol] 30.7 mmol/L Normal 21.0-32.0 [facility] Comment on above: Performed By: #### B MP, CMADM #### [facility] [address] [address] [address] Miranda Duffy Creatinine [Mass/Vol] 0.73 mg/dL Normal 0.55-1.02 [facility] Comment on above: Performed By: #### B GEORGINA, CMADM #### [facility] [address] [address] [address] Miranda Duffy EGFR-AF RUSSIAN >60 Normal >=60 [facility] Comment on above: Performed By: #### B GEORGINA, CMADM #### [facility] [address] [address] [address] Miranda Duffy EGFR-NON AF RUSSIAN >60 Normal >=60 [facility] Comment on above: Performed By: #### B GEORGINA, CMADM #### [facility] [address] [address] [address] Miranda Duffy Glucose [Mass/Vol] 116 mg/dL Critically high 74-106 [facility] Comment on above: Performed By: #### B GEORGINA, CMADM #### [facility] [address] [address] [address] Miranda Duffy Potassium [Moles/Vol] 3.9 mmol/L Normal 3.5-5.1 [facility] Comment on above: Performed By: #### B GEORGINA, CMADM #### [facility] [address] [address] [address] Miranda Duffy Sodium [Moles/Vol] 138 mmol/L Normal 136-145 [facility] Comment on above: Performed By: #### B GEORGINA, CMADM #### [facility] [address] [address] [address] Miranda Duffy Urea nitrogen [Mass/Vol] 22.0 mg/dL Critically high 7.0-18.0 [facility] Comment on above: Performed By: #### B GEORGINA, CMADM #### [facility] [address] [address] [address] Miranda Duffy Urea nitrogen/Creatinine [Mass ratio] 30.1 mg/mg Normal [facility] Comment on above: Performed By: #### B GEORGINA, CMADM #### [facility] [address] [address] [address] Miranda Duffy URINE MICROSCOPIC ONLYon BACTERIA LARGE Abnormal NONE SEEN [facility] Comment on above: Performed By: #### ANANT GREGGRO ####[facility] [address] [address]Dr. Miranda Duffy Bacteria identified Cx Nom (U) INDICATED Normal [facility] Comment on above: Performed By: #### ANANT GREGGRO ####[facility] [address] [address]Dr. Miranda Duffy CAST NONE SEEN Normal NONE SEEN [facility] Comment on above: Performed By: #### ANANT GREGGRO ####[facility] [address] [address]Dr. Miranda Duffy Crystals LM Nom (Urine sed) NONE SEEN Normal NONE SEEN [facility] Comment on above: Performed By: #### ANANT GREGGRO ####[facility] [address] [place], [place] [address]Dr. Miranda Duffy Epithelial cells LM Ql (Urine sed) FEW Abnormal NONE SEEN /RARE [facility] Comment on above: Performed By: #### ANANT GREGGRO ####[facility] [address] [address]Dr. Miranda Duffy MUCOUS NONE SEEN Normal NONE SEEN [facility] Comment on above: Performed By: #### ANANT GREGGRO ####[facility] [address] [address]Dr. Miranda Duffy RBC 0-2 Normal 0-2 [facility] Comment on above: Performed By: #### ANANT GREGGRO ####[facility] [address] [place], [place] [address]Dr. Miranda Duffy WBC 5-10 Abnormal NONE SEEN [facility] Comment on above: Performed By: #### ANANT GREGGRO ####[facility] [address] [place], [place] [address]Dr. Miranda Duffy XR HIP LT 2 3V [...] by: DAVID ALONSO Date: 2022-04-05 00:12 Normal [facility] Encounters Encounter Date Encounter Type Care Provider Facility Start: 09-17-2023 ambulatory [facility] Start: 08-09-2023 End: 08-15-2023 ambulatory [facility] Start: 07-19-2023 End: 07-19-2023 ambulatory [facility] Start: 06-11-2023 End: 06-11-2023 ambulatory [facility] Start: 04-03-2023 End: 04-03-2023 ambulatory [facility] Start: 08-09-2022 End: 08-09-[address] KERRIE PLASCENCIA Facility[facility] Start: 08-07-2022 End: 08-07-[address] KERRIE PLASCENCIA Facility[facility] Start: 08-04-2022 End: 08-04-[address] KERRIE PLASCENCIA Facility:[facility] Start: 04-05-2022 End: 04-05-2022 ambulatory HALLIE ELIZONDO Facility:[facility] Payers Date Payer Category Payer Medicaid [id number] 2001 Medicare [id number] 1958 Unknown [id number] 1945 Unknown [id number] 2.16.84 [id number] 1945 Unknown [id number] 2.16.84 [id number] 1946 Unknown [id number] 2.16.84 [id number] 1946 Unknown [id number] 2.16.84 [id number] 1946 Unknown [id number] 2.16.8 [id number] 1946 Unknown [id number] 2.16.8 [id number] 1946 Unknown [id number] 2.16.8 [id number] 1946 Unknown [id number] [id number] Progress note 09-17-2023 Note Date & Type Note Facility 09-17-2023 Note Orthopedic Surgery Subjective Chief complaint: Chief Complaint Patient presents with Right Knee - Follow-up, Pain ongoing right knee pain for multiple years, reports pain is gradually been worsening. She reports constant aching and throbbing in her right knee this is worse with walking and standing slightly improved with rest. reports she has previously had injections in her right knee, reports her most recent injections failed to relieve her pain 09/17/23 Willard Gavin is a 78 y.o. year old female presenting today with chief complaint of right knee pain. Patient was initially seen in presence of her caregiver from her facility. Following her office visit her brother and his returned back to discuss her care outside in the hallway. Patient is also s/p left primary knee arthroplasty done many years ago which does give her problems at sometimes and despite this she has been able to walk with a walker at this point. Patient had on 24 July 2022 and underwent left hip intramedullary screw fixation for fracture of the left hip. Patient has been seen today in the wheelchair and as per the family she tends to stand up momentarily and walks for very short distances with a walker. Patient complains of right knee pain causing her to have have limited ambulation. Patient states that she has been doing well with her left knee joint although she does not have much strength in straightening the left knee joint at this point. She has seen Jovan Howard PA-C and has had previous cortisone injections which do not seem to help her. She notes that her knee pain is a 5 out of 10 in nature. She does have a history of right knee osteoarthritis. She has tried and failed previous conservative treatment in the form of corticosteroid injections. She would like to discuss right total knee arthroplasty. Patient is on Xarelto for her atrial fibrillation. Patient is also known to have osteoporosis and she does have a history of a recent hip fracture needing been at [facility] by Filemon Jensen MD. She is a borderline diabetic. Patient History Past Surgical History: Procedure Laterality Date TOTAL HIP ARTHROPLASTY Left Past Medical History: Diagnosis Date Diabetes mellitus ([facility]) Fracture of hip ([facility]) Hypertension Objective General: Body mass index is 28.67 kg/m???. No acute distress, comfortable Respiratory: Unlabored breathing with normal rate, no cough Cardiovascular: Warm well perfused extremities Psych: Appropriate mood behavior Right knee: Varus deformity of the right knee joint noted, tenderness in the medial as well as lateral joint line noted. Positive peripheral crepitus noted. Trophic changes noted in the lower extremity in addition. Active extension is -5 degrees, flexion to about 95 degrees. Positive patellofemoral crepitus noted. Positive instability and anterior posterior drawer test is negative. Inspection-skin is clean dry intact. Moderate effusion. Palpation-tender to palpation along bilateral joint line. Range of motion-patient has a 45 degree flexion contracture. Motors-fires quadriceps. Vascular-posterior tibialis pulse intact. Imaging: X-ray of the right hip joint 3 views were taken today in the office were seen by myself and interpreted independently which show the patient has severe degenerative arthritis of her right knee joint along with severe osteopenia/osteoporosis. These were shown and explained to the patient. Radiographs of right knee demonstrate tricompartmental osteoarthritis. X-rays of the pelvis and both hips were not available to be seen. Assessment/Plan Willard Gavin is a 78 y.o. year old female with Unilateral primary osteoarthritis, right knee S/P total knee arthroplasty, left Weakness of both lower extremities Despite left primary total knee knee arthroplasty patient has valgus deformity of the left knee joint along with very poor mobility. She has generalized pain around the left knee joint as well. Patient was explained that since she has not had good outcome and pain relief following her left knee arthroplasty she may not have the best outcome following her right side. She has failed nonsurgical treatment and wants to proceed with right primary cemented total knee arthroplasty. Patient was explained in presence of her brother as well as his that she does have degenerative's of her right knee joint along with severe osteoporosis. She also has other medical comorbidities including obesity, poor mobility, previous falls and fractures with intramedullary nailing, weakness in the lower extremities causing high risk for falls, very high risk for periprosthetic fractures in future. Risk and benefits of right primary cemented total knee arthroplasty were discussed at length with the patient including complications which are but not restricted to bleeding, infection, neurologic injury, resid (more content not included)... [facility] Progress note 07-19-2023 Note Date & Type Note Facility 07-19-2023 Note Chief complaint: Rig ht knee pain HPI: This is a 78-year-old female with ongoing right knee pain for multiple years, reports pain is gradually been worsening. She presents today in a wheelchair. She reports constant aching and throbbing in her right knee this is worse with walking and standing slightly improved with rest. She uses Voltaren gel as well as Tylenol to help control her pain. She reports she has previously had injections in her right knee, reports her most recent injections failed to relieve her pain. She does have a left total knee arthroplasty Review of Systems Constitutional: Negative for chills, fatigue and fever. Musculoskeletal: Positive for gait problem. Neurological: Positive for numbness. Knee Musculoskeletal Exam Gait Antalgic: right Limp: right Assistive device: wheelchair Inspection Right Erythema: none Effusion: mild Edema: none Ecchymosis: none Palpation Right Increased warmth: none Tenderness: present Lateral joint line: moderate Medial retinaculum: moderate Range of Motion Right Active extension: 10 Active flexion: 120 Strength Right Extension: 5/5. Flexion: 5/5. Neurovascular Right Pulses - DP: normal General Constitutional: well-developed and well-nourished Psychiatric: normal mood and affect and no acute distress Neurological: alert and oriented x3 Skin: intact Xrays ordered and interpreted today show severe degenerative changes tricompartmental 1. Right knee pain, unspecified chronicity - XR knee 1 or 2 views right 2. Unilateral primary osteoarthritis, right knee Plan: PT for ROM and strengthening She is not interested in injections at this time Refer to Dr [facility] Progress note 07-19-2023 Note Date & Type Note Facility 07-19-2023 Note Chief Complaint: Rig ht Knee Pain HPI: 78 y.o [facility] Summary Purpose Family History No Family History Records FoundNo Family History Records FoundNo Family History Records Found Advance Directives No Advanced Directives Records FoundNo Advanced Directives Records FoundNo Advanced Directives Records Found Additional Source Comments INFORMATION SOURCE (unrecogn ized section and content) DATE CREATED AUTHOR 08/12/2022 [facility] DATE CREATED AUTHOR AUTHOR'S ORGANIZ ATION 08/16/2023 [facility] DATE CREATED AUTHOR AUTHOR'S ORGANIZ ATION 09/22/2023 [facility] FOR RECORDS PERTAINING TO PATIENTS WHO ARE [...] BE BASED ON THE PRIMARY CLINICAL RECORDS. [employer] [facility]. provides no warranty or guarantee of the accuracy or completeness of information in this document.
--- OUTSIDE RECORDS SUMMARY | 2023-09-26 08:10 | XMS_ITS | CCD ---
Author Organization [facility] Care Team Providers Care Data Processing Mechanic Name Role Phone TEMO, DR SY Primary [...] DAVID Consulting Unavailable ALBERTO, LIZBET Referring Unavailable ALBETRO, LIZBET Primary Care Unavailable CLIVE VOGT Attending [...] Fish derivative Drug allergy (disorder) 1 [facility] Repository (1 source) Iodine Drug Allergy [facility] Repository (1 source) Iodine (And Iodine Containting Drugs) Drug allergy (disorder) [facility] Repository (3 sources) Penicillins; Translations: [PENICILLINS] Drug allergy (disorder) 8 [facility] Repository (1 source) Sulfonamides (Antibiotic) Drug allergy (disorder) [facility] Repository (2 sources) Sulfonamides (Antibiotic); Translations: [SULFA (SULFONAMIDE ANTIBIOTICS)] Propensity to adverse reactions to drug (disorder) 8 [facility] Repository (2 sources) IODINATED CONTRAST MEDIA; Translations: [IODINATED CONTRAST MEDIA] Propensity to adverse reactions to drug (disorder) 9 [facility] Repository Problems Active Problems Problem Classification Problem Date Documented Date Episodic/Chronic Coronary atherosclerosis and other heart disease (4 sources) Atherosclerotic heart disease of [place] coronary artery without angina pectoris; Translations: [ASHD [place] W/O ANGINA PECTORIS] Onset: 08-09-2022 Chronic [...] Onset: 04-05-2022 Episodic Other aftercare (1 source) retirement (current) use of anticoagulants; Translations: [[facility] CURRNT USE ANTICOAGULANTS] Onset: 04-11-2022 Episodic Other aftercare (1 source) Other prison (current) drug therapy; Translations: [OTH REHAB ASSISTANT CURRENT DRUG THERAPY] Onset: 04-11-2022 Episodic Other [...] Interpretation Reference Range Facility Follow-Upon 09-17-2023 Follow-Up [id number] Willard Gavin 1945 F Date Provider Department Center 09/17/2023 JARAD ZHU MP ORTHO [facility] Family History Family history unknown: Yes Level of Service:00388 [place] OFFICE/OUTPATIENT ESTABLISHED [facility] 40 MIN Reason for Visit and Comments: Follow-up [647226] - ongoing right knee pain for multiple [...] injections failed to relieve her pain Normal [facility] CBC AND AUTO DIFFon 08-09-19 ABSOLUTE BASOPHIL 0.1 X10E9/L Normal 0.0-0.2 [facility] Comment on above: Performed By: #### C BCA #### [facility] ([id number]) [address] [place] [address] 69188 ABSOLUTE NEUTROPHIL 5.2 X10E9/L Normal 1.5-6.6 [facility] Comment on above: Performed By: #### C BCA #### [facility] ([id number]) [address] [place] [address] 74250 Basophils/100 WBC (Bld) 1.2 % Normal [facility] Comment on above: Performed By: #### C BCA #### [facility] ([id number]) [address] [place] [address] 60700 Eosinophils (Bld) [#/Vol] 0.5 10*3/uL High 0.0-0.4 [facility] Comment on above: Performed By: #### C BCA #### [facility] ([id number]) [address] [place] [address] 90813 Eosinophils/100 WBC (Bld) 6.7 % Normal [facility] Comment on above: Performed By: #### C BCA #### [facility] ([id number]) [address] [place] [address] 82951 Erythrocyte distribution width (RBC) [Ratio] 14.6 % Normal 11.5-15.0 [facility] Comment on above: Performed By: #### C BCA #### [facility] ([id number]) [address] [place] [address] 95783 Hematocrit (Bld) [Volume fraction] 41.1 % Normal 35-47 [facility] Comment on above: Performed By: #### C BCA #### [facility] ([id number]) [address] [place] [address] 14409 Hemoglobin (Bld) [Mass/Vol] 14.1 g/dL Normal 11.7-15.5 [facility] Comment on above: Performed By: #### C BCA #### [facility] ([id number]) [address] [place] [address] 63767 Lymphocytes (Bld) [#/Vol] 1.5 10*3/uL Normal 1.0-3.5 [facility] Comment on above: Performed By: #### C BCA #### [facility] ([id number]) [address] [place] [address] 09600 Lymphocytes/100 WBC (Bld) 19.1 % Normal [facility] Comment on above: Performed By: #### C BCA #### [facility] ([id number]) [address] [place] [address] 07262 MCH (RBC) [Entitic mass] 30.9 pg Normal 27-34 [facility] Comment on above: Performed By: #### C BCA #### [facility] ([id number]) [address] [place] [address] 89838 MCHC (RBC) [Mass/Vol] 34.2 g/dL Normal 32-36 [facility] Comment on above: Performed By: #### C BCA #### [facility] ([id number]) [address] [place] [address] 62025 MCV (RBC) [Entitic vol] 90 fL Normal 80-100 [facility] Comment on above: Performed By: #### C BCA #### [facility] ([id number]) [address] [place] [address] 46873 Monocytes (Bld) [#/Vol] 0.6 10*3/uL Normal 0-0.9 [facility] Comment on above: Performed By: #### C BCA #### [facility] ([id number]) [address] [place] [address] 35888 Monocytes/100 WBC (Bld) 7.5 % Normal [facility] Comment on above: Performed By: #### C BCA #### [facility] ([id number]) [address] [place] [address] 08873 Neutrophils/100 WBC (Bld) 65.5 % Normal [facility] Comment on above: Performed By: #### C BCA #### [facility] ([id number]) [address] [place] [address] 68715 Platelet mean volume (Bld) [Entitic vol] 7.9 fL Normal 7-12 [facility] Comment on above: Performed By: #### C BCA #### [facility] ([id number]) [address] [place] [address] 20631 Platelets (Bld) [#/Vol] 277 10*3/uL Normal 150-450 [facility] Comment on above: Performed By: #### C BCA #### [facility] ([id number]) [address] [place] [address] 59327 RBC COUNT 4.55 X10E12/L Normal 3.80-5.20 [facility] Comment on above: Performed By: #### C BCA #### [facility] ([id number]) [address] [place] [address] 62249 WBC (Bld) [#/Vol] 8.0 10*3/uL Normal 4.0-11.0 [facility] Comment on above: Performed By: #### C BCA #### [facility] ([id number]) [address] [place] [address] 42058 Office Visiton 07-19-2023 Follow-up visit [id number] Willard Gavin 1945 F Date Provider Department Center 07/19/2023 AMADOU ALFARO MP ORTHO MPORTHO Family History Family history unknown: Yes Level of Service:21440 [place] OFFICE/OUTPATIENT NEW LOW MDM 30 MINUTES Reason for Visit and Comments: Pain [136] Normal [facility] CBC AND AUTO DIFFon 06-11-19 24 ABSOLUTE BASOPHIL 0.0 X10E9/L Normal 0.0-0.2 [facility] Comment on above: Performed By: #### C BCA #### [facility] ([id number]) [address] [place] [address] 33826 ABSOLUTE NEUTROPHIL 5.1 X10E9/L Normal 1.5-6.6 [facility] Comment on above: Performed By: #### C BCA #### [facility] ([id number]) [address] [place] [address] 04976 Basophils/100 WBC (Bld) 0.2 % Normal [facility] Comment on above: Performed By: #### C BCA #### [facility] ([id number]) [address] [place] [address] 30494 Eosinophils (Bld) [#/Vol] 0.5 10*3/uL High 0.0-0.4 [facility] Comment on above: Performed By: #### C BCA #### [facility] ([id number]) [address] [place] [address] 91491 Eosinophils/100 WBC (Bld) 6.9 % Normal [facility] Comment on above: Performed By: #### C BCA #### [facility] ([id number]) [address] [place] [address] 83986 Erythrocyte distribution width (RBC) [Ratio] 14.2 % Normal 11.5-15.0 [facility] Comment on above: Performed By: #### C BCA #### [facility] ([id number]) [address] [place] [address] 49014 Hematocrit (Bld) [Volume fraction] 40.8 % Normal 35-47 [facility] Comment on above: Performed By: #### C BCA #### [facility] ([id number]) [address] [place] [address] 10154 Hemoglobin (Bld) [Mass/Vol] 14.0 g/dL Normal 11.7-15.5 [facility] Comment on above: Performed By: #### C BCA #### [facility] ([id number]) [address] [place] [address] 60801 Lymphocytes (Bld) [#/Vol] 1.2 10*3/uL Normal 1.0-3.5 [facility] Comment on above: Performed By: #### C BCA #### [facility] ([id number]) [address] [place] [address] 72582 Lymphocytes/100 WBC (Bld) 16.5 % Normal [facility] Comment on above: Performed By: #### C BCA #### [facility] ([id number]) [address] [place] [address] 94313 MCH (RBC) [Entitic mass] 31.2 pg Normal 27-34 [facility] Comment on above: Performed By: #### C BCA #### [facility] ([id number]) [address] [place] [address] 36141 MCHC (RBC) [Mass/Vol] 34.3 g/dL Normal 32-36 [facility] Comment on above: Performed By: #### C BCA #### [facility] ([id number]) [address] [place] [address] 36373 MCV (RBC) [Entitic vol] 91 fL Normal 80-100 [facility] Comment on above: Performed By: #### C BCA #### [facility] ([id number]) [address] [place] [address] 65362 Monocytes (Bld) [#/Vol] 0.6 10*3/uL Normal 0-0.9 [facility] Comment on above: Performed By: #### C BCA #### [facility] ([id number]) [address] [place] [address] 77095 Monocytes/100 WBC (Bld) 8.0 % Normal [facility] Comment on above: Performed By: #### C BCA #### [facility] ([id number]) [address] [place] [address] 10975 Neutrophils/100 WBC (Bld) 68.4 % Normal [facility] Comment on above: Performed By: #### C BCA #### [facility] ([id number]) [address] [place] [address] 37156 Platelet mean volume (Bld) [Entitic vol] 8.3 fL Normal 7-12 [facility] Comment on above: Performed By: #### C BCA #### [facility] ([id number]) [address] [place] [address] 50205 Platelets (Bld) [#/Vol] 258 10*3/uL Normal 150-450 [facility] Comment on above: Performed By: #### C BCA #### [facility] ([id number]) [address] [place] [address] 73310 RBC COUNT 4.49 X10E12/L Normal 3.80-5.20 [facility] Comment on above: Performed By: #### C BCA #### [facility] ([id number]) [address] [place] [address] 99225 WBC (Bld) [#/Vol] 7.4 10*3/uL Normal 4.0-11.0 [facility] Comment on above: Performed By: #### C BCA #### [facility] ([id number]) [address] [place] [address] 78669 CBC AND AUTO DIFFon 04-03-20 23 ABSOLUTE BASOPHIL 0.1 X10E9/L Normal 0.0-0.2 [facility] Comment on above: Performed By: #### C BCA #### [facility] ([id number]) [address] [place] [address] [place] [address] ABSOLUTE NEUTROPHIL 5.1 X10E9/L Normal 1.5-6.6 [facility] Comment on above: Performed By: #### C BCA #### [facility] ([id number]) [address] [place] [address] [place] [address] Basophils/100 WBC (Bld) 1.4 % Normal [facility] Comment on above: Performed By: #### C BCA #### [facility] ([id number]) [address] [place] [address] [place] [address] Eosinophils (Bld) [#/Vol] 0.5 10*3/uL High 0.0-0.4 [facility] Comment on above: Performed By: #### C BCA #### [facility] ([id number]) [address] [place] [address] [place] [address] Eosinophils/100 WBC (Bld) 7.1 % Normal [facility] Comment on above: Performed By: #### C BCA #### [facility] ([id number]) [address] [place] [address] [place] [address] Erythrocyte distribution width (RBC) [Ratio] 14.4 % Normal 11.5-15.0 [facility] Comment on above: Performed By: #### C BCA #### [facility] ([id number]) [address] [place] [address] [place] [address] Hematocrit (Bld) [Volume fraction] 42.1 % Normal 35-47 [facility] Comment on above: Performed By: #### C BCA #### [facility] ([id number]) [address] [place] [address] [place] [address] Hemoglobin (Bld) [Mass/Vol] 14.2 g/dL Normal 11.7-15.5 [facility] Comment on above: Performed By: #### C BCA #### [facility] ([id number]) [address] [place] [address] [place] [address] Lymphocytes (Bld) [#/Vol] 1.4 10*3/uL Normal 1.0-3.5 [facility] Comment on above: Performed By: #### C BCA #### [facility] ([id number]) [address] [place] [address] [place] [address] Lymphocytes/100 WBC (Bld) 17.6 % Normal [facility] Comment on above: Performed By: #### C BCA #### [facility] ([id number]) [address] [place] [address] [place] [address] MCH (RBC) [Entitic mass] 31.2 pg Normal 27-34 [facility] Comment on above: Performed By: #### C BCA #### [facility] ([id number]) [address] [place] [address] [place] [address] MCHC (RBC) [Mass/Vol] 33.7 g/dL Normal 32-36 [facility] Comment on above: Performed By: #### C BCA #### [facility] ([id number]) [address] [place] [address] [address] [facility] [address] MCV (RBC) [Entitic vol] 93 fL Normal 80-100 [facility] Comment on above: Performed By: #### C BCA #### [facility] ([id number]) [address] [place] [address] [address] [facility] [address] Monocytes (Bld) [#/Vol] 0.6 10*3/uL Normal 0-0.9 [facility] Comment on above: Performed By: #### C BCA #### [facility] ([id number]) [address] [place] [address] [place] [address] Monocytes/100 WBC (Bld) 8.0 % Normal [facility] Comment on above: Performed By: #### C BCA #### [facility] ([id number]) [address] [place] [address] [place] [address] Neutrophils/100 WBC (Bld) 65.9 % Normal [facility] Comment on above: Performed By: #### C BCA #### [facility] ([id number]) [address] [place] [address] [place] [address] Platelet mean volume (Bld) [Entitic vol] 7.4 fL Normal 7-12 [facility] Comment on above: Performed By: #### C BCA #### [facility] ([id number]) [address] [place] [address] [place] [address] Platelets (Bld) [#/Vol] 248 10*3/uL Normal 150-450 [facility] Comment on above: Performed By: #### C BCA #### [facility] ([id number]) [address] [place] [address] [place] [address] RBC COUNT 4.55 X10E12/L Normal 3.80-5.20 [facility] Comment on above: Performed By: #### C BCA #### [facility] ([id number]) [address] [place] [address] [place] [address] WBC (Bld) [#/Vol] 7.7 10*3/uL Normal 4.0-11.0 [facility] Comment on above: Performed By: #### C BCA #### [facility] ([id number]) [address] [place] [address] [place] [address] BNPon 08-07-2022 Natriuretic peptide B (Bld) [Mass/Vol] 124.0 pg/mL Normal <=1,800.0 [facility] Comment on above: Performed By: #### T SH, BNP, CREA, ELEC, BUN ####[facility] [address] [place], [place] [address]Dr. alex Duffy BUNon 08-07-2022 Urea nitrogen [Mass/Vol] 13.0 mg/dL Normal 7.0-18.0 [facility] Comment on above: Performed By: #### T SH, BNP, CREA, ELEC, BUN ####[facility] [address] [place] [address]. [facility] CREATININEon 08-07-2022 Creatinine [Mass/Vol] 0.60 mg/dL Normal 0.55-1.02 [facility] Comment on above: Performed By: #### T SH, BNP, CREA, ELEC, BUN ####[facility] [address] [place] [address]Dr. Miranda Duffy EGFR-AF BRITISH >60 Normal >=60 [facility] Comment on above: Performed By: #### T SH, BNP, CREA, ELEC, BUN ####[facility] [address] [place] [address]Dr. Miranda Duffy EGFR-NON AF BRITISH >60 Normal >=60 [facility] Comment on above: Performed By: #### T SH, BNP, CREA, ELEC, BUN ####[facility] [address] [place] [address]Dr. Miranda Duffy ELECTROLYTESon 08-07-2022 Anion gap [Moles/Vol] 14.0 mmol/L Normal [facility] Comment on above: Performed By: #### T SH, BNP, CREA, ELEC, BUN ####[facility] [address] [place], [place] [address]Dr. Miranda Duffy Chloride [Moles/Vol] 106 mmol/L Normal 98-107 [facility] Comment on above: Performed By: #### T SH, BNP, CREA, ELEC, BUN ####[facility] [address] [place], [place] [address]Dr. Miranda Duffy CO2 [Moles/Vol] 28.3 mmol/L Normal 21.0-32.0 [facility] Comment on above: Performed By: #### T SH, BNP, CREA, ELEC, BUN ####[facility] [address] [place], [place] [address]Dr. Miranda Duffy Potassium [Moles/Vol] 4.3 mmol/L Normal 3.5-5.1 [facility] Comment on above: Performed By: #### T SH, BNP, CREA, ELEC, BUN ####[facility] [address] [place], [place] [address]Dr. Miranda Duffy Sodium [Moles/Vol] 144 mmol/L Normal 136-145 [facility] Comment on above: Performed By: #### T SH, BNP, CREA, ELEC, BUN ####[facility] [address] [place] [address]Dr. Miranda Duffy TSHon 08-07-2022 TSH 3.287 uIU/mL Normal 0.358-3.740 [facility] Comment on above: Performed By: #### T SH, BNP, CREA, ELEC, BUN ####[facility] [address] [place] [address]Dr. Miranda Duffy BNPon 08-04-2022 Natriuretic peptide B (Bld) [Mass/Vol] 70.0 pg/mL Normal <=1,800.0 [facility] Comment on above: Performed By: #### B LOADING MACHINE TOOL SETTER, BMP #### [facility] [address] [place] [address] Dr. Miranda Duffy CBC AUTO DIFFon 08-04-2022 BASO # 0.1 103/ul Normal 0.0-0.1 [facility] Comment on above: Performed By: #### C BC #### [facility] [address] [place] [address] Dr. Miranda Duffy Basophils/100 WBC (Bld) 0.9 % Normal 0.2-2.0 [facility] Comment on above: Performed By: #### C BC #### [facility] [address] [place] [address] Dr. Miranda Duffy EO # 0.5 103/ul Normal 0.0-0.7 [facility] Comment on above: Performed By: #### C BC #### [facility] [address] [place] [address] Dr. Miranda Duffy Eosinophils/100 WBC (Bld) 9.0 % Critically high 0.9-7.0 [facility] Comment on above: Performed By: #### C BC #### [facility] [address] [place] [address] Dr. Miranda Duffy Erythrocyte distribution width (RBC) [Ratio] 15.0 % Normal 11.0-15.0 [facility] Comment on above: Performed By: #### C BC #### [facility] [address] [place] [address] Dr. Miranda Duffy Hematocrit (Bld) [Volume fraction] 34.2 % Critically low 36.0-48.0 [facility] Comment on above: Performed By: #### C BC #### [facility] [address] [place] [address] Dr. Miranda Duffy Hemoglobin (Bld) [Mass/Vol] 10.9 g/dL Critically low 12.0-16.0 [facility] Comment on above: Performed By: #### C BC #### [facility] [address] [address] [address] Miranda Duffy IG # 0.04 10e3/ul Critically high 0.00-0.03 [facility] Comment on above: Performed By: #### C BC #### [facility] [address] [place] [address] Dr. Miranda Duffy IG % 0.7 % Critically high 0.0-0.5 [facility] Comment on above: Performed By: #### C BC #### [facility] [address] [place] [address] Dr. Miranda Duffy LYMPH # 1.1 103/ul Critically low 1.2-3.8 [facility] Comment on above: Performed By: #### C BC #### [facility] [address] [place] [address] Dr. Miranda Duffy Lymphocytes/100 WBC (Bld) 20.1 % Critically low 20.5-60.0 [facility] Comment on above: Performed By: #### C BC #### [facility] [address] [place] [address] Dr. Miranda Duffy MANUAL DIFF REQ NO Normal [facility] Comment on above: Performed By: #### C BC #### [facility] [address] [address] [address] Miranda Duffy MCH (RBC) [Entitic mass] 30.4 pg Normal 26.7-34.0 [facility] Comment on above: Performed By: #### C BC #### [facility] [address] [place] [address] Dr. Miranda Duffy MCHC (RBC) [Mass/Vol] 31.9 g/dL Normal 29.9-35.2 [facility] Comment on above: Performed By: #### C BC #### [facility] [address] [place] [address] Dr. Miranda Duffy MCV (RBC) [Entitic vol] 95.3 fL Normal 81.0-99.0 [facility] Comment on above: Performed By: #### C BC #### [facility] [address] [place] [address] Dr. Miranda Duffy MONO # 0.5 103/ul Normal 0.3-0.8 [facility] Comment on above: Performed By: #### C BC #### [facility] [address] [place] [address] Dr. Miranda Duffy Monocytes/100 WBC (Bld) 7.9 % Normal 1.7-12.0 [facility] Comment on above: Performed By: #### C BC #### [facility] [address] [place] [address] Dr. Miranda Duffy NEUT # 3.5 103/ul Normal 1.4-6.5 [facility] Comment on above: Performed By: #### C BC #### [facility] [address] [place] [address] Dr. Miranda Duffy Neutrophils/100 WBC (Bld) 61.4 % Normal 43.0-75.0 [facility] Comment on above: Performed By: #### C BC #### [facility] [address] [place] [address] Dr. Miranda Duffy Platelet mean volume (Bld) [Entitic vol] 8.7 fL Critically low 9.5-13.5 [facility] Comment on above: Performed By: #### C BC #### [facility] [address] [place] [address] Dr. Miranda Duffy PLT 433 103/ul Normal 150-450 [facility] Comment on above: Performed By: #### C BC #### [facility] [address] [place], [place] [address] Dr. Miranda Duffy RBC 3.59 106/ul Critically low 4.20-5.40 [facility] Comment on above: Performed By: #### C BC #### [facility] [address] [address] [address] Miranda Duffy WBC 5.7 103/ul Normal 4.0-11.0 [facility] Comment on above: Performed By: #### C BC #### [facility] [address] [address] [address] Miranda Duffy GLYCOHEMOGLOBIN A1Con 2022 ADA RECOMMENDATION SEE BELOW Normal [facility] Comment on above: Result Comment: ADA RECOMMENDED LIMIT 4.0 - 6.0 ADA THERAPEUTIC TARGET < 7.0 ACTION SUGGESTED > 7.0 Performed By: #### A 1C ####[facility] [address] [place] [address]Dr. Miranda Duffy Glucose [Mass/Vol] 100 mg/dL Normal [facility] Comment on above: Performed By: #### A 1C ####[facility] [address] [place] [address]Dr. Miranda Duffy HbA1c (Bld) [Mass fraction] 5.1 % Normal 4.5-6.2 [facility] Comment on above: Performed By: #### A 1C ####[facility] [address] [place] [address]Dr. Miranda Duffy PROF CHEM 8 (BAS METB)on Anion gap [Moles/Vol] 7.0 mmol/L Normal [facility] Comment on above: Performed By: #### B LOADING MACHINE TOOL SETTER, BMP #### [facility] [address] [place] [address] Dr. Miranda Duffy Calcium [Mass/Vol] 8.4 mg/dL Critically low 8.5-10.1 [facility] Comment on above: Performed By: #### B LOADING MACHINE TOOL SETTER, BMP #### [facility] [address] [place] [address] Dr. Miranda Duffy Chloride [Moles/Vol] 107 mmol/L Normal 98-107 [facility] Comment on above: Performed By: #### B LOADING MACHINE TOOL SETTER, BMP #### [facility] [address] [place] [address] Dr. Miranda Duffy CO2 [Moles/Vol] 30.5 mmol/L Normal 21.0-32.0 The [facility] Comment on above: Performed By: #### B LOADING MACHINE TOOL SETTER, BMP #### [facility] [address] [place] [address] Dr. Miranda Duffy Creatinine [Mass/Vol] 0.59 mg/dL Normal 0.55-1.02 The [facility] Comment on above: Performed By: #### B LOADING MACHINE TOOL SETTER, BMP #### [facility] [address] [place] [address] Dr. Miranda Duffy EGFR-AF BRITISH >60 Normal >=60 The [facility] Comment on above: Performed By: #### B LOADING MACHINE TOOL SETTER, BMP #### [facility] [address] [place] [address] Dr. Miranda Duffy EGFR-NON AF BRITISH >60 Normal >=60 [facility] Comment on above: Performed By: #### B LOADING MACHINE TOOL SETTER, BMP #### [facility] [address] [place] [address] Dr. Miranda Duffy Glucose [Mass/Vol] 85 mg/dL Normal 74-106 The [facility] [place] Comment on above: Performed By: #### B LOADING MACHINE TOOL SETTER, BMP #### [facility] [address] [place] [address] Dr. Miranda Duffy Potassium [Moles/Vol] 3.5 mmol/L Normal 3.5-5.1 The [facility] Comment on above: Performed By: #### B LOADING MACHINE TOOL SETTER, BMP #### [facility] [address] [place] [address] Dr. Miranda Duffy Sodium [Moles/Vol] 141 mmol/L Normal 136-145 The [facility] [place] Comment on above: Performed By: #### B LOADING MACHINE TOOL SETTER, BMP #### [facility] [address] [place] [address] Dr. Miranda Duffy Urea nitrogen [Mass/Vol] 17.0 mg/dL Normal 7.0-18.0 [facility] Comment on above: Performed By: #### B LOADING MACHINE TOOL SETTER, BMP #### [facility] [address] [place] [address] Dr. Miranda Duffy Urea nitrogen/Creatinine [Mass ratio] 28.8 mg/mg Normal [facility] Comment on above: Performed By: #### B LOADING MACHINE TOOL SETTER, BMP #### [facility] [address] [address] [address] Miranda Duffy UA (CLEAN/CATCH) BLACK MILL OPERATOR/MICRO I F IND.on 08-04-2022 Bilirubin Ql (U) Negative Normal NEGATIVE The [facility] Comment on above: Performed By: #### U ACSIND #### [facility] [address] [place] [address] Dr. Miranda Duffy Clarity (U) SL CLOUDY Abnormal CLEAR [facility] Comment on above: Performed By: #### U ACSIND #### [facility] [address] [place] [address] Dr. Miranda Duffy Color (U) YELLOW Normal YELLOW [facility] Comment on above: Performed By: #### U ACSIND #### [facility] [address] [place] [address] Dr. Miranda Duffy Glucose Ql (U) Negative Normal NEGATIVE [facility] Comment on above: Performed By: #### U ACSIND #### [facility] [address] [place] [address] Dr. Miranda Duffy Hemoglobin Ql (U) Negative Normal NEGATIVE [facility] Comment on above: Performed By: #### U ACSIND #### [facility] [address] [place] [address] Dr. Miranda Duffy Ketones Ql (U) Negative Normal NEGATIVE The [facility] Comment on above: Performed By: #### U ACSIND #### [facility] [address] [place] [address] Dr. Miranda Duffy LEUKOCYTES Negative Normal NEGATIVE [facility] Comment on above: Performed By: #### U ACSIND #### [facility] [address] [place] [address] Dr. Miranda Duffy Nitrite Ql (U) Negative Normal NEGATIVE The [facility] Comment on above: Performed By: #### U ACSIND #### [facility] [address] [place] [address] Dr. Miranda Duffy pH (U) 5.5 [pH] Normal 5-9 The [facility] Comment on above: Performed By: #### U ACSIND #### [facility] [address] [address] [address] Miranda Duffy SPEC GRAVITY 1.030 Abnormal 1.005-<=1.025 The [facility] Comment on above: Performed By: #### U ACSIND #### [facility] [address] [place] [address] [address] Miranda Duffy UA PROTEIN Negative Normal NEGATIVE/ TRACE The [facility] Comment on above: Performed By: #### U ACSIND #### [facility] [address] [address] [address] Miranda Duffy UR MICRO IND NOT INDICATED Normal The [facility] Comment on above: Performed By: #### U ACSIND #### [facility] [address] [address] [address] Miranda Duffy Urobilinogen Qn (U) 0.2 {Alondra'U}/dL Normal 0.2 - 1. 0 [facility] Comment on above: Performed By: #### U ACSIND #### [facility] [address] [address] [address] Miranda Duffy CULTURE URINEon 04-07-2022 CULTURE [...] Trimethoprim/Sulfamet hoxazole <=20 S F Normal The [facility] Comment on above: Performed By: #### U RCX ####[facility] [address] [place] [address]Dr. Miranda Duffy CARDIAC TUTU 3-6on 2 CK [Catalytic activity/Vol] 134 U/L Normal 26-192 The [facility] Comment on above: Performed By: #### C MREP #### [facility] [address] [place] [address] Dr. Miranda Duffy CK.MB [Mass/Vol] 3.51 ng/mL Normal <=3.60 The [facility] Comment on above: Performed By: #### C MREP #### [facility] [address] [place] [address] Dr. Miranda Duffy HSTROP 7.8 pg/mL Normal 4.0-51.3 The [facility] Comment on above: Result Comment: CUT- OFF POINTS HAVE BEEN ESTABLISHED BASED ON THE FOURTH UNIVERSAL DEFINITIONS OF MYOCARDIAL INFARCTION. THE UPPER REFERENCE LIMIT (URL) OF TROPONIN, DEFINED THE 99TH PERCENTILE OF cTnI DISTRIBUTION IN A REFERENCE POPULATION, HAS BEEN CONFIRMED THE DECISION THRESHOLD FOR CA DIAGNOSIS. Performed By: #### C MREP #### [facility] [address] [place] [address] Dr. Miranda Duffy CARDIAC TUTU ADMITon 022 CK [Catalytic activity/Vol] 90 U/L Normal 26-192 [facility] Comment on above: Performed By: #### DUSTIN Velazco MP #### [facility] [address] [place] [address] Dr. Miranda Duffy CK.MB [Mass/Vol] 1.95 ng/mL Normal <=3.60 The [facility] Comment on above: Performed By: #### Mora ERICKSON CMADM #### [facility] [address] [place] [address] Dr. Miranda Duffy HSTROP 7.7 pg/mL Normal 4.0-51.3 The [facility] Comment on above: Result Comment: CUT- OFF POINTS HAVE BEEN ESTABLISHED BASED ON THE FOURTH UNIVERSAL DEFINITIONS OF MYOCARDIAL INFARCTION. THE UPPER REFERENCE LIMIT (URL) OF TROPONIN, DEFINED THE 99TH PERCENTILE OF cTnI DISTRIBUTION IN A REFERENCE POPULATION, HAS BEEN CONFIRMED THE DECISION THRESHOLD FOR CA DIAGNOSIS. Performed By: #### Mora ERICKSON CMADM #### [facility] [address] [place] [address] [address] Miranda Duffy SHELBY 426 ng/mL Critically high 9-82 The [facility] Comment on above: Performed By: #### B ESTRELLITA ERICKSONDM #### [facility] [id number] Miranda Duffy CBC AUTO DIFFon 04-05-2022 BASO # 0.1 103/ul Normal 0.0-0.1 [facility] Comment on above: Performed By: #### C BC ####[facility] [address] [place] [address]DrLadan Duffy Basophils/100 WBC (Bld) 0.7 % Normal 0.2-2.0 The [facility] Comment on above: Performed By: #### C BC ####[facility] [address] [place] [address]DrLadan Duffy EO # 0.7 103/ul Normal 0.0-0.7 The [facility] Comment on above: Performed By: #### C BC ####[facility] [address] [place] [address]DrLadan Duffy Eosinophils/100 WBC (Bld) 6.3 % Normal 0.9-7.0 The [facility] Comment on above: Performed By: #### C BC ####[facility] [address] [place] [address]DrLadan Duffy Erythrocyte distribution width (RBC) [Ratio] 14.4 % Normal 11.0-15.0 The [facility] Comment on above: Performed By: #### C BC ####[facility] [address] [place] [address]DrLadan Duffy Hematocrit (Bld) [Volume fraction] 43.7 % Normal 36.0-48.0 The [facility] Comment on above: Performed By: #### C BC ####[facility] [address] [place] [address]DrLadan Duffy Hemoglobin (Bld) [Mass/Vol] 14.8 g/dL Normal 12.0-16.0 The [facility] Comment on above: Performed By: #### C BC ####[facility] [address] [place] [address]Dr. Miranda Duffy IG # 0.06 10e3/ul Critically high 0.00-0.03 [facility] Comment on above: Performed By: #### C BC ####[facility] [address] [place] [address]Dr. Miranda Duffy IG % 0.5 % Normal 0.0-0.5 [facility] Comment on above: Performed By: #### C BC ####[facility] [address] [place] [address]Dr. Miranda Duffy LYMPH # 1.7 103/ul Normal 1.2-3.8 The [facility] Comment on above: Performed By: #### C BC ####[facility] [address] [place] [address]Dr. Miranda Duffy Lymphocytes/100 WBC (Bld) 14.7 % Critically low 20.5-60.0 [facility] Comment on above: Performed By: #### C BC ####[facility] [address] [place] [address]Dr. Miranda Duffy MANUAL DIFF REQ NO Normal [facility] Comment on above: Performed By: #### C BC ####[facility] [address] [place] [address]Dr. Miranda Duffy MCH (RBC) [Entitic mass] 31.1 pg Normal 26.7-34.0 [facility] Comment on above: Performed By: #### C BC ####[facility] [address] [place] [address]Dr. Miranda Duffy MCHC (RBC) [Mass/Vol] 33.9 g/dL Normal 29.9-35.2 The [facility] Comment on above: Performed By: #### C BC ####[facility] [address] [place] [address]Dr. Miranda Duffy MCV (RBC) [Entitic vol] 91.8 fL Normal 81.0-99.0 [facility] Comment on above: Performed By: #### C BC ####[facility] [address]cipcj[address] [place] [address]Dr. Miranda Duffy MONO # 0.9 103/ul Critically high 0.3-0.8 The [facility] Comment on above: Performed By: #### C BC ####[facility] [address] [place] [address]Dr. Miranda Duffy Monocytes/100 WBC (Bld) 8.2 % Normal 1.7-12.0 The [facility] Comment on above: Performed By: #### C BC ####[facility] [address] [place] [address]Dr. Miranda Duffy NEUT # 7.8 103/ul Critically high 1.4-6.5 The [facility] Comment on above: Performed By: #### C BC ####[facility] [address] [place] [address]Dr. Miranda Duffy Neutrophils/100 WBC (Bld) 69.6 % Normal 43.0-75.0 The [facility] Comment on above: Performed By: #### C BC ####[facility] [address]wtxxdwu[address] [place] [address]Dr. Miranda Duffy Platelet mean volume (Bld) [Entitic vol] 9.0 fL Critically low 9.5-13.5 The [facility] Comment on above: Performed By: #### C BC ####[facility] [address] [place] [address]Dr. Miranda Duffy PLT 248 103/ul Normal 150-450 The [facility] Comment on above: Performed By: #### C BC ####[facility] [address] [place], [place] [address]Dr. Miranda Duffy RBC 4.76 106/ul Normal 4.20-5.40 The [facility] Comment on above: Performed By: #### C BC ####[facility] [address] [place] [address]Dr. Miranda Duffy WBC 11.2 103/ul Critically high 4.0-11.0 The [facility] Comment on above: Performed By: #### C BC ####[facility] [address] [place], [place] [address]Hy. [address] D[address] CSPINE WO CONon 2 [...] DAVID ALONSO Date: 2022-04-05 01:16 Normal The [facility] CT FACIAL BONES WO CONon CT [...] HARVEY BERG Date: 2022-04-04 23:53 Normal The [facility] ER URINE PROFILEon 2 Bilirubin Ql (U) Negative Normal NEGATIVE The [facility] Comment on above: Performed By: #### E LEIGHA AGUILA ####[facility] [address] [place], [place] [address]KrLadan Miranda Clive Clarity (U) CLEAR Normal CLEAR The [facility] Comment on above: Performed By: #### E AYLA UMICRO ####[facility] [address]ktv[address] [place], [place] [address]Dr. Miranda Duffy Color (U) LT. YELLOW Normal YELLOW The [facility] Comment on above: Performed By: #### ANANT GREGGRO ####[facility] [address] [place] [address]Dr. Miranda Duffy ERUAHD A micrscopic examination will be performed if indicated. Normal The [facility] Comment on above: Performed By: #### Patel AGUILA UMICRO ####[facility] Z[address] [place], [place] [address]Dr. Miranda Duffy Glucose Ql (U) Negative Normal NEGATIVE The [facility] Comment on above: Performed By: #### ANANT GREGGRO ####[facility] Txy[address]igjheh[address] [place], [place] [address]Dr. Miranda Duffy Hemoglobin Ql (U) Negative Normal NEGATIVE [facility] Comment on above: Performed By: #### ANANT GREGGRO ####[facility] J[address]xl[address] [place], [place] [address]Dr. Miranda Duffy Ketones Ql (U) 15 mg/dl Abnormal NEGATIVE The [facility] Comment on above: Performed By: #### ANANT GREGGRO ####[facility] [address] [place], [place] [address]Dr. Miranda Duffy LEUKOCYTES SMALL Abnormal NEGATIVE The [facility] Comment on above: Performed By: #### ANANT GREGGRO ####[facility] Uet[address]ftfif[address] [place], [place] [address]Dr. Miranda Duffy Nitrite Ql (U) Positive Abnormal NEGATIVE The [facility] Comment on above: Performed By: #### ANANT GREGGRO ####[facility] Imww[address]ugzw[address] [place], [place] [address]Dr. Miranda Duffy pH (U) 5.5 [pH] Normal 5-9 The [facility] Comment on above: Performed By: #### ANANT GREGGRO ####[facility] E[address]wys[address] [place], [place] [address]Dr. Miranda Duffy SPEC GRAVITY 1.015 Normal 1.005-<=1.025 The [facility] Comment on above: Performed By: #### LEIGHA GREGG ####[facility] [address]ms[address] [place] [address]DrLadan Duffy UA PROTEIN Negative Normal NEGATIVE/ TRACE [facility] Comment on above: Performed By: #### LEIGHA GREGG ####[facility] Sr[address]bl[address] [place] [address]Dr. Miranda Duffy UR MICRO IND INDICATED Normal [facility] Comment on above: Performed By: #### LEIGHA GREGG ####[facility] [address] [place] [address]Dr. Miranda Duffy Urobilinogen Qn (U) 1.0 {Alondra'U}/dL Normal 0.2 - 1. 0 [facility] Comment on above: Performed By: #### LEIGHA GREGG ####[facility] [address]zz[address] [place] [address]DrLadan Duffy PROF CHEM 8 (BAS METB)on Anion gap [Moles/Vol] 8.2 mmol/L Normal [facility] Comment on above: Performed By: #### B DUSTIN ERICKSON #### [facility] [address] [address] [address] Miranda Duffy Calcium [Mass/Vol] 9.2 mg/dL Normal 8.5-10.1 The [facility] [place] Comment on above: Performed By: #### DUSTIN Velazco MP #### [facility] [address] [address] [address] Miranda Duffy Chloride [Moles/Vol] 103 mmol/L Normal 98-107 The [facility] Comment on above: Performed By: #### B DUSTIN ERICKSON #### [facility] [address] [address] [address] Miranda Duffy CO2 [Moles/Vol] 30.7 mmol/L Normal 21.0-32.0 The [facility] Comment on above: Performed By: #### B MP, CMADM #### [facility] [address] [address] [address] Miranda Duffy Creatinine [Mass/Vol] 0.73 mg/dL Normal 0.55-1.02 [facility] Comment on above: Performed By: #### B GEORGINA, CMADM #### [facility] [address] [address] [address] Miranda Duffy EGFR-AF BRITISH >60 Normal >=60 [facility] Comment on above: Performed By: #### B GEORGINA, CMADM #### [facility] [address] [address] [address] Miranda Duffy EGFR-NON AF BRITISH >60 Normal >=60 [facility] Comment on above: Performed By: #### B GEORGINA, CMADM #### [facility] [address] [address] [address] Miranda Duffy Glucose [Mass/Vol] 116 mg/dL Critically high 74-106 [facility] Comment on above: Performed By: #### B GEORGINA, CMADM #### [facility] [address] [address] [address] Miranda Duffy Potassium [Moles/Vol] 3.9 mmol/L Normal 3.5-5.1 [facility] Comment on above: Performed By: #### B GEORGINA, CMADM #### [facility] [address] [address] [address] Miranda Duffy Sodium [Moles/Vol] 138 mmol/L Normal 136-145 [facility] Comment on above: Performed By: #### B GEORGINA, CMADM #### [facility] [address] [address] [address] Miranda Duffy Urea nitrogen [Mass/Vol] 22.0 mg/dL Critically high 7.0-18.0 [facility] Comment on above: Performed By: #### B GEORGINA, CMADM #### [facility] [address] [address] [address] Miranda Duffy Urea nitrogen/Creatinine [Mass ratio] 30.1 mg/mg Normal [facility] Comment on above: Performed By: #### B GEORGINA, CMADM #### [facility] [address] [address] [address] Miranda Duffy URINE MICROSCOPIC ONLYon BACTERIA LARGE Abnormal NONE SEEN The [facility] Comment on above: Performed By: #### ANANT GREGGRO ####[facility] [address] [place] [address]Dr. Miranda Duffy Bacteria identified Cx Nom (U) INDICATED Normal The [facility] Comment on above: Performed By: #### ANANT GREGGRO ####[facility] [address] [place] [address]Dr. Miranda Duffy CAST NONE SEEN Normal NONE SEEN The [facility] Comment on above: Performed By: #### ANANT GREGGRO ####[facility] [address] [place] [address]Dr. Miranda Duffy Crystals LM Nom (Urine sed) NONE SEEN Normal NONE SEEN The [facility] Comment on above: Performed By: #### ANANT GREGGRO ####[facility] [address]pt[address] [place], [place] [address]Dr. Miranda Duffy Epithelial cells LM Ql (Urine sed) FEW Abnormal NONE SEEN /RARE The [facility] Comment on above: Performed By: #### ANANT GREGGRO ####[facility] [address] [place] [address]Dr. Miranda Duffy MUCOUS NONE SEEN Normal NONE SEEN The [facility] Comment on above: Performed By: #### ANANT GREGGRO ####[facility] [address] [place] [address]Dr. Miranda Duffy RBC 0-2 Normal 0-2 The [facility] Comment on above: Performed By: #### ANANT GREGGRO ####[facility] [address] [place], [place] [address]Dr. Miranda Duffy WBC 5-10 Abnormal NONE SEEN The [facility] Comment on above: Performed By: #### ANANT GREGGRO ####[facility] [address] [place], [place] [address]Dr. Miranda Duffy XR HIP LT 2 3V [...] by: DAVID ALONSO Date: 2022-04-05 00:[address] [facility] Encounters Encounter Date Encounter Type Care Provider Facility Start: 09-17-2023 ambulatory [facility] Start: 08-09-2023 End: 08-15-2023 ambulatory [facility] Start: 07-19-2023 End: 07-19-2023 ambulatory AMADOU [facility] Start: 06-11-2023 End: 06-11-2023 ambulatory [facility] Start: 04-03-2023 End: 04-03-2023 ambulatory [facility] Start: 08-09-2022 End: 08-09-[address] KERRIE PLASCENCIA Facility:[facility] Start: 08-07-2022 End: 08-07-[address] KERRIE PLASCENCIA Facility:[facility] Start: 08-04-2022 End: 08-04-[address] KERRIE PLASCENCIA Facility:[facility] Start: 04-05-2022 End: 04-05-2022 ambulatory HALLIE ELIZONDO Facility:[facility] Payers Date Payer Category Payer Medicaid [id number] 2000 Medicare [id number] 1958 Unknown [id number] 1945 Unknown [id number] 2.16.84 [id number] 1945 Unknown [id number] 2.16.84 [id number] 1945 Unknown [id number] 2.16.84 [id number] 1945 Unknown [id number] 2.16.84 [id number] 1946 Unknown [id number] 2.16.8 [id number] 1946 Unknown [id number] 2.16.8 [id number] 1946 Unknown [id number] 2.16.8 [id number] 1946 Unknown [id number] Progress note 09-17-2023 Note Date & Type [...] a recent hip fracture needing been at [facility] by Filemon Jensen MD. She is a borderline diabetic. Patient History Past Surgical History: Procedure Laterality Date TOTAL HIP ARTHROPLASTY Left Past Medical History: Diagnosis Date Diabetes mellitus ([facility]) Fracture of hip ([facility]) Hypertension Objective General: Body mass index is [...] neurologic injury, resid (more content not included)... [facility] Progress note 07-19-2023 Note Date [...] at this time Refer to Dr Gay [place] [facility] Progress note 07-19-2023 Note Date & Type Note Facility 07-19-2023 Note Chief Complaint: Rig ht Knee Pain HPI: 78 y.o [facility] Summary Purpose Family History No Family History Records FoundNo Family History Records FoundNo Family History Records Found Advance Directives No Advanced Directives Records FoundNo Advanced Directives Records FoundNo Advanced Directives Records Found Additional Source Comments INFORMATION SOURCE (unrecogn ized section and content) DATE CREATED AUTHOR 08/12/2022 [facility] DATE CREATED AUTHOR AUTHOR'S ORGANIZ ATION 08/16/2023 [facility] DATE CREATED AUTHOR AUTHOR'S ORGANIZ ATION 09/22/2023 [facility] FOR RECORDS PERTAINING TO PATIENTS WHO ARE [...] BE BASED ON THE PRIMARY CLINICAL RECORDS. [facility]. provides no warranty or guarantee of the accuracy or completeness of information in this document.
[2023-09-26 08:48] LABS: Bilirubin Urine NEGATIVE (NEGATIVE); Blood Urine TRACE-I (NEGATIVE); Clarity Urine CLOUDY (CLEAR); Color Urine YELLOW (YELLOW); Glucose Urine UA NEGATIVE (NEGATIVE); Ketones Urine NEGATIVE (NEGATIVE); Leukocyte Esterase Urine SMALL (NEGATIVE); Nitrite Urine NEGATIVE (NEGATIVE); Protein Urine NEGATIVE (NEG/TRACE); Urobilinogen Urine 0.2 EU/dL (0.2-1.0)
[2023-09-26 08:49] LABS: Urine Microscopic Indicated YES
[2023-09-26 09:12] LABS: Amorphous Sediment Urine MANY; Bacteria Urine LARGE #/HPF (NONE SEEN); Cast Seen? NONE SEEN #/LPF (NONE SEEN); Crystals Seen? Seen #/HPF (None Seen); Mucus Urine NONE SEEN (NONE SEEN); Squamous Epithelial Cell Urine MODERATE #/LPF (NONE/RARE); Urine Culture Indicated YES
== END 2023-09-25 18:08 | disposition home or self-care (01) ==
LOC: LAB 18:07
PROVIDERS: Visit Provider Internal Medicine
DX: R30.0 Dysuria (principal)
CPT/HCPCS: 81001; 87086; 87150; 87186

== ENCOUNTER 2023-10-02 12:59 | Outpatient (OUT) | payer MEDICARE, MEDICAID, SELFPAY ==
--- NOTE | 2023-10-02 | CONS_ITS ---
PROCEDURE DATE: 10/02/2023 TO: Eliezer Ramirez D.O. PROCEDURE: Right knee joint injection. PREOPERATIVE DIAGNOSIS: Pain secondary to osteoarthrosis of the right knee joint, degenerative joint disease of the right knee joint. POSTOPERATIVE DIAGNOSIS: Pain secondary to osteoarthrosis of the right knee joint, degenerative joint disease of the right knee joint. SOLUTION USED FOR INJECTION: 2 mL of 0.25% Marcaine, Wydase 600 units and 40 mg of Kenalog, total of 5 mL . IMMEDIATE COMPLICATIONS: None. PROCEDURE: After informed consent was obtained from the patient, placed in the sitting position. Skin overlying the area was prepped with alcohol. A 25 gauge, 1 ?? needle inserted into the right knee joint space. After encountering same, we injected 5 mL of solution. Post procedure, needle was removed. She reports reduction of pain symptoms. RITA
== END 2023-10-02 13:00 | disposition home or self-care (01) ==
LOC: PM 12:59
PROVIDERS: Visit Provider Anesthesiology Pain Medicine
DX: M25.561 Pain in right knee (principal); M17.11 Unilateral primary osteoarthritis, right knee
CPT/HCPCS: 20610; J0665; J3301; J3470

== ENCOUNTER 2023-10-03 02:36 | Outpatient (REF) | payer MEDICARE, MEDICAID, SELFPAY ==
--- OUTSIDE RECORDS SUMMARY | 2023-10-03 02:38 | XMS_ITS | CCD ---
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 Name Role Phone TEMO, DR SY Primary [...] Unavailable VALONE, DR SY Primary Care Unavailable HARVEY BERG [...] Fish derivative Drug allergy (disorder) 1 [facility] Repository (1 source) Iodine Drug Allergy [facility] (1 source) Iodine (And Iodine Containting Drugs) Drug allergy (disorder) [facility] Rep[facility] (3 sources) Penicillins; Translations: [PENICILLINS] Drug allergy (disorder) 8 [facility] Rep[facility] (1 source) Sulfonamides (Antibiotic) Drug allergy (disorder) [facility] (2 sources) Sulfonamides (Antibiotic); Translations: [SULFA (SULFONAMIDE ANTIBIOTICS)] Propensity to adverse reactions to drug (disorder) 8 [facility] Repository (2 sources) IODINATED CONTRAST MEDIA; Translations: [IODINATED CONTRAST MEDIA] Propensity to adverse reactions to drug (disorder) 9 [facility] Repository Problems Active Problems Problem Classification Problem Date Documented Date Episodic/Chronic Coronary atherosclerosis and other heart disease (4 sources) Atherosclerotic heart disease of [place] coronary artery without angina pectoris; Translations: [ASHD SOBOBA CA W/O ANGINA PECTORIS] Onset: 08-09-2022 Chronic [...] Onset: 04-05-2022 Episodic Other aftercare (1 source) 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; Translations: [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 CONSULTANT CURRNT USE ANTICOAGULANTS] Onset: 04-11-2022 Episodic Other aftercare (1 source) Other senior care (current) drug therapy; Translations: [OTH PRODUCT DEVELOPMENT CONSULTANT CURRENT DRUG THERAPY] Onset: 04-11-2022 Episodic Other [...] Interpretation Reference Range Facility Follow-Upon 09-17-2023 Follow-Up [id number] Willard Gavin 1945 F Date Provider Department Center 09/17/2023 JARAD ZHU MP ORTHO [facility] Family History Family history unknown: Yes Level of Service:74269 ID OFFICE/OUTPATIENT ESTABLISHED [facility]IGH [facility] 40 MIN Reason for Visit and Comments: Follow-up [559077] - ongoing right knee pain for multiple [...] injections failed to relieve her pain Normal [facility] CBC AND AUTO DIFFon 08-09-19 ABSOLUTE BASOPHIL 0.1 X10E9/L Normal 0.0-0.2 [facility] Comment on above: Performed By: #### C BCA #### [facility] ([id number]) [address] [place] [address] 34812 ABSOLUTE NEUTROPHIL 5.2 X10E9/L Normal 1.5-6.6 [facility] Comment on above: Performed By: #### C BCA #### [facility] ([id number]) [address] [place] [address] 87786 Basophils/100 WBC (Bld) 1.2 % Normal [facility] Comment on above: Performed By: #### C BCA #### [facility] ([id number]) [address] [place] [address] 53100 Eosinophils (Bld) [#/Vol] 0.5 10*3/uL High 0.0-0.4 [facility] Comment on above: Performed By: #### C BCA #### [facility] ([id number]) [address] [place] [address] 84027 Eosinophils/100 WBC (Bld) 6.7 % Normal [facility] Comment on above: Performed By: #### C BCA #### [facility] ([id number]) [address] [place] [address] 92280 Erythrocyte distribution width (RBC) [Ratio] 14.6 % Normal 11.5-15.0 [facility] Comment on above: Performed By: #### C BCA #### [facility] ([id number]) [address] [place] [address] 03434 Hematocrit (Bld) [Volume fraction] 41.1 % Normal 35-47 [facility] Comment on above: Performed By: #### C BCA #### [facility] ([id number]) [address] [place] [address] 52875 Hemoglobin (Bld) [Mass/Vol] 14.1 g/dL Normal 11.7-15.5 [facility] Comment on above: Performed By: #### C BCA #### [facility] ([id number]) [address] [place] [address] 19600 Lymphocytes (Bld) [#/Vol] 1.5 10*3/uL Normal 1.0-3.5 [facility] Comment on above: Performed By: #### C BCA #### [facility] ([id number]) [address] [place] [address] 80349 Lymphocytes/100 WBC (Bld) 19.1 % Normal [facility] Comment on above: Performed By: #### C BCA #### [facility] ([id number]) [address] [place] [address] 56862 MCH (RBC) [Entitic mass] 30.9 pg Normal 27-34 [facility] Comment on above: Performed By: #### C BCA #### [facility] ([id number]) [address] [place] [address] 15358 MCHC (RBC) [Mass/Vol] 34.2 g/dL Normal 32-36 [facility] Comment on above: Performed By: #### C BCA #### [facility] ([id number]) [address] [place] [address] 85424 MCV (RBC) [Entitic vol] 90 fL Normal 80-100 [facility] Comment on above: Performed By: #### C BCA #### [facility] ([id number]) [address] [place] [address] 25262 Monocytes (Bld) [#/Vol] 0.6 10*3/uL Normal 0-0.9 [facility] Comment on above: Performed By: #### C BCA #### [facility] ([id number]) [address] [place] [address] 45153 Monocytes/100 WBC (Bld) 7.5 % Normal [facility] Comment on above: Performed By: #### C BCA #### [facility] ([id number]) [address] [place] [address] 20028 Neutrophils/100 WBC (Bld) 65.5 % Normal [facility] Comment on above: Performed By: #### C BCA #### [facility] ([id number]) [address] [place] [address] 59264 Platelet mean volume (Bld) [Entitic vol] 7.9 fL Normal 7-12 [facility] Comment on above: Performed By: #### C BCA #### [facility] ([id number]) [address] [place] [address] 20433 Platelets (Bld) [#/Vol] 277 10*3/uL Normal 150-450 [facility] Comment on above: Performed By: #### C BCA #### [facility] ([id number]) [address] [place] [address] 86720 RBC COUNT 4.55 X10E12/L Normal 3.80-5.20 [facility] Comment on above: Performed By: #### C BCA #### [facility] ([id number]) [address] [place] [address] 75786 WBC (Bld) [#/Vol] 8.0 10*3/uL Normal 4.0-11.0 [facility] Comment on above: Performed By: #### C BCA #### [facility] ([id number]) [address] [place] [address] 01626 Office Visiton 07-19-2023 Follow-up visit [id number] Willard Gavin 1945 F Date Provider Department Center 07/19/2023 AMADOU ALFARO MP ORTHO [facility] Family History Family history unknown: Yes Level of Service:99088 ID OFFICE/OUTPATIENT NEW LOW MDM 30 MINUTES Reason for Visit and Comments: Pain [136] Normal [facility] CBC AND AUTO DIFFon 06-11-19 24 ABSOLUTE BASOPHIL 0.0 X10E9/L Normal 0.0-0.2 [facility] Comment on above: Performed By: #### C BCA #### [facility] ([id number]) [address] [place] [address] 57588 ABSOLUTE NEUTROPHIL 5.1 X10E9/L Normal 1.5-6.6 [facility] Comment on above: Performed By: #### C BCA #### [facility] ([id number]) [address] [place] [address] 77693 Basophils/100 WBC (Bld) 0.2 % Normal [facility] Comment on above: Performed By: #### C BCA #### [facility] ([id number]) [address] [place] [address] 58787 Eosinophils (Bld) [#/Vol] 0.5 10*3/uL High 0.0-0.4 [facility] Comment on above: Performed By: #### C BCA #### [facility] ([id number]) [address] [place] [address] 61528 Eosinophils/100 WBC (Bld) 6.9 % Normal [facility] Comment on above: Performed By: #### C BCA #### [facility] ([id number]) [address] [place] [address] 65661 Erythrocyte distribution width (RBC) [Ratio] 14.2 % Normal 11.5-15.0 [facility] Comment on above: Performed By: #### C BCA #### [facility] ([id number]) [address] [place] [address] 96688 Hematocrit (Bld) [Volume fraction] 40.8 % Normal 35-47 [facility] Comment on above: Performed By: #### C BCA #### [facility] ([id number]) [address] [place] [address] 41503 Hemoglobin (Bld) [Mass/Vol] 14.0 g/dL Normal 11.7-15.5 [facility] Comment on above: Performed By: #### C BCA #### [facility] ([id number]) [address] [place] [address] 54355 Lymphocytes (Bld) [#/Vol] 1.2 10*3/uL Normal 1.0-3.5 [facility] Comment on above: Performed By: #### C BCA #### [facility] ([id number]) [address] [place] [address] 92068 Lymphocytes/100 WBC (Bld) 16.5 % Normal [facility] Comment on above: Performed By: #### C BCA #### [facility] ([id number]) [address] [place] [address] 86038 MCH (RBC) [Entitic mass] 31.2 pg Normal 27-34 [facility] Comment on above: Performed By: #### C BCA #### [facility] ([id number]) [address] [place] [address] 84239 MCHC (RBC) [Mass/Vol] 34.3 g/dL Normal 32-36 [facility] Comment on above: Performed By: #### C BCA #### [facility] ([id number]) [address] [place] [address] 67461 MCV (RBC) [Entitic vol] 91 fL Normal 80-100 [facility] Comment on above: Performed By: #### C BCA #### [facility] ([id number]) [address] [place] [address] 57937 Monocytes (Bld) [#/Vol] 0.6 10*3/uL Normal 0-0.9 [facility] Comment on above: Performed By: #### C BCA #### [facility] ([id number]) [address] [place] [address] 25076 Monocytes/100 WBC (Bld) 8.0 % Normal [facility] Comment on above: Performed By: #### C BCA #### [facility] ([id number]) [address] [place] [address] 61047 Neutrophils/100 WBC (Bld) 68.4 % Normal [facility] Comment on above: Performed By: #### C BCA #### [facility] ([id number]) [address] [place] [address] 46249 Platelet mean volume (Bld) [Entitic vol] 8.3 fL Normal 7-12 [facility] Comment on above: Performed By: #### C BCA #### [facility] ([id number]) [address] [place] [address] 80593 Platelets (Bld) [#/Vol] 258 10*3/uL Normal 150-450 [facility] Comment on above: Performed By: #### C BCA #### [facility] ([id number]) [address] [place] [address] 47017 RBC COUNT 4.49 X10E12/L Normal 3.80-5.20 [facility] Comment on above: Performed By: #### C BCA #### [facility] ([id number]) [address] [place] [address] 75959 WBC (Bld) [#/Vol] 7.4 10*3/uL Normal 4.0-11.0 [facility] Comment on above: Performed By: #### C BCA #### [facility] ([id number]) [address] [place] [address] 68578 CBC AND AUTO DIFFon 04-03-20 23 ABSOLUTE BASOPHIL 0.1 X10E9/L Normal 0.0-0.2 [facility] Comment on above: Performed By: #### C BCA #### [facility] ([id number]) [address] [place] [address] [place] [address] ABSOLUTE NEUTROPHIL 5.1 X10E9/L Normal 1.5-6.6 [facility] Comment on above: Performed By: #### C BCA #### [facility] ([id number]) [address] [place] [address] [place] [address] Basophils/100 WBC (Bld) 1.4 % Normal [facility] Comment on above: Performed By: #### C BCA #### [facility] ([id number]) [address] [place] [address] [place] [address] Eosinophils (Bld) [#/Vol] 0.5 10*3/uL High 0.0-0.4 [facility] Comment on above: Performed By: #### C BCA #### [facility] ([id number]) [address] [place] [address] [place] [address] Eosinophils/100 WBC (Bld) 7.1 % Normal [facility] Comment on above: Performed By: #### C BCA #### [facility] ([id number]) [address] [place] [address] [address] [facility] [place] [address] Erythrocyte distribution width (RBC) [Ratio] 14.4 % Normal 11.5-15.0 [facility] Comment on above: Performed By: #### C BCA #### [facility] ([id number]) [address] [place] [address] [place] [address] Hematocrit (Bld) [Volume fraction] 42.1 % Normal 35-47 [facility] Comment on above: Performed By: #### C BCA #### [facility] ([id number]) [address] [place] [address] [place] [address] Hemoglobin (Bld) [Mass/Vol] 14.2 g/dL Normal 11.7-15.5 [facility] Comment on above: Performed By: #### C BCA #### [facility] ([id number]) [address] [place] [address] [place] [address] Lymphocytes (Bld) [#/Vol] 1.4 10*3/uL Normal 1.0-3.5 [facility] Comment on above: Performed By: #### C BCA #### [facility] ([id number]) [address] [place] [address] [place] [address] Lymphocytes/100 WBC (Bld) 17.6 % Normal [facility] Comment on above: Performed By: #### C BCA #### [facility] ([id number]) [address] [place] [address] [place] [address] MCH (RBC) [Entitic mass] 31.2 pg Normal 27-34 [facility] Comment on above: Performed By: #### C BCA #### [facility] ([id number]) [address] [place] [address] [place] [address] MCHC (RBC) [Mass/Vol] 33.7 g/dL Normal 32-36 [facility] Comment on above: Performed By: #### C BCA #### [facility] ([id number]) [address] [place] [address] [address] [facility] [place] [address] MCV (RBC) [Entitic vol] 93 fL Normal 80-100 [facility] Comment on above: Performed By: #### C BCA #### [facility] ([id number]) [address] [place] [address] [place] [address] Monocytes (Bld) [#/Vol] 0.6 10*3/uL Normal 0-0.9 [facility] Comment on above: Performed By: #### C BCA #### [facility] ([id number]) [address] [place] [address] [place] [address] Monocytes/100 WBC (Bld) 8.0 % Normal [facility] Comment on above: Performed By: #### C BCA #### [facility] ([id number]) [address] [place] [address] [place] [address] Neutrophils/100 WBC (Bld) 65.9 % Normal [facility] Comment on above: Performed By: #### C BCA #### [facility] ([id number]) [address] [place] [address] [place] [address] Platelet mean volume (Bld) [Entitic vol] 7.4 fL Normal 7-12 [facility] Comment on above: Performed By: #### C BCA #### [facility] ([id number]) [address] [place] [address] Platelets (Bld) [#/Vol] 248 10*3/uL Normal 150-450 [facility] Comment on above: Performed By: #### C BCA #### [facility] ([id number]) [address] [place] [address] RBC COUNT 4.55 X10E12/L Normal 3.80-5.20 [facility] Comment on above: Performed By: #### C BCA #### [facility] ([id number]) [address] [place] [address] WBC (Bld) [#/Vol] 7.7 10*3/uL Normal 4.0-11.0 [facility] Comment on above: Performed By: #### C BCA #### [facility] ([id number]) [address] [place] [address] BNPon 08-07-2022 Natriuretic peptide B (Bld) [Mass/Vol] 124.0 pg/mL Normal <=1,800.0 [facility] Comment on above: Performed By: #### T SH, BNP, CREA, ELEC, BUN ####[facility] [address] [place], [place] [address]Dr. alex [facility] BUNon 08-07-2022 Urea nitrogen [Mass/Vol] 13.0 mg/dL Normal 7.0-18.0 [facility] Comment on above: Performed By: #### T SH, BNP, CREA, ELEC, BUN ####[facility] [address] [place] [address]. [facility] CREATININEon 08-07-2022 Creatinine [Mass/Vol] 0.60 mg/dL Normal 0.55-1.02 [facility] Comment on above: Performed By: #### T SH, BNP, CREA, ELEC, BUN ####[facility] [address] [place] [address]Dr. Miranda Duffy EGFR-AF CYPRIOT >60 Normal >=60 [facility] Comment on above: Performed By: #### T SH, BNP, CREA, ELEC, BUN ####[facility] [address] [place] [address]Dr. Miranda Duffy EGFR-NON AF CYPRIOT >60 Normal >=60 [facility] Comment on above: Performed By: #### T SH, BNP, CREA, ELEC, BUN ####[facility] [address] [place] [address]Dr. Miranda Duffy ELECTROLYTESon 08-07-2022 Anion gap [Moles/Vol] 14.0 mmol/L Normal [facility] Comment on above: Performed By: #### T SH, BNP, CREA, ELEC, BUN ####[facility] [address] [place] [address]Dr. Miranda Duffy Chloride [Moles/Vol] 106 mmol/L Normal 98-107 [facility] Comment on above: Performed By: #### T SH, BNP, CREA, ELEC, BUN ####[facility] [address] [place], [place] [address]Dr. Miranda Duffy CO2 [Moles/Vol] 28.3 mmol/L Normal 21.0-32.0 [facility] Comment on above: Performed By: #### T SH, BNP, CREA, ELEC, BUN ####[facility] [address] [place] [address]Dr. Miranda Duffy Potassium [Moles/Vol] 4.3 mmol/L Normal 3.5-5.1 [facility] Comment on above: Performed By: #### T SH, BNP, CREA, ELEC, BUN ####[facility] [address] [place] [address]Dr. Miranda Duffy Sodium [Moles/Vol] 144 mmol/L Normal 136-145 [facility] Comment on above: Performed By: #### T SH, BNP, CREA, ELEC, BUN ####[facility] [address] [place] [id number]. Miranda Duffy TSHon 08-07-2022 TSH 3.287 uIU/mL Normal 0.358-3.740 [facility] Comment on above: Performed By: #### T SH, BNP, CREA, ELEC, BUN ####[facility] [address] [place] [id number]. Miranda Duffy BNPon 08-04-2022 Natriuretic peptide B (Bld) [Mass/Vol] 70.0 pg/mL Normal <=1,800.0 [facility] Comment on above: Performed By: #### B SACK KEEPER, BMP #### [facility] [address] [place] [address] Dr. Miranda Duffy CBC AUTO DIFFon 08-04-2022 BASO # 0.1 103/ul Normal 0.0-0.1 [facility] Comment on above: Performed By: #### C BC #### [facility] [address] [place] [address] Dr. Miranda Duffy Basophils/100 WBC (Bld) 0.9 % Normal 0.2-2.0 [facility] Comment on above: Performed By: #### C BC #### [facility] [address] [place] [address] Dr. Miranda Duffy EO # 0.5 103/ul Normal 0.0-0.7 [facility] Comment on above: Performed By: #### C BC #### [facility] [address] [place] [address] Dr. Miranda Duffy Eosinophils/100 WBC (Bld) 9.0 % Critically high 0.9-7.0 [facility] Comment on above: Performed By: #### C BC #### [facility] [address] [place] [address] Dr. Miranda Duffy Erythrocyte distribution width (RBC) [Ratio] 15.0 % Normal 11.0-15.0 [facility] Comment on above: Performed By: #### C BC #### [facility] [address] [place] [address] Dr. Miranda Duffy Hematocrit (Bld) [Volume fraction] 34.2 % Critically low 36.0-48.0 [facility] Comment on above: Performed By: #### C BC #### [facility] [address] [place] [address] Dr. Miranda Duffy Hemoglobin (Bld) [Mass/Vol] 10.9 g/dL Critically low 12.0-16.0 [facility] Comment on above: Performed By: #### C BC #### [facility] [address] [address] [address] Miranda Duffy IG # 0.04 10e3/ul Critically high 0.00-0.03 [facility] Comment on above: Performed By: #### C BC #### [facility] [address] [place] [address] Dr. Miranda Duffy IG % 0.7 % Critically high 0.0-0.5 [facility] Comment on above: Performed By: #### C BC #### [facility] [address] [place] [address] Dr. Miranda Duffy LYMPH # 1.1 103/ul Critically low 1.2-3.8 [facility] Comment on above: Performed By: #### C BC #### [facility] [address] [place] [address] Dr. Miranda Duffy Lymphocytes/100 WBC (Bld) 20.1 % Critically low 20.5-60.0 [facility] Comment on above: Performed By: #### C BC #### [facility] [address] [place] [address] Dr. Miranda Duffy MANUAL DIFF REQ NO Normal [facility] Comment on above: Performed By: #### C BC #### [facility] [address] [place] [address] Dr. Miranda Duffy MCH (RBC) [Entitic mass] 30.4 pg Normal 26.7-34.0 [facility] Comment on above: Performed By: #### C BC #### [facility] [address] [place] [address] Dr. Miranda Duffy MCHC (RBC) [Mass/Vol] 31.9 g/dL Normal 29.9-35.2 [facility] Comment on above: Performed By: #### C BC #### [facility] [address] [place] [address] Dr. Miranda Duffy MCV (RBC) [Entitic vol] 95.3 fL Normal 81.0-99.0 [facility] Comment on above: Performed By: #### C BC #### [facility] [address] [place] [address] Dr. Miranda Duffy MONO # 0.5 103/ul Normal 0.3-0.8 [facility] Comment on above: Performed By: #### C BC #### [facility] [address] [place] [address] Dr. Miranda Duffy Monocytes/100 WBC (Bld) 7.9 % Normal 1.7-12.0 [facility] Comment on above: Performed By: #### C BC #### [facility] [address] [place] [address] Dr. Miranda Duffy NEUT # 3.5 103/ul Normal 1.4-6.5 [facility] Comment on above: Performed By: #### C BC #### [facility] [address] [place] [address] Dr. Miranda Duffy Neutrophils/100 WBC (Bld) 61.4 % Normal 43.0-75.0 [facility] Comment on above: Performed By: #### C BC #### [facility] [address] [place] [address] Dr. Miranda Duffy Platelet mean volume (Bld) [Entitic vol] 8.7 fL Critically low 9.5-13.5 [facility] Comment on above: Performed By: #### C BC #### [facility] [address] [place] [address] Dr. Miranda Duffy PLT 433 103/ul Normal 150-450 [facility] Comment on above: Performed By: #### C BC #### [facility] [address] [place], [place] [id number] Dr. Miranda Duffy RBC 3.59 106/ul Critically low 4.20-5.40 [facility] Comment on above: Performed By: #### C BC #### [facility] [address] [place] [address] [address] Miranda Duffy WBC 5.7 103/ul Normal 4.0-11.0 [facility] [facility] Comment on above: Performed By: #### C BC #### [facility] [address] [address] [address] Miranda Duffy GLYCOHEMOGLOBIN A1Con 2022 ADA RECOMMENDATION SEE BELOW Normal [facility] Comment on above: Result Comment: ADA RECOMMENDED LIMIT 4.0 - 6.0 ADA THERAPEUTIC TARGET < 7.0 ACTION SUGGESTED > 7.0 Performed By: #### A 1C ####[facility] [address] [address]Dr. Miranda Duffy Glucose [Mass/Vol] 100 mg/dL Normal [facility] Comment on above: Performed By: #### A 1C ####[facility] [address] [address]Dr. Miranda Duffy HbA1c (Bld) [Mass fraction] 5.1 % Normal 4.5-6.2 [facility] Comment on above: Performed By: #### A 1C ####[facility] [address] [address]Dr. Miranda Duffy PROF CHEM 8 (BAS METB)on Anion gap [Moles/Vol] 7.0 mmol/L Normal [facility] Comment on above: Performed By: #### B SACK KEEPER, BMP #### [facility] [address] [address] [address] Miranda Duffy Calcium [Mass/Vol] 8.4 mg/dL Critically low 8.5-10.1 [facility] Comment on above: Performed By: #### B SACK KEEPER, BMP #### [facility] [address] [place] [address] Dr. Miranda Duffy Chloride [Moles/Vol] 107 mmol/L Normal 98-107 [facility] Comment on above: Performed By: #### B SACK KEEPER, BMP #### [facility] [address] [address] [address] Miranda Duffy CO2 [Moles/Vol] 30.5 mmol/L Normal 21.0-32.0 [facility] Comment on above: Performed By: #### B SACK KEEPER, BMP #### [facility] [address] [place] [address] Dr. Miranda Duffy Creatinine [Mass/Vol] 0.59 mg/dL Normal 0.55-1.02 [facility] Comment on above: Performed By: #### B SACK KEEPER, BMP #### [facility] [address] [place] [address] Dr. Miranda Duffy EGFR-AF CYPRIOT >60 Normal >=60 [facility] Comment on above: Performed By: #### B SACK KEEPER, BMP #### [facility] [address] [place] [address] Dr. Miranda Duffy EGFR-NON AF CYPRIOT >60 Normal >=60 [facility] Comment on above: Performed By: #### B SACK KEEPER, BMP #### [facility] [address] [place] [address] Dr. Miranda Duffy Glucose [Mass/Vol] 85 mg/dL Normal 74-106 [facility] Comment on above: Performed By: #### B SACK KEEPER, BMP #### [facility] [address] [place] [address] Dr. Miranda Duffy Potassium [Moles/Vol] 3.5 mmol/L Normal 3.5-5.1 [facility] Comment on above: Performed By: #### B SACK KEEPER, BMP #### [facility] [address] [place] [address] Dr. Miranda Duffy Sodium [Moles/Vol] 141 mmol/L Normal 136-145 [facility] Comment on above: Performed By: #### B SACK KEEPER, BMP #### [facility] [address] [place] [address] Dr. Miranda Duffy Urea nitrogen [Mass/Vol] 17.0 mg/dL Normal 7.0-18.0 [facility] Comment on above: Performed By: #### B SACK KEEPER, BMP #### [facility] [address] [place] [address] Dr. Miranda Duffy Urea nitrogen/Creatinine [Mass ratio] 28.8 mg/mg Normal [facility] Comment on above: Performed By: #### B SACK KEEPER, BMP #### [facility] [address] [address] [address] Miranda Duffy UA (CLEAN/CATCH) TON CONTAINER FILLER/MICRO I F IND.on 08-04-2022 Bilirubin Ql (U) Negative Normal NEGATIVE [facility] Comment on above: Performed By: #### U ACSIND #### [facility] [address] [place] [address] Dr. Miranda Duffy Clarity (U) SL CLOUDY Abnormal CLEAR [facility] Comment on above: Performed By: #### U ACSIND #### [facility] [address] [place] [address] Dr. Miranda Duffy Color (U) YELLOW Normal YELLOW [facility] Comment on above: Performed By: #### U ACSIND #### [facility] [address] [place] [address] Dr. Miranda Duffy Glucose Ql (U) Negative Normal NEGATIVE [facility] Comment on above: Performed By: #### U ACSIND #### [facility] [address] [place] [address] Dr. Miranda Duffy Hemoglobin Ql (U) Negative Normal NEGATIVE [facility] Comment on above: Performed By: #### U ACSIND #### [facility] [address] [address] [address] Miranda Duffy Ketones Ql (U) Negative Normal NEGATIVE [facility] Comment on above: Performed By: #### U ACSIND #### [facility] [address] [place] [address] Dr. Miranda Duffy LEUKOCYTES Negative Normal NEGATIVE [facility] Comment on above: Performed By: #### U ACSIND #### [facility] [address] [place] [address] Dr. Miranda Duffy Nitrite Ql (U) Negative Normal NEGATIVE [facility] Comment on above: Performed By: #### U ACSIND #### [facility] [address] [place] [address] Dr. Miranda Duffy pH (U) 5.5 [pH] Normal 5-9 [facility] Comment on above: Performed By: #### U ACSIND #### [facility] [address] [address] [address] Miranda Duffy SPEC GRAVITY 1.030 Abnormal 1.005-<=1.025 [facility] Comment on above: Performed By: #### U ACSIND #### [facility] [address] [address] [address] Miranda Duffy UA PROTEIN Negative Normal NEGATIVE/ TRACE [facility] Comment on above: Performed By: #### U ACSIND #### [facility] [address] [address] [address] Miranda Duffy UR MICRO IND NOT INDICATED Normal [facility] Comment on above: Performed By: #### U ACSIND #### [facility] [address] [address] [address] Miranda Duffy Urobilinogen Qn (U) 0.2 {Alondra'U}/dL Normal 0.2 - 1. 0 [facility] Comment on above: Performed By: #### U ACSIND #### [facility] [address] [address] [address] Miranda Duffy CULTURE URINEon 04-07-2022 CULTURE [...] Trimethoprim/Sulfamet hoxazole <=20 S F Normal [facility] Comment on above: Performed By: #### U RCX ####[facility] [address] [address]Dr. Miranda Duffy CARDIAC TUTU 3-6on 2 CK [Catalytic activity/Vol] 134 U/L Normal 26-192 [facility] Comment on above: Performed By: #### C MREP #### [facility] [address] [place] [address] Dr. Miranda Duffy CK.MB [Mass/Vol] 3.51 ng/mL Normal <=3.60 [facility] Comment on above: Performed By: #### C MREP #### [facility] [address] [place] [address] Dr. Miranda Duffy HSTROP 7.8 pg/mL Normal [...] C MREP #### [facility] [address] [place] [address] Dr. Miranda Duffy CARDIAC TUTU ADMITon 022 CK [Catalytic activity/Vol] 90 U/L Normal 26-192 [facility] Comment on above: Performed By: #### DUSTIN Velazco MP #### [facility] [address] [place] [address] Dr. Miranda Duffy CK.MB [Mass/Vol] 1.95 ng/mL Normal <=3.60 [facility] Comment on above: Performed By: #### Mora ERICKSON CMADM #### [facility] [address] [place] [address] Dr. Miranda Duffy HSTROP 7.7 pg/mL Normal 4.0-51.3 [facility] Comment on above: Result Comment: CUT- OFF POINTS HAVE BEEN ESTABLISHED BASED ON THE FOURTH UNIVERSAL DEFINITIONS OF MYOCARDIAL INFARCTION. THE UPPER REFERENCE LIMIT (URL) OF TROPONIN, DEFINED THE 99TH PERCENTILE OF cTnI DISTRIBUTION IN A REFERENCE POPULATION, HAS BEEN CONFIRMED THE DECISION THRESHOLD FOR VA DIAGNOSIS. Performed By: #### Mora ERICKSON CMADM #### [facility] [address] [address] [address] Miranda Duffy SHELBY 426 ng/mL Critically high 9-82 The [facility] Comment on above: Performed By: #### B ESTRELLITA ERICKSONDM #### [facility] [id number] Miranda Duffy CBC AUTO DIFFon 04-05-2022 BASO # 0.1 103/ul Normal 0.0-0.1 [facility] Comment on above: Performed By: #### C BC ####[facility] [address] [id number] Duffy Basophils/100 WBC (Bld) 0.7 % Normal 0.2-2.0 [facility] Comment on above: Performed By: #### C BC ####[facility] [address] [address]DrLadan Duffy EO # 0.7 103/ul Normal 0.0-0.7 [facility] Comment on above: Performed By: #### C BC ####[facility] [address] [address]DrLadan Duffy Eosinophils/100 WBC (Bld) 6.3 % Normal 0.9-7.0 [facility] Comment on above: Performed By: #### C BC ####[facility] [address] [phone] Duffy Erythrocyte distribution width (RBC) [Ratio] 14.4 % Normal 11.0-15.0 [facility] Comment on above: Performed By: #### C BC ####[facility] [address] [phone] Duffy Hematocrit (Bld) [Volume fraction] 43.7 % Normal 36.0-48.0 [facility] Comment on above: Performed By: #### C BC ####[facility] [address] [phone] Duffy Hemoglobin (Bld) [Mass/Vol] 14.8 g/dL Normal 12.0-16.0 [facility] Comment on above: Performed By: #### C BC ####[facility] [address] [id number]. Miranda Duffy IG # 0.06 10e3/ul Critically high 0.00-0.03 [facility] Comment on above: Performed By: #### C BC ####[facility] [address] [id number]. Miranda Duffy IG % 0.5 % Normal 0.0-0.5 [facility] Comment on above: Performed By: #### C BC ####[facility] [address] [address]Dr. Miranda Duffy LYMPH # 1.7 103/ul Normal 1.2-3.8 [facility] Comment on above: Performed By: #### C BC ####[facility] [address] [address]Dr. Miranda Duffy Lymphocytes/100 WBC (Bld) 14.7 % Critically low 20.5-60.0 [facility] Comment on above: Performed By: #### C BC ####[facility] [address] [address]Dr. Miranda Duffy MANUAL DIFF REQ NO Normal [facility] Comment on above: Performed By: #### C BC ####[facility] [address] [address]Dr. Miranda Duffy MCH (RBC) [Entitic mass] 31.1 pg Normal 26.7-34.0 [facility] Comment on above: Performed By: #### C BC ####[facility] [address] [address]Dr. Miranda Duffy MCHC (RBC) [Mass/Vol] 33.9 g/dL Normal 29.9-35.2 [facility] Comment on above: Performed By: #### C BC ####[facility] [address] [address]Dr. Miranda Duffy MCV (RBC) [Entitic vol] 91.8 fL Normal 81.0-99.0 [facility] Comment on above: Performed By: #### C BC ####[facility] [address] [id number]. Miranda Duffy MONO # 0.9 103/ul Critically high 0.3-0.8 The [facility] Comment on above: Performed By: #### C BC ####[facility] [address] [phone]. Miranda Duffy Monocytes/100 WBC (Bld) 8.2 % Normal 1.7-12.0 [facility] Comment on above: Performed By: #### C BC ####[facility] [address] [id number]. iMranda Duffy NEUT # 7.8 103/ul Critically high 1.4-6.5 The [facility] Comment on above: Performed By: #### C BC ####[facility] [address] [address]Dr. Miranda Duffy Neutrophils/100 WBC (Bld) 69.6 % Normal 43.0-75.0 [facility] Comment on above: Performed By: #### C BC ####[facility] [address] [address]Dr. Miranda Duffy Platelet mean volume (Bld) [Entitic vol] 9.0 fL Critically low 9.5-13.5 [facility] Comment on above: Performed By: #### C BC ####[facility] [address] [id number]. Miranda Duffy PLT 248 103/ul Normal 150-450 [facility] Comment on above: Performed By: #### C BC ####[facility] [address] [phone]. Miranda Duffy RBC 4.76 106/ul Normal 4.20-5.40 [facility] Comment on above: Performed By: #### C BC ####[facility] [address] [phone]. Miranda Duffy WBC 11.2 103/ul Critically high 4.0-11.0 The [facility] Comment on above: Performed By: #### C BC ####[facility] [address] [place], [place] [address]Xp. Miranda Duffy CT CSPINE WO CONon 2 [...] Bilirubin Ql (U) Negative Normal NEGATIVE [facility] Comment on above: Performed By: #### E LEIGHA AGUILA ####[facility] [address] [place], [place] [address]JtLadan Miranda Clive Clarity (U) CLEAR Normal CLEAR [facility] Comment on above: Performed By: #### E RUR, UMICRO ####[facility] [address] [place], [place] [address]Dr. Miranda Duffy Color (U) LT. YELLOW Normal YELLOW [facility] Comment on above: Performed By: #### Patel AGUILA UMICRO ####[facility] [address] [address]Dr. Miranda Duffy ERUAHD A micrscopic examination will be performed if indicated. Normal [facility] Comment on above: Performed By: #### Patel AGUILA UMICRO ####[facility] [address] [place], [place] [address]Dr. Miranda Duffy Glucose Ql (U) Negative Normal NEGATIVE [facility] Comment on above: Performed By: #### Patel AGUILA UMSUJEYRO ####[facility] [address] [place], [place] [address]Dr. Miranda Duffy Hemoglobin Ql (U) Negative Normal NEGATIVE [facility] Comment on above: Performed By: #### Patel AGUILA UMICRO ####[facility] [address] [place], [place] [address]Dr. Miranda Duffy Ketones Ql (U) 15 mg/dl Abnormal NEGATIVE [facility] Comment on above: Performed By: #### SUSAN GREGGICRO ####[facility] [address] [place], [place] [address]Dr. Miranda Duffy LEUKOCYTES SMALL Abnormal NEGATIVE [facility] Comment on above: Performed By: #### ANANT GREGGRO ####[facility] [address] [place], [place] [address]Dr. Miranda Duffy Nitrite Ql (U) Positive Abnormal NEGATIVE [facility] Comment on above: Performed By: #### ANANT GREGGRO ####[facility] [address] [place], [place] [address]Dr. Miranda Duffy pH (U) 5.5 [pH] Normal 5-9 [facility] Comment on above: Performed By: #### ANANT GREGGRO ####[facility] [address] [place], [place] [address]Dr. Miranda Duffy SPEC GRAVITY 1.015 Normal 1.005-<=1.025 The [facility] Comment on above: Performed By: #### LEIGHA GREGG ####[facility] [address] [address]Dr. Miranda Duffy UA PROTEIN Negative Normal NEGATIVE/ TRACE [facility] Comment on above: Performed By: #### LEIGHA GREGG ####[facility] [address] [address]Dr. Miranda Duffy UR MICRO IND INDICATED Normal [facility] Comment on above: Performed By: #### LEIGHA GREGG ####[facility] [address] [address]Dr. Miranda Duffy Urobilinogen Qn (U) 1.0 {Alondra'U}/dL Normal 0.2 - 1. 0 [facility] Comment on above: Performed By: #### LEIGHA GREGG ####[facility] [address] [address]Dr. Miranda Duffy PROF CHEM 8 (BAS METB)on Anion gap [Moles/Vol] 8.2 mmol/L Normal [facility] Comment on above: Performed By: #### B DUSTIN ERICKSON #### [facility] [address] [address] [address] Miranda Duffy Calcium [Mass/Vol] 9.2 mg/dL Normal 8.5-10.1 [facility] Comment on above: Performed By: #### DUSTIN Velazco MP #### [facility] [address] [address] [address] Miranda Duffy Chloride [Moles/Vol] 103 mmol/L Normal 98-107 [facility] Comment on above: Performed By: #### B DUSTIN ERICKSON #### [facility] [address] [address] [address] Miranda Duffy CO2 [Moles/Vol] 30.7 mmol/L Normal 21.0-32.0 The [facility] Comment on above: Performed By: #### B MP, CMADM #### [facility] [address] [address] [address] Miranda Duffy Creatinine [Mass/Vol] 0.73 mg/dL Normal 0.55-1.02 [facility] Comment on above: Performed By: #### B GEORGINA, CMADM #### [facility] [address] [address] [address] Miranda Duffy EGFR-AF CYPRIOT >60 Normal >=60 [facility] Comment on above: Performed By: #### B GEORGINA, CMADM #### [facility] [address] [address] [address] Miranda Duffy EGFR-NON AF CYPRIOT >60 Normal >=60 [facility] Comment on above: Performed By: #### B GEORGINA, CMADM #### [facility] [address] [address] [address] Miranda Duffy Glucose [Mass/Vol] 116 mg/dL Critically high 74-106 [facility] Comment on above: Performed By: #### B GEORGINA, CMADM #### [facility] [address] [address] [address] Miranda Duffy Potassium [Moles/Vol] 3.9 mmol/L Normal 3.5-5.1 [facility] Comment on above: Performed By: #### B GEORGINA, CMADM #### [facility] [address] [address] [address] Miranda Duffy Sodium [Moles/Vol] 138 mmol/L Normal 136-145 [facility] Comment on above: Performed By: #### B GEORGINA, CMADM #### [facility] [address] [address] [address] Miranda Duffy Urea nitrogen [Mass/Vol] 22.0 mg/dL Critically high 7.0-18.0 [facility] Comment on above: Performed By: #### B GEORGINA, CMADM #### [facility] [address] [address] [address] Miranda Duffy Urea nitrogen/Creatinine [Mass ratio] 30.1 mg/mg Normal [facility] Comment on above: Performed By: #### B GEORGINA, CMADM #### [facility] [address] [address] [address] Miranda Duffy URINE MICROSCOPIC ONLYon BACTERIA LARGE Abnormal NONE SEEN [facility] Comment on above: Performed By: #### ANANT GREGGRO ####[facility] [address] [address]Dr. Miranda Duffy Bacteria identified Cx Nom (U) INDICATED Normal [facility] Comment on above: Performed By: #### Patel AGUILA UMICRO ####[facility] [address] [address]Dr. Miranda Duffy CAST NONE SEEN Normal NONE SEEN [facility] Comment on above: Performed By: #### ANANT GREGGRO ####[facility] [address] [address]Dr. Miranda Duffy Crystals LM Nom (Urine sed) NONE SEEN Normal NONE SEEN [facility] Comment on above: Performed By: #### ANANT GREGGRO ####[facility] [address] [place], [place] [address]Dr. Miranda Duffy Epithelial cells LM Ql (Urine sed) FEW Abnormal NONE SEEN /RARE [facility] Comment on above: Performed By: #### ANANT GREGGRO ####[facility] [address] [address]Dr. Miranda Duffy MUCOUS NONE SEEN Normal NONE SEEN [facility] Comment on above: Performed By: #### ANANT GREGGRO ####[facility] [address] [address]Dr. Miranda Duffy RBC 0-2 Normal 0-2 [facility] Comment on above: Performed By: #### ANANT GREGGRO ####[facility] [address] [place], [place] [address]Dr. Miranda Duffy WBC 5-10 Abnormal NONE SEEN [facility] Comment on above: Performed By: #### ANANT GREGGRO ####[facility] [address] [place], [place] [address]Dr. Miranda Duffy XR HIP LT 2 3V [...] by: DAVID ALONSO Date: 2022-04-05 00:12 Normal [facility] Encounters Encounter Date Encounter Type Care Provider Facility Start: 09-17-2023 ambulatory [facility] Start: 08-09-2023 End: 08-15-2023 [facility] Start: 07-19-2023 End: 07-19-2023 ambulatory AMADOU [facility] Start: 06-11-2023 End: 06-11-2023 ambulatory [facility] Start: 04-03-2023 End: 04-03-2023 ambulatory [facility] Start: 08-09-2022 End: 08-09-[address] KERRIE PLASCENCIA Facility:[facility] Start: 08-07-2022 End: 08-07-[address] KERRIE PLASCENCIA Facility:[facility] Start: 08-04-2022 End: 08-04-[address] KERRIE PLASCENCIA Facility:[facility] Start: 04-05-2022 End: 04-05-2022 ambulatory HALLIE ELIZONDO Facility:[facility] Payers Date Payer Category Payer Medicaid [id number] 2001 Medicare [id number] 1958 Unknown [id number] 1945 Unknown [id number] 2.16.84 [id number] 1945 Unknown [id number] 2.16.84 [id number] 1946 Unknown [id number] 2.16.84 [id number] 1946 Unknown [id number] 2.16.84 [id number] 1946 Unknown [id number] 2.16.8 [id number] 1946 Unknown [id number] 2.16.8 [id number] 1946 Unknown [id number] 2.16.8 [id number] 1946 Unknown [id number] Progress note 09-17-2023 Note Date & Type [...] a recent hip fracture needing been at [facility] by Filemon Jensen MD. She is a borderline diabetic. Patient History Past Surgical History: Procedure Laterality Date TOTAL HIP ARTHROPLASTY Left Past Medical History: Diagnosis Date Diabetes mellitus ([facility] Fracture of hip ([facility]) Hypertension Objective General: Body mass [...] neurologic injury, resid (more content not included)... [facility] Progress note 07-19-2023 Note Date & Type [...] at this time Refer to Dr Gay [facility] Progress note 07-19-2023 Note Date & Type Note Facility 07-19-2023 Note Chief Complaint: Rig ht Knee Pain HPI: 78 y.o [facility] Summary Purpose Family History No Family History Records FoundNo Family History Records FoundNo Family History Records Found Advance Directives No Advanced Directives Records FoundNo Advanced Directives Records FoundNo Advanced Directives Records Found Additional Source Comments INFORMATION SOURCE (unrecogn ized section and content) DATE CREATED AUTHOR 08/12/2022 [facility] DATE CREATED AUTHOR AUTHOR'S ORGANIZ ATION 08/16/2023 [facility] DATE CREATED AUTHOR AUTHOR'S ORGANIZ ATION 09/22/2023 [facility] FOR RECORDS PERTAINING TO PATIENTS WHO ARE [...] BE BASED ON THE PRIMARY CLINICAL RECORDS. [employer] [facility]. provides no warranty or guarantee of the accuracy or completeness of information in this document.
[2023-10-03 08:52] LABS: D Dimer 0.54 mg/L FEU (<=0.59)
[2023-10-03 09:55] LABS: Anion Gap 13.8; Carbon Dioxide 26.2 mmol/L (21.0-32.0); Chloride 102 mmol/L (98-107); Estimated GFR (African America >60 (>=60); Estimated GFR (Non-African Ame >60 (>=60); Sodium 138 mmol/L (136-145); Thyroid Stimulating Hormone 3.464 uIU/mL (0.358-3.740)
== END 2023-10-03 02:37 | disposition home or self-care (01) ==
LOC: LAB 02:36
PROVIDERS: Visit Provider Internal Medicine
DX: R60.9 Edema, unspecified (principal); I10 Essential (primary) hypertension; M81.0 Age-related osteoporosis without current pathological fracture; E55.9 Vitamin D deficiency, unspecified
CPT/HCPCS: 36415; 80051; 82306; 82565; 83880; 84443; 84520; 85378

== ENCOUNTER 2023-11-30 03:04 | Outpatient (RCR) | payer MEDICARE, MEDICAID, SELFPAY ==
[2023-11-30 15:20] LABS: Hematocrit 42.7 % (36.0-48.0); Hemoglobin 14.1 g/dL (12.0-16.0); Mean Corpuscular Volume 93.8 fL (81.0-99.0); Platelet Count 253 10^3/uL (150-450); Red Blood Count 4.55 10^6/uL (4.20-5.40); Red Cell Distribution Width 14.3 % (11.0-15.0); White Blood Count 9.2 10^3/uL (4.0-11.0)
[2023-11-30 15:33] LABS: Alanine Aminotransferase 54 U/L (14-59); Albumin Globulin Ratio 0.8; Albumin Level 2.8 g/dL (3.4-5.0); Alkaline Phosphatase 133 U/L (46-116); Aspartate Amino Transferase 32 U/L (15-37); Bilirubin Direct 0.1 mg/dL (0.0-0.2); Bilirubin Total 0.3 mg/dL (0.2-1.0); Estimated GFR (African America >60 (>=60); Estimated GFR (Non-African Ame >60 (>=60); Globulin 3.3 g/dL; Total Protein 6.1 g/dL (6.4-8.2)
[2023-11-30 15:56] LABS: Erythrocyte Sedimentation Rate 65 mm/hr (<=30)
[2023-11-30 16:52] LABS: Estimated Average Glucose 103 mg/dL; Glycohemoglobin A1C 5.2 % (4.5-6.2)
[2023-11-30 17:57] LABS: Monocytes Absolute Manual 0.18 10^3/uL (0.30-0.80); Segmented Neut Absolute Manual 7.91 10^3/uL (1.4-6.5)
== END 2023-12-15 23:59 | disposition home or self-care (01) ==
LOC: LAB 03:04
PROVIDERS: Visit Provider Internal Medicine
DX: R05.9 Cough, unspecified (principal)
CPT/HCPCS: 36415; 80076; 82565; 83036; 84443; 84520; 85007; 85027; 85652

== ENCOUNTER 2023-12-19 03:30 | Outpatient (RCR) | payer MEDICARE, MEDICAID, SELFPAY ==
[2023-12-19 09:40] LABS: Basophils Percent Auto 0.7 % (0.2-2.0); Eosinophils Absolute Auto 0.5 10^3/uL (0.0-0.7); Eosinophils Percent Auto 8.1 % (0.9-7.0); Hematocrit 45.4 % (36.0-48.0); Hemoglobin 14.5 g/dL (12.0-16.0); Immature Granulocytes Abs Auto 0.02 10^3/uL (0.00-0.03); Immature Granulocytes Pct Auto 0.3 % (0.0-0.5); Lymphocytes Absolute Auto 0.8 10^3/uL (1.2-3.8); Lymphocytes Percent Auto 12.9 % (20.5-60.0); Mean Corpuscular HGB Conc 31.9 g/dL (29.9-35.2); Mean Corpuscular Hemoglobin 31.4 pg (26.7-34.0); Mean Corpuscular Volume 98.3 fL (81.0-99.0); Mean Platelet Volume 9.3 fL (9.5-13.5); Monocytes Absolute Auto 0.4 10^3/uL (0.3-0.8); Neutrophils Absolute Auto 4.4 10^3/uL (1.4-6.5); Platelet Count 171 10^3/uL (150-450); Red Blood Count 4.62 10^6/uL (4.20-5.40); Red Cell Distribution Width 14.7 % (11.0-15.0)
[2023-12-19 11:12] LABS: Alanine Aminotransferase 48 U/L (14-59); Albumin Globulin Ratio 0.8; Albumin Level 2.6 g/dL (3.4-5.0); Alkaline Phosphatase 121 U/L (46-116); Anion Gap 11.3; Aspartate Amino Transferase 17 U/L (15-37); Bilirubin Direct 0.1 mg/dL (0.0-0.2); Bilirubin Total 0.5 mg/dL (0.2-1.0); Carbon Dioxide 27.3 mmol/L (21.0-32.0); Chloride 102 mmol/L (98-107); Chol HDL Ratio 6.1; Cholesterol 207 mg/dL (<=200); Globulin 3.2 g/dL; HDL Cholesterol 34 mg/dL (40-60); Potassium 3.6 mmol/L (3.5-5.1); Sodium 137 mmol/L (136-145); Total Protein 5.8 g/dL (6.4-8.2); Triglycerides 203 mg/dL (<=150); VLDL CHOLESTEROL 40.6 mg/dL
[2023-12-19 11:52] LABS: Estimated Average Glucose 105 mg/dL; Glycohemoglobin A1C 5.3 % (4.5-6.2)
== END 2024-04-15 23:59 | disposition home or self-care (01) ==
LOC: LAB 03:30
PROVIDERS: Visit Provider Internal Medicine
DX: Z51.81 Encounter for therapeutic drug level monitoring (principal)
CPT/HCPCS: 36415; 80051; 80061; 80076; 83036; 83880; 85025

== ENCOUNTER 2024-01-01 13:01 | Outpatient (OUT) | payer MEDICARE, MEDICAID, SELFPAY ==
--- NOTE | 2024-01-01 | CONS_ITS ---
CONSULTATION DATE: 01/01/2024 TO: Eliezer Ramirez D.O. CHIEF COMPLAINT: Includes right knee pain. HISTORY: She presents today complaining of 5/10 pain in her right knee joint, described as severe pressure type pain, increased with any kind of weight bearing maneuvers. Denies any change in bowel and bladder habits or new sensorimotor change in the lower extremities. She is undergoing right knee joint injections. On 10/01, she reports it was ?worth going through?. Despite this, she is still requesting to see an orthopedic surgeon. MEDICATION: Her other medication includes gabapentin 100 mg daily, diclofenac gel. EXAM: Her examination today is limited. She appeared to have some very mild edema of her right knee joint. She had good range of motion to flexion and extension of her right knee joint. She had a fair amount of crepitus. She had nothing to suggest ligamental laxity. She had increasing pain symptoms with medial and lateral compartment loading maneuvers. She appeared to have a moderate amount of myofascial spasm of the hamstrings, as well as the gastrocnemius muscle on the right side. IMPRESSION: Our impression is patient appears to have chronic pain secondary to osteoarthrosis, degenerative joint disease right knee joint, status post successful right knee joint injection with Wydase and corticosteroids with marked improvement of her symptoms. Despite this, she still requests to see an orthopedic surgeon. RECOMMENDATIONS: Will contact your office to determine which surgeon you would like to work with. In the interim, I have also given her topical gel to trial in the interim. Will see the patient back in the office in three months? time or sooner if needed. As part of providing excellent, safe, comprehensive care, the following was completed at our patient's visit: 1. A medication reconciliation and review to ensure accurate knowledge of current/active medications, including asking our patients to inform us about any [id number] medications or herbal remedies/nutritional supplements/alternative remedies. 2. A review to specifically ensure our patients have had annual screening for: elevated body mass index (BMI, see intake chart for exact total), tobacco use, screening for depression, and screening for unhealthy alcohol use. When screening is concerning, patients are provided with education and the specific recommendation to discuss the concerning health issue and treatment options with their primary care provider. RITA
== END 2024-01-01 13:02 | disposition home or self-care (01) ==
LOC: PM 13:01
PROVIDERS: Visit Provider Anesthesiology Pain Medicine
DX: M17.11 Unilateral primary osteoarthritis, right knee (principal)
CPT/HCPCS: G0463

== ENCOUNTER 2024-03-07 12:35 | Outpatient (OUT) | payer MEDICARE, MEDICAID, SELFPAY ==
--- OUTSIDE RECORDS SUMMARY | 2024-03-07 12:40 | XMS_ITS | CCD ---
Author Organization [facility] Care Team Providers Care Assistant Project Manager Name Role Phone TEMO, DR SY Primary [...] HARVEY Consulting Unavailable CELESTE, DAVID Consulting Unavailable MANOHAR MILLER Attending Unavailable Eliezer Plascencia MD Primary Care Provider Lizbet Justice MD Primary Care Provider JUSTICE, LIZBET Referring Unavailable JUSTICE, LIZBET Primary Care Unavailable CLIVE VOGT Attending Unavailable JUSTICE, LIZBET Referring Unavailable JUSTICE, LIZBET Primary Care Unavailable JUSTICE, LIZBET Referring Unavailable JUSTICE, LIZBET Primary Care Unavailable CLIVE VOGT Attending Unavailable JUSTICE, LIZBET Referring Unavailable JUSTICE, LIZBET Primary Care Unavailable JUSTICE, LIZBET Referring Unavailable JUSTICE, LIZBET Primary Care Unavailable JUSTICE, LIZBET Referring Unavailable JUSTICE, LIZBET Primary Care Unavailable CLIVE VOGT Attending Unavailable JUSTICE, LIZBET Referring Unavailable JUSTICE, LIZBET Primary Care Unavailable JUSTICE, LIZBET Referring Unavailable JUSTICE, LIZBET Primary Care Unavailable JUSTICE, LIZBET Referring Unavailable JUSTICE, LIZBET Primary Care Unavailable JARAD GAY Attending Unavailable LISHA PUGA Attending Unavailable AMADOU HOWARD Referring Unavailable AMADOU HOWARD Attending Unavailable NORA CEBALLOS Referring Unavailable Allergies Allergy Classification Reported Allergen(s) Allergy Type Date of Onset Reaction(s) Facility (1 source) Fish derivative Drug allergy (disorder) 02-12-[address] [facility] (1 source) Iodine Drug Allergy [facility] (1 source) Iodine (And Iodine Containting Drugs) Drug allergy (disorder) [facility] (3 sources) Penicillins; Translations: [PENICILLINS] Drug allergy (disorder) 08-18-[address] [facility] (1 source) Sulfonamides (Antibiotic) Drug allergy (disorder) [facility] (3 sources) Iodine Drug Allergy 01-21-20 24 [facility] (3 sources) Nitrofurantoin Drug Allergy 12-13-19 24 GI intolerance [facility] (3 sources) Penicillins Drug Intolerance 08-18-19 18 [facility] (4 sources) Sulfonamides (Antibiotic) Drug Intolerance 08-18-19 18 [facility] (6 sources) Iodinated Contrast Media; Translations: [IODINATED CONTRAST MEDIA] Drug Intolerance 05-21-19 19 [facility] (2 sources) NITROFURANTOIN, MACROCRYSTALS / Nitrofurantoin, Monohydrate; Translations: [NITROFURANTOIN MONOHYD/M-CRYST] Drug Allergy 12-13-19 24 GI Disturbance [facility] (1 source) Penicillins Propensity to adverse reactions to drug 08-18-19 [facility] (2 sources) Sulfonamides (Antibiotic); Translations: [SULFA (SULFONAMIDE ANTIBIOTICS)] Propensity to adverse reactions to drug (disorder) 08-18-19 18 [facility] Medications Current Medications Medication Drug Class(es) Dates Sig (Normalized) Sig (Original) acetaminophen 500 mg oral tablet (4 sources) take 1 tablet by mouth every eight hours as needed for pain acetaminophen (TYLENOL) 500 mg tablet Take 1 tablet (500 mg total) by mouth every 8 (eight) hours as needed for pain. Active [id number] 200 actuat albuterol 0.09 mg/actuat metered dose inhaler (1 source) beta2-Adrenergic Agonist Start: 09-20-2022 albuterol (PROVENTIL HFA;VENTOLIN HFA) 90 mcg/actuation inhaler Inhale as needed. 09/20/2022 Active ARIPiprazole 5 mg oral tablet (5 sources) Atypical Antipsychotic Start: 06-29-2023 take 1 tablet by mouth at bedtime ARIPiprazole (Abilify) 5 MG tablet Take 5 mg by mouth at bedtime 06/29/2023 Active take 1 tablet by vicente th four times weekly at bedtime ARIPiprazole (ABILIFY) 2 mg tablet Take 1 tablet (2 mg total) by mouth 4 (four) times a week. M,W,F,Sa., at bedtime Active aspirin 81 mg delayed release oral tablet (4 sources) Platelet Aggregation Inhibitor, Nonsteroidal Anti-inflammatory Drug take 1 tablet by mouth in the morning aspirin 81 mg Take 1 tablet (81 mg total) by mouth in the morning. Active benzonatate 100 mg oral capsule (1 source) Non-narcotic Antitussive take 1 capsule by mouth three times daily as needed for cough benzonatate (TESSALON PERLES) 100 mg capsule Take 1 capsule (100 mg total) by mouth 3 (three) times a day as needed for cough. Active carvedilol 6.25 mg oral tablet (1 source) alpha-Adrenergic Harshad, beta-Adrenergic Harshad Start: 023 take 1 tablet by mouth in the morning, then take 1 tablet by mouth at mealtime carvediloL (COREG) 6.25 mg tablet Take 1 tablet (6.25 mg total) by mouth in the morning and 1 tablet (6.25 mg total) in the evening. Take with meals. 60 tablet 07/26/2022 Active cetirizine hydrochloride 10 mg oral tablet (4 sources) Histamine-1 Receptor Antagonist cetirizine (ZyrTEC) 10 mg tablet Take 1 tablet (10 mg total) by mouth as needed for allergies. Active cholecalciferol 0.125 mg oral tablet (4 sources) Vitamin D take 1 tablet by mouth in the morning cholecalciferol, vitamin D3, (VITAMIN D3) 5,000 units tablet Take 1 tablet (5,000 Units total) by mouth in the morning. Active 1 ml denosumab 60 mg/ml prefilled syringe (4 sources) RANK Ligand Inhibitor Start: 024 denosumab (Prolia) 60 MG/ML solution prefilled syringe Inject 60 mg under the skin 06/18/2023 Active dextromethorphan hydrobromide 2 mg/ml / guaiFENesin 20 mg/ml oral solution (1 source) Uncompetitive X-jwsjlb-D-aspartate Receptor Antagonist, Sigma-1 Agonist take 10 mL by mouth every four hours as needed for cough dextromethorphan- guaiFENesin (ROBITUSSIN-DM) 10-100 mg/5 mL liquid Take 10 mL by mouth every 4 (four) hours as needed for cough. Active diclofenac sodium 0.01 mg/mg topical gel (4 sources) Nonsteroidal Anti-inflammatory Drug diclofenac sodium (VOLTAREN) 1 % gel Apply 4 g topically in the morning and 4 g before bedtime. Bilateral knees. Active DULoxetine 20 mg delayed release oral capsule (4 sources) Serotonin and Norepinephrine Reuptake Inhibitor Start: take 3 capsules by mouth in the morning DULoxetine (Cymbalta) [address] capsule Take 60 mg by mouth in the morning. 06/24/2023 Active famotidine 40 mg oral tablet (4 sources) Histamine-2 Receptor Antagonist take 0.5 tablet by mouth once daily famotidine (PEPCID) 40 mg tablet Take 0.5 tablets (20 mg total) by mouth nightly. Active famotidine (Pepc id) 40 MG tablet Take 20 mg by mouth at bedtime Active ferrous sulfate 325 mg oral tablet (1 source) Start: 07-26-2022 take 1 tablet by mouth in the morning, then take 1 tablet by mouth at mealtime ferrous sulfate 325 (65 FE) mg tablet Take 1 tablet (325 mg total) by mouth in the morning and 1 tablet (325 mg total) in the evening. Take with meals. 60 tablet 07/26/2022 Active furosemide 40 mg oral tablet (1 source) Loop Diuretic Start: 09-20-2022 take 1 tablet by mouth once daily furosemide (LASIX) 40 mg tablet Take 1 tablet (40 mg total) by mouth once daily. 09/20/2022 Active gabapentin 100 mg oral capsule (1 source) Anti-epileptic Agent Start: 07-26-2022 take 1 capsule by mouth three times daily gabapentin (NEURONTIN) 100 mg capsule Indications: Closed fracture of neck of left femur, initial encounter ([facility]) Take 1 capsule (100 mg total) by mouth 3 (three) times a day. 90 capsule 07/26/2022 Active hydrocortisone 10 mg/ml topical cream (1 source) Corticosteroid hydrocortisone (HYTONE) 1 % cream Apply 1 Application topically as needed (itching). Active hydrOXYzine pamoate 50 mg oral capsule (6 sources) Antihistamine take 1 capsule by mouth once daily hydrOXYzine (VISTARIL) 25 mg capsule Take 1 capsule (25 mg total) by mouth nightly. Take with 50mg capsule for total dose of 75mg at bedtime. Active take 1 capsule by mouth once byron ly hydrOXYzine (VISTARIL) 50 mg capsule Take 1 capsule (50 mg total) by mouth nightly. Active ipratropium bromide 0.2 mg/ml inhalation solution (4 sources) Anticholinergic take 2.5 mL by inhalation four times daily ipratropium (ATROVENT) 0.02 % nebulizer solution Inhale 2.5 mL (0.5 mg total) by nebulization 4 (four) times a day. Active ipratropium (Atr ovent) 0.02 % nebulizer solution Inhale 0.5 mg in the morning and 0.5 mg at noon and 0.5 mg in the evening and 0.5 mg before bedtime. Active levothyroxine sodium 0.1 mg oral tablet (5 sources) l-Thyroxine take 1 tablet by mouth in the morning, then take 1 tablet by mouth once daily levothyroxine (SYNTHROID, LEVOTHROID) 100 MCG tablet Take 1 tablet (100 mcg total) by mouth in the morning. Take one 100 MCG tablet by mouth one time a day on Mon, Wed, Fri. Active take 1 tablet by vicente in the morning, then take 1 tablet by mouth once daily levothyroxine (SYNTHROID, LEVOTHROID) 50 MCG tablet Take 1 tablet (50 mcg total) by mouth in the morning. Take one 50 MCG tablet by mouth one time daily on , , Sun, and Sun.. Active menthol 0.04 mg/mg topical gel (1 source) menthol (BIOFREE ZE, MENTHOL,) 4 % gel Apply 1 Application topically every 8 (eight) hours as needed (for right lower rib). Active 24 hr mirabegron 50 mg extended release oral tablet (4 sources) beta3-Adrenergic Agonist Start: 07-17-2023 take 1 tablet by mouth in the morning, then take 1 tablet by mouth every twenty-four hours mirabegron ER (Myrbetriq) 50 MG 24 hr tablet Take 50 mg by mouth in the morning. 07/17/2023 Active nystatin 466005 unt/ml topical cream (2 sources) Polyene Antifungal nystatin (MYCOSTATIN) cream Apply 1 Application topically 2 (two) times a day as needed (under breasts as needed). Active nystatin (MYCOST ATIN) powder Apply 1 Application topically 2 (two) times a day as needed (under breasts/groin as needed). Active ondansetron 4 mg oral tablet (1 source) Serotonin-3 Receptor Antagonist take 1 tablet by mouth every four hours as needed for nausea and vomiting ondansetron (ZOFRAN) 4 mg tablet Take 1 tablet (4 mg total) by mouth every 4 (four) hours as needed for nausea or vomiting. Active polyethylene glycol 3350 58351 mg powder for oral solution (1 source) Osmotic Laxative polyethylene gl ycol (GLYCOLAX) 17 gram packet Take 17 g by mouth in the morning. Active rivaroxaban 10 mg oral tablet (4 sources) Factor Xa Inhibitor Start: 07-28-19 rivaroxaban (Xarelto) 10 MG tablet 07/16/2023 Active Completed/Discontinued Medications Medication Drug Class(es) Dates Sig (Normalized) Sig (Original) 125 ml sodium chloride 9 mg/ml prefilled syringe (1 source) Start: 02-07-2024 End: 02-07-2024 20 mL, intravenous, As needed, port line care, Starting on Keturah 02/07/24 at 1350, Flush with NS prior to Heplock. Problems Active Problems Problem Classification Problem Date Documented Date Episodic/Chronic Coronary atherosclerosis and other heart disease (4 sources) Atherosclerotic heart disease of [place] coronary artery without angina pectoris; Translations: [ASHD [place] W/O ANGINA PECTORIS] Onset: 08-09-2022 Chronic Diabetes mellitus without complication (5 sources) Type 2 diabetes mellitus without complications; Translations: [Type 2 diabetes mellitus] Onset: 08-10-2022 01-21-2024 Chronic Disorders of lipid metabolism (1 source) Mixed hyperlipidemia; Translations: [Mixed hyperlipidemia] Onset: 07-23-2022 07-23-2022 Chronic Essential hypertension (5 sources) Essential (primary) hypertension; Translations: [Hypertensive disorder] Onset: 08-10-2022 01-21-2024 Chronic Multiple myeloma (1 source) Multiple myeloma not having achieved remission; Translations: [MX MYELOMA NOT ACHIEVED REMISSION] Onset: 04-11-2022 Chronic Osteoarthritis (7 sources) Arthritis of right knee; Translations: [Unilateral primary osteoarthritis, right knee] Onset: 09-17-2023 01-21-2024 Chronic Other connective tissue disease (2 sources) Presence of left artificial knee joint; Translations: [Presence of left artificial knee joint] Onset: 09-17-2023 Chronic Other hematologic conditions (2 sources) Erythrocytosis; Translations: [Secondary polycythemia] Onset: 09-06-2017 02-07-2024 Episodic Thyroid disorders (8 sources) Hypothyroidism, unspecified; Translations: [Hypothyroidism] Onset: 09-06-2017 Chronic Unclassified (1 source) Port/VAD Care Onset: 12-13-2023 Unclassified (1 source) Labs Only Onset: 04-03-2023 Past or Other Problems Problem Classification Problem Date Documented Da te Episodic/Chronic E Codes: Fall (1 source) Fall on same level from slipping, tripping and stumbling with subsequent striking against unspecified object, initial encounter; Translations: [FALL SAME LVL SLIP STRK UNS OBJ INT] Onset: 2 Episodic Fracture of neck of femur (hip) (1 source) Closed fracture of neck of left femur; Translations: [Fracture of unspecified part of neck of left femur, initial encounter for closed fracture] Onset: 3 07-22-2022 Episodic Open wounds of head; neck; and trunk (5 sources) Laceration without foreign body of other part of head, initial encounter; Translations: [Laceration without foreign body of nose, initial encounter] Onset: 2 Episodic Other aftercare (1 source) 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; 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] Onset: 2 Episodic Other aftercare (1 source) Other half-way (current) drug therapy; Translations: [OTH [facility] CURRENT DRUG THERAPY] Onset: 2 Episodic Other connective tissue disease (2 sources) Other symptoms and signs involving the musculoskeletal system; Translations: [Other symptoms and signs involving the musculoskeletal system] Onset: 4 Episodic Other hematologic conditions (1 source) Secondary polycythemia; Translations: [Secondary polycythemia] Onset: 8 Episodic Other injuries and conditions due to external causes (1 source) Unspecified injury of head, initial encounter; Translations: [UNSPECIFIED INJURY HEAD INITIAL ENC] Onset: 2 Episodic Other lower respiratory disease (1 source) Dyspnea; Translations: [Shortness of breath] Onset: 8 09-06-2017 Episodic Other lower respiratory disease (1 source) Nodule of lung; Translations: [Solitary pulmonary nodule] Onset: 0 05-29-2019 Episodic Other non-traumatic joint disorders (4 sources) Pain in right knee; Translations: [Pain in joint, lower leg] Onset: 4 01-22-2024 Episodic Other nutritional; endocrine; and metabolic disorders (1 source) Weight loss; Translations: [Abnormal weight loss] Onset: 0 04-24-2019 Episodic Other screening for suspected conditions (not mental disorders or infectious disease) (2 sources) Electrocardiogram abnormal; Translations: [Abnormal electrocardiogram [ECG] [EKG]] Onset: 8 09-07-2017 Episodic Phlebitis; thrombophlebitis and thromboembolism (2 sources) Acute deep vein thrombosis of lower limb; Translations: [Acute embolism and thrombosis of unspecified deep veins of right distal lower extremity] Onset: 8 09-06-2017 Episodic Spondylosis; intervertebral disc disorders; other back problems (1 source) Spinal stenosis, lumbar region without neurogenic claudication; Translations: [SPINAL STENOSIS LUMBAR REGION NO NC] Onset: 2 Episodic Results Test Name Value Interpretation Reference Range Facility Office Visiton 02-28-2024 Follow-up visit [id number] Willard Gavin 1945 F Date Provider Department Center 02/28/2024 [id number]-LISHA PUGA [facility] Family History Family history unknown: Yes Level of Service:18481 [place] OFFICE/OUTPATIENT NEW MODERATE MDM 45 MINUTES Normal [facility] CBC AND AUTO DIFFon 02-07-20 24 Eosinophils (Bld) [#/Vol] 0.7 10*3/uL High 0.0-0.4 [facility] Comment on above: Performed By: #### C BCA #### [facility] ([id number]) [address] [place] [address] Eosinophils/100 WBC (Bld) 10.2 % Normal [facility] Comment on above: Performed By: #### C BCA #### [facility] ([id number]) [address] [place] [address] 87650 Erythrocyte distribution width (RBC) [Ratio] 14.9 % Normal 11.5-15.0 [facility] Comment on above: Performed By: #### C BCA #### [facility] ([id number]) [address] [place] [address] 64391 Hematocrit (Bld) [Volume fraction] 41.5 % Normal 35-47 [facility] Comment on above: Performed By: #### C BCA #### [facility] ([id number]) [address] [place] [address] 22980 Hemoglobin (Bld) [Mass/Vol] 13.8 g/dL Normal 11.7-15.5 [facility] Comment on above: Performed By: #### C BCA #### [facility] ([id number]) [address] [place] [address] 78694 Lymphocytes (Bld) [#/Vol] 1.3 10*3/uL Normal 1.0-3.5 [facility] Comment on above: Performed By: #### C BCA #### [facility] ([id number]) [address] [place] [address] 19552 Lymphocytes/100 WBC (Bld) 19.9 % Normal [facility] Comment on above: Performed By: #### C BCA #### [facility] ([id number]) [address] [place] [address] 88630 MCH (RBC) [Entitic mass] 30.9 pg Normal 27-34 [facility] Comment on above: Performed By: #### C BCA #### [facility] ([id number]) [address] [place] [address] 54427 MCHC (RBC) [Mass/Vol] 33.3 g/dL Normal 32-36 [facility] Comment on above: Performed By: #### C BCA #### [facility] ([id number]) [address] [place] [address] 46375 MCV (RBC) [Entitic vol] 93 fL Normal 80-100 [facility] Comment on above: Performed By: #### C BCA #### [facility] ([id number]) [address] [place] [address] 89364 Monocytes (Bld) [#/Vol] 0.6 10*3/uL Normal 0-0.9 [facility] Comment on above: Performed By: #### C BCA #### [facility] ([id number]) [address] [place] [address] 21503 Monocytes/100 WBC (Bld) 8.4 % Normal [facility] Comment on above: Performed By: #### C BCA #### [facility] ([id number]) [address] [place] [address] 78218 Neutrophils/100 WBC (Bld) 60.5 % Normal [facility] Comment on above: Performed By: #### C BCA #### [facility] ([id number]) [address] [place] [address] 69901 Platelet mean volume (Bld) [Entitic vol] 7.6 fL Normal 7-12 [facility] Comment on above: Performed By: #### C BCA #### [facility] ([id number]) [address] [place] [address] 09695 Platelets (Bld) [#/Vol] 342 10*3/uL Normal 150-450 [facility] Comment on above: Performed By: #### C BCA #### [facility] ([id number]) [address] [place] [address] 56613 ABSOLUTE BASOPHIL 0.1 X10E9/L Normal 0.0-0.2 [facility] Comment on above: Performed By: #### C BCA #### [facility] ([id number]) [address] [place] [address] 43637 ABSOLUTE NEUTROPHIL 4.0 X10E9/L Normal 1.5-6.6 [facility] Comment on above: Performed By: #### C BCA #### [facility] ([id number]) [address] [place] [address] 47520 Basophils/100 WBC (Bld) 1.0 % Normal [facility] Comment on above: Performed By: #### C BCA #### [facility] ([id number]) [address] [place] [address] 68973 RBC COUNT 4.47 X10E12/L Normal 3.80-5.20 [facility] Comment on above: Performed By: #### C BCA #### [facility] ([id number]) [address] [place] [address] 86759 WBC (Bld) [#/Vol] 6.6 10*3/uL Normal 4.0-11.0 [facility] Comment on above: Performed By: #### C BCA #### [facility] ([id number]) [address] [place] [address] [phone] CBC auto differentialon 01-15 Basophils (Bld) [#/Vol] 0.1 10*3/uL [facility] Basophils/100 WBC (Bld) 1 % [facility] Interpretation and review of laboratory results Abnormal [facility] Neutrophils (Bld) [#/Vol] 4 10*3/uL [facility] RBC (Bld) [#/Vol] 4.47 10*6/uL [facility] WBC corrected for nucl RBC Auto (Bld) [#/Vol] 6.6 [facility] CBC AND AUTO DIFFon 12-13-19 ABSOLUTE BASOPHIL 0.1 X10E9/L Normal 0.0-0.2 [facility] Comment on above: Performed By: #### C BCA #### [facility] ([id number]) [address] [place] [address] 14831 ABSOLUTE NEUTROPHIL 9.3 X10E9/L High 1.5-6.6 [facility] Comment on above: Performed By: #### C BCA #### [facility] ([id number]) [address] [place] [address] 16917 Basophils/100 WBC (Bld) 0.6 % Normal [facility] Comment on above: Performed By: #### C BCA #### [facility] ([id number]) [address] [place] [address] 27105 Eosinophils (Bld) [#/Vol] 0.8 10*3/uL High 0.0-0.4 [facility] Comment on above: Performed By: #### C BCA #### [facility] ([id number]) [address] [place] [address] 15696 Eosinophils/100 WBC (Bld) 6.2 % Normal [facility] Comment on above: Performed By: #### C BCA #### [facility] ([id number]) [address] [place] [address] 31009 Erythrocyte distribution width (RBC) [Ratio] 15.3 % High 11.5-15.0 [facility] Comment on above: Performed By: #### C BCA #### [facility] ([id number]) [address] [place] [address] 63000 Hematocrit (Bld) [Volume fraction] 46.4 % Normal 35-47 [facility] Comment on above: Performed By: #### C BCA #### [facility] ([id number]) [address] [place] [address] 81951 Hemoglobin (Bld) [Mass/Vol] 15.5 g/dL Normal 11.7-15.5 [facility] Comment on above: Performed By: #### C BCA #### [facility] ([id number]) [address] [place] [address] 01491 Lymphocytes (Bld) [#/Vol] 1.6 10*3/uL Normal 1.0-3.5 [facility] Comment on above: Performed By: #### C BCA #### [facility] ([id number]) [address] [place] [address] 79048 Lymphocytes/100 WBC (Bld) 12.8 % Normal [facility] Comment on above: Performed By: #### C BCA #### [facility] ([id number]) [address] [place] [address] 93579 MCH (RBC) [Entitic mass] 31.2 pg Normal 27-34 [facility] Comment on above: Performed By: #### C BCA #### [facility] ([id number]) [address] [place] [address] 52026 MCHC (RBC) [Mass/Vol] 33.4 g/dL Normal 32-36 [facility] Comment on above: Performed By: #### C BCA #### [facility] ([id number]) [address] [place] [address] 34529 MCV (RBC) [Entitic vol] 93 fL Normal 80-100 [facility] Comment on above: Performed By: #### C BCA #### [facility] ([id number]) [address] [place] [address] 68875 Monocytes (Bld) [#/Vol] 0.9 10*3/uL Normal 0-0.9 [facility] Comment on above: Performed By: #### C BCA #### [facility] ([id number]) [address] [place] [address] 68647 Monocytes/100 WBC (Bld) 7.4 % Normal [facility] Comment on above: Performed By: #### C BCA #### [facility] ([id number]) [address] [place] [address] 23647 Neutrophils/100 WBC (Bld) 73.0 % Normal [facility] Comment on above: Performed By: #### C BCA #### [facility] ([id number]) [address] [place] [address] 99492 Platelet mean volume (Bld) [Entitic vol] 7.7 fL Normal 7-12 [facility] Comment on above: Performed By: #### C BCA #### [facility] ([id number]) [address] [place] [address] 75560 Platelets (Bld) [#/Vol] 325 10*3/uL Normal 150-450 [facility] Comment on above: Performed By: #### C BCA #### [facility] ([id number]) [address] [place] [address] 68204 RBC COUNT 4.97 X10E12/L Normal 3.80-5.20 [facility] Comment on above: Performed By: #### C BCA #### [facility] ([id number]) [address] [place] [address] 03963 WBC (Bld) [#/Vol] 12.8 10*3/uL High 4.0-11.0 [facility] Comment on above: Performed By: #### C BCA #### [facility] ([id number]) [address] [place] [address] 94306 CBC AND AUTO DIFFon 10-11-19 24 ABSOLUTE BASOPHIL 0.1 X10E9/L Normal 0.0-0.2 [facility] Comment on above: Performed By: #### C BCA #### [facility] ([id number]) [address] [place] [address] 52738 ABSOLUTE NEUTROPHIL 6.3 X10E9/L Normal 1.5-6.6 [facility] Comment on above: Performed By: #### C BCA #### [facility] ([id number]) [address] [place] [address] 30600 Basophils/100 WBC (Bld) 1.0 % Normal [facility] Comment on above: Performed By: #### C BCA #### [facility] ([id number]) [address] [place] [address] 75598 Eosinophils (Bld) [#/Vol] 0.6 10*3/uL High 0.0-0.4 [facility] Comment on above: Performed By: #### C BCA #### [facility] ([id number]) [address] [place] [address] 59419 Eosinophils/100 WBC (Bld) 6.3 % Normal [facility] Comment on above: Performed By: #### C BCA #### [facility] ([id number]) [address] [place] [address] 32748 Erythrocyte distribution width (RBC) [Ratio] 14.7 % Normal 11.5-15.0 [facility] Comment on above: Performed By: #### C BCA #### [facility] ([id number]) [address] [place] [address] 49774 Hematocrit (Bld) [Volume fraction] 45.6 % Normal 35-47 [facility] Comment on above: Performed By: #### C BCA #### [facility] ([id number]) [address] [place] [address] 41116 Hemoglobin (Bld) [Mass/Vol] 15.8 g/dL High 11.7-15.5 [facility] Comment on above: Performed By: #### C BCA #### [facility] ([id number]) [address] [place] [address] Lymphocytes (Bld) [#/Vol] 1.4 10*3/uL Normal 1.0-3.5 [facility] Comment on above: Performed By: #### C BCA #### [facility] ([id number]) [address] [place] [address] 60547 Lymphocytes/100 WBC (Bld) 15.4 % Normal [facility] Comment on above: Performed By: #### C BCA #### [facility] ([id number]) [address] [place] [address] 84693 MCH (RBC) [Entitic mass] 31.2 pg Normal 27-34 [facility] Comment on above: Performed By: #### C BCA #### [facility] ([id number]) [address] [place] [address] 02768 MCHC (RBC) [Mass/Vol] 34.7 g/dL Normal 32-36 [facility] Comment on above: Performed By: #### C BCA #### [facility] ([id number]) [address] [place] [address] 21035 MCV (RBC) [Entitic vol] 90 fL Normal 80-100 [facility] Comment on above: Performed By: #### C BCA #### [facility] ([id number]) [address] [place] [address] 46436 Monocytes (Bld) [#/Vol] 0.7 10*3/uL Normal 0-0.9 [facility] Comment on above: Performed By: #### C BCA #### [facility] ([id number]) [address] [place] [address] 84820 Monocytes/100 WBC (Bld) 8.0 % Normal [facility] Comment on above: Performed By: #### C BCA #### [facility] ([id number]) [address] [place] [address], [place] [address] Neutrophils/100 WBC (Bld) 69.3 % Normal [facility] Comment on above: Performed By: #### C BCA #### [facility] ([id number]) [address] [place] [address] 29952 Platelet mean volume (Bld) [Entitic vol] 7.9 fL Normal 7-12 [facility] Comment on above: Performed By: #### C BCA #### [facility] ([id number]) [address] [place] [address] 59115 Platelets (Bld) [#/Vol] 274 10*3/uL Normal 150-450 [facility] Comment on above: Performed By: #### C BCA #### [facility] ([id number]) [address] [place] [address] 68730 RBC COUNT 5.06 X10E12/L Normal 3.80-5.20 [facility] Comment on above: Performed By: #### C BCA #### [facility] ([id number]) [address] [place] [address] 64542 WBC (Bld) [#/Vol] 9.1 10*3/uL Normal 4.0-11.0 [facility] Comment on above: Performed By: #### C BCA #### [facility] ([id number]) [address] [place] [address] 74375 Follow-Upon 09-17-2023 Follow-Up [id number] Willard Gavin 1945 F Date Provider Department Center 09/17/2023 JARAD ZHU MP ORTHO MPORTHO Family History Family history unknown: Yes Level of Service:83882 [place] OFFICE/OUTPATIENT ESTABLISHED HIGH MDM 40 MIN Reason for Visit and Comments: Follow-up [021253] - ongoing right knee pain for multiple [...] injections failed to relieve her pain Normal [facility] CBC AND AUTO DIFFon 08-09-19 ABSOLUTE BASOPHIL 0.1 X10E9/L Normal 0.0-0.2 [facility] Comment on above: Performed By: #### C BCA #### [facility] ([id number]) [address] [place] [address] 34081 ABSOLUTE NEUTROPHIL 5.2 X10E9/L Normal 1.5-6.6 [facility] Comment on above: Performed By: #### C BCA #### [facility] ([id number]) [address] [place] [address] 14971 Basophils/100 WBC (Bld) 1.2 % Normal [facility] Comment on above: Performed By: #### C BCA #### [facility] ([id number]) [address] [place] [address] 26866 Eosinophils (Bld) [#/Vol] 0.5 10*3/uL High 0.0-0.4 [facility] Comment on above: Performed By: #### C BCA #### [facility] ([id number]) [address] [place] [address] 11674 Eosinophils/100 WBC (Bld) 6.7 % Normal [facility] Comment on above: Performed By: #### C BCA #### [facility] ([id number]) [address] [place] [address] 50450 Erythrocyte distribution width (RBC) [Ratio] 14.6 % Normal 11.5-15.0 [facility] Comment on above: Performed By: #### C BCA #### [facility] ([id number]) [address] [place] [address] 87921 Hematocrit (Bld) [Volume fraction] 41.1 % Normal 35-47 [facility] Comment on above: Performed By: #### C BCA #### [facility] ([id number]) [address] [place] [address] 75347 Hemoglobin (Bld) [Mass/Vol] 14.1 g/dL Normal 11.7-15.5 [facility] Comment on above: Performed By: #### C BCA #### [facility] ([id number]) [address] [place] [address] 38993 Lymphocytes (Bld) [#/Vol] 1.5 10*3/uL Normal 1.0-3.5 [facility] Comment on above: Performed By: #### C BCA #### [facility] ([id number]) [address] [place] [address] 17750 Lymphocytes/100 WBC (Bld) 19.1 % Normal [facility] Comment on above: Performed By: #### C BCA #### [facility] ([id number]) [address] [place] [address] 55970 MCH (RBC) [Entitic mass] 30.9 pg Normal 27-34 [facility] Comment on above: Performed By: #### C BCA #### [facility] ([id number]) [address] [place] [address] 85981 MCHC (RBC) [Mass/Vol] 34.2 g/dL Normal 32-36 [facility] Comment on above: Performed By: #### C BCA #### [facility] ([id number]) [address] [place] [address] 13995 MCV (RBC) [Entitic vol] 90 fL Normal 80-100 [facility] Comment on above: Performed By: #### C BCA #### [facility] ([id number]) [address] [place] [address] 32169 Monocytes (Bld) [#/Vol] 0.6 10*3/uL Normal 0-0.9 [facility] Comment on above: Performed By: #### C BCA #### [facility] ([id number]) [address] [place] [address] 66622 Monocytes/100 WBC (Bld) 7.5 % Normal [facility] Comment on above: Performed By: #### C BCA #### [facility] ([id number]) [address] [place] [address] 66012 Neutrophils/100 WBC (Bld) 65.5 % Normal [facility] Comment on above: Performed By: #### C BCA #### [facility] ([id number]) [address] [place] [address] 43936 Platelet mean volume (Bld) [Entitic vol] 7.9 fL Normal 7-12 [facility] Comment on above: Performed By: #### C BCA #### [facility] ([id number]) [address] [place] [address] 77404 Platelets (Bld) [#/Vol] 277 10*3/uL Normal 150-450 [facility] Comment on above: Performed By: #### C BCA #### [facility] ([id number]) [address] [place] [address] 85992 RBC COUNT 4.55 X10E12/L Normal 3.80-5.20 [facility] Comment on above: Performed By: #### C BCA #### [facility] ([id number]) [address] [place] [address] 15279 WBC (Bld) [#/Vol] 8.0 10*3/uL Normal 4.0-11.0 [facility] Comment on above: Performed By: #### C BCA #### [facility] ([id number]) [address] [place] [address] 64856 Office Visiton 07-19-2023 Follow-up visit [id number] Willard Gavin 1945 F Date Provider Department Center 07/19/2023 AMADOU ALFARO MP ORTHO MPORTHO Family History Family history unknown: Yes Level of Service:45249 [place] OFFICE/OUTPATIENT NEW LOW MDM 30 MINUTES Reason for Visit and Comments: Pain [136] Normal [facility] CBC AND AUTO DIFFon 06-11-19 ABSOLUTE BASOPHIL 0.0 X10E9/L Normal 0.0-0.2 [facility] Comment on above: Performed By: #### C BCA #### [facility] ([id number]) [address] [place] [address] 33488 ABSOLUTE NEUTROPHIL 5.1 X10E9/L Normal 1.5-6.6 [facility] Comment on above: Performed By: #### C BCA #### [facility] ([id number]) [address] [place] [address] 26685 Basophils/100 WBC (Bld) 0.2 % Normal [facility] Comment on above: Performed By: #### C BCA #### [facility] ([id number]) [address] [place] [address] 02155 Eosinophils (Bld) [#/Vol] 0.5 10*3/uL High 0.0-0.4 [facility] Comment on above: Performed By: #### C BCA #### [facility] ([id number]) [address] [place] [address] 86013 Eosinophils/100 WBC (Bld) 6.9 % Normal [facility] Comment on above: Performed By: #### C BCA #### [facility] ([id number]) [address] [place] [address] [place] [address] Erythrocyte distribution width (RBC) [Ratio] 14.2 % Normal 11.5-15.0 [facility] Comment on above: Performed By: #### C BCA #### [facility] ([id number]) [address] [place] [address] 90762 Hematocrit (Bld) [Volume fraction] 40.8 % Normal 35-47 [facility] Comment on above: Performed By: #### C BCA #### [facility] ([id number]) [address] [place] [address] 88376 Hemoglobin (Bld) [Mass/Vol] 14.0 g/dL Normal 11.7-15.5 [facility] Comment on above: Performed By: #### C BCA #### [facility] ([id number]) [address] [place] [address] 19969 Lymphocytes (Bld) [#/Vol] 1.2 10*3/uL Normal 1.0-3.5 [facility] Comment on above: Performed By: #### C BCA #### [facility] ([id number]) [address] [place] [address] 21441 Lymphocytes/100 WBC (Bld) 16.5 % Normal [facility] Comment on above: Performed By: #### C BCA #### [facility] ([id number]) [address] [place] [address] 63874 MCH (RBC) [Entitic mass] 31.2 pg Normal 27-34 [facility] Comment on above: Performed By: #### C BCA #### [facility] ([id number]) [address] [place] [address] 00893 MCHC (RBC) [Mass/Vol] 34.3 g/dL Normal 32-36 [facility] Comment on above: Performed By: #### C BCA #### [facility] ([id number]) [address] [place] [address] 26845 MCV (RBC) [Entitic vol] 91 fL Normal 80-100 [facility] Comment on above: Performed By: #### C BCA #### [facility] ([id number]) [address] [place] [address] 97119 Monocytes (Bld) [#/Vol] 0.6 10*3/uL Normal 0-0.9 [facility] Comment on above: Performed By: #### C BCA #### [facility] ([id number]) [address] [place] [address] 06741 Monocytes/100 WBC (Bld) 8.0 % Normal [facility] Comment on above: Performed By: #### C BCA #### [facility] ([id number]) [address] [place] [address] 25574 Neutrophils/100 WBC (Bld) 68.4 % Normal [facility] Comment on above: Performed By: #### C BCA #### [facility] ([id number]) [address] [place] [address] 05992 Platelet mean volume (Bld) [Entitic vol] 8.3 fL Normal 7-12 [facility] Comment on above: Performed By: #### C BCA #### [facility] ([id number]) [address] [place] [address] 52560 Platelets (Bld) [#/Vol] 258 10*3/uL Normal 150-450 [facility] Comment on above: Performed By: #### C BCA #### [facility] ([id number]) [address] [place] [address] 79600 RBC COUNT 4.49 X10E12/L Normal 3.80-5.20 [facility] Comment on above: Performed By: #### C BCA #### [facility] ([id number]) [address] [place] [address] [place] [address] WBC (Bld) [#/Vol] 7.4 10*3/uL Normal 4.0-11.0 [facility] Comment on above: Performed By: #### C BCA #### [facility] ([id number]) [address] [place] [address], [place] [address] CBC AND AUTO DIFFon 04-03-20 ABSOLUTE BASOPHIL 0.1 X10E9/L Normal 0.0-0.2 [facility] Comment on above: Performed By: #### C BCA #### [facility] ([id number]) [address] [place] [address] [place] [address] ABSOLUTE NEUTROPHIL 5.1 X10E9/L Normal 1.5-6.6 [facility] Comment on above: Performed By: #### C BCA #### [facility] ([id number]) [address] [place] [address] [place] [address] Basophils/100 WBC (Bld) 1.4 % Normal [facility] Comment on above: Performed By: #### C BCA #### [facility] ([id number]) [address] [place] [address] [place] [address] Eosinophils (Bld) [#/Vol] 0.5 10*3/uL High 0.0-0.4 [facility] Comment on above: Performed By: #### C BCA #### [facility] ([id number]) [address] [place] [address] [place] [address] Eosinophils/100 WBC (Bld) 7.1 % Normal [facility] Comment on above: Performed By: #### C BCA #### [facility] ([id number]) [address] [place] [address] [place] [address] Erythrocyte distribution width (RBC) [Ratio] 14.4 % Normal 11.5-15.0 [facility] Comment on above: Performed By: #### C BCA #### [facility] ([id number]) [address] [place] [address] [place] [address] Hematocrit (Bld) [Volume fraction] 42.1 % Normal 35-47 [facility] Comment on above: Performed By: #### C BCA #### [facility] ([id number]) [address] [place] [address] [place] [address] Hemoglobin (Bld) [Mass/Vol] 14.2 g/dL Normal 11.7-15.5 [facility] Comment on above: Performed By: #### C BCA #### [facility] ([id number]) [address] [place] [address] [address] [facility] [address] Lymphocytes (Bld) [#/Vol] 1.4 10*3/uL Normal 1.0-3.5 [facility] Comment on above: Performed By: #### C BCA #### [facility] ([id number]) [address] [place] [address] [place] [address] Lymphocytes/100 WBC (Bld) 17.6 % Normal [facility] Comment on above: Performed By: #### C BCA #### [facility] ([id number]) [address] [place] [address] [place] [address] MCH (RBC) [Entitic mass] 31.2 pg Normal 27-34 [facility] Comment on above: Performed By: #### C BCA #### [facility] ([id number]) [address] [place] [address] [place] [address] MCHC (RBC) [Mass/Vol] 33.7 g/dL Normal 32-36 [facility] Comment on above: Performed By: #### C BCA #### [facility] ([id number]) [address] [place] [address] [place] [address] MCV (RBC) [Entitic vol] 93 fL Normal 80-100 [facility] Comment on above: Performed By: #### C BCA #### [facility] ([id number]) [address] [place] [address] [place] [address] Monocytes (Bld) [#/Vol] 0.6 10*3/uL Normal 0-0.9 [facility] Comment on above: Performed By: #### C BCA #### [facility] ([id number]) [address] [place] [address] [place] [address] Monocytes/100 WBC (Bld) 8.0 % Normal [facility] Comment on above: Performed By: #### C BCA #### [facility] ([id number]) [address] [place] [address] [place] [address] Neutrophils/100 WBC (Bld) 65.9 % Normal [facility] Comment on above: Performed By: #### C BCA #### [facility] ([id number]) [address] [place] [address] [place] [address] Platelet mean volume (Bld) [Entitic vol] 7.4 fL Normal 7-12 [facility] Comment on above: Performed By: #### C BCA #### [facility] ([id number]) [address] [place] [address] [address] [facility] [place] [address] Platelets (Bld) [#/Vol] 248 10*3/uL Normal 150-450 [facility] Comment on above: Performed By: #### C BCA #### [facility] ([id number]) [address] [place] [address] [place] [address] RBC COUNT 4.55 X10E12/L Normal 3.80-5.20 [facility] Comment on above: Performed By: #### C BCA #### [facility] ([id number]) [address] [place] [address] [place] [address] WBC (Bld) [#/Vol] 7.7 10*3/uL Normal 4.0-11.0 [facility] Comment on above: Performed By: #### C BCA #### [facility] ([id number]) [address] [place] [address] [place] [address] BNPon 08-07-2022 Natriuretic peptide B (Bld) [Mass/Vol] 124.0 pg/mL Normal <=1,800.0 [facility] Comment on above: Performed By: #### T SH, BNP, CREA, ELEC, BUN ####[facility] [address] [place] [address]Dr. Miranda Duffy BUNon 08-07-2022 Urea nitrogen [Mass/Vol] 13.0 mg/dL Normal 7.0-18.[address] [facility] Comment on above: Performed By: #### T SH, BNP, CREA, ELEC, BUN ####[facility] [address] [address]Dr. Miranda Duffy CREATININEon 08-07-2022 Creatinine [Mass/Vol] 0.60 mg/dL Normal 0.55-1.[address] [facility] Comment on above: Performed By: #### T SH, BNP, CREA, ELEC, BUN ####[facility] [address] [place], [place] [address]Dr. Miranda Duffy EGFR-AF MAURITANIAN >60 Normal >=60 [facility] Comment on above: Performed By: #### T SH, BNP, CREA, ELEC, BUN ####[facility] [address] [place], [place] [address]Dr. Miranda Duffy EGFR-NON AF MAURITANIAN >60 Normal >=[address] [facility] Comment on above: Performed By: #### T SH, BNP, CREA, ELEC, BUN ####[facility] [address] [place] [address]Dr. Miranda Duffy ELECTROLYTESon 08-07-2022 Anion gap [Moles/Vol] 14.0 mmol/L Normal [facility] Comment on above: Performed By: #### T SH, BNP, CREA, ELEC, BUN ####[facility] [address] [place], [place] [address]Dr. Miranda Duffy Chloride [Moles/Vol] 106 mmol/L Normal 98-[address] [facility] Comment on above: Performed By: #### T SH, BNP, CREA, ELEC, BUN ####[facility] [address] [address]Dr. Miranda Duffy CO2 [Moles/Vol] 28.3 mmol/L Normal 21.0-32.0 [facility] Comment on above: Performed By: #### T SH, BNP, CREA, ELEC, BUN ####[facility] [address] [place] [address]Dr. Miranda Duffy Potassium [Moles/Vol] 4.3 mmol/L Normal 3.5-5.1 [facility] Comment on above: Performed By: #### T SH, BNP, CREA, ELEC, BUN ####[facility] [address] [place] [address]Dr. Miranda Duffy Sodium [Moles/Vol] 144 mmol/L Normal 136-145 [facility] Comment on above: Performed By: #### T SH, BNP, CREA, ELEC, BUN ####[facility] [address] [place] [address]Dr. Miranda Duffy TSHon 08-07-2022 TSH 3.287 uIU/mL Normal 0.358-3.740 [facility] Comment on above: Performed By: #### T SH, BNP, CREA, ELEC, BUN ####[facility] [address] [place], [place] [address]Dr. Miranda Duffy BNPon 08-04-2022 Natriuretic peptide B (Bld) [Mass/Vol] 70.0 pg/mL Normal <=1,800.0 [facility] Comment on above: Performed By: #### B SEGREGATOR, BMP #### [facility] [address] [place] [address] Dr. Miranda Duffy CBC AUTO DIFFon 08-04-2022 BASO # 0.1 103/ul Normal 0.0-0.1 [facility] Comment on above: Performed By: #### C BC #### [facility] [address] [place] [address] Dr. Miranda Duffy Basophils/100 WBC (Bld) 0.9 % Normal 0.2-2.0 [facility] Comment on above: Performed By: #### C BC #### [facility] [address] [place] [address] Dr. Miranda Duffy EO # 0.5 103/ul Normal 0.0-0.7 [facility] Comment on above: Performed By: #### C BC #### [facility] [address] [address] [address] Miranda Duffy Eosinophils/100 WBC (Bld) 9.0 % Critically high 0.9-7.0 [facility] Comment on above: Performed By: #### C BC #### [facility] [address] [place] [address] Dr. Miranda Duffy Erythrocyte distribution width (RBC) [Ratio] 15.0 % Normal 11.0-15.0 [facility] Comment on above: Performed By: #### C BC #### [facility] [address] [place] [address] Dr. Miranda Duffy Hematocrit (Bld) [Volume fraction] 34.2 % Critically low 36.0-48.0 [facility] Comment on above: Performed By: #### C BC #### [facility] [address] [place] [address] Dr. Miranda Duffy Hemoglobin (Bld) [Mass/Vol] 10.9 g/dL Critically low 12.0-16.0 [facility] Comment on above: Performed By: #### C BC #### [facility] [address] [place] [address] Dr. Miranda Duffy IG # 0.04 10e3/ul Critically high 0.00-0.03 [facility] Comment on above: Performed By: #### C BC #### [facility] [address] [place] [address] Dr. Miranda Duffy IG % 0.7 % Critically high 0.0-0.5 [facility] Comment on above: Performed By: #### C BC #### [facility] [address] [place] [address] Dr. Miranda Duffy LYMPH # 1.1 103/ul Critically low 1.2-3.8 [facility] Comment on above: Performed By: #### C BC #### [facility] [address] [place] [address] Dr. Miranda Duffy Lymphocytes/100 WBC (Bld) 20.1 % Critically low 20.5-60.0 [facility] Comment on above: Performed By: #### C BC #### [facility] [address] [place] [address] Dr. Miranda Duffy MANUAL DIFF REQ NO Normal [facility] Comment on above: Performed By: #### C BC #### [facility] [address] [place] [address] Dr. Miranda Duffy MCH (RBC) [Entitic mass] 30.4 pg Normal 26.7-34.0 [facility] Comment on above: Performed By: #### C BC #### [facility] [address] [place] [address] Dr. Miranda Duffy MCHC (RBC) [Mass/Vol] 31.9 g/dL Normal 29.9-35.2 [facility] Comment on above: Performed By: #### C BC #### [facility] [address] [place] [address] Dr. Miranda Duffy MCV (RBC) [Entitic vol] 95.3 fL Normal 81.0-99.0 [facility] Comment on above: Performed By: #### C BC #### [facility] [address] [place] [address] Dr. Miranda Duffy MONO # 0.5 103/ul Normal 0.3-0.8 [facility] Comment on above: Performed By: #### C BC #### [facility] [address] [place] [address] Dr. Miranda Duffy Monocytes/100 WBC (Bld) 7.9 % Normal 1.7-12.0 [facility] Comment on above: Performed By: #### C BC #### [facility] [address] [place] [address] Dr. Miranda Duffy NEUT # 3.5 103/ul Normal 1.4-6.[address] [facility] Comment on above: Performed By: #### C BC #### [facility] [address] [place] [address] Dr. Miranda Duffy Neutrophils/100 WBC (Bld) 61.4 % Normal 43.0-75.[address] [facility] Comment on above: Performed By: #### C BC #### [facility] [address] [place], [place] [address] Dr. Miranda Duffy Platelet mean volume (Bld) [Entitic vol] 8.7 fL Critically low 9.5-13.5 [facility] Comment on above: Performed By: #### C BC #### [facility] [address] [place], [place] [address] Dr. Miranda Duffy PLT 433 103/ul Normal 150-[address] [facility] Comment on above: Performed By: #### C BC #### [facility] [id number] Miranda Duffy RBC 3.59 106/ul Critically low 4.20-5.40 [facility] Comment on above: Performed By: #### C BC #### [facility] [address] [place] [address] [address] Miranda Duffy WBC 5.7 103/ul Normal 4.0-11.[address] [facility] Comment on above: Performed By: #### C BC #### [facility] [address] [address] [address] Miranda Duffy GLYCOHEMOGLOBIN A1Con 2022 ADA RECOMMENDATION SEE BELOW Normal [facility] Comment on above: Result Comment: ADA RECOMMENDED LIMIT 4.0 - 6.0 ADA THERAPEUTIC TARGET < 7.0 ACTION SUGGESTED > 7.0 Performed By: #### A 1C ####[facility] [address] [place] [address]Dr. Miranda Duffy Glucose [Mass/Vol] 100 mg/dL Normal [facility] Comment on above: Performed By: #### A 1C ####[facility] [address] [place] [address]Dr. Miranda Duffy HbA1c (Bld) [Mass fraction] 5.1 % Normal 4.5-6.[address] [facility] Comment on above: Performed By: #### A 1C ####[facility] [address] [place] [address]Dr. Miranda Duffy PROF CHEM 8 (BAS METB)on Anion gap [Moles/Vol] 7.0 mmol/L Normal [facility] Comment on above: Performed By: #### B SEGREGATOR, BMP #### [facility] [address] [address] [address] Miranda Duffy Calcium [Mass/Vol] 8.4 mg/dL Critically low 8.5-10.[address] [facility] Comment on above: Performed By: #### B SEGREGATOR, BMP #### [facility] [address] [address] [address] Miranda Duffy Chloride [Moles/Vol] 107 mmol/L Normal 98-107 [facility] Comment on above: Performed By: #### B SEGREGATOR, BMP #### [facility] [address] [place] [address] Dr. Miranda Duffy CO2 [Moles/Vol] 30.5 mmol/L Normal 21.0-32.0 [facility] Comment on above: Performed By: #### B SEGREGATOR, BMP #### [facility] [address] [place] [address] Dr. Miranda Duffy Creatinine [Mass/Vol] 0.59 mg/dL Normal 0.55-1.02 [facility] Comment on above: Performed By: #### B SEGREGATOR, BMP #### [facility] [address] [place] [address] Dr. Miranda Duffy EGFR-AF MAURITANIAN >60 Normal >=60 [facility] Comment on above: Performed By: #### B SEGREGATOR, BMP #### [facility] [address] [place] [address] Dr. Miranda Duffy EGFR-NON AF MAURITANIAN >60 Normal >=60 [facility] Comment on above: Performed By: #### B SEGREGATOR, BMP #### [facility] [address] [place] [address] Dr. Miranda Duffy Glucose [Mass/Vol] 85 mg/dL Normal 74-106 [facility] Comment on above: Performed By: #### B SEGREGATOR, BMP #### [facility] [address] [place] [address] Dr. Miranda Duffy Potassium [Moles/Vol] 3.5 mmol/L Normal 3.5-5.1 [facility] Comment on above: Performed By: #### B SEGREGATOR, BMP #### [facility] [address] [place] [address] [address] Miranda Duffy Sodium [Moles/Vol] 141 mmol/L Normal 136-145 [facility] Comment on above: Performed By: #### B SEGREGATOR, BMP #### [facility] [address] [place] [address] [address] Miranda Duffy Urea nitrogen [Mass/Vol] 17.0 mg/dL Normal 7.0-18.0 [facility] Comment on above: Performed By: #### B SEGREGATOR, BMP #### [facility] [address] [place] [address] [address] Miranda Duffy Urea nitrogen/Creatinine [Mass ratio] 28.8 mg/mg Normal [facility] Comment on above: Performed By: #### B SEGREGATOR, BMP #### [facility] [address] [place] [address] Dr. Miranda Duffy UA (CLEAN/CATCH) PROFESSOR OF GEOGRAPHY/MICRO I F IND.on 08-04-2022 Bilirubin Ql (U) Negative Normal NEGATIVE [facility] Comment on above: Performed By: #### U ACSIND #### [facility] [address] [place] [address] Dr. Miranda Duffy Clarity (U) SL CLOUDY Abnormal CLEAR [facility] Comment on above: Performed By: #### U ACSIND #### [facility] [address] [place] [address] Dr. Miranda Duffy Color (U) YELLOW Normal YELLOW [facility] Comment on above: Performed By: #### U ACSIND #### [facility] [address] [place] [address] Dr. Miranda Duffy Glucose Ql (U) Negative Normal NEGATIVE [facility] Comment on above: Performed By: #### U ACSIND #### [facility] [address] [place] [address] Dr. Miranda Duffy Hemoglobin Ql (U) Negative Normal NEGATIVE [facility] Comment on above: Performed By: #### U ACSIND #### [facility] [address] [place] [address] Dr. Miranda Duffy Ketones Ql (U) Negative Normal NEGATIVE [facility] Comment on above: Performed By: #### U ACSIND #### [facility] [address] [place] [address] Dr. Miranda Duffy LEUKOCYTES Negative Normal NEGATIVE [facility] Comment on above: Performed By: #### U ACSIND #### [facility] [address] [place] [address] Dr. Miranda Duffy Nitrite Ql (U) Negative Normal NEGATIVE [facility] Comment on above: Performed By: #### U ACSIND #### [facility] [address] [place] [address] Dr. Miranda Duffy pH (U) 5.5 [pH] Normal 5-9 [facility] Comment on above: Performed By: #### U ACSIND #### [facility] [address] [place] [address] Dr. Miranda Duffy SPEC GRAVITY 1.030 Abnormal 1.005-<=1.025 [facility] Comment on above: Performed By: #### U ACSIND #### [facility] [address] [place] [address] Dr. Miranda Duffy UA PROTEIN Negative Normal NEGATIVE/ TRACE [facility] Comment on above: Performed By: #### U ACSIND #### [facility] [address] [place] [address] Dr. Miranda Duffy UR MICRO IND NOT INDICATED Normal [facility] Comment on above: Performed By: #### U ACSIND #### [facility] [address] [place] [address] Dr. Miranda Duffy Urobilinogen Qn (U) 0.2 {Alondra'U}/dL Normal 0.2 - 1. 0 [facility] Comment on above: Performed By: #### U ACSIND #### [facility] [address] [place] [address] Dr. Miranda Duffy CULTURE URINEon 04-07-2022 CULTURE [...] Trimethoprim/Sulfamet hoxazole <=20 S F Normal [facility] Comment on above: Performed By: #### U RCX ####[facility] [address] [place], [place] [address]VcDr. Miranda Duffy CARDIAC TUTU 3-6on 2 CK [Catalytic activity/Vol] 134 U/L Normal 26-192 [facility] Comment on above: Performed By: #### C MREP #### [facility] [address] [id number] [address] Miranda Duffy CK.MB [Mass/Vol] 3.51 ng/mL Normal <=3.60 [facility] Comment on above: Performed By: #### C MREP #### [facility] [address] [place], [place] [address] Dr. Miranda Duffy HSTROP 7.8 pg/mL Normal 4.0-51.[address] [facility] Comment on above: Result Comment: CUT- OFF POINTS HAVE BEEN ESTABLISHED BASED ON THE FOURTH UNIVERSAL DEFINITIONS OF MYOCARDIAL INFARCTION. THE UPPER REFERENCE LIMIT (URL) OF TROPONIN, DEFINED THE 99TH PERCENTILE OF cTnI DISTRIBUTION IN A REFERENCE POPULATION, HAS BEEN CONFIRMED THE DECISION THRESHOLD FOR CO DIAGNOSIS. Performed By: #### C MREP #### [facility] [address] [place], [place] [address] Dr. Miranda Duffy CARDIAC TUTU ADMITon 022 CK [Catalytic activity/Vol] 90 U/L Normal 26-192 [facility] Comment on above: Performed By: #### B MP, CMADM #### [facility] [address] [place], [place] [address] Dr. Miranda Duffy CK.MB [Mass/Vol] 1.95 ng/mL Normal <=3.60 [facility] Comment on above: Performed By: #### B DUSTIN ERICKSON #### [facility] [address] [place] [address] [address] Miranda Duffy HSTROP 7.7 pg/mL Normal 4.0-51.3 [facility] Comment on above: Result Comment: CUT- OFF POINTS HAVE BEEN ESTABLISHED BASED ON THE FOURTH UNIVERSAL DEFINITIONS OF MYOCARDIAL INFARCTION. THE UPPER REFERENCE LIMIT (URL) OF TROPONIN, DEFINED THE 99TH PERCENTILE OF cTnI DISTRIBUTION IN A REFERENCE POPULATION, HAS BEEN CONFIRMED THE DECISION THRESHOLD FOR CO DIAGNOSIS. Performed By: #### B DUSTIN ERICKSON #### [facility] [address] [place] [address] [address] Miranda Duffy SHELBY 426 ng/mL Critically high 9-82 [facility] Comment on above: Performed By: #### B DUSTIN ERICKSON #### [facility] [address] [place] [address] [address] Miranda Duffy CBC AUTO DIFFon 04-05-2022 BASO # 0.1 103/ul Normal 0.0-0.1 [facility] Comment on above: Performed By: #### C BC ####[facility] [address] [place] [address]DrLadan Duffy Basophils/100 WBC (Bld) 0.7 % Normal 0.2-2.0 [facility] Comment on above: Performed By: #### C BC ####[facility] [address] [place] [address]Dr. Miranda Duffy EO # 0.7 103/ul Normal 0.0-0.[address] [facility] Comment on above: Performed By: #### C BC ####[facility] [address] [place] [address]DrLadan Duffy Eosinophils/100 WBC (Bld) 6.3 % Normal 0.9-7.0 [facility] Comment on above: Performed By: #### C BC ####[facility] [address] [place] [address]DrLadan Duffy Erythrocyte distribution width (RBC) [Ratio] 14.4 % Normal 11.0-15.0 [facility] Comment on above: Performed By: #### C BC ####[facility] [address] [place] [address]DrLadan Duffy Hematocrit (Bld) [Volume fraction] 43.7 % Normal 36.0-48.0 [facility] Comment on above: Performed By: #### C BC ####[facility] [address] [place] [address]DrLadan Duffy Hemoglobin (Bld) [Mass/Vol] 14.8 g/dL Normal 12.0-16.0 [facility] Comment on above: Performed By: #### C BC ####[facility] [address] [place], [place] [address]DrLadan Duffy IG # 0.06 10e3/ul Critically high 0.00-0.03 [facility] Comment on above: Performed By: #### C BC ####[facility] [address] [place], [place] [address]DrLadan Duffy IG % 0.5 % Normal 0.0-0.5 [facility] Comment on above: Performed By: #### C BC ####[facility] [address] [place], [place] [address]DrLadan Duffy LYMPH # 1.7 103/ul Normal 1.2-3.8 [facility] Comment on above: Performed By: #### C BC ####[facility] [address] [place], [place] [address]DrLadan Duffy Lymphocytes/100 WBC (Bld) 14.7 % Critically low 20.5-60.0 [facility] Comment on above: Performed By: #### C BC ####[facility] [address] [place], [place] [address]DrLadan Duffy MANUAL DIFF REQ NO Normal [facility] Comment on above: Performed By: #### C BC ####[facility] [address] [place] [address]DrLadan Duffy MCH (RBC) [Entitic mass] 31.1 pg Normal 26.7-34.0 [facility] Comment on above: Performed By: #### C BC ####[facility] [address] [place] [address]DrLadan Duffy MCHC (RBC) [Mass/Vol] 33.9 g/dL Normal 29.9-35.[address] [facility] Comment on above: Performed By: #### C BC ####[facility] [address] [place] [address]DrLadan Duffy MCV (RBC) [Entitic vol] 91.8 fL Normal 81.0-99.[address] [facility] Comment on above: Performed By: #### C BC ####[facility] [address] [place], [place] [address]DrLadan Duffy MONO # 0.9 103/ul Critically high 0.3-0.8 [facility] Comment on above: Performed By: #### C BC ####[facility] [address] [place], [place] [address]DrLadan Duffy Monocytes/100 WBC (Bld) 8.2 % Normal 1.7-12.[address] [facility] Comment on above: Performed By: #### C BC ####[facility] [address] [place], [place] [address]DrLadan Duffy NEUT # 7.8 103/ul Critically high 1.4-6.5 [facility] Comment on above: Performed By: #### C BC ####[facility] [address] [place], [place] [address]DrLadan Duffy Neutrophils/100 WBC (Bld) 69.6 % Normal 43.0-75.[address] [facility] Comment on above: Performed By: #### C BC ####[facility] [address] [place], [place] [address]DrLadan Duffy Platelet mean volume (Bld) [Entitic vol] 9.0 fL Critically low 9.5-13.[address] [facility] Comment on above: Performed By: #### C BC ####[facility] [address] [place], [place] [address]DrLadan Duffy PLT 248 103/ul Normal 150-[address] [facility] Comment on above: Performed By: #### C BC ####[facility] [address] [place], [place] [address]Ug. Miranda Duffy RBC 4.76 106/ul Normal 4.20-5.40 [facility] Comment on above: Performed By: #### C BC ####[facility] [address] [place], [place] [address]Te. Miranda Duffy WBC 11.2 103/ul Critically high 4.0-11.0 [facility] Comment on above: Performed By: #### C BC ####[facility] [address] [place], [place] [address]Ap. Miranda Duffy CT CSPINE WO CONon CT [...] DAVID ALONSO Date: 2022-04-05 01:[address] [facility] CT FACIAL BONES WO CONon CT [...] HARVEY BERG Date: 2022-04-04 23:[address] [facility] ER URINE PROFILEon 2 Bilirubin Ql (U) Negative Normal NEGATIVE [facility] Comment on above: Performed By: #### LEIGHA GREGG ####[facility] [address] [place] [address]Dr. Miranda Duffy Clarity (U) CLEAR Normal CLEAR [facility] Comment on above: Performed By: #### LEIGHA GREGG ####[facility] [address] [place], [place] [address]Dr. Miranda Duffy Color (U) LT. YELLOW Normal YELLOW [facility] Comment on above: Performed By: #### LEIGHA GREGG ####[facility] [address] [place], [place] [address]Dr. Miranda CROWED A micrscopic examination will be performed if indicated. Normal [facility] Comment on above: Performed By: #### LEIGHA GREGG ####[facility] [address] [place], [place] [address]Dr. Miranda Duffy Glucose Ql (U) Negative Normal NEGATIVE [facility] Comment on above: Performed By: #### LEIGHA GREGG ####[facility] [address] [place], [place] [address]Dr. Miranda Duffy Hemoglobin Ql (U) Negative Normal NEGATIVE [facility] Comment on above: Performed By: #### LEIGHA GREGG ####[facility] [address] [place], [place] [address]Dr. Miranda Duffy Ketones Ql (U) 15 mg/dl Abnormal NEGATIVE [facility] Comment on above: Performed By: #### LEIGHA GREGG ####[facility] [address] [place], [place] [address]Dr. Miranda Duffy LEUKOCYTES SMALL Abnormal NEGATIVE [facility] Comment on above: Performed By: #### Patel AGUILA UMICRO ####[facility] [address] [place] [address]Dr. Miranda Duffy Nitrite Ql (U) Positive Abnormal NEGATIVE [facility] Comment on above: Performed By: #### Patel AGUILA UMICRO ####[facility] [address] [place] [address]Dr. Miranda Duffy pH (U) 5.5 [pH] Normal 5-9 [facility] Comment on above: Performed By: #### Patel AGUILA UMICRO ####[facility] [address] [place] [address]Dr. Miranda Duffy SPEC GRAVITY 1.015 Normal 1.005-<=1.025 [facility] Comment on above: Performed By: #### Patel AGUILA UMICRO ####[facility] [address] [place] [address]Dr. Miranda Duffy UA PROTEIN Negative Normal NEGATIVE/ TRACE [facility] Comment on above: Performed By: #### Patel AGUILA UMICRO ####[facility] [address] [place] [address]DrLadan Duffy UR MICRO IND INDICATED Normal [facility] Comment on above: Performed By: #### Patel AGUILA UMICRO ####[facility] [address] [place] [address]Dr. Miranda Duffy Urobilinogen Qn (U) 1.0 {Alondra'U}/dL Normal 0.2 - 1. 0 [facility] Comment on above: Performed By: #### Patel AGUILA UMICRO ####[facility] [address] [place] [address]DrLadan Duffy PROF CHEM 8 (BAS METB)on Anion gap [Moles/Vol] 8.2 mmol/L Normal [facility] Comment on above: Performed By: #### B MP, CMADM #### [facility] [address] [place] [address] [address] Miranda Duffy Calcium [Mass/Vol] 9.2 mg/dL Normal 8.5-10.1 [facility] Comment on above: Performed By: #### B GEORGINA, ESTRELLITADM #### [facility] [address] [place] [address] Dr. Miranda Duffy Chloride [Moles/Vol] 103 mmol/L Normal 98-107 [facility] Comment on above: Performed By: #### B GEORGINA, CMADM #### [facility] [address] [place] [address] [address] Miranda Duffy CO2 [Moles/Vol] 30.7 mmol/L Normal 21.0-32.0 [facility] Comment on above: Performed By: #### B DUSTIN ERICKSON #### [facility] [address] [place] [address] Dr. Miranda Duffy Creatinine [Mass/Vol] 0.73 mg/dL Normal 0.55-1.02 [facility] Comment on above: Performed By: #### B ESTRELLITA ERICKSONDM #### [facility] [address] [place] [address] Dr. Miranda Duffy EGFR-AF MAURITANIAN >60 Normal >=60 [facility] Comment on above: Performed By: #### B DUSTIN ERICKSON #### [facility] [address] [place] [address] Dr. Miranda Duffy EGFR-NON AF MAURITANIAN >60 Normal >=60 [facility] Comment on above: Performed By: #### B GEORGINA, ESTRELLITADM #### [facility] [address] [place] [address] Dr. Miranda Duffy Glucose [Mass/Vol] 116 mg/dL Critically high 74-106 [facility] Comment on above: Performed By: #### B GEORGINA, ESTRELLITADM #### [facility] [address] [place] [address] Dr. Miranda Duffy Potassium [Moles/Vol] 3.9 mmol/L Normal 3.5-5.1 [facility] Comment on above: Performed By: #### B GEORGINA, ESTRELLITADM #### [facility] [address] [place] [address] Dr. Miranda Duffy Sodium [Moles/Vol] 138 mmol/L Normal 136-145 [facility] Comment on above: Performed By: #### B DUSTIN ERICKSON #### [facility] [address] [place] [address] [address] Miranda Duffy Urea nitrogen [Mass/Vol] 22.0 mg/dL Critically high 7.0-18.0 [facility] Comment on above: Performed By: #### B DUSTIN ERICKSON #### [facility] [address] [place] [address] [address] Miranda Duffy Urea nitrogen/Creatinine [Mass ratio] 30.1 mg/mg Normal [facility] Comment on above: Performed By: #### B DUSTIN ERICKSON #### [facility] [address] [place] [address] [address] Miranda Duffy URINE MICROSCOPIC ONLYon BACTERIA LARGE Abnormal NONE SEEN [facility] Comment on above: Performed By: #### ANANT GREGGRO ####[facility] [address] [place] [address]DrLadan Duffy Bacteria identified Cx Nom (U) INDICATED Normal [facility] Comment on above: Performed By: #### ANANT GREGGRO ####[facility] [address] [place] [address]DrLadan Duffy CAST NONE SEEN Normal NONE SEEN [facility] Comment on above: Performed By: #### Patel AGUILA UMICRO ####[facility] [address] [place] [address]DrLadan Duffy Crystals LM Nom (Urine sed) NONE SEEN Normal NONE SEEN [facility] Comment on above: Performed By: #### Patel AGUILA UMICRO ####[facility] [address] [place] [address]DrLadan Duffy Epithelial cells LM Ql (Urine sed) FEW Abnormal NONE SEEN /RARE [facility] Comment on above: Performed By: #### Patel AGUILA UMICRO ####[facility] [address] [place] [address]DrLadan Duffy MUCOUS NONE SEEN Normal NONE SEEN [facility] Comment on above: Performed By: #### LEIGHA GREGG ####[facility] [address] [place], [place] [address]Yp. Miranda Duffy RBC 0-2 Normal 0-[address] [facility] Comment on above: Performed By: #### LEIGHA GREGG ####[facility] [address] [place], [place] [address]Ya. Miranda Duffy WBC 5-10 Abnormal NONE SEEN [facility] Comment on above: Performed By: #### LEIGHA GREGG ####[facility] [address] [place], [place] [address]Cu. Miranda Duffy XR HIP LT 2 3V [...] by: DAVID ALONSO Date: 2022-04-05 00:12 Normal [facility] Encounters Encounter Date Encounter Type Care Provider Facility Start: 02-28-2024 End: 02-28-2024 ambulatory [facility] Start: 02-07-2024 End: 02-07-2024 ambulatory P[facility] Infusion Chair 1 Lashon Loyd [facility] Comment on above: Polycythemia (Primar y Dx) Start: 01-22-2024 End: 01-22-2024 Bamboo flowsheet Manohar Miller DO Work Phone: [facility] Start: 01-22-2024 End: 01-22-2024 Bamboo flowsheet Manohar Miller DO Work Phone: [facility] Start: 01-22-2024 End: 01-22-2024 Office outpatient new 45 minutes Manohar Miller DO Work Phone: [facility] Comment on above: Chronic pain of righ t knee; Primary osteoarthritis of right knee Start: 01-22-2024 End: 01-22-2024 ambulatory MANOHAR MILLER Not Available Start: 12-13-2023 End: 12-13-2023 ambulatory [facility] Start: 10-11-2023 End: 10-11-2023 ambulatory [facility] Start: 10-11-2023 End: 10-15-2023 ambulatory [facility] Start: 09-17-[address] [facility] Start: 08-09-2023 End: 08-09-2023 ambulatory [facility] Start: 08-09-2023 End: 08-15-2023 ambulatory [facility] Start: 07-19-2023 End: 07-19-2023 ambulatory [facility] Start: 06-11-2023 End: 06-11-2023 ambulatory [facility] Start: 04-03-2023 End: 04-03-2023 ambulatory [facility] Start: 08-09-2022 End: 08-09-[address] ELIEZER PLASCENCIA Facility:H1 Start: 08-07-2022 End: 08-07-[address] ELIEZER PLASCENCIA Facility:[facility]1 Start: 08-04-2022 End: 08-04-[address] ELIEZER PLASCENCIA Facility:H1 Start: 04-05-2022 End: 04-05-2022 ambulatory HALLIE ELIZONDO Facility:H1 Procedures Date Procedure Procedure Detail Performing Clinician Start: 02-07-2024 Blood count complete auto&auto difrntl wbc Clive Vogt MD Work Phone: Start: 12-13-2023 Follow-up visit Follow-up CLIVE VOGT Plan of Treatment Date Care Activity Detail Author Start: 08-02-2027 DTaP,Tdap and Td Vaccines (2 - Td or Tdap) DTaP,Tdap and Td Vaccines (2 - Td or Tdap) [facility] Start: 12-12-2024 Adult BMI Screening Adult BMI Screen ing [facility] Start: 12-12-2024 Tobacco Screening Tobacco Screening [facility] Start: 06-12-2024 End: 06-12-2024 Patient encounter procedure 06/12/2024 1:00 PM EST Office Visit Lashon Loyd [facility] Medical Oncology [address] [place] [phone] [place] [address] [place] [address] [address] [place] [address] Lashon L Blaine [facility] Oncology Start: 04-14-2024 End: 04-14-2024 ambulatory 04/14/2024 2:00 PM EST Infusion Lashon Loyd [facility] Oncology [address] [place] [phone] Lashon L Blaine [facility] Oncology Start: 01-22-2024 End: 01-22-2024 Patient encounter procedure 01/22/2024 10:45 AM EDT Office Visit [facility] [address] [place] [address] Manohar Miller DO [address] [place] [address] Chronic pain of right knee; Primary osteoarthritis of right knee [facility] Comment on above: Chronic pain of righ t knee; Primary osteoarthritis of right knee Start: 12-16-2023 COVID-19 Vaccine ( season) COVID-19 Vaccine ( season) [facility] Start: 12-16-2023 Influenza vaccination N [facility] Start: 2011 Fall Risk Screening Fall Risk Screen ing [facility] Start: 2011 Pneumococcal Vaccine : 65+ Years (1 of 1 - PCV) Pneumococcal Vaccine: 65+ Years (1 of 1 - PCV) [facility] Start: 1996 Administration of varicella zoster vaccine Zoster (Shingles) Vaccine (1 of 2) [facility] Start: 1958 Depression Screening Depression Scre ening [facility] Start: 1945 Medicare Annual Well ness Visit Medicare Annual Wellness Visit [facility] Immunizations Immunization Date Immunization Notes Care Provider Isidoro robertson 02-08-2022 SARS-COV-2 (COVID-19 ) vaccine, mRNA, spike protein, LNP, bivalent, preservative free, 30 mcg/0.3 mL dose, jacinto-sucrose formulation [facility] DO Work Phone: [facility] 01-25-2022 Influenza, High-dose Seasonal, Quadrivalent, Preservative Free [facility] DO Work Phone: [facility] 01-25-2022 influenza virus vacc ine, unspecified formulation [facility] DO Work Phone: [facility] 02-28-2021 Pfizer Purple Cap SARS-CoV-2 Vaccination [facility] DO Work Phone: [facility] 05-25-2020 Pfizer Purple Cap SARS-CoV-2 Vaccination [facility] DO Work Phone: [facility] 05-04-2020 Pfizer Purple Cap SARS-CoV-2 Vaccination [facility] DO Work Phone: [facility] Payers Date Payer Category Payer Medicaid [place]ICA[place] [id number] 2022 Medicaid [id number] 2001 Medicare [id number] 2001 Medicare [id number] 1959 Unknown [id number] 1945 Unknown [id number] 1946 Unknown [id number] [id number] 1945 Unknown [id number] [id number] 1946 Unknown [id number] 1946 Unknown [id number] [id number]59 1946 Unknown [id number] 2.16.840.1.222710.3.579.2.1286 1946 Unknown [id number] 2.16.840.1.255689.3.579.2.1286 1946 Unknown [id number] 2.16.840.1.667051.3.579.2.1286 1946 Unknown [id number] 2.16.840.1.461827.3.579.2.1286 1946 Unknown [id number] 2.16.840.1.549580.3.579.2.1286 1946 Unknown [id number] 2.16.840.1.751811.3.579.2.1286 1946 Unknown [id number] [id number] 1946 Unknown [id number] [id number]86 1946 Unknown [id number] Social History Date Type Detail Facility Tobacco smoking stat [facility] Tobacco smoking consumption unknown [facility] Start: 1945 Sex assigned at Not on file [facility] Start: 05-06-2020 End: 12-13-2023 Gender identity Not on file [facility] Start: 07-24-2022 Tobacco smoking stat [facility] Never smoked tobacco [facility] Start: 07-24-2022 Tobacco use and exposure Smokeless tobacco non-user [facility] Start: 12-13-2023 Alcoholic beverage intake Current non-drinker of alcohol (finding) [facility] Start: 05-06-2020 End: 12-13-2023 History of Social function [facility] Are you worried or concerned that in the next two months you may not have stable housing that you own, rent or stay in as a part of a household? No [facility] Start: 08-17-2017 Sex Female (finding) [facility] Medical Equipment Procedure Code Equipment Code Equipment Origin al Text Equipment Identifier Dates Stem Fem 6 2 Tpr Flt [place] Mectagrip Hip Lateralize - S01.39.206 - [id number] Start: 07-24-2022 Head Bp 42mm 22m m Hip - [id number] - [id number] Start: 07-24-2022 Head Fem 22mm +2 .5mm 1214 Sm Qd Cocr Hip - S01.25.124 - [id number] Start: 07-24-2022 Goals Date Patient Goal Desired Activity /State Personal health goal Comment on above: Formatting of this n ote might be different from the original. Evaluation of progress towards goal: Short stay at SNF and return to [place] apt. Progress note 02-28-2024 Note Date & Type Note Facility 02-28-2024 Note Cardiology Clinic No te Chief Complaint: No chief complaint on file. HPI: Willard Gavin is a 78 y.o. female who has a past medical history of Diabetes mellitus (CMS/HCC), Fracture of hip (CMS/HCC), and Hypertension. that is referred to Cardiology clinic for evaluation of Shortness of breath. Patient has history of polycythemia requiring episodic phlebotomy, DVT on Xarelto, and lung nodule with no FDG uptake. Patient was previously evaluated by cardiology. She had cardiac catheterization performed due to chest pain and shortness of breath in 2018. Cardiac catheterization revealed patent coronary Arteries. Patient presents today from her care facility. She is accompanied by a transport person. She reports some shortness of breath, but denies any additional complaints or concerns. She denies any chest pain. She denies any lower extremity edema, orthopnea, or paroxysmal nocturnal dyspnea. She is unable to provide much history. ROS 10 point ROS is performed and is negative unless otherwise specified in HPI Past Medical History She has a past medical history of Diabetes mellitus ([facility]), Fracture of hip ([facility]), and Hypertension. Surgical History She has a past surgical history that includes Total hip arthroplasty (Left). Social History She reports that she has never smoked. She has never used smokeless tobacco. She reports that she does not drink alcohol. No history on file for drug use. Family History Family History Family history unknown: Yes Medications Current Outpatient Medications on File Prior to Visit Medication Sig Dispense Refill acetaminophen (Tylenol) 500 mg tablet Take 500 mg by mouth every 8 (eight) hours if needed. albuterol 90 mcg/actuation inhaler Inhale if needed each day. ARIPiprazole (Abilify) 5 mg tablet aspirin 81 mg EC tablet Take 81 mg by mouth in the morning. busPIRone (Buspar) 5 mg tablet Take 5 mg by mouth two times daily. carvedilol (Coreg) 6.25 mg tablet cetirizine (ZyrTEC) 10 mg tablet Take 10 mg by mouth if needed each day. cholecalciferol (D3-5) 5,000 Units tablet Take 5,000 Units by mouth in the morning. dextromethorphan-guaifenesin (Robitussin DM) 10-100 mg/5 mL syrup Take 10 mL by mouth every 4 (four) hours if needed. diclofenac (Voltaren) 1 % topical gel Apply 4 g topically twice a day. DULoxetine (Cymbalta) [address] capsule famotidine (Pepcid) 40 mg tablet Take 20 mg by mouth in the morning. furosemide (Lasix) 40 mg tablet gabapentin (Neurontin) 100 mg capsule hydrocortisone 1 % cream Apply 1 Application topically if needed each day. ipratropium (Atrovent) 0.02 % nebulizer solution Inhale 0.5 mg 4 times a day. levothyroxine (Synthroid, Levoxyl) 100 mcg tablet Take 100 mcg by mouth in the morning. levothyroxine (Synthroid, Levoxyl) 50 mcg tablet Myrbetriq 50 mg tablet extended release 24 hr ondansetron (Zofran) 4 mg tablet polyethylene glycol (Glycolax) 17 gram packet Take 17 g by mouth in the morning. Prolia 60 mg/mL syringe Xarelto 10 mg tablet benzonatate (Tessalon) 100 mg capsule ferrous sulfate 325 (65 Fe) MG tablet Take 325 mg by mouth. nystatin (Mycostatin) cream Apply 1 Application topically if needed in the morning and at bedtime. No current facility-administered medications on file prior to visit. Allergies Iodinated contrast media, Penicillins, and Sulfa (sulfonamide antibiotics) Physical Exam VITAL SIGNS: BP 135/90 (BP Location: Right arm, Patient Position: Sitting) Pulse 71 Ht 1.626 m (5' 4 ) Wt 75.8 kg (167 lb) SpO2 96% BMI 28.67 kg/m??? Constitutional: Well developed, Well nourished, No acute distress, Non-toxic appearance. HENT: Normocephalic, Atraumatic, Bilateral external ears have normal appearance, Nose appears normal, nares are patent. Eyes: PERRLA, EOMI, Conjunctiva normal, No discharge. Neck: Normal range of motion, No tenderness, Supple, No stridor. No cervical lymphadenopathy noted. Cardiovascular: Normal heart rate, Normal rhythm, No murmurs, No rubs, No gallops. Thorax & Lungs: Normal breath sounds, No respiratory distress, No wheezing, No chest tenderness to palpation. Abdomen: Bowel sounds normal, Soft, Nontender, No masses, No pulsatile masses. Skin: Warm, Dry, No erythema, No rash. Back: No tenderness, No CVA tenderness. Extremities: Intact distal pulses, No edema, No tenderness, No cyanosis, No clubbing. Musculoskeletal: Grossly normal strength in extremities Neurologic: Alert & oriented x 3, no gross focal neurological deficits Psychiatric: Affect normal, Judgment normal, Mood normal. EKG results: No results found for this or any previous visit (from the past 4464 hour(s)). Echo results: No echocardiogram results found for the past 12 months Radiology: XR knee 1 or 2 views right Narrative: XR KNEE 1-2 VIEWS RIGHT 07/19/2023 10:27 AM CLINICAL INDICATIONS: Fall, right knee pain COMPARISON: None FINDINGS: No acute fracture or dislo (more content not included)... [facility] History of Present illness Narrative 02-07-2024 Rebecca Marcial RN - 02/07/2024 2:00 PM EDT Note Date & Type Note Facility 02-07-2024 History of Presen t illness Narrative Port draw completed per protocol. documented in this encounter [facility] History of Present illness Narrative 01-22-2024 Manohar Miller DO - 01/22/2024 10:45 AM EDT Note Date & Type Note Facility 01-22-2024 History of Presen t illness Narrative Images from the original note were not included. HISTORY OF PRESENT ILLNESS: Willard Gavin is an 78 y.o. @ female. Chief complaint RT knee pain New patient: RT knee Prior treatment by Dr Mason at [facility] 01/01/24 pain clinic and [facility] orthopedics 09/17/23 RT knee pain x 2016 and progressively getting worse. She has had multiple injections over the years, she is no longer getting relief from the injections. Presents in W/C today. She states she does a little walking with a walker. Diffuse pain that is sharp. She states the pain is constant. Pain at HS when she gets in bed, keeps her awake. She thinks she had an injection sometime this year by Dr Mason without relief. Prior treatment: cortisone injection 2016 Dr. Turner in [place], walker, elevation, physical therapy, X-rays [facility] 2018, [facility] pain clinic, [facility] orthopedics, injx by Dr Mason. Here with aid from [facility] I reviewed notes from the [facility] orthopedics dated September 17, 2023. Patient was seen for chronic right knee pain. Patient was noted to be wheelchair ambulator but was able to walk a short distance on request. The patient was interested in knee replacement. The patient was noted to be on Xarelto for atrial fibrillation. It was also noted she had had a prior left knee replacement and did not have the best outcome. The patient wanted to proceed with knee replacement. The patient was offered knee to be done after clearance MEDICATION: Current Outpatient Medications on File Prior to Visit Medication Sig Dispense Refill ARIPiprazole (Abilify) 5 MG tablet Take 5 mg by mouth at bedtime denosumab (Prolia) 60 MG/ML solution prefilled syringe Inject 60 mg under the skin DULoxetine (Cymbalta) [address] capsule Take 60 mg by mouth in the morning. mirabegron ER (Myrbetriq) 50 MG 24 hr tablet Take 50 mg by mouth in the morning. rivaroxaban (Xarelto) 10 MG tablet acetaminophen (Tylenol) 500 MG tablet Take 500 mg by mouth every 8 (eight) hours if needed aspirin 81 MG EC tablet Take 81 mg by mouth in the morning. cetirizine (ZyrTEC) 10 MG tablet Take 10 mg by mouth Daily as needed cholecalciferol (Vitamin D-3) 125 MCG (5000 UT) tablet Take 5,000 Units by mouth in the morning. diclofenac sodium 1 % gel Apply 4 g topically in the morning and 4 g in the evening. famotidine (Pepcid) 40 MG tablet Take 20 mg by mouth at bedtime hydrOXYzine pamoate (Vistaril) 25 MG capsule Take 25 mg by mouth at bedtime ipratropium (Atrovent) 0.02 % nebulizer solution Inhale 0.5 mg in the morning and 0.5 mg at noon and 0.5 mg in the evening and 0.5 mg before bedtime. levothyroxine (Synthroid, Levoxyl) 100 MCG tablet Take 100 mcg by mouth in the morning. No current facility-administered medications on file prior to visit. MEDICAL HISTORY: Past Medical History: Diagnosis Date Anxiety Arthritis Diabetes mellitus ([facility]) Dvt femoral (deep venous thrombosis) ([facility]) 2018 Hypertension (CMS/HCC) Hypothyroid (CMS/HCC) Osteoporosis ([facility]) Polycythemia ALLERGIES: Allergies Allergen Reactions Iodinated Contrast Media Iodine Nitrofurantoin GI intolerance Penicillins Sulfa Antibiotics VITALS: There were no vitals taken for this visit. PHYSICAL EXAM: Ortho Exam RIGHT KNEE Very limited ROM Edema/swelling RT leg Planovalgus flat feet In wheelchair IMAGING: I reviewed x-rays of the right knee dated November 14, 2017 from [facility]. There was marked cortical irregularity with joint space collapse and osteophyte formation and findings consistent with tricompartmental osteoarthritis I also noted there were x-rays from July of 2022 with a proximal femur fracture and subsequent hemiarthroplasty on the left ASSESSMENT: ICD-10-CM 1. Chronic pain of right knee M25.561 G89.29 2. Primary osteoarthritis of right knee M17.11 PLAN: I explained the diagnosis and reviewed treatment options. I answered all of the patient's questions. The patient is interested knee replacement. She has been treated with provider at [facility] who is willing to proceed. With the patient's multiple medical comorbid conditions I think the patient would be better served at a tertiary care center and I would suggest that if she desires to proceed that she should follow up at [facility]. Follow up as needed, any issues/concerns follow up sooner. Dr. Miller obtained history and examined the patient, I am acting as scribe for Dr. Miller/nancy Miller D.O. documented in this encounter [facility] Progress note 09-17-2023 Note Date & Type [...] a recent hip fracture needing been at [facility] by Filemon Jensen MD. She is a borderline diabetic. Patient History Past Surgical History: Procedure Laterality Date TOTAL HIP ARTHROPLASTY Left Past Medical History: Diagnosis Date Diabetes mellitus ([facility]) Fracture of hip ([facility]) Hypertension Objective General: Body mass index is [...] neurologic injury, resid (more content not included)... [facility] Progress note 07-19-2023 Note Date & [...] at this time Refer to Dr Gay [facility] Progress note 07-19-2023 Note Date & Type Note Facility 07-19-2023 Note Chief Complaint: Rig ht Knee Pain HPI: 78 y.o [facility] Evaluation note Note Date & Type Note Facility Evaluation note Diagnosis Chronic pain of right knee Primary osteoarthritis of right knee documented in this encounter [facility] Evaluation note Note Date & Type Note Facility Evaluation note Diagnosis Polycythemia- Primary Polycythemia, secondary documented in this encounter [facility] Instructions Note Date & Type Note Facility Instructions Not on filedocumented in this en counter [facility] Summary Purpose Family History No Family History Records FoundNo Family History Records FoundNo Family History Records FoundNo Family History Records Found Advance Directives No Advanced Directives Records FoundDocuments on File Type Date Recorded Patient Pearl Fisherman Expl anation Durable Power of Housetrailer Servicer Advance Directive 07/22/2022 7:59 PM DNR Date Activated Date Inactivated Comments 07/26/2022 8:13 AM 07/26/2022 7:08 PM Date Activated Date Inactivated Comments 07/24/2022 5:16 PM 07/26/2022 8:13 AM Date Activated Date Inactivated Comments 07/23/2022 8:40 AM 07/24/2022 5:16 PM Date Activated Date Inactivated Comments 07/22/2022 8:42 PM 07/23/2022 8:40 AM Additional Source Comments INFORMATION SOURCE (unrecogn ized section and content) DATE CREATED AUTHOR 08/12/2022 [facility] DATE CREATED AUTHOR AUTHOR'S ORGANIZ ATION 01/23/2024 [facility] dical [facility] DATE CREATED AUTHOR AUTHOR'S ORGANIZ ATION 02/09/2024 [facility] DATE CREATED AUTHOR AUTHOR'S ORGANIZ ATION 03/07/2024 [facility] Care Teams (unrecognized sec tion and content) Assistant Project Manager Relationship Specialty Start Date End Date Eliezer Plascencia MD [address] [place] [address] PCP - General Internal Medicine 01/22/24 Assistant Project Manager Relationship Specialty Start Date End Date Eliezer Plascencia MD [address] [place] [address] PCP - General Internal Medicine 01/22/24 Assistant Project Manager Relationship Specialty Start Date End Date Lizbet Justice MD [address] [place], [place] [id number] PCP - General Family Medicine 09/07/17 Reason for Visit (unrecogniz ed section and content) Reason Comments Pain Reason Comments Port/VAD Care Port draw FOR RECORDS PERTAINING TO PATIENTS WHO ARE [...] BE BASED ON THE PRIMARY CLINICAL RECORDS. [employer] provides no warranty or guarantee of the accuracy or completeness of information in this document.
--- NOTE | 2024-03-07 13:00 | CA_ITS ---
Patient Name: WILLARD STOVER MR#: [id number] : 1945 Exam Date: 03/07/2024 Ordering Doctor: LISHA PUGA M.D. ECHOCARDIOGRAM REPORT of PROCEDURE: CA ECHO DOPPLER COMPLETE INDICATIONS: Dyspnea on exertion COMPARISON: None. DESCRIPTION: COMPLETE ECHOCARDIOGRAM Real-time transthoracic echocardiography with 2D, M-mode, spectral and color flow Doppler performed. QUALITY: Technical quality was fair. LEFT VENTRICLE: Normal chamber size. Borderline concentric left ventricular hypertrophy. LV EF: Normal left ventricular ejection fraction, (55%). DIASTOLIC: Diastolic function is indeterminate. ATRIAL SEPTUM: Visually appears intact. LEFT ATRIUM: Normal chamber size. RIGHT ATRIUM: Mild dilatation. RIGHT VENTRICLE: Normal chamber size. Normal systolic function. TRICUSPID VALVE: Normal mobility and thickness. No stenosis with no regurgitation. Unable to assess right-sided pressures due to lack of measurable tricuspid regurgitation. MITRAL VALVE: Normal mobility and thickness. No evidence of mitral valve stenosis. There is no mitral annular calcification. No mitral regurgitation. AORTIC VALVE: Normal trileaflet appearance. Normal leaflet mobility. No evidence of aortic valve stenosis. No aortic regurgitation. AORTIC ROOT: Normal diameter and appearance. Ascending aorta is mildly dilated (3.7 cm). PULMONIC VALVE: Normal thickness and mobility. No stenosis. No regurgitation. PERICARDIUM: No evidence of pericardial effusion. IVC: Collapses with inspirations. PLEURA: CONCLUSION: 1. Left ventricle is normal in size and exhibits normal systolic function. LVEF is 55%. 2. Normal right ventricular size and systolic function. 3. No significant valvular dysfunction. 4. Unable to assess right-sided pressures due to lack of measurable tricuspid regurgitation. 5. Mildly dilated ascending aorta. 6. No pericardial effusion. Adult Echocardiography Procedure Report Left Ventricle LVEDD (3.7 - 5.6 cm): 4.50 cm LVESD (2.2 - 4.0 cm): 3.00 cm LVIVS thickness (0.6 - 1.2 cm): 0.91 cm LVPW thickness (0.5 - 1.0 cm): 1.10 cm e': 0.05 m/s E - e': 10.41 LVOT Max Gradient: 1.54 mm[Hg] LVOT Area (cm2): 0.62 m/s Peak Velocity (LVOT): 0.62 m/s LVOT Diameter 2.34 cm Left Atrium Left Atrium Systolic Dimension: 3.19 cm Mitral Valve MV E to A Ratio: 0.69 Mitral Valve A-Wave Peak Velocity: 0.70 m/s Mitral Valve E-Wave Peak Velocity: 0.48 m/s Right Ventricle Aorta AO Root Diam: 3.19 cm Ascending Ao Diam: 3.53 cm, 3.72 cm Aortic Valve AoV Area (Peak Axel): 2.55 cm2, 2.55 cm2 Peak Velocity(Antegrade Flow): 1.05 m/s Peak Gradient(Antegrade Flow): 4.42 mm[Hg] Tricuspid Valve Pulmonic Valve Peak Velocity: 0.70 m/s Peak Gradient: 2.06 mm[Hg], 1.82 mm[Hg] Right Atrium Right Atrium Systolic Pressure: 63.24 ml, 63.24 ml Dictated by: Chris Rivera M.D. on 03/07/2024 at 17:54 Approved by: Chris Rivera M.D. on 03/07/2024 at 18:00
== END 2024-03-07 12:36 | disposition home or self-care (01) ==
LOC: CARD 12:36
PROVIDERS: Visit Provider Internal Medicine Cardiovascular Disease
DX: R06.09 Other forms of dyspnea (principal); I48.0 Paroxysmal atrial fibrillation
CPT/HCPCS: 93306

== ENCOUNTER 2024-04-02 13:20 | Outpatient (OUT) | payer MEDICARE, MEDICAID, SELFPAY ==
--- NOTE | 2024-04-02 13:21 | PM.CN ---
Consult Note: HPI Data of Consult Patient: known to practice within the last 3 years Requesting Physician: Yani Adams NP Primary Care Provider: Non-Staff Physician, MD Consult Narrative Reason for consult: f/u bilateral knee pain Narrative: Mayte Gavin a pleasant 79 year old female presents for evaluation of right knee pain secondary to OA. previously found benefit to gel and steroid injections. currently engaged in PT without benefit. is interested in knee replacement but did not meet with Dr Miller since last visit. Patient utilizes diclofenac gel once daily. utilizes tylenol with mild relief. 1 fall without injury. cc:: CC: Yani Adams NP Review of Systems ROS Status of ROS 10 or more systems reviewed and unremarkable except as noted in history and below Musculoskeletal Reports: joint pain PFSH [facility] Medical History (Updated 04/02/24 @ 13:58 by Yani Adams NP) Encounter for other orthopedic aftercare ?Z47.89 - Encounter for other orthopedic aftercare (ICD-10) History of falling ?Z91.81 - History of falling (ICD-10) Personal history of other venous thrombosis and embolism ?Z86.718 - Personal history of other venous thrombosis and embolism (ICD-10) Need for assistance with personal care ?Z74.1 - Need for assistance with personal care (ICD-10) Limitation of activities due to disability ?Z73.6 - Limitation of activities due to disability (ICD-10) Abnormal result of other cardiovascular function study ?R94.39 - Abnormal result of other cardiovascular function study (ICD-10) Abnormal electrocardiogram [ECG] [EKG] ?R94.31 - Abnormal electrocardiogram [ECG] [EKG] (ICD-10) Abnormal weight loss ?R63.4 - Abnormal weight loss (ICD-10) Cognitive communication deficit ?R41.841 - Cognitive communication deficit (ICD-10) Unspecified abnormalities of gait and mobility ?R26.9 - Unspecified abnormalities of gait and mobility (ICD-10) Muscle weakness (generalized) ?M62.81 - Muscle weakness (generalized) (ICD-10) Pain in left hip ?M25.552 - Pain in left hip (ICD-10) Anxiety disorder, unspecified ?F41.9 - Anxiety disorder, unspecified (ICD-10) Vitamin D deficiency, unspecified ?E55.9 - Vitamin D deficiency, unspecified (ICD-10) Anemia, unspecified ?D64.9 - Anemia, unspecified (ICD-10) Other seasonal allergic rhinitis ?J30.2 - Other seasonal allergic rhinitis (ICD-10) Solitary pulmonary nodule ?R91.1 - Solitary pulmonary nodule (ICD-10) Gastro-esophageal reflux disease without esophagitis ?K21.9 - Gastro-esophageal reflux disease without esophagitis (ICD-10) Age-related osteoporosis without current pathological fracture ?M81.0 - Age-related osteoporosis without current pathological fracture (ICD-10) Age-related nuclear cataract, bilateral ?H25.13 - Age-related nuclear cataract, bilateral (ICD-10) Mixed hyperlipidemia ?E78.2 - Mixed hyperlipidemia (ICD-10) Essential (primary) hypertension ?I10 - Essential (primary) hypertension (ICD-10) COVID-19 ?U07.1 - COVID-19 (ICD-10) Hypothyroidism, unspecified ?E03.9 - Hypothyroidism, unspecified (ICD-10) Major depressive disorder, recurrent, unspecified ?F33.9 - Major depressive disorder, recurrent, unspecified (ICD-10) Type 2 diabetes mellitus without complications ?E11.9 - Type 2 diabetes mellitus without complications (ICD-10) Unspecified osteoarthritis, unspecified site ?M19.90 - Unspecified osteoarthritis, unspecified site (ICD-10) Atherosclerotic heart disease of [place] coronary artery without angina pectoris ?I25.10 - Atherosclerotic heart disease of [place] coronary artery without angina pectoris (ICD-10) Polycythemia vera ?D45 - Polycythemia vera (ICD-10) Fracture of unspecified part of neck of unspecified femur, subsequent encounter for closed fracture with routine healing ?S72.009D - Fracture of unspecified part of neck of unspecified femur, subsequent encounter for closed fracture with routine healing (ICD-10) Urinary tract infection ?N39.0 - Urinary tract infection, site not specified (ICD-10) Social History Smoking status: Never smoker Gender Identity: female Meds Home Medications and Allergies Home Medications ?Medication ?Instructions ?Recorded ?Confirmed ?Type acetaminophen 500 mg capsule 500 mg PO Q8H PRN fever or pain 09/16/22 09/16/22 History albuterol sulfate 90 mcg/actuation 2 inh inhalation BID 09/16/22 09/16/22 History aerosol inhaler albuterol sulfate 90 mcg/actuation 2 puff inhalation Q4H PRN 09/16/22 09/16/22 History aerosol inhaler shortness of breath or wheezing aripiprazole 2 mg tablet 2 mg PO BEDTIME depression 09/16/22 09/16/22 History aripiprazole 5 mg tablet 5 mg PO BEDTIME depression 09/16/22 09/16/22 History aspirin 81 mg capsule 81 mg PO BEDTIME 09/16/22 09/16/22 History carvedilol 6.25 mg tablet 6.25 mg PO BID hypertension 09/16/22 09/16/22 History cetirizine 10 mg capsule (All Day 10 mg PO DAILY PRN allergy symptoms 09/16/22 09/16/22 History Allergy (cetirizine)) cholecalciferol (vitamin D3) 125 125 mcg PO DAILY supplement 09/16/22 09/16/22 History mcg (5,000 unit) tablet (Vitamin D3) diclofenac sodium 1 % topical gel 4 g topical BID knee pain 09/16/22 09/16/22 History (Aspercreme Arthritis Pain) duloxetine 20 mg capsule,delayed 60 mg PO DAILY depression 09/16/22 09/16/22 History release famotidine 20 mg tablet 20 mg PO DAILY GERD 09/16/22 09/16/22 History ferrous sulfate 325 mg (65 mg 325 mg PO BID 09/16/22 09/16/22 History iron) tablet gabapentin 100 mg capsule 100 mg PO DAILY neuropathy 09/16/22 09/16/22 History guaifenesin 100 mg/5 mL oral 100 mg PO BID 09/16/22 09/16/22 History liquid (Adult Tussin Chest Congestion) guaifenesin 100 mg/5 mL oral 100 mg PO Q4H PRN cough 09/16/22 09/16/22 History liquid (Adult Tussin Chest Congestion) hydrocortisone 1 % topical cream 1 applic topical DAILY PRN itching 09/16/22 09/16/22 History (Ala-Jos[place] Antonio) levothyroxine 100 mcg tablet 100 mcg PO DAILY 09/16/22 09/16/22 History levothyroxine 50 mcg tablet 50 mcg PO DAILY 09/16/22 09/16/22 History menthol 4 % topical gel (Pain 1 applic topical Q8H PRN pain 09/16/22 09/16/22 History Relief (menthol)) mirabegron 50 mg tablet,extended 50 mg PO Q24H 09/16/22 09/16/22 History release 24 hr (Myrbetriq) nystatin 100,000 unit/gram topical 1 applic topical BID PRN 09/16/22 09/16/22 History cream excoriation oxygen 2 l continuous inhalation CONT 09/16/22 09/16/22 History polyethylene glycol 3350 17 17 g PO BID constipation 09/16/22 09/16/22 History gram/dose oral powder (ClearLax) rivaroxaban 10 mg tablet (Xarelto) 10 mg PO Q24H anticoagulant 09/16/22 09/16/22 History furosemide 40 mg tablet 40 mg PO QD #30 tabs 09/20/22 Rx denosumab 60 mg/mL subcutaneous mg subcut .monthly 09/04/23 History syringe (Prolia) Allergies Allergy/AdvReac Type Severity Reaction Status Date / Time iodine Allergy Unknown Verified 09/16/22 09:26 Penicillins Allergy Unknown Verified 09/16/22 09:26 Sulfa (Sulfonamide Allergy Unknown Verified 09/16/22 09:26 Antibiotics) nitrofurantoin (From AdvReac Mild Gastrointestinal Verified 09/04/23 14:30 Macrobid) Upset Exam Constitutional Documenting provider has reviewed patient's vital signs: yes Common normals: no apparent distress, oriented x3, healthy appearing, alert and well nourished General appearance: cooperative HENAK Common normals: normocephalic, hearing grossly normal bilaterally and moist oral mucous membranes Head and scalp: normocephalic Eye Common normals: PERRL Pupil: PERRL Neck & C-Spine Common normals: full ROM General: normal visual inspection Chest Common normals: inspection of chest normal Respiratory Common normals: normal respiratory effort, no retractions and no use of accessory muscles Extremity Right lower extremity: knee joint Other: edema, limited rom, moderate crepitus, increased pain with medial and lateral stress testing Neuro Common normals: oriented x3, CN's II-XII intact bilaterally, moves all extremities, no focal motor deficits, no sensory deficits noted and deep tendon reflexes 2+ bilaterally Sensorium/orientation: alert Gait (neuro): unable to assess gait and assistive device used (wheelchair) Motor exam: no movement abnormalities noted Psych Common normals: mental status grossly normal, thought process normal, cooperative, affect normal, speech normal and activity/motor behavior normal Speech: normal speech Thought process: normal thought process Results Additional Findings Additional findings: If on a controlled substance or opioids, I have checked an [place] report on this patient and there are no aberrancies noted in the prescribing history.??If on a controlled substance or opioid a drug screen was completed and reviewed within the last year, and if there has not been a drug screen completed we ordered one today to monitor higher risk, state monitored pain medication use. As part of providing excellent, safe, comprehensive care, the following was completed at our patient's visit: 1. A medication reconciliation and review to ensure accurate knowledge of current/active medications, including asking our patients to inform us about any [id number] medications or herbal remedies/nutritional supplements/alternative remedies. 2. A review to specifically ensure our patients have had annual screening for screening for depression, screening for tobacco use, and screening for unhealthy alcohol use. For concerning screenings had a discussion with the patient, provided patient education, and recommended follow-up with primary care provider when appropriate. If patient noted with a risk of falling, they received education on strength, gait, and balance training to prevent future risk of falling. Assessment and Plan Assessment and Plan (1) Osteoarthritis of right knee: (2) Right knee pain: Plan f/u with orthopedics per pt request increase diclofenac gel TID f/u PRN with our office, not interested in further care/injections
== END 2024-04-02 13:21 | disposition home or self-care (01) ==
LOC: PM 13:21
PROVIDERS: Visit Provider Nurse Practitioner
DX: M17.11 Unilateral primary osteoarthritis, right knee (principal); M25.561 Pain in right knee
CPT/HCPCS: G0463

== ENCOUNTER 2024-04-28 13:22 | Outpatient (OUT) | payer MEDICARE, MEDICAID, SELFPAY ==
--- NOTE | 2024-04-28 | XR_ITS ---
[address] [address] Patient Name: WILLARD STOVER MRN: [id number] date: 1945 Sex: F Assigned Patient Location: Current Patient Location: Accession/Order Number: [id number] Exam Date: 04/28/2024 13:24 Report Date: 04/29/2024 08:35 At the request of: NARINDER PEREZ Procedure: XR knee RT 4V PROCEDURE: XR knee RT 4V HISTORY: RIGHT KNEE PAIN COMPARISON: XR knee right 10/01/2023 FINDINGS: BONES:Marked narrowing of the anterior and lateral joint spaces; moderate narrowing of the medial joint space. Moderate size periarticular degenerative osteophytes. No fracture. SOFT TISSUES:No visible soft tissue swelling. EFFUSION:None visible. OTHER: Negative. XR/XR knee RT 4V IMPRESSION: 1. Marked degenerative joint disease; stable to minimally progressed. Electronically authenticated by: TIFFANIE LOPEZ Date: 04/29/2024 08:35
--- OUTSIDE RECORDS SUMMARY | 2024-04-28 13:43 | XMS_ITS | CCD ---
Author Organization [facility] ion [facility] Care Team Providers Care Privacy Manager Name Role Phone TEMO, DR SY [...] Unavailable Eliezer Plascencia MD Primary Care Provider [phone] Lizbet Justice MD Primary Care Provider [phone] AMADOU HOWARD Referring Unavailable LISHA PUGA Attending Unavailable JARAD ROSS Attending Unavailable AMADOU HOWARD Attending Unavailable NORA CEBALLOS Referring Unavailable JUSTICE, LIZBET Referring Unavailable JUSTICE, LIZBET [...] Referring Unavailable JUSTICE, LIZBET Primary Care Unavailable Allergies Allergy Classification Reported Allergen(s) Allergy Type Date of Onset Reaction(s) Facility (1 source) Fish derivative Drug allergy (disorder) 02-12-20 21 [facility] Repository (1 source) Iodine Drug Allergy [facility] Repository (1 source) Iodine (And Iodine Containting Drugs) Drug allergy (disorder) [facility] Repository (3 sources) Penicillins; Translations: [PENICILLINS] Drug allergy (disorder) 08-18-19 18 [facility] Repository (1 source) Sulfonamides (Antibiotic) Drug allergy (disorder) [facility] Repository (3 sources) Iodine Drug Allergy 01-21-20 24 [facility] (3 sources) Nitrofurantoin Drug Allergy 12-13-19 24 GI intolerance [facility] (3 sources) Penicillins Drug Intolerance 08-18-19 18 [facility] (4 sources) Sulfonamides (Antibiotic) Drug Intolerance 08-18-19 18 [facility] (6 sources) Iodinated Contrast Media; Translations: [IODINATED CONTRAST MEDIA] Drug Intolerance 05-21-19 19 [facility] (2 sources) NITROFURANTOIN, MACROCRYSTALS / Nitrofurantoin, Monohydrate; Translations: [NITROFURANTOIN MONOHYD/M-CRYST] Drug Allergy 12-13-19 24 GI Disturbance [facility] (1 source) Penicillins Propensity to adverse reactions to drug 08-18-19 [facility] (2 sources) Sulfonamides (Antibiotic); Translations: [SULFA (SULFONAMIDE ANTIBIOTICS)] Propensity to adverse reactions to drug (disorder) 08-18-19 [facility] Repository Medications Current Medications Medication Drug Class(es) Dates Sig (Normalized) Sig (Original) acetaminophen 500 mg oral tablet (4 sources) take 1 tablet by mouth every eight hours as needed for pain acetaminophen (TYLENOL) 500 mg tablet Take 1 tablet (500 mg total) by mouth every 8 (eight) hours as needed for pain. Active [id number] 200 actuat albuterol 0.09 mg/actuat metered dose inhaler (1 source) beta2-Adrenergic Agonist Start: 09-20-2022 albuterol (PROVENTIL HFA;VENTOLIN HFA) 90 mcg/actuation inhaler Inhale as needed. 09/20/2022 Active ARIPiprazole 5 mg oral tablet (5 sources) Atypical Antipsychotic Start: 03-15-2024 take 1 tablet by mouth at bedtime [...] 20 mg/ml oral solution (1 source) Uncompetitive P-tqtraw-R-aspartate Receptor Antagonist, Sigma-1 Agonist take 10 mL [...] of neck of left femur, initial encounter ([facility]) Take 1 capsule (100 mg total) by [...] mouth in the morning. 07/17/2023 Active nystatin 835065 unt/ml topical cream (2 sources) Polyene Antifungal [...] nausea or vomiting. 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] Onset: 08-09-2022 Chronic [...] Unclassified (1 source) Port/VAD Care Onset: 12-13-2023 Past or Other Problems Problem Classification Problem [...] Onset: 2 Episodic Other aftercare (1 source) long-term (current) use of anticoagulants; Translations: [MEDICAL OFFICE ASST CURRNT USE ANTICOAGULANTS] Onset: 2 Episodic Other aftercare (1 source) Other emt intermediate (current) drug therapy; Translations: [OTH SENIOR CARE CURRENT DRUG THERAPY] Onset: 2 Episodic Other [...] Reference Range Facility CBC AND AUTO DIFFon 04-14-20 24 ABSOLUTE BASOPHIL 0.1 X10E9/L Normal 0.0-0.2 [facility] Comment on above: Performed By: #### C BCA #### [facility] ([id number]) [address] [place] [address] 51821 ABSOLUTE NEUTROPHIL 4.0 X10E9/L Normal 1.5-6.6 [facility] Comment on above: Performed By: #### C BCA #### [facility] ([id number]) [address] [place] [address] 86726 Basophils/100 WBC (Bld) 0.9 % Normal [facility] Comment on above: Performed By: #### C BCA #### [facility] ([id number]) [address] [place] [address] 59586 Eosinophils (Bld) [#/Vol] 0.6 10*3/uL High 0.0-0.4 [facility] Comment on above: Performed By: #### C BCA #### [facility] ([id number]) [address] [place] [address] 52762 Eosinophils/100 WBC (Bld) 9.3 % Normal [facility] Comment on above: Performed By: #### C BCA #### [facility] ([id number]) [address] [place] [address] 71837 Erythrocyte distribution width (RBC) [Ratio] 14.3 % Normal 11.5-15.0 [facility] Comment on above: Performed By: #### C BCA #### [facility] ([id number]) [address] [place] [address] 66050 Hematocrit (Bld) [Volume fraction] 43.9 % Normal 35-47 [facility] Comment on above: Performed By: #### C BCA #### [facility] ([id number]) [address] [place] [address] 05525 Hemoglobin (Bld) [Mass/Vol] 14.7 g/dL Normal 11.7-15.5 [facility] Comment on above: Performed By: #### C BCA #### [facility] ([id number]) [address] [place] [address] 47050 Lymphocytes (Bld) [#/Vol] 1.4 10*3/uL Normal 1.0-3.5 [facility] Comment on above: Performed By: #### C BCA #### [facility] ([id number]) [address] [place] [address] 62359 Lymphocytes/100 WBC (Bld) 20.8 % Normal [facility] Comment on above: Performed By: #### C BCA #### [facility] ([id number]) [address] [place] [address] 75007 MCH (RBC) [Entitic mass] 30.4 pg Normal 27-34 [facility] Comment on above: Performed By: #### C BCA #### [facility] ([id number]) [address] [place] [address] 31102 MCHC (RBC) [Mass/Vol] 33.3 g/dL Normal 32-36 [facility] Comment on above: Performed By: #### C BCA #### [facility] ([id number]) [address] [place] [address] 25364 MCV (RBC) [Entitic vol] 91 fL Normal 80-100 [facility] Comment on above: Performed By: #### C BCA #### [facility] ([id number]) [address] [place] [address] 52194 Monocytes (Bld) [#/Vol] 0.6 10*3/uL Normal 0-0.9 [facility] Comment on above: Performed By: #### C BCA #### [facility] ([id number]) [address] [place] [address] 62355 Monocytes/100 WBC (Bld) 8.4 % Normal [facility] Comment on above: Performed By: #### C BCA #### [facility] ([id number]) [address] [place] [address] 21436 Neutrophils/100 WBC (Bld) 60.6 % Normal [facility] Comment on above: Performed By: #### C BCA #### [facility] ([id number]) [address] [place] [address] 37102 Platelet mean volume (Bld) [Entitic vol] 7.9 fL Normal 7-12 [facility] Comment on above: Performed By: #### C BCA #### [facility] ([id number]) [address] [place] [address] 84685 Platelets (Bld) [#/Vol] 268 10*3/uL Normal 150-450 [facility] Comment on above: Performed By: #### C BCA #### [facility] ([id number]) [address] [place] [address] 24735 RBC COUNT 4.83 X10E12/L Normal 3.80-5.20 [facility] Comment on above: Performed By: #### C BCA #### [facility] ([id number]) [address] [place] [address] 98322 WBC (Bld) [#/Vol] 6.6 10*3/uL Normal 4.0-11.0 [facility] Comment on above: Performed By: #### C BCA #### [facility] ([id number]) [address] [place] [address] 60838 Orders Onlyon 03-10-2024 Orders Only [id number] Willard Gavin 1945 Provider Department Center 03/10/2024 DAVE ORDONEZ JORY Leslie Family History Family history unknown: Yes Normal [facility] Office Visiton 02-28-2024 Follow-up visit [id number] Willard Gavin 1945 Date Provider [facility] Family History Family history unknown: Yes Level of Service:73786 AL OFFICE/OUTPATIENT NEW MODERATE MDM [address] [facility] CBC AND AUTO DIFFon 10-24-20 24 Eosinophils (Bld) [#/Vol] 0.7 10*3/uL High 0.0-0.4 [facility] Comment on above: Performed By: #### C BCA #### [facility] ([id number]) [address] [place] [address] 30834 Eosinophils/100 WBC (Bld) 10.2 % Normal [facility] Comment on above: Performed By: #### C BCA #### [facility] ([id number]) [address] [place] [address] 46341 Erythrocyte distribution width (RBC) [Ratio] 14.9 % Normal 11.5-15.0 [facility] Comment on above: Performed By: #### C BCA #### [facility] ([id number]) [address] [place] [address] 95480 Hematocrit (Bld) [Volume fraction] 41.5 % Normal 35-47 [facility] Comment on above: Performed By: #### C BCA #### [facility] ([id number]) [address] [place] [address] 99513 Hemoglobin (Bld) [Mass/Vol] 13.8 g/dL Normal 11.7-15.5 [facility] Comment on above: Performed By: #### C BCA #### [facility] ([id number]) [address] [place] [address] 17653 Lymphocytes (Bld) [#/Vol] 1.3 10*3/uL Normal 1.0-3.5 [facility] Comment on above: Performed By: #### C BCA #### [facility] ([id number]) [address] [place] [address] 24753 Lymphocytes/100 WBC (Bld) 19.9 % Normal [facility] Comment on above: Performed By: #### C BCA #### [facility] ([id number]) [address] [place] [address] 14178 MCH (RBC) [Entitic mass] 30.9 pg Normal 27-34 [facility] Comment on above: Performed By: #### C BCA #### [facility] ([id number]) [address] [place] [address] 25748 MCHC (RBC) [Mass/Vol] 33.3 g/dL Normal 32-36 [facility] Comment on above: Performed By: #### C BCA #### [facility] ([id number]) [address] [place] [address] 25377 MCV (RBC) [Entitic vol] 93 fL Normal 80-100 [facility] Comment on above: Performed By: #### C BCA #### [facility] ([id number]) [address] [place] [address] 41341 Monocytes (Bld) [#/Vol] 0.6 10*3/uL Normal 0-0.9 [facility] Comment on above: Performed By: #### C BCA #### [facility] ([id number]) [address] [place] [address] 25430 Monocytes/100 WBC (Bld) 8.4 % Normal [facility] Comment on above: Performed By: #### C BCA #### [facility] ([id number]) [address] [place] [address] 45988 Neutrophils/100 WBC (Bld) 60.5 % Normal [facility] Comment on above: Performed By: #### C BCA #### [facility] ([id number]) [address] [place] [address] 25905 Platelet mean volume (Bld) [Entitic vol] 7.6 fL Normal 7-[address] [facility] Comment on above: Performed By: #### C BCA #### [facility] ([id number]) [address] [place] [address] 26505 Platelets (Bld) [#/Vol] 342 10*3/uL Normal 150-450 [facility] Comment on above: Performed By: #### C BCA #### [facility] ([id number]) [address] [place] [address] 47643 ABSOLUTE BASOPHIL 0.1 X10E9/L Normal 0.0-0.2 [facility] Comment on above: Performed By: #### C BCA #### [facility] ([id number]) [address] [place] [address] 29933 ABSOLUTE NEUTROPHIL 4.0 X10E9/L Normal 1.5-6.6 [facility] Comment on above: Performed By: #### C BCA #### [facility] ([id number]) [address] [place] [address] 13120 Basophils/100 WBC (Bld) 1.0 % Normal [facility] Comment on above: Performed By: #### C BCA #### [facility] ([id number]) [address] [place] [address] 54921 RBC COUNT 4.47 X10E12/L Normal 3.80-5.20 [facility] Comment on above: Performed By: #### C BCA #### [facility] ([id number]) [address] [place] [address] 55933 WBC (Bld) [#/Vol] 6.6 10*3/uL Normal 4.0-11.0 [facility] Comment on above: Performed By: #### C BCA #### [facility] ([id number]) [address] [place] [address] 16505 CBC auto differentialon 01-15 Basophils (Bld) [#/Vol] 0.1 10*3/uL [facility] Basophils/100 WBC (Bld) 1 % [facility] Interpretation and review of laboratory results Abnormal [facility] Neutrophils (Bld) [#/Vol] 4 10*3/uL [facility] RBC (Bld) [#/Vol] 4.47 10*6/uL [facility] WBC corrected for nucl RBC Auto (Bld) [#/Vol] 6.6 [facility] CBC AND AUTO DIFFon 12-13-19 ABSOLUTE BASOPHIL 0.1 X10E9/L Normal 0.0-0.2 [facility] Comment on above: Performed By: #### C BCA #### [facility] ([id number]) [address] [place] [address] 54902 ABSOLUTE NEUTROPHIL 9.3 X10E9/L High 1.5-6.6 [facility] Comment on above: Performed By: #### C BCA #### [facility] ([id number]) [address] [place] [address] 33329 Basophils/100 WBC (Bld) 0.6 % Normal [facility] Comment on above: Performed By: #### C BCA #### [facility] ([id number]) [address] [place] [address] 99302 Eosinophils (Bld) [#/Vol] 0.8 10*3/uL High 0.0-0.4 [facility] Comment on above: Performed By: #### C BCA #### [facility] ([id number]) [address] [place] [address] 10249 Eosinophils/100 WBC (Bld) 6.2 % Normal [facility] Comment on above: Performed By: #### C BCA #### [facility] ([id number]) [address] [place] [address] 98478 Erythrocyte distribution width (RBC) [Ratio] 15.3 % High 11.5-15.0 [facility] Comment on above: Performed By: #### C BCA #### [facility] ([id number]) [address] [place] [address] 22187 Hematocrit (Bld) [Volume fraction] 46.4 % Normal 35-47 [facility] Comment on above: Performed By: #### C BCA #### [facility] ([id number]) [address] [place] [address] 26175 Hemoglobin (Bld) [Mass/Vol] 15.5 g/dL Normal 11.7-15.5 [facility] Comment on above: Performed By: #### C BCA #### [facility] ([id number]) [address] [place] [address] 17015 Lymphocytes (Bld) [#/Vol] 1.6 10*3/uL Normal 1.0-3.5 [facility] Comment on above: Performed By: #### C BCA #### [facility] ([id number]) [address] [place] [address] 18105 Lymphocytes/100 WBC (Bld) 12.8 % Normal [facility] Comment on above: Performed By: #### C BCA #### [facility] ([id number]) [address] [place] [address] 60864 MCH (RBC) [Entitic mass] 31.2 pg Normal 27-34 [facility] Comment on above: Performed By: #### C BCA #### [facility] ([id number]) [address] [place] [address] 70898 MCHC (RBC) [Mass/Vol] 33.4 g/dL Normal 32-36 [facility] Comment on above: Performed By: #### C BCA #### [facility] ([id number]) [address] [place] [address] 98886 MCV (RBC) [Entitic vol] 93 fL Normal 80-100 [facility] Comment on above: Performed By: #### C BCA #### [facility] ([id number]) [address] [place] [address] 42569 Monocytes (Bld) [#/Vol] 0.9 10*3/uL Normal 0-0.9 [facility] Comment on above: Performed By: #### C BCA #### [facility] ([id number]) [address] [place] [address] 64809 Monocytes/100 WBC (Bld) 7.4 % Normal [facility] Comment on above: Performed By: #### C BCA #### [facility] ([id number]) [address] [place] [address] 77347 Neutrophils/100 WBC (Bld) 73.0 % Normal [facility] Comment on above: Performed By: #### C BCA #### [facility] ([id number]) [address] [place] [address] 84823 Platelet mean volume (Bld) [Entitic vol] 7.7 fL Normal 7-12 [facility] Comment on above: Performed By: #### C BCA #### [facility] ([id number]) [address] [place] [address] 01405 Platelets (Bld) [#/Vol] 325 10*3/uL Normal 150-450 [facility] Comment on above: Performed By: #### C BCA #### [facility] ([id number]) [address] [place] [address] 56967 RBC COUNT 4.97 X10E12/L Normal 3.80-5.20 [facility] Comment on above: Performed By: #### C BCA #### [facility] ([id number]) [address] [place] [address] 40429 WBC (Bld) [#/Vol] 12.8 10*3/uL High 4.0-11.0 [facility] Comment on above: Performed By: #### C BCA #### [facility] ([id number]) [address] [place] [address] 49636 CBC AND AUTO DIFFon 10-11-19 24 ABSOLUTE BASOPHIL 0.1 X10E9/L Normal 0.0-0.2 [facility] Comment on above: Performed By: #### C BCA #### [facility] ([id number]) [address] [place] [address] 32862 ABSOLUTE NEUTROPHIL 6.3 X10E9/L Normal 1.5-6.6 [facility] Comment on above: Performed By: #### C BCA #### [facility] ([id number]) [address] [place] [address] 39010 Basophils/100 WBC (Bld) 1.0 % Normal [facility] Comment on above: Performed By: #### C BCA #### [facility] ([id number]) [address] [place] [address] 40550 Eosinophils (Bld) [#/Vol] 0.6 10*3/uL High 0.0-0.4 [facility] Comment on above: Performed By: #### C BCA #### [facility] ([id number]) [address] [place] [address] 78990 Eosinophils/100 WBC (Bld) 6.3 % Normal [facility] Comment on above: Performed By: #### C BCA #### [facility] ([id number]) [address] [place] [address] 45740 Erythrocyte distribution width (RBC) [Ratio] 14.7 % Normal 11.5-15.0 [facility] Comment on above: Performed By: #### C BCA #### [facility] ([id number]) [address] [place] [address] 61504 Hematocrit (Bld) [Volume fraction] 45.6 % Normal 35-47 [facility] Comment on above: Performed By: #### C BCA #### [facility] ([id number]) [address] [place] [address] 22774 Hemoglobin (Bld) [Mass/Vol] 15.8 g/dL High 11.7-15.5 [facility] Comment on above: Performed By: #### C BCA #### [facility] ([id number]) [address] [place] [address] 80665 Lymphocytes (Bld) [#/Vol] 1.4 10*3/uL Normal 1.0-3.5 [facility] Comment on above: Performed By: #### C BCA #### [facility] ([id number]) [address] [place] [address] 51973 Lymphocytes/100 WBC (Bld) 15.4 % Normal [facility] Comment on above: Performed By: #### C BCA #### [facility] ([id number]) [address] [place] [address] 49963 MCH (RBC) [Entitic mass] 31.2 pg Normal 27-34 [facility] Comment on above: Performed By: #### C BCA #### [facility] ([id number]) [address] [place] [address] 08564 MCHC (RBC) [Mass/Vol] 34.7 g/dL Normal 32-36 [facility] Comment on above: Performed By: #### C BCA #### [facility] ([id number]) [address] [place] [address] 04642 MCV (RBC) [Entitic vol] 90 fL Normal 80-100 [facility] Comment on above: Performed By: #### C BCA #### [facility] ([id number]) [address] [place] [address] 87942 Monocytes (Bld) [#/Vol] 0.7 10*3/uL Normal 0-0.9 [facility] Comment on above: Performed By: #### C BCA #### [facility] ([id number]) [address] [place] [address] 40692 Monocytes/100 WBC (Bld) 8.0 % Normal [facility] Comment on above: Performed By: #### C BCA #### [facility] ([id number]) [address] [place] [address] 33480 Neutrophils/100 WBC (Bld) 69.3 % Normal [facility] Comment on above: Performed By: #### C BCA #### [facility] ([id number]) [address] [place] [address] 93097 Platelet mean volume (Bld) [Entitic vol] 7.9 fL Normal 7-12 [facility] Comment on above: Performed By: #### C BCA #### [facility] ([id number]) [address] [place] [address] 48883 Platelets (Bld) [#/Vol] 274 10*3/uL Normal 150-450 [facility] Comment on above: Performed By: #### C BCA #### [facility] ([id number]) [address] [place] [address] 46900 RBC COUNT 5.06 X10E12/L Normal 3.80-5.20 [facility] Comment on above: Performed By: #### C BCA #### [facility] ([id number]) [address] [place] [address] 54525 WBC (Bld) [#/Vol] 9.1 10*3/uL Normal 4.0-11.0 [facility] Comment on above: Performed By: #### C BCA #### [facility] ([id number]) [address] [place] [address] 72956 Follow-Upon 09-17-2023 Follow-Up [id number] Willard Gavin 1945 F Date Provider Department Center 09/17/2023 JARAD ZHU MP ORTHO MPORTHO Family History Family history unknown: Yes Level of Service:93335 [place] OFFICE/OUTPATIENT ESTABLISHED HIGH MDM 40 MIN Reason for Visit and Comments: Follow-up [728068] - ongoing right knee pain for multiple [...] injections failed to relieve her pain Normal [facility] CBC AND AUTO DIFFon 08-09-19 ABSOLUTE BASOPHIL 0.1 X10E9/L Normal 0.0-0.2 [facility] Comment on above: Performed By: #### C BCA #### [facility] ([id number]) [address] [place] [address] 91995 ABSOLUTE NEUTROPHIL 5.2 X10E9/L Normal 1.5-6.6 [facility] Comment on above: Performed By: #### C BCA #### [facility] ([id number]) [address] [place] [address] [phone] Basophils/100 WBC (Bld) 1.2 % Normal [facility] Comment on above: Performed By: #### C BCA #### [facility] ([id number]) [address] [place] [address] [id number] Eosinophils (Bld) [#/Vol] 0.5 10*3/uL High 0.0-0.4 [facility] Comment on above: Performed By: #### C BCA #### [facility] ([id number]) [address] [place] [address] 48055 Eosinophils/100 WBC (Bld) 6.7 % Normal [facility] Comment on above: Performed By: #### C BCA #### [facility] ([id number]) [address] [place] [address] [id number] Erythrocyte distribution width (RBC) [Ratio] 14.6 % Normal 11.5-15.0 [facility] Comment on above: Performed By: #### C BCA #### [facility] ([id number]) [address] [place] [address] [id number] Hematocrit (Bld) [Volume fraction] 41.1 % Normal 35-47 [facility] Comment on above: Performed By: #### C BCA #### [facility] ([id number]) [address] [place] [address] [phone] Hemoglobin (Bld) [Mass/Vol] 14.1 g/dL Normal 11.7-15.5 [facility] Comment on above: Performed By: #### C BCA #### [facility] ([id number]) [address] [place] [address] [phone] Lymphocytes (Bld) [#/Vol] 1.5 10*3/uL Normal 1.0-3.5 [facility] Comment on above: Performed By: #### C BCA #### [facility] ([id number]) [address] [place] [address] [phone] Lymphocytes/100 WBC (Bld) 19.1 % Normal [facility] Comment on above: Performed By: #### C BCA #### [facility] ([id number]) [address] [place] [address] [phone] MCH (RBC) [Entitic mass] 30.9 pg Normal 27-34 [facility] Comment on above: Performed By: #### C BCA #### [facility] ([id number]) [address] [place] [address] 69182 MCHC (RBC) [Mass/Vol] 34.2 g/dL Normal 32-36 [facility] Comment on above: Performed By: #### C BCA #### [facility] ([id number]) [address] [place] [address] 23411 MCV (RBC) [Entitic vol] 90 fL Normal 80-100 [facility] Comment on above: Performed By: #### C BCA #### [facility] ([id number]) [address] [place] [address] 82674 Monocytes (Bld) [#/Vol] 0.6 10*3/uL Normal 0-0.9 [facility] Comment on above: Performed By: #### C BCA #### [facility] ([id number]) [address] [place] [address] 66599 Monocytes/100 WBC (Bld) 7.5 % Normal [facility] Comment on above: Performed By: #### C BCA #### [facility] ([id number]) [address] [place] [address] 33496 Neutrophils/100 WBC (Bld) 65.5 % Normal [facility] Comment on above: Performed By: #### C BCA #### [facility] ([id number]) [address] [place] [address] 12017 Platelet mean volume (Bld) [Entitic vol] 7.9 fL Normal 7-12 [facility] Comment on above: Performed By: #### C BCA #### [facility] ([id number]) [address] [place] [address] 24417 Platelets (Bld) [#/Vol] 277 10*3/uL Normal 150-450 [facility] Comment on above: Performed By: #### C BCA #### [facility] ([id number]) [address] [place] [address] 08078 RBC COUNT 4.55 X10E12/L Normal 3.80-5.20 [facility] Comment on above: Performed By: #### C BCA #### [facility] ([id number]) [address] [place] [address] 77689 WBC (Bld) [#/Vol] 8.0 10*3/uL Normal 4.0-11.0 [facility] Comment on above: Performed By: #### C BCA #### [facility] ([id number]) [address] [place] [address] 46987 Office Visiton 07-19-2023 Follow-up visit [id number] Willard Gavin 1945 F Date Provider Department Center 07/19/2023 AMADOU ALFARO MP ORTHO MPORTHO Family History Family history unknown: Yes Level of Service:73385 AL OFFICE/OUTPATIENT NEW LOW MDM 30 MINUTES Reason for Visit and Comments: Pain [136] Normal [facility] CBC AND AUTO DIFFon 06-11-19 ABSOLUTE BASOPHIL 0.0 X10E9/L Normal 0.0-0.2 [facility] Comment on above: Performed By: #### C BCA #### [facility] ([id number]) [address] [place] [address] 01928 ABSOLUTE NEUTROPHIL 5.1 X10E9/L Normal 1.5-6.6 [facility] Comment on above: Performed By: #### C BCA #### [facility] ([id number]) [address] [place] [address] 37735 Basophils/100 WBC (Bld) 0.2 % Normal [facility] Comment on above: Performed By: #### C BCA #### [facility] ([id number]) [address] [place] [address] 24327 Eosinophils (Bld) [#/Vol] 0.5 10*3/uL High 0.0-0.4 [facility] Comment on above: Performed By: #### C BCA #### [facility] ([id number]) [address] [place] [address] 57940 Eosinophils/100 WBC (Bld) 6.9 % Normal [facility] Comment on above: Performed By: #### C BCA #### [facility] ([id number]) [address] [place] [address] 72032 Erythrocyte distribution width (RBC) [Ratio] 14.2 % Normal 11.5-15.0 [facility] Comment on above: Performed By: #### C BCA #### [facility] ([id number]) [address] [place] [address] 33122 Hematocrit (Bld) [Volume fraction] 40.8 % Normal 35-47 [facility] Comment on above: Performed By: #### C BCA #### [facility] ([id number]) [address] [place] [address] 42283 Hemoglobin (Bld) [Mass/Vol] 14.0 g/dL Normal 11.7-15.5 [facility] Comment on above: Performed By: #### C BCA #### [facility] ([id number]) [address] [place] [address] 81996 Lymphocytes (Bld) [#/Vol] 1.2 10*3/uL Normal 1.0-3.5 [facility] Comment on above: Performed By: #### C BCA #### [facility] ([id number]) [address] [place] [address] 81543 Lymphocytes/100 WBC (Bld) 16.5 % Normal [facility] Comment on above: Performed By: #### C BCA #### [facility] ([id number]) [address] [place] [address] 16052 MCH (RBC) [Entitic mass] 31.2 pg Normal 27-34 [facility] Comment on above: Performed By: #### C BCA #### [facility] ([id number]) [address] [place] [address] 07306 MCHC (RBC) [Mass/Vol] 34.3 g/dL Normal 32-36 [facility] Comment on above: Performed By: #### C BCA #### [facility] ([id number]) [address] [place] [address] 26075 MCV (RBC) [Entitic vol] 91 fL Normal 80-100 [facility] Comment on above: Performed By: #### C BCA #### [facility] ([id number]) [address] [place] [address] 06965 Monocytes (Bld) [#/Vol] 0.6 10*3/uL Normal 0-0.9 [facility] Comment on above: Performed By: #### C BCA #### [facility] ([id number]) [address] [place] [address] 94675 Monocytes/100 WBC (Bld) 8.0 % Normal [facility] Comment on above: Performed By: #### C BCA #### [facility] ([id number]) [address] [place] [address] 12201 Neutrophils/100 WBC (Bld) 68.4 % Normal [facility] Comment on above: Performed By: #### C BCA #### [facility] ([id number]) [address] [place] [address] 05710 Platelet mean volume (Bld) [Entitic vol] 8.3 fL Normal 7-12 [facility] Comment on above: Performed By: #### C BCA #### [facility] ([id number]) [address] [place] [address] 72043 Platelets (Bld) [#/Vol] 258 10*3/uL Normal 150-450 [facility] Comment on above: Performed By: #### C BCA #### [facility] ([id number]) [address] [place] [address] 67465 RBC COUNT 4.49 X10E12/L Normal 3.80-5.20 [facility] Comment on above: Performed By: #### C BCA #### [facility] ([id number]) [address] [place] [address], [place] [address] WBC (Bld) [#/Vol] 7.4 10*3/uL Normal 4.0-11.0 [facility] Comment on above: Performed By: #### C BCA #### [facility] ([id number]) [address] [place] [address] 08621 BNPon 08-07-2022 Natriuretic peptide B (Bld) [Mass/Vol] 124.0 pg/mL Normal <=1,800.0 [facility] Comment on above: Performed By: #### T SH, BNP, CREA, ELEC, BUN ####[facility] [address] [place], [place] [address]Dr. Miranda Duffy BUNon 08-07-2022 Urea nitrogen [Mass/Vol] 13.0 mg/dL Normal 7.0-18.0 [facility] Comment on above: Performed By: #### T SH, BNP, CREA, ELEC, BUN ####[facility] [address] [place], [place] [address]Dr. Miranda [facility] CREATININEon 08-07-2022 Creatinine [Mass/Vol] 0.60 mg/dL Normal 0.55-1.02 [facility] Comment on above: Performed By: #### T SH, BNP, CREA, ELEC, BUN ####[facility] [address] [place], [place] [address]Dr. [facility] EGFR-AF FILIPINO >60 Normal >=60 [facility] Comment on above: Performed By: #### T SH, BNP, CREA, ELEC, BUN ####[facility] [address] [place], [place] [address]Dr. [facility] EGFR-NON AF FILIPINO >60 Normal >=60 [facility] Comment on above: Performed By: #### T SH, BNP, CREA, ELEC, BUN ####[facility] [address] [place], [place] [address]Dr. Miranda [facility] ELECTROLYTESon 08-07-2022 Anion gap [Moles/Vol] 14.0 mmol/L Normal [facility] Comment on above: Performed By: #### T SH, BNP, CREA, ELEC, BUN ####[facility] [address] [address]Dr. Miranda Duffy Chloride [Moles/Vol] 106 mmol/L Normal 98-107 [facility] Comment on above: Performed By: #### T SH, BNP, CREA, ELEC, BUN ####[facility] [address] [address]Dr. Miranda Duffy CO2 [Moles/Vol] 28.3 mmol/L Normal 21.0-32.0 [facility] Comment on above: Performed By: #### T SH, BNP, CREA, ELEC, BUN ####[facility] [address] [address]Dr. Miranda Duffy Potassium [Moles/Vol] 4.3 mmol/L Normal 3.5-5.1 [facility] Comment on above: Performed By: #### T SH, BNP, CREA, ELEC, BUN ####[facility] [address] [address]Dr. Miranda Duffy Sodium [Moles/Vol] 144 mmol/L Normal 136-145 [facility] Comment on above: Performed By: #### T SH, BNP, CREA, ELEC, BUN ####[facility] [address] [address]Dr. Miranda Duffy TSHon 08-07-2022 TSH 3.287 uIU/mL Normal 0.358-3.740 [facility] Comment on above: Performed By: #### T SH, BNP, CREA, ELEC, BUN ####[facility] [address] [address]Dr. Miranda Duffy BNPon 08-04-2022 Natriuretic peptide B (Bld) [Mass/Vol] 70.0 pg/mL Normal <=1,800.0 [facility] Comment on above: Performed By: #### B VEHICLE MECHANIC, BMP #### [facility] Laboratory [address] [address] [address] Miranda Duffy CBC AUTO DIFFon 08-04-2022 BASO # 0.1 103/ul Normal 0.0-0.1 [facility] Comment on above: Performed By: #### C BC #### [facility] Laboratory [address] [place] [address] Dr. Miranda Duffy Basophils/100 WBC (Bld) 0.9 % Normal 0.2-2.0 [facility] Comment on above: Performed By: #### C BC #### [facility] Laboratory [address] [address] [address] Miranda Duffy EO # 0.5 103/ul Normal 0.0-0.7 [facility] Comment on above: Performed By: #### C BC #### [facility] Laboratory [address] [place] [address] Dr. Miranda Duffy Eosinophils/100 WBC (Bld) 9.0 % Critically high 0.9-7.0 [facility] Comment on above: Performed By: #### C BC #### [facility] Laboratory [address] [place] [address] Dr. Miranda Duffy Erythrocyte distribution width (RBC) [Ratio] 15.0 % Normal 11.0-15.0 [facility] Comment on above: Performed By: #### C BC #### [facility] Laboratory [address] [place] [address] Dr. Miranda Duffy Hematocrit (Bld) [Volume fraction] 34.2 % Critically low 36.0-48.0 [facility] Comment on above: Performed By: #### C BC #### [facility] Laboratory [address] [place] [address] Dr. Miranda Duffy Hemoglobin (Bld) [Mass/Vol] 10.9 g/dL Critically low 12.0-16.0 [facility] Comment on above: Performed By: #### C BC #### [facility] Laboratory [address] [place] [address] Dr. Miranda Duffy IG # 0.04 10e3/ul Critically high 0.00-0.03 [facility] Comment on above: Performed By: #### C BC #### [facility] Laboratory [address] [place] [address] Dr. Miranda Duffy IG % 0.7 % Critically high 0.0-0.5 [facility] Comment on above: Performed By: #### C BC #### [facility] Laboratory [address] [place] [address] Dr. Miranda Duffy LYMPH # 1.1 103/ul Critically low 1.2-3.8 [facility] Comment on above: Performed By: #### C BC #### [facility] Laboratory [address] [place] [address] Dr. Miranda Duffy Lymphocytes/100 WBC (Bld) 20.1 % Critically low 20.5-60.0 [facility] Comment on above: Performed By: #### C BC #### [facility] Laboratory [address] [place] [address] Dr. Miranda Duffy MANUAL DIFF REQ NO Normal [facility] Comment on above: Performed By: #### C BC #### [facility] [address] [place] [address] Dr. Miranda Duffy MCH (RBC) [Entitic mass] 30.4 pg Normal 26.7-34.0 [facility] Comment on above: Performed By: #### C BC #### [facility] [address] [place] [address] Dr. Miranda Duffy MCHC (RBC) [Mass/Vol] 31.9 g/dL Normal 29.9-35.2 [facility] Comment on above: Performed By: #### C BC #### [facility] [address] [place] [address] Dr. Miranda Duffy MCV (RBC) [Entitic vol] 95.3 fL Normal 81.0-99.0 [facility] Comment on above: Performed By: #### C BC #### [facility] Laboratory [address] [place] [address] Dr. Miranda Duffy MONO # 0.5 103/ul Normal 0.3-0.8 [facility] Comment on above: Performed By: #### C BC #### [facility] Laboratory [address] [place] [address] Dr. Miranda Duffy Monocytes/100 WBC (Bld) 7.9 % Normal 1.7-12.0 [facility] Comment on above: Performed By: #### C BC #### [facility] Laboratory [address] [address] [address] Miranda Duffy NEUT # 3.5 103/ul Normal 1.4-6.5 [facility] Comment on above: Performed By: #### C BC #### [facility] Laboratory [address] [address] [address] Miranda Duffy Neutrophils/100 WBC (Bld) 61.4 % Normal 43.0-75.0 [facility] Comment on above: Performed By: #### C BC #### [facility] Laboratory [address] [place] [address] Dr. Miranda Duffy Platelet mean volume (Bld) [Entitic vol] 8.7 fL Critically low 9.5-13.5 [facility] Comment on above: Performed By: #### C BC #### [facility] [address] [address] [address] Miranda Duffy PLT 433 103/ul Normal 150-450 [facility] Comment on above: Performed By: #### C BC #### [facility] Laboratory [address] [place] [address] Dr. Miranda Duffy RBC 3.59 106/ul Critically low 4.20-5.40 [facility] Comment on above: Performed By: #### C BC #### [facility] Laboratory [address] [place] [address] Dr. Miranda Duffy WBC 5.7 103/ul Normal 4.0-11.0 [facility] Comment on above: Performed By: #### C BC #### [facility] Laboratory [address] [address] [address] Miranda Duffy GLYCOHEMOGLOBIN A1Con 2022 ADA RECOMMENDATION SEE BELOW Normal [facility] Comment on above: Result Comment: ADA RECOMMENDED LIMIT 4.0 - 6.0 ADA THERAPEUTIC TARGET < 7.0 ACTION SUGGESTED > 7.0 Performed By: #### A 1C ####[facility] [address] [address]Dr. Miranda Duffy Glucose [Mass/Vol] 100 mg/dL Normal [facility] Comment on above: Performed By: #### A 1C ####[facility] [address] [address]Dr. Miranda Duffy HbA1c (Bld) [Mass fraction] 5.1 % Normal 4.5-6.2 [facility] Comment on above: Performed By: #### A 1C ####[facility] [address] [address]Dr. Miranda Duffy PROF CHEM 8 (BAS METB)on Anion gap [Moles/Vol] 7.0 mmol/L Normal [facility] Comment on above: Performed By: #### B VEHICLE MECHANIC, BMP #### [facility] Laboratory [address] [address] [address] Miranda Duffy Calcium [Mass/Vol] 8.4 mg/dL Critically low 8.5-10.1 [facility] Comment on above: Performed By: #### B VEHICLE MECHANIC, BMP #### [facility] Laboratory [address] [address] [address] Miranda Duffy Chloride [Moles/Vol] 107 mmol/L Normal 98-107 [facility] Comment on above: Performed By: #### B VEHICLE MECHANIC, BMP #### [facility] Laboratory [address] [address] [address] Miranda Duffy CO2 [Moles/Vol] 30.5 mmol/L Normal 21.0-32.0 [facility] Comment on above: Performed By: #### B VEHICLE MECHANIC, BMP #### [facility] Laboratory [address] [address] [address] Miranda Duffy Creatinine [Mass/Vol] 0.59 mg/dL Normal 0.55-1.02 [facility] Comment on above: Performed By: #### B VEHICLE MECHANIC, BMP #### [facility] Laboratory [address] [address] [address] Miranda Duffy EGFR-AF FILIPINO >60 Normal >=60 [facility] Comment on above: Performed By: #### B VEHICLE MECHANIC, BMP #### [facility] Laboratory [address] [place] [address] Dr. Miranda Duffy EGFR-NON AF FILIPINO >60 Normal >=60 [facility] Comment on above: Performed By: #### B VEHICLE MECHANIC, BMP #### [facility] Laboratory [address] [address] [address] Miranda Duffy Glucose [Mass/Vol] 85 mg/dL Normal 74-106 [facility] Comment on above: Performed By: #### B VEHICLE MECHANIC, BMP #### [facility] Laboratory [address] [address] [address] Miranda Duffy Potassium [Moles/Vol] 3.5 mmol/L Normal 3.5-5.1 [facility] Comment on above: Performed By: #### B VEHICLE MECHANIC, BMP #### [facility] Laboratory [address] [place] [address] Dr. Miranda Duffy Sodium [Moles/Vol] 141 mmol/L Normal 136-145 [facility] Comment on above: Performed By: #### B VEHICLE MECHANIC, BMP #### [facility] Laboratory [address] [place] [address] Dr. Miranda Duffy Urea nitrogen [Mass/Vol] 17.0 mg/dL Normal 7.0-18.0 [facility] Comment on above: Performed By: #### B VEHICLE MECHANIC, BMP #### [facility] Laboratory [address] [place] [address] Dr. Miranda Duffy Urea nitrogen/Creatinine [Mass ratio] 28.8 mg/mg Normal [facility] Comment on above: Performed By: #### B VEHICLE MECHANIC, BMP #### [facility] Laboratory [address] [place] [address] Dr. Miranda Duffy UA (CLEAN/CATCH) EXECUTIVE CHAIRMAN/MICRO I F IND.on 08-04-2022 Bilirubin Ql (U) Negative Normal NEGATIVE [facility] Comment on above: Performed By: #### U ACSIND #### [facility] Laboratory [address] [place] [address] Dr. Miranda Duffy Clarity (U) SL CLOUDY Abnormal CLEAR [facility] Comment on above: Performed By: #### U ACSIND #### [facility] Laboratory [address] [place] [address] Dr. Miranda Duffy Color (U) YELLOW Normal YELLOW [facility] Comment on above: Performed By: #### U ACSIND #### [facility] Laboratory [address] [address] [address] Miranda Duffy Glucose Ql (U) Negative Normal NEGATIVE [facility] Comment on above: Performed By: #### U ACSIND #### [facility] [address] [address] [address] Miranda Duffy Hemoglobin Ql (U) Negative Normal NEGATIVE [facility] Comment on above: Performed By: #### U ACSIND #### [facility] [address] [address] [address] Miranda Duffy Ketones Ql (U) Negative Normal NEGATIVE [facility] Comment on above: Performed By: #### U ACSIND #### [facility] Laboratory [address] [place] [address] Dr. Miranda Duffy LEUKOCYTES Negative Normal NEGATIVE [facility] Comment on above: Performed By: #### U ACSIND #### [facility] Laboratory [address] [address] [address] Miranda Duffy Nitrite Ql (U) Negative Normal NEGATIVE [facility] Comment on above: Performed By: #### U ACSIND #### [facility] [address] [address] [address] Miranda Duffy pH (U) 5.5 [pH] Normal 5-9 [facility] Comment on above: Performed By: #### U ACSIND #### [facility] Laboratory [address] [address] [address] Miranda Duffy SPEC GRAVITY 1.030 Abnormal 1.005-<=1.025 [facility] Comment on above: Performed By: #### U ACSIND #### [facility] [address] [address] [address] Miranda Duffy UA PROTEIN Negative Normal NEGATIVE/ TRACE [facility] Comment on above: Performed By: #### U ACSIND #### [facility] Laboratory [address] [address] [address] Miranda Duffy UR MICRO IND NOT INDICATED Normal [facility] Comment on above: Performed By: #### U ACSIND #### [facility] [address] [address] [address] Miranda Duffy Urobilinogen Qn (U) 0.2 {Alondra'U}/dL Normal 0.2 - 1. 0 [facility] Comment on above: Performed By: #### U ACSIND #### [facility] Laboratory [address] [address] [address] Miranda Duffy CULTURE URINEon 04-07-2022 CULTURE [...] Trimethoprim/Sulfamet hoxazole <=20 S F Normal [facility] Comment on above: Performed By: #### U RCX ####[facility] [address] [address]Dr. Miranda Duffy CARDIAC TUTU 3-6on 2 CK [Catalytic activity/Vol] 134 U/L Normal 26-192 [facility] Comment on above: Performed By: #### C MREP #### [facility] Laboratory [address] [address] [address] Miranda Duffy CK.MB [Mass/Vol] 3.51 ng/mL Normal <=3.60 [facility] Comment on above: Performed By: #### C MREP #### [facility] [address] [address] [address] Miranda Duffy HSTROP 7.8 pg/mL Normal 4.0-51.3 [facility] Comment on above: Result Comment: CUT- OFF POINTS HAVE BEEN ESTABLISHED BASED ON THE FOURTH UNIVERSAL DEFINITIONS OF MYOCARDIAL INFARCTION. THE UPPER REFERENCE LIMIT (URL) OF TROPONIN, DEFINED THE 99TH PERCENTILE OF cTnI DISTRIBUTION IN A REFERENCE POPULATION, HAS BEEN CONFIRMED THE DECISION THRESHOLD FOR MA DIAGNOSIS. Performed By: #### C BRIP #### [facility] Laboratory [address] [place] [address] Dr. Miranda Duffy CARDIAC TUTU ADMITon 022 CK [Catalytic activity/Vol] 90 U/L Normal 26-192 [facility] Comment on above: Performed By: #### B DUSTIN ERICKSON #### [facility] Laboratory [address] [address] [address] Miranda Duffy CK.MB [Mass/Vol] 1.95 ng/mL Normal <=3.60 [facility] Comment on above: Performed By: #### DUSTIN Velazco MP #### [facility] Laboratory [address] [place] [address] Dr. Miranda Duffy HSTROP 7.7 pg/mL Normal 4.0-51.3 [facility] Comment on above: Result Comment: CUT- OFF POINTS HAVE BEEN ESTABLISHED BASED ON THE FOURTH UNIVERSAL DEFINITIONS OF MYOCARDIAL INFARCTION. THE UPPER REFERENCE LIMIT (URL) OF TROPONIN, DEFINED THE 99TH PERCENTILE OF cTnI DISTRIBUTION IN A REFERENCE POPULATION, HAS BEEN CONFIRMED THE DECISION THRESHOLD FOR MA DIAGNOSIS. Performed By: #### DUSTIN Velazco MP #### [facility] Laboratory [address] [place] [address] Dr. Miranda Duffy SHELBY 426 ng/mL Critically high 9-82 [facility] Comment on above: Performed By: #### B DUSTIN ERICKSON #### [facility] Laboratory [address] [place] [address] Dr. Miranda Duffy CBC AUTO DIFFon 04-05-2022 BASO # 0.1 103/ul Normal 0.0-0.1 [facility] Comment on above: Performed By: #### C BC ####[facility] [address] [place] [address]Dr. Miranda Duffy Basophils/100 WBC (Bld) 0.7 % Normal 0.2-2.0 [facility] Comment on above: Performed By: #### C BC ####[facility] [address] [place] [phone]. Miranda Duffy EO # 0.7 103/ul Normal 0.0-0.7 [facility] Comment on above: Performed By: #### C BC ####[facility] [address] [place] [phone]. Miranda Duffy Eosinophils/100 WBC (Bld) 6.3 % Normal 0.9-7.0 [facility] Comment on above: Performed By: #### C BC ####[facility] [address] [place], [place] [address]Dr. Miranda Duffy Erythrocyte distribution width (RBC) [Ratio] 14.4 % Normal 11.0-15.0 [facility] Comment on above: Performed By: #### C BC ####[facility] H[address] [place], [place] [address]Dr. Miranda Duffy Hematocrit (Bld) [Volume fraction] 43.7 % Normal 36.0-48.0 The [facility] Comment on above: Performed By: #### C BC ####[facility] [address] [place], [place] [address]Dr. Miranda Duffy Hemoglobin (Bld) [Mass/Vol] 14.8 g/dL Normal 12.0-16.0 [facility] Comment on above: Performed By: #### C BC ####[facility] [address] [place], [place] [address]Dr. Miranda Duffy IG # 0.06 10e3/ul Critically high 0.00-0.03 [facility] Comment on above: Performed By: #### C BC ####[facility] [address] [place], [place] [address]Dr. Miranda Duffy IG % 0.5 % Normal 0.0-0.5 [facility] Comment on above: Performed By: #### C BC ####[facility] [address] [place], [place] [address]Dr. Miranda Duffy LYMPH # 1.7 103/ul Normal 1.2-3.8 The [facility] Comment on above: Performed By: #### C BC ####[facility] [address] [place] [phone]. Miranda Duffy Lymphocytes/100 WBC (Bld) 14.7 % Critically low 20.5-60.0 [facility] Comment on above: Performed By: #### C BC ####[facility] [address] [place] [phone]. Cherellealex Duffy MANUAL DIFF REQ NO Normal [facility] Comment on above: Performed By: #### C BC ####[facility] [address] [place] [phone]. Miranda Clive MCH (RBC) [Entitic mass] 31.1 pg Normal 26.7-34.0 [facility] Comment on above: Performed By: #### C BC ####[facility] [address] [place], [place] [address]Dr. Miranda Clive MCHC (RBC) [Mass/Vol] 33.9 g/dL Normal 29.9-35.2 [facility] Comment on above: Performed By: #### C BC ####[facility] [address] [place] [address]Dr. Miranda Clive MCV (RBC) [Entitic vol] 91.8 fL Normal 81.0-99.0 [facility] Comment on above: Performed By: #### C BC ####[facility] [address] [place] [address]Dr. Cherellealex Clive MONO # 0.9 103/ul Critically high 0.3-0.8 [facility] Comment on above: Performed By: #### C BC ####[facility] [address] [place], [place] [phone]. Cherellealex Duffy Monocytes/100 WBC (Bld) 8.2 % Normal 1.7-12.0 [facility] Comment on above: Performed By: #### C BC ####[facility] [address] [place], [place] [address]Dr. Miranda Duffy NEUT # 7.8 103/ul Critically high 1.4-6.5 [facility] Comment on above: Performed By: #### C BC ####[facility] [address] [place], [place] [address]Pb. Miranda Duffy Neutrophils/100 WBC (Bld) 69.6 % Normal 43.0-75.0 [facility] Comment on above: Performed By: #### C BC ####[facility] [address] [place], [place] [address]Ys. Miranda Duffy Platelet mean volume (Bld) [Entitic vol] 9.0 fL Critically low 9.5-13.5 [facility] Comment on above: Performed By: #### C BC ####[facility] [address] [place], [place] [address]Ci. Miranda Duffy PLT 248 103/ul Normal 150-450 [facility] Comment on above: Performed By: #### C BC ####[facility] [address] [place], [place] [address]Yf. Miranda Duffy RBC 4.76 106/ul Normal 4.20-5.40 [facility] Comment on above: Performed By: #### C BC ####[facility] [address] [place], [place] [address]Rb. Miranda Duffy WBC 11.2 103/ul Critically high 4.0-11.0 [facility] Comment on above: Performed By: #### C BC ####[facility] [address] [place], [place] [address]No. Miranda Duffy CT CSPINE WO CONon CT [...] DAVID ALONSO Date: 2022-04-05 01:16 Normal [facility] CT FACIAL BONES WO HETALon CT FACIAL BONES WO CON INDICATION: 77 [...] HARVEY BERG Date: 2022-04-04 23:53 Normal [facility] ER URINE PROFILEon 2 Bilirubin Ql (U) Negative Normal NEGATIVE [facility] Comment on above: Performed By: #### Patel AGUILA SUJEYRO ####[facility] [address] [place] [address]Dr. Miranda Duffy Clarity (U) CLEAR Normal CLEAR [facility] Comment on above: Performed By: #### ANANT GREGGRO ####[facility] [address] [place] [phone]. Miranda Duffy Color (U) LT. YELLOW Normal YELLOW [facility] Comment on above: Performed By: #### Patel AGUILA UMSUJEYRO ####[facility] [address] [place] [phone]. Miranda Duffy ERUAHD A micrscopic examination will be performed if indicated. Normal [facility] Comment on above: Performed By: #### ANANT GREGGRO ####[facility] [address] [place] [phone]. Miranda Duffy Glucose Ql (U) Negative Normal NEGATIVE [facility] [place] [facility] Comment on above: Performed By: #### LEIGHA GREGG ####[facility] [address] [place] [address]Dr. Miranda Duffy Hemoglobin Ql (U) Negative Normal NEGATIVE [facility] Comment on above: Performed By: #### ANANT GREGGRO ####[facility] [address] [place] [address]Dr. Miranda Duffy Ketones Ql (U) 15 mg/dl Abnormal NEGATIVE [facility] [place] [facility] Comment on above: Performed By: #### ANANT GREGGRO ####[facility] Kr[address] [place], [place] [address]Dr. Miranda Duffy LEUKOCYTES SMALL Abnormal NEGATIVE [facility] Comment on above: Performed By: #### ANANT GREGGRO ####[facility] R[address] [place], [place] [address]Dr. Miranda Duffy Nitrite Ql (U) Positive Abnormal NEGATIVE [facility] [place] [facility] Comment on above: Performed By: #### LEIGHA GREGG ####[facility] [address] [place], [place] [address]Dr. Miranda Duffy pH (U) 5.5 [pH] Normal 5-9 [facility] Comment on above: Performed By: #### LEIGHA GREGG ####[facility] [address] [place], [place] [address]Dr. Miranda Duffy SPEC GRAVITY 1.015 Normal 1.005-<=1.025 [facility] Comment on above: Performed By: #### LEIGHA GREGG ####[facility] [address] [place], [place] [address]Dr. Miranda Duffy UA PROTEIN Negative Normal NEGATIVE/ TRACE [facility] Comment on above: Performed By: #### ANANT GREGGRO ####[facility] A[address] [place], [place] [address]Dr. Miranda Duffy UR MICRO IND INDICATED Normal [facility] Comment on above: Performed By: #### ANANT GREGGRO ####[facility] [address] [place], [place] [address]DrLadan Duffy Urobilinogen Qn (U) 1.0 {Alondra'U}/dL Normal 0.2 - 1. 0 [facility] Comment on above: Performed By: #### E LEIGHA AGUILA ####[facility] [address] [place] [phone]. Miranda Duffy PROF CHEM 8 (BAS METB)on Anion gap [Moles/Vol] 8.2 mmol/L Normal [facility] Comment on above: Performed By: #### B GEORGINA, CMADM #### [facility] Laboratory [address] [address] [address] Miranda Duffy Calcium [Mass/Vol] 9.2 mg/dL Normal 8.5-10.1 [facility] Comment on above: Performed By: #### B GEORGINA, CMADM #### [facility] Laboratory [address] [address] [address] Miranda Duffy Chloride [Moles/Vol] 103 mmol/L Normal 98-107 [facility] Comment on above: Performed By: #### B GEORGINA, CMADM #### [facility] Laboratory [address] [address] [address] Miranda Duffy CO2 [Moles/Vol] 30.7 mmol/L Normal 21.0-32.0 [facility] Comment on above: Performed By: #### B GEORGINA, CMADM #### [facility] Laboratory [address] [address] [address] Miranda Duffy Creatinine [Mass/Vol] 0.73 mg/dL Normal 0.55-1.02 [facility] Comment on above: Performed By: #### B GEORGINA, CMADM #### [facility] Laboratory [address] [address] [address] Miranda Duffy EGFR-AF FILIPINO >60 Normal >=60 [facility] Comment on above: Performed By: #### B GEORGINA, CMADM #### [facility] Laboratory [address] [address] [address] Miranda Duffy EGFR-NON AF FILIPINO >60 Normal >=60 [facility] Comment on above: Performed By: #### B GEORGINA, CMADM #### [facility] Laboratory [address] [address] [address] Miranda Duffy Glucose [Mass/Vol] 116 mg/dL Critically high 74-106 T [facility] Comment on above: Performed By: #### B GEORGINA, CMADM #### [facility] Laboratory [address] [address] [address] Miranda Duffy Potassium [Moles/Vol] 3.9 mmol/L Normal 3.5-5.1 [facility] Comment on above: Performed By: #### B GEORGINA, CMADM #### [facility] Laboratory [address] [address] [address] Miranda Duffy Sodium [Moles/Vol] 138 mmol/L Normal 136-145 [facility] Comment on above: Performed By: #### B GEORGINA, CMADM #### [facility] Laboratory [address] [address] [address] Miranda Duffy Urea nitrogen [Mass/Vol] 22.0 mg/dL Critically high 7.0-18.0 [facility] Comment on above: Performed By: #### B GEORGINA, CMADM #### [facility] Laboratory [address] [address] [address] Miranda Duffy Urea nitrogen/Creatinine [Mass ratio] 30.1 mg/mg Normal [facility] Comment on above: Performed By: #### B GEORGINA, CMADM #### [facility] Laboratory [address] [address] [address] Miranda Duffy URINE MICROSCOPIC ONLYon BACTERIA LARGE Abnormal NONE SEEN [facility] Comment on above: Performed By: #### ANANT GREGGRO ####[facility] [address] [place] [address]DrLadan Duffy Bacteria identified Cx Nom (U) INDICATED Normal [facility] Comment on above: Performed By: #### Patel AGUILA UMICRO ####[facility] [address] [place] [phone] Duffy CAST NONE SEEN Normal NONE SEEN [facility] Comment on above: Performed By: #### SUSAN GREGGICRO ####[facility] [address] [place] [phone]. Miranda Duffy Crystals LM Nom (Urine sed) NONE SEEN Normal NONE SEEN [facility] Comment on above: Performed By: #### LEIGHA GREGG ####[facility] [address] [place] [phone]. Miranda Duffy Epithelial cells LM Ql (Urine sed) FEW Abnormal NONE SEEN /RARE [facility] Comment on above: Performed By: #### LEIGHA GREGG ####[facility] [address] [place] [phone]. Cherellealex Duffy MUCOUS NONE SEEN Normal NONE SEEN [facility] Comment on above: Performed By: #### LEIGHA GREGG ####[facility] [address] [place] [address]Dr. Miranda Duffy RBC 0-2 Normal 0-2 [facility] Comment on above: Performed By: #### LEIGHA GREGG ####[facility] [address] [place] [address]Dr. Miranda Duffy WBC 5-10 Abnormal NONE SEEN [facility] Comment on above: Performed By: #### LEIGHA GREGG ####[facility] [address] [place] [address]Dr. Cherellealex Duffy XR HIP LT 2 3V W [...] by: DAVID ALONSO Date: 2022-04-05 00:12 Normal [facility] Encounters Encounter Date Encounter Type Care Provider Facility Start: 04-14-2024 End: 04-14-2024 ambulatory [facility] Start: 02-28-2024 End: 02-28-20[facility]: 02-07-2024 End: 02-07-2024 ambulatory Pfo Infusion Chair 1 Lashon Kathy Loyd [facility] - Medical Oncology Comment on above: Polycythemia (Primar y Dx) Start: 01-22-2024 End: 01-22-2024 Bamboo flowsheet Manohar Miller DO Work Phone: [facility] Start: 01-22-2024 End: 01-22-2024 Bamboo flowsheet Manohar Miller DO Work Phone: [facility] Start: 01-22-2024 End: 01-22-2024 Office outpatient new 45 minutes Manohar Miller DO Work Phone: [facility] Comment on above: Chronic pain of righ t knee; Primary osteoarthritis of right knee Start: 01-22-2024 End: 01-22-2024 ambulatory MANOHAR MILLER Not Available Start: 12-13-2023 End: 12-13-2023 ambulatory [facility] Start: 10-11-2023 End: 10-11-2023 ambulatory [facility] Start: 10-11-2023 End: 10-15-2023 ambulatory [facility] Start: 09-17-2023 ambulatory [facility] Start: 08-09-2023 End: 08-09-2023 ambulatory [facility] Start: 08-09-2023 End: 08-15-2023 ambulatory [facility] Start: 07-19-2023 End: 07-19-2023 ambulatory [facility] Start: 06-11-2023 End: 06-11-2023 ambulatory [facility] Start: 08-09-2022 End: 08-09-[address] ELIEZER [...] Td Vaccines (2 - Td or Tdap) [facility] Start: 12-12-2024 Adult BMI Screening Adult BMI Screen ing [facility] Start: 12-12-2024 Tobacco Screening Tobacco Screening [facility] Start: 06-12-2024 End: 06-12-2024 Patient encounter procedure 06/12/2024 1:00 PM EST Office Visit Lashon L [facility] - Medical Oncology [address] [place] [address] [phone] Clive Vogt MD [address] [place], [place] [id number] Lashon Chavez [facility] Start: 04-14-2024 End: 04-14-2024 ambulatory 04/14/2024 2:00 PM EST Infusion Lashon L [facility] [address] [place] [phone] Lashon Chavez [facility] Start: 01-22-2024 End: 01-22-2024 Patient encounter procedure 01/22/2024 10:45 AM EDT Office Visit [facility] [address] [facility] [address] [place] [address] Manohar Miller DO [address] [facility] [address] [place] [address] Chronic pain of right knee; Primary osteoarthritis of right knee [facility] Comment on above: Chronic pain of righ t knee; Primary osteoarthritis of right knee Start: 12-16-2023 COVID-19 Vaccine ( season) COVID-19 Vaccine ( season) [facility] Start: 12-16-2023 Influenza vaccination [facility] Start: 2011 Fall Risk Screening Fall Risk Screen ing [facility] Start: 2011 Pneumococcal Vaccine : 65+ Years (1 of 1 - PCV) Pneumococcal Vaccine: 65+ Years (1 of 1 - PCV) [facility] Start: 1996 Administration of varicella zoster vaccine Zoster (Shingles) Vaccine (1 of 2) [facility] Start: 1958 Depression Screening Depression Scre ening [facility] Start: 1946 Medicare Annual Well ness Visit Medicare Annual Wellness Visit [facility] Immunizations Immunization Date Immunization Notes Care Provider Fa cility 02-08-2022 SARS-COV-2 (COVID-19 ) vaccine, mRNA, spike protein, LNP, bivalent, preservative free, 30 mcg/0.3 mL dose, jacinto-sucrose formulation Manohar LopezPaul DO Work Phone: [facility] 01-25-2022 Influenza, High-dose Seasonal, Quadrivalent, Preservative Free Manohar Kowalskiston DO Work Phone: [facility] 01-25-2022 influenza virus vacc ine, unspecified formulation Manohar Kowalskiston DO Work Phone: [facility] 02-28-2021 Pfizer Purple Cap SARS-CoV-2 Vaccination Manohar LopezPaul DO Work Phone: [facility] 05-25-2020 Pfizer Purple Cap SARS-CoV-2 Vaccination Manohar LopezPaul DO Work Phone: [facility] 05-04-2020 Pfizer Purple Cap SARS-CoV-2 Vaccination Manohar LopezPaul DO Work Phone: [facility] Payers Date Payer Category Payer Medicaid [place] [id number] 2022 Medicaid [id number] 2001 Medicare [id number] 2001 Medicare [id number] 1959 Unknown [id number] 1946 Unknown [id number] [id number] 1946 Unknown [id number] [id number] 1946 Unknown [id number] [id number] 1946 Unknown [id number] 2.16.840.1.018490.3.579.2.593 1946 Unknown [id number] 2.16.840.1.107327.3.579.2.1259 1946 Unknown [id number] 2.16.840.1.376831.3.579.2.1286 1946 Unknown [id number] 2.16.840.1.594151.3.579.2.1286 1946 Unknown [id number] 2.16.840.1.413097.3.579.2.1286 1946 Unknown [id number] 2.16.840.1.271354.3.579.2.1286 1946 Unknown [id number] 2.16.840.1.682747.3.579.2.1286 1946 Unknown [id number] 2.16.840.1.559511.3.579.2.1286 1946 Unknown [id number] [id number] 1946 Unknown [id number] [id number] 1946 Unknown [id number] [id number] Social History Date Type Detail Facility Tobacco smoking stat [facility] Tobacco smoking consumption unknown [facility] Start: 1945 Sex assigned at Not on file [facility] Start: 05-06-2020 End: 12-13-2023 Gender identity Not on file [facility] Start: 07-24-2022 Tobacco smoking stat [facility] Never smoked tobacco [facility] Start: 07-24-2022 Tobacco use and exposure Smokeless tobacco non-user [facility] Start: 12-13-2023 Alcoholic beverage intake Current non-drinker of alcohol (finding) [facility] Start: 05-06-2020 End: 12-13-2023 History of Social function [facility] Are you worried or concerned that in the next two months you may not have stable housing that you own, rent or stay in as a part of a household? No [facility] Start: 08-17-2017 Sex Female (finding) [facility] Medical Equipment Procedure Code Equipment Code Equipment Origin al Text Equipment Identifier Dates Stem Fem 6 2 Tpr Flt [place] Mectagrip Hip Lateralize - [id number] - [id number] Start: 07-24-2022 Head Bp 42mm 22m m Hip - [id number] - [id number] Start: 07-24-2022 Head Fem 22mm +2 .5mm 12/14 Sm Qd Cocr Hip - S01.25.124 - [id number] Start: 07-24-2022 Goals Date Patient Goal [...] (CMS/HCC), Fracture of hip (CMS/HCC), and Hypertension. Surgical History She has a [...] fracture or dislo (more content not included)... [facility] History of Present illness Narrative 02-07-2024 Rebecca Marcial RN - 02/07/2024 2:00 PM EDT Note Date & Type Note Facility 02-07-2024 History of Presen t illness Narrative Port draw completed per protocol. documented in this encounter [facility] History of Present illness Narrative 01-22-2024 Manohar Miller DO - 01/22/2024 10:45 AM EDT Note Date & Type Note Facility 01-22-2024 History of Presen t illness Narrative Images from the original note were not included. HISTORY OF PRESENT ILLNESS: Willard Gavin is an 78 y.o. @ female. Chief complaint RT knee pain New patient: RT knee Prior treatment by Dr Mason at [facility] 01/01/24 pain clinic and [facility] orthopedics 09/17/23 RT knee pain x 2016 [...] Mason without relief. Prior treatment: cortisone injection 2015 Dr. Turner in [place], walker, elevation, physical therapy, X-rays [facility] 2018, [facility] pain clinic, [facility] orthopedics, injx by Dr Mason. Here with aid from [facility] I reviewed notes from the [facility] orthopedics dated September 17, 2023. Patient [...] History: Diagnosis Date Anxiety Arthritis Diabetes mellitus ([facility]) Dvt femoral (deep venous thrombosis) ([facility]) 2018 Hypertension ([facility]) Hypothyroid ([facility]) Osteoporosis ([facility]) Polycythemia ALLERGIES: Allergies Allergen Reactions Iodinated Contrast Media Iodine Nitrofurantoin GI intolerance Penicillins Sulfa Antibiotics VITALS: There were no vitals taken for this visit. PHYSICAL EXAM: Ortho Exam RIGHT KNEE Very limited ROM Edema/swelling RT leg Planovalgus flat feet In wheelchair IMAGING: I reviewed x-rays of the right knee dated November 14, 2017 from [facility]. There was marked cortical irregularity with joint [...] She has been treated with provider at [facility] who is willing to proceed. With the patient's multiple medical comorbid conditions I think the patient would be better served at a tertiary care center and I would suggest that if she desires to proceed that she should follow up at [facility]. Follow up as needed, any issues/concerns follow up sooner. Dr. Miller obtained history and examined the patient, I am acting as scribe for Dr. Miller/nancy Miller D.O. documented in this encounter [facility] Progress note 09-17-2023 Note Date & [...] a recent hip fracture needing been at [facility] by Filemon Jensen MD. She is a borderline diabetic. Patient History Past Surgical History: Procedure Laterality Date TOTAL HIP ARTHROPLASTY Left Past Medical History: Diagnosis Date Diabetes mellitus ([facility]) Fracture of hip ([facility]) Hypertension Objective General: Body mass index is [...] neurologic injury, resid (more content not included)... [facility] Progress note 07-19-2023 Note Date & [...] injections at this time Refer to Dr Ross [facility] Progress note 07-19-2023 Note Date & Type Note Facility 07-19-2023 Note Chief Complaint: Rig ht Knee Pain HPI: [address] 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 Care Teams (unrecognized sec tion and content) Privacy Manager Relationship Specialty Start Date End Date Eliezer Plascencia MD [address] [place] [address] [phone] PCP - General Internal Medicine 01/22/24 Privacy Manager Relationship Specialty Start Date End Date Eliezer Plascencia MD [address] [place] [address] [phone] PCP - General Internal Medicine 01/22/24 Privacy Manager Relationship Specialty [place] [address] [place] [address] [phone] PCP - General Family Medicine 09/07/17 Reason [...] BE BASED ON THE PRIMARY CLINICAL RECORDS. [facility]. provides no warranty or guarantee of the accuracy or completeness of information in this document.
== END 2024-04-28 13:23 | disposition home or self-care (01) ==
LOC: EC 13:22
PROVIDERS: Visit Provider Student in an Organized Health Care Education/Training Program
DX: M25.561 Pain in right knee (principal); M17.11 Unilateral primary osteoarthritis, right knee
CPT/HCPCS: 73564

== ENCOUNTER 2024-06-14 08:19 | Outpatient (REF) | payer MEDICARE, MEDICAID, SELFPAY ==
--- OUTSIDE RECORDS SUMMARY | 2024-06-14 08:25 | XMS_ITS | CCD ---
Author Organization [facility] Care Team Providers Care Public Affairs Director Name Role Phone TEMO, DR SY Primary [...] BERG Consulting Unavailable DAVID ALONSO Consulting Unavailable MANOHAR MILLER Attending Unavailable Eliezer Plascencia MD Primary Care Provider AMADOU HOWARD Referring Unavailable JOSÉ MANUEL CAPPS Attending Unavailable LISHA PUGA Attending Unavailable AMADOU HOWARD Attending Unavailable NORA CEBALLOS Referring Unavailable JARAD ROSS Attending Unavailable Vinh PLUMMER, Lizbet Primary Care Provider [phone] JUSTICE, LIZBET Referring Unavailable JUSTICE, LIZBET Primary Care Unavailable CLIVE VOGT Attending Unavailable JUSTICE, LIZBET Referring Unavailable JUSTICE, LIZBET Primary Care Unavailable UJSTICE, LIZBET Referring Unavailable JUSTICE, LIZBET Primary Care [...] derivative Drug allergy (disorder) 02-12-20 21 [facility] (1 source) Iodine Drug Allergy [facility] (1 source) Iodine (And Iodine Containting Drugs) Drug allergy (disorder) [facility] (3 sources) Penicillins; Translations: [PENICILLINS] Drug allergy (disorder) 08-18-19 18 [facility] (1 source) Sulfonamides (Antibiotic) Drug allergy (disorder) [facility] (3 sources) Iodine Drug Allergy 01-21-20 24 [facility] (3 sources) Nitrofurantoin Drug Allergy 12-13-19 GI intolerance [facility] (3 sources) Penicillins Drug Intolerance 08-18-19 18 [facility] (11 sources) Sulfonamides (Antibiotic) Drug Intolerance 08-18-19 18 [facility] (13 sources) Iodinated Contrast Media; Translations: [IODINATED CONTRAST MEDIA] Drug Intolerance 05-21-19 19 [facility] (2 sources) Sulfonamides (Antibiotic); Translations: [SULFA (SULFONAMIDE ANTIBIOTICS)] Propensity to adverse reactions to drug (disorder) 08-18-19 18 [facility] Repository (8 sources) Penicillins Propensity to adverse reactions to drug 08-18-19 18 [facility] (5 sources) NITROFURANTOIN, MACROCRYSTALS / Nitrofurantoin, Monohydrate; Translations: [NITROFURANTOIN MONOHYD/M-CRYST] Drug Allergy 12-13-19 24 GI Disturbance [facility] Medications Current Medications Medication Drug Class(es) Dates Sig (Normalized) Sig (Original) acetaminophen 500 mg oral tablet (11 sources) take 1 tablet by mouth every eight hours as needed for pain acetaminophen (TYLENOL) 500 mg tablet Take 1 tablet (500 mg total) by mouth every 8 (eight) hours as needed for pain. Active [id number] 200 actuat albuterol 0.09 mg/actuat metered dose inhaler (8 sources) beta2-Adrenergic Agonist Start: 09-20-2022 albuterol (PROVENTIL HFA;VENTOLIN HFA) 90 mcg/actuation inhaler Inhale as needed. 09/20/2022 Active Start: 09-20-2022 albuterol (PRO VENTIL HFA;VENTOLIN HFA) 90 mcg/actuation inhaler Inhale as needed. 0 09/20/2022 Active ARIPiprazole 5 mg oral tablet (15 sources) Atypical Antipsychotic Start: 06-29-2023 take 1 [...] aspirin 81 mg delayed release oral tablet (11 sources) Platelet Aggregation Inhibitor, Nonsteroidal Anti-inflammatory Drug take 1 tablet by mouth in the morning aspirin 81 mg Take 1 tablet (81 mg total) by mouth in the morning. Active benzonatate 100 mg oral capsule (8 sources) Non-narcotic Antitussive take 1 capsule by mouth three times daily as needed for cough benzonatate (TESSALON PERLES) 100 mg capsule Take 1 capsule (100 mg total) by mouth 3 (three) times a day as needed for cough. Active carvedilol 6.25 mg oral tablet (8 sources) alpha-Adrenergic Harshad, beta-Adrenergic Harshad Start: 023 take 1 tablet by mouth in the morning, then take 1 tablet by mouth at mealtime carvediloL (COREG) 6.25 mg tablet Take 1 tablet (6.25 mg total) by mouth in the morning and 1 tablet (6.25 mg total) in the evening. Take with meals. 60 tablet 07/26/2022 Active cetirizine hydrochloride 10 mg oral tablet (11 sources) Histamine-1 Receptor Antagonist cetirizine (ZyrTEC) 10 mg tablet Take 1 tablet (10 mg total) by mouth as needed for allergies. Active cholecalciferol 0.125 mg oral tablet (11 sources) Vitamin D take 1 tablet by mouth in the morning cholecalciferol, vitamin D3, (VITAMIN D3) 5,000 units tablet Take 1 tablet (5,000 Units total) by mouth in the morning. Active 1 ml denosumab 60 mg/ml prefilled syringe (7 sources) RANK Ligand Inhibitor Start: 024 denosumab (Prolia) 60 MG/ML solution prefilled syringe Inject 60 mg under the skin 06/18/2023 Active dextromethorphan hydrobromide 2 mg/ml / guaiFENesin 20 mg/ml oral solution (8 sources) Uncompetitive Z-wxxwhj-N-aspartate Receptor Antagonist, Sigma-1 Agonist take 10 mL by mouth every four hours as needed for cough dextromethorphan- guaiFENesin (ROBITUSSIN-DM) 10-100 mg/5 mL liquid Take 10 mL by mouth every 4 (four) hours as needed for cough. Active diclofenac sodium 0.01 mg/mg topical gel (11 sources) Nonsteroidal Anti-inflammatory Drug diclofenac sodium (VOLTAREN) 1 % gel Apply 4 g topically in the morning and 4 g before bedtime. Bilateral knees. Active DULoxetine 20 mg delayed release oral capsule (11 sources) Serotonin and Norepinephrine Reuptake Inhibitor Start: take 3 capsules by mouth in the morning DULoxetine (Cymbalta) [address] capsule Take 60 mg by mouth in the morning. 06/24/2023 Active famotidine 40 mg oral tablet (11 sources) Histamine-2 Receptor Antagonist take 0.5 tablet by mouth once daily famotidine (PEPCID) 40 mg tablet Take 0.5 tablets (20 mg total) by mouth nightly. Active famotidine (Pepc id) 40 MG tablet Take 20 mg by mouth at bedtime Active ferrous sulfate 325 mg oral tablet (8 sources) Start: 07-26-2022 take 1 tablet by mouth in the morning, then take 1 tablet by mouth at mealtime ferrous sulfate 325 (65 FE) mg tablet Take 1 tablet (325 mg total) by mouth in the morning and 1 tablet (325 mg total) in the evening. Take with meals. 60 tablet 07/26/2022 Active furosemide 40 mg oral tablet (8 sources) Loop Diuretic Start: 09-20-2022 take 1 tablet by mouth once daily furosemide (LASIX) 40 mg tablet Take 1 tablet (40 mg total) by mouth once daily. 09/20/2022 Active gabapentin 100 mg oral capsule (8 sources) Anti-epileptic Agent Start: 07-26-2022 take 1 capsule by mouth three times daily gabapentin (NEURONTIN) 100 mg capsule Indications: Closed fracture of neck of left femur, initial encounter ([facility]) Take 1 capsule (100 mg total) by mouth 3 (three) times a day. 90 capsule 07/26/2022 Active hydrocortisone 10 mg/ml topical cream (8 sources) Corticosteroid hydrocortisone (HYTONE) 1 % cream Apply 1 Application topically as needed (itching). Active hydrOXYzine pamoate 50 mg oral capsule (20 sources) Antihistamine take 1 capsule by mouth once daily hydrOXYzine (VISTARIL) 25 mg capsule Take 1 capsule (25 mg total) by mouth nightly. Take with 50mg capsule for total dose of 75mg at bedtime. Active take 1 capsule by mouth in the m orning hydrOXYzine (VISTARIL) 50 mg capsule Take 1 capsule (50 mg total) by mouth in the morning. Active ipratropium bromide 0.2 mg/ml inhalation solution (11 sources) Anticholinergic take 2.5 mL by inhalation [...] Active levothyroxine sodium 0.1 mg oral tablet (19 sources) l-Thyroxine take 1 tablet by mouth [...] Sun.. Active menthol 0.04 mg/mg topical gel (8 sources) menthol (BIOFREE ZE, MENTHOL,) 4 % gel Apply 1 Application topically every 8 (eight) hours as needed (for right lower rib). Active 24 hr mirabegron 50 mg extended release oral tablet (11 sources) beta3-Adrenergic Agonist Start: 07-17-2023 take 1 tablet by mouth in the morning, then take 1 tablet by mouth every twenty-four hours mirabegron ER (Myrbetriq) 50 MG 24 hr tablet Take 50 mg by mouth in the morning. 07/17/2023 Active nystatin 453403 unt/ml topical cream (16 sources) Polyene Antifungal nystatin (MYCOSTATIN) cream Apply 1 Application topically 2 (two) times a day as needed (under breasts as needed). Active nystatin (MYCOST ATIN) powder Apply 1 Application topically 2 (two) times a day as needed (under breasts/groin as needed). Active ondansetron 4 mg oral tablet (4 sources) Serotonin-3 Receptor Antagonist take 1 tablet by mouth every four hours as needed for nausea and vomiting ondansetron (ZOFRAN) 4 mg tablet Take 1 tablet (4 mg total) by mouth every 4 (four) hours as needed for nausea or vomiting. Active polyethylene glycol 3350 56617 mg powder for oral solution (8 sources) Osmotic Laxative polyethylene gl ycol (GLYCOLAX) 17 gram packet Take 17 g by mouth in the morning. Active rivaroxaban 10 mg oral tablet (11 sources) Factor Xa Inhibitor Start: 07-28-19 take 1 tablet by mouth in the morning rivaroxaban (XARELTO) 10 mg tablet Indications: deep vein thrombosis prevention Take 1 tablet (10 mg total) by mouth in the morning. Indications: deep vein thrombosis prevention. 30 tablet 07/27/2022 Active Completed/Discontinued Medications Medication Drug Class(es) Dates Sig (Normalized) Sig (Original) heparin (2 sources) Unfractionated Heparin, Anti-coagulant Start: 08-09-2023 End: 08-09-2023 500 Units, intravenous, As needed, deaccessing, Starting on Keturah 08/09/23 at 1416, Heplock following NS flush. Look-alike/sound-a like medication - verify indication for use. Start: 06-11-2023 End: 06-11-2023 heparin, porcine (PF) syring e 500 Units 125 ml sodium chloride 9 mg/ ml prefilled syringe (5 sources) Start: 06-09-2024 End: 06-09-2024 20 mL, intravenous, As neede d, port line care, Starting on 06/09/24 at 1405, Flush with NS prior to Heplock. Start: 02-07-2024 End: 02-07-2024 20 mL, intravenous, As neede d, port line care, Starting on Keturah 02/07/24 at 1350, Flush with NS prior to Heplock. Start: 12-13-2023 End: 12-13-2023 20 mL, intravenous, As neede d, port line care, Starting on Keturah 12/13/23 at 1436, Flush with NS prior to Heplock. Start: 08-09-2023 End: 08-09-2023 20 mL, intravenous, As neede d, port line care, Starting on Keturah 08/09/23 at 1416, Flush with NS prior to Heplock. Start: 06-11-2023 End: 06-11-2023 sodium chloride 0.9 % flush 20 mL Problems Active Problems Problem Classification Problem Date Documented Date Episodic/Chronic Coronary atherosclerosis and other heart disease (4 sources) Atherosclerotic heart disease of [place] coronary artery without angina pectoris; Translations: [ASHD MENOMINEE CA W/O ANGINA PECTORIS] Onset: 08-09-2022 Chronic Diabetes mellitus without complication (12 sources) Type 2 diabetes mellitus without complications; Translations: [Type 2 diabetes mellitus] Onset: 08-10-2022 01-21-2024 Chronic Disorders of lipid metabolism (10 sources) Hyperlipidemia, unspecified; Translations: [Mixed hyperlipidemia] Onset: 07-23-2022 Chronic Essential hypertension (12 sources) Essential (primary) hypertension; Translations: [Hypertensive disorder] Onset: 08-10-2022 01-21-2024 Chronic Multiple myeloma (1 source) Multiple myeloma not having achieved remission; Translations: [MX MYELOMA NOT ACHIEVED REMISSION] Onset: 04-11-2022 Chronic Nonspecific chest pain (2 sources) Chest pain, unspecified; Translations: [Chest pain, unspecified] Onset: 05-16-2024 Episodic Osteoarthritis (7 sources) Arthritis of right knee; Translations: [Unilateral primary osteoarthritis, right knee] Onset: 07-19-2023 01-21-2024 Chronic Other connective tissue disease (2 sources) Presence of left artificial knee joint; Translations: [Presence of left artificial knee joint] Onset: 09-17-2023 Chronic Other hematologic conditions (15 sources) Erythrocytosis; Translations: [Secondary polycythemia] Onset: 09-06-2017 08-09-2023 Episodic Thyroid disorders (15 sources) Hypothyroidism, unspecified; Translations: [Hypothyroidism] Onset: 09-06-2017 [...] Episodic Fracture of neck of femur (hip) (8 sources) Closed fracture of neck of left femur; Translations: [Fracture of unspecified part of neck of left femur, initial encounter for closed fracture] Onset: 3 07-22-2022 Episodic Open wounds of head; neck; and trunk (5 sources) Laceration without foreign body of other part of head, initial encounter; Translations: [Laceration without foreign body of nose, initial encounter] Onset: 2 Episodic Other aftercare (1 source) halfway (current) use of anticoagulants; 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] Onset: 2 Episodic Other aftercare (1 source) Other assisted (current) drug therapy; Translations: [OTH ASSISTED CURRENT DRUG THERAPY] Onset: 2 Episodic Other [...] Onset: 2 Episodic Other lower respiratory disease (8 sources) Dyspnea; Translations: [Shortness of breath] Onset: 8 09-06-2017 Episodic Other lower respiratory disease (8 sources) Nodule of lung; Translations: [Solitary pulmonary nodule] Onset: 0 05-29-2019 Episodic Other non-traumatic joint disorders (4 sources) Pain in right knee; Translations: [Pain in joint, lower leg] Onset: 4 01-22-2024 Episodic Other nutritional; endocrine; and metabolic disorders (8 sources) Weight loss; Translations: [Abnormal weight loss] Onset: 0 04-24-2019 Episodic Other screening for suspected conditions (not mental disorders or infectious disease) (16 sources) Electrocardiogram abnormal; Translations: [Abnormal electrocardiogram [ECG] [EKG]] Onset: 8 09-07-2017 Episodic Phlebitis; thrombophlebitis and thromboembolism (10 sources) Acute deep vein thrombosis of lower limb; Translations: [Acute embolism and thrombosis of unspecified deep veins of right distal lower extremity] Onset: 8 09-06-2017 Episodic Spondylosis; intervertebral disc disorders; other back problems (1 source) Spinal stenosis, lumbar region without neurogenic claudication; Translations: [SPINAL STENOSIS LUMBAR REGION NO NC] Onset: 2 Episodic Results Test Name Value Interpretation Reference Range Facility Office Visiton 05-16-2024 Follow-up visit [id number] Mayte Gavin 1945 F Date Provider Department Center 05/16/2024 [id number] MANUEL CAPPS JORY Leslie Family History Family history unknown: Yes Level of Service:54996 [place] OFFICE/OUTPATIENT NEW MODERATE MDM 45 MINUTES Reason for Visit and Comments: Hypertension [634180] - Had echo in Feb 2024. Shortness of Breath [986806] - Admits to SOB Chest Pain [573726] - Admits to chest pain Palpitations [623108] - Admits to palpitations Edema [[id number]] - Admits to LE edema Normal [facility] CBC AND AUTO DIFFon 04-14-20 ABSOLUTE BASOPHIL 0.1 X10E9/L Normal 0.0-0.[address] [facility] Comment on above: Performed By: #### C BCA #### [facility] ([id number]) [address] [place] [address], [place] [address] ABSOLUTE NEUTROPHIL 4.0 X10E9/L Normal 1.5-6.6 [facility] Comment on above: Performed By: #### C BCA #### [facility] ([id number]) [address] [place] [address] 18193 Basophils/100 WBC (Bld) 0.9 % Normal [facility] Comment on above: Performed By: #### C BCA #### [facility] ([id number]) [address] [place] [address] 46082 Eosinophils (Bld) [#/Vol] 0.6 10*3/uL High 0.0-0.[address] [facility] Comment on above: Performed By: #### C BCA #### [facility] ([id number]) [address] [place] [address] 99072 Eosinophils/100 WBC (Bld) 9.3 % Normal [facility] Comment on above: Performed By: #### C BCA #### [facility] ([id number]) [address] [place] [address] 80828 Erythrocyte distribution width (RBC) [Ratio] 14.3 % Normal 11.5-15.[address] [facility] Comment on above: Performed By: #### C BCA #### [facility] ([id number]) [address] [place] [address] 27186 Hematocrit (Bld) [Volume fraction] 43.9 % Normal 35-[address] [facility] Comment on above: Performed By: #### C BCA #### [facility] ([id number]) [address] [place] [address] 15000 Hemoglobin (Bld) [Mass/Vol] 14.7 g/dL Normal 11.7-15.[address] [facility] Comment on above: Performed By: #### C BCA #### [facility] ([id number]) [address] [place] [address] 73163 Lymphocytes (Bld) [#/Vol] 1.4 10*3/uL Normal 1.0-3.[address] [facility] Comment on above: Performed By: #### C BCA #### [facility] ([id number]) [address] [place] [address] 35878 Lymphocytes/100 WBC (Bld) 20.8 % Normal [facility] Comment on above: Performed By: #### C BCA #### [facility] ([id number]) [address] [place] [address] 91290 MCH (RBC) [Entitic mass] 30.4 pg Normal 27-[address] [facility] Comment on above: Performed By: #### C BCA #### [facility] ([id number]) [address] [place] [address] 45614 MCHC (RBC) [Mass/Vol] 33.3 g/dL Normal 32-[address] [facility] Comment on above: Performed By: #### C BCA #### [facility] ([id number]) [address] [place] [address] 99178 MCV (RBC) [Entitic vol] 91 fL Normal 80-[address] [facility] Comment on above: Performed By: #### C BCA #### [facility] ([id number]) [address] [place] [address] 01809 Monocytes (Bld) [#/Vol] 0.6 10*3/uL Normal 0-0.[address] [facility] Comment on above: Performed By: #### C BCA #### [facility] ([id number]) [address] [place] [address] 34820 Monocytes/100 WBC (Bld) 8.4 % Normal [facility] Comment on above: Performed By: #### C BCA #### [facility] ([id number]) [address] [place] [address] 91401 Neutrophils/100 WBC (Bld) 60.6 % Normal [facility] Comment on above: Performed By: #### C BCA #### [facility] ([id number]) [address] [place] [address] 06337 Platelet mean volume (Bld) [Entitic vol] 7.9 fL Normal 7-[address] [facility] Comment on above: Performed By: #### C BCA #### [facility] ([id number]) [address] [place] [address] 14499 Platelets (Bld) [#/Vol] 268 10*3/uL Normal 150-[address] [facility] Comment on above: Performed By: #### C BCA #### [facility] ([id number]) [address] [place] [address] 11719 RBC COUNT 4.83 X10E12/L Normal 3.80-5.[address] [facility] Comment on above: Performed By: #### C BCA #### [facility] ([id number]) [address] [place] [address] 40676 WBC (Bld) [#/Vol] 6.6 10*3/uL Normal 4.0-11.[address] [facility] Comment on above: Performed By: #### C BCA #### [facility] ([id number]) [address] [place] [address] 17955 Orders Onlyon 03-10-2024 Orders Only [id number] Mayte Gavin 1945 F Date Provider Department Center 03/10/2024 DAVE ORDONEZ JORY [facility] Family History Family history unknown: Yes Normal [facility] Office Visiton 02-28-2024 Follow-up visit [id number] Mayte Gavin 1945 F Date Provider Department Center 02/28/2024 LISHA JAY CARD [facility] Family History Family history unknown: Yes Level of Service:78974 AR OFFICE/OUTPATIENT NEW MODERATE MDM 45 MINUTES Normal [facility] CBC AND AUTO DIFFon 1024-20 24 Eosinophils (Bld) [#/Vol] 0.7 10*3/uL High 0.0-0.4 [facility] Comment on above: Performed By: #### C BCA #### [facility] ([id number]) [address] [place] [address] 17581 Eosinophils/100 WBC (Bld) 10.2 % Normal [facility] [employer] [facility] Comment on above: Performed By: #### C BCA #### [facility] ([id number]) [address] [place] [address] 34756 Erythrocyte distribution width (RBC) [Ratio] 14.9 % Normal 11.5-15.0 [facility] [employer] [facility] Comment on above: Performed By: #### C BCA #### [facility] ([id number]) [address] [place] [address] 20564 Hematocrit (Bld) [Volume fraction] 41.5 % Normal 35-47 [facility] Comment on above: Performed By: #### C BCA #### [facility] ([id number]) [address] [place] [address] 30742 Hemoglobin (Bld) [Mass/Vol] 13.8 g/dL Normal 11.7-15.5 [facility] [employer] [facility] Comment on above: Performed By: #### C BCA #### [facility] ([id number]) [address] [place] [address] 88479 Lymphocytes (Bld) [#/Vol] 1.3 10*3/uL Normal 1.0-3.5 [facility] [employer] [facility] Comment on above: Performed By: #### C BCA #### [facility] ([id number]) [address] [place] [address] 82310 Lymphocytes/100 WBC (Bld) 19.9 % Normal [facility] [employer] [facility] Comment on above: Performed By: #### C BCA #### [facility] ([id number]) [address] [place] [address] 39844 MCH (RBC) [Entitic mass] 30.9 pg Normal 27-34 [facility] Comment on above: Performed By: #### C BCA #### [facility] ([id number]) [address] [place] [address] 19837 MCHC (RBC) [Mass/Vol] 33.3 g/dL Normal 32-36 [facility] Comment on above: Performed By: #### C BCA #### [facility] ([id number]) [address] [place] [address] 65463 MCV (RBC) [Entitic vol] 93 fL Normal 80-100 [facility] Comment on above: Performed By: #### C BCA #### [facility] ([id number]) [address] [place] [address] 93495 Monocytes (Bld) [#/Vol] 0.6 10*3/uL Normal 0-0.9 [facility] Comment on above: Performed By: #### C BCA #### [facility] ([id number]) [address] [place] [address] 96790 Monocytes/100 WBC (Bld) 8.4 % Normal [facility] Comment on above: Performed By: #### C BCA #### [facility] ([id number]) [address] [place] [address] 65226 Neutrophils/100 WBC (Bld) 60.5 % Normal [facility] Comment on above: Performed By: #### C BCA #### [facility] ([id number]) [address] [place] [address] 24834 Platelet mean volume (Bld) [Entitic vol] 7.6 fL Normal 7-12 [facility] Comment on above: Performed By: #### C BCA #### [facility] ([id number]) [address] [place] [address] 69185 Platelets (Bld) [#/Vol] 342 10*3/uL Normal 150-450 [facility] Comment on above: Performed By: #### C BCA #### [facility] ([id number]) [address] [place] [address] 20755 ABSOLUTE BASOPHIL 0.1 X10E9/L Normal 0.0-0.[address] [facility] Comment on above: Performed By: #### C BCA #### [facility] ([id number]) [address] [place] [address] 39173 ABSOLUTE NEUTROPHIL 4.0 X10E9/L Normal 1.5-6.6 [facility] Comment on above: Performed By: #### C BCA #### [facility] ([id number]) [address] [place] [address] 39724 Basophils/100 WBC (Bld) 1.0 % Normal [facility] Comment on above: Performed By: #### C BCA #### [facility] ([id number]) [address] [place] [address] 89222 RBC COUNT 4.47 X10E12/L Normal 3.80-5.[address] [facility] Comment on above: Performed By: #### C BCA #### [facility] ([id number]) [address] [place] [address] 47329 WBC (Bld) [#/Vol] 6.6 10*3/uL Normal 4.0-11.[address] [facility] Comment on above: Performed By: #### C BCA #### [facility] ([id number]) [address] [place] [address] 34943 CBC auto differentialon 01-15 Basophils (Bld) [#/Vol] 0.1 10*3/uL [facility] Basophils/100 WBC (Bld) 1 % [facility] Interpretation and review of laboratory results Abnormal [facility] Neutrophils (Bld) [#/Vol] 4 10*3/uL [facility] RBC (Bld) [#/Vol] 4.47 10*6/uL [facility] WBC corrected for nucl RBC Auto (Bld) [#/Vol] 6.6 [facility] CBC AND AUTO DIFFon 12-13-19 24 ABSOLUTE BASOPHIL 0.1 X10E9/L Normal 0.0-0.[address] [facility] Comment on above: Performed By: #### C BCA #### [facility] ([id number]) [address] [place] [address] 54597 ABSOLUTE NEUTROPHIL 9.3 X10E9/L High 1.5-6.6 [facility] Comment on above: Performed By: #### C BCA #### [facility] ([id number]) [address] [place] [address] 21247 Basophils/100 WBC (Bld) 0.6 % Normal [facility] Comment on above: Performed By: #### C BCA #### [facility] ([id number]) [address] [place] [address] 35436 Eosinophils (Bld) [#/Vol] 0.8 10*3/uL High 0.0-0.[address] [facility] Comment on above: Performed By: #### C BCA #### [facility] ([id number]) [address] [place] [address] 65095 Eosinophils/100 WBC (Bld) 6.2 % Normal [facility] Comment on above: Performed By: #### C BCA #### [facility] ([id number]) [address] [place] [address] 06318 Erythrocyte distribution width (RBC) [Ratio] 15.3 % High 11.5-15.[address] [facility] Comment on above: Performed By: #### C BCA #### [facility] ([id number]) [address] [place] [address] 10364 Hematocrit (Bld) [Volume fraction] 46.4 % Normal 35-[address] [facility] Comment on above: Performed By: #### C BCA #### [facility] ([id number]) [address] [place] [address] 38290 Hemoglobin (Bld) [Mass/Vol] 15.5 g/dL Normal 11.7-15.[address] [facility] Comment on above: Performed By: #### C BCA #### [facility] ([id number]) [address] [place] [address] 21190 Lymphocytes (Bld) [#/Vol] 1.6 10*3/uL Normal 1.0-3.[address] [facility] Comment on above: Performed By: #### C BCA #### [facility] ([id number]) [address] [place] [address] 50665 Lymphocytes/100 WBC (Bld) 12.8 % Normal [facility] Comment on above: Performed By: #### C BCA #### [facility] ([id number]) [address] [place] [address] 98806 MCH (RBC) [Entitic mass] 31.2 pg Normal 27-[address] [facility] Comment on above: Performed By: #### C BCA #### [facility] ([id number]) [address] [place] [address] 39586 MCHC (RBC) [Mass/Vol] 33.4 g/dL Normal 32-[address] [facility] Comment on above: Performed By: #### C BCA #### [facility] ([id number]) [address] [place] [address] 99934 MCV (RBC) [Entitic vol] 93 fL Normal 80-[address] [facility] Comment on above: Performed By: #### C BCA #### [facility] ([id number]) [address] [place] [address] 70149 Monocytes (Bld) [#/Vol] 0.9 10*3/uL Normal 0-0.[address] [facility] Comment on above: Performed By: #### C BCA #### [facility] ([id number]) [address] [place] [address] 03960 Monocytes/100 WBC (Bld) 7.4 % Normal [facility] Comment on above: Performed By: #### C BCA #### [facility] ([id number]) [address] [place] [address] 13568 Neutrophils/100 WBC (Bld) 73.0 % Normal [facility] Comment on above: Performed By: #### C BCA #### [facility] ([id number]) [address] [place] [address] 92132 Platelet mean volume (Bld) [Entitic vol] 7.7 fL Normal 7-[address] [facility] Comment on above: Performed By: #### C BCA #### [facility] ([id number]) [address] [place] [address] 39463 Platelets (Bld) [#/Vol] 325 10*3/uL Normal 150-[address] [facility] Comment on above: Performed By: #### C BCA #### [facility] ([id number]) [address] [place] [address] 70933 RBC COUNT 4.97 X10E12/L Normal 3.80-5.[address] [facility] Comment on above: Performed By: #### C BCA #### [facility] ([id number]) [address] [place] [address] 74512 WBC (Bld) [#/Vol] 12.8 10*3/uL High 4.0-11.0 [facility] Comment on above: Performed By: #### C BCA #### [facility] ([id number]) [address] [place] [address] 90203 CBC auto differentialon 11-15 Basophils (Bld) [#/Vol] 0.1 10*3/uL [facility] Basophils/100 WBC (Bld) 0.6 % [facility] Eosinophils (Bld) [#/Vol] 0.8 10*3/uL High [facility] Eosinophils/100 WBC (Bld) 6.2 % [facility] Erythrocyte distribution width (RBC) [Ratio] 15.3 % High 11.5 - 15.0 % [facility] Hematocrit (Bld) [Volume fraction] 46.4 % 35 - 47 % [facility] Hemoglobin (Bld) [Mass/Vol] 15.5 g/dL 11.7 - 15.5 g/dL [facility] Interpretation and review of laboratory results Abnormal [facility] Lymphocytes (Bld) [#/Vol] 1.6 10*3/uL [facility] Lymphocytes/100 WBC (Bld) 12.8 % [facility] MCH (RBC) [Entitic mass] 31.2 pg 27 - 34 pg [facility] MCHC (RBC) [Mass/Vol] 33.4 g/dL 32 - 36 g/dL [facility] MCV (RBC) [Entitic vol] 93 fL 80 - 100 fL [facility] Monocytes (Bld) [#/Vol] 0.9 10*3/uL [facility] Monocytes/100 WBC (Bld) 7.4 % [facility] Neutrophils (Bld) [#/Vol] 9.3 10*3/uL High [facility] Neutrophils/100 WBC (Bld) 73.0 % [facility] Platelet mean volume (Bld) [Entitic vol] 7.7 fL 7 - 12 fL [facility] Platelets (Bld) [#/Vol] 325 10*3/uL [facility] RBC (Bld) [#/Vol] 4.97 10*6/uL [facility] WBC corrected for nucl RBC Auto (Bld) [#/Vol] 12.8 High [facility] CBC AND AUTO DIFFon 10-11-19 ABSOLUTE BASOPHIL 0.1 X10E9/L Normal 0.0-0.[address] [facility] Comment on above: Performed By: #### C BCA #### [facility] ([id number]) [address] [place] [address] 27494 ABSOLUTE NEUTROPHIL 6.3 X10E9/L Normal 1.5-6.6 [facility] Comment on above: Performed By: #### C BCA #### [facility] ([id number]) [address] [place] [address] 25484 Basophils/100 WBC (Bld) 1.0 % Normal [facility] Comment on above: Performed By: #### C BCA #### [facility] ([id number]) [address] [place] [address] 09894 Eosinophils (Bld) [#/Vol] 0.6 10*3/uL High 0.0-0.[address] [facility] Comment on above: Performed By: #### C BCA #### [facility] ([id number]) [address] [place] [address] 66112 Eosinophils/100 WBC (Bld) 6.3 % Normal [facility] Comment on above: Performed By: #### C BCA #### [facility] ([id number]) [address] [place] [address] 65096 Erythrocyte distribution width (RBC) [Ratio] 14.7 % Normal 11.5-15.[address] [facility] Comment on above: Performed By: #### C BCA #### [facility] ([id number]) [address] [place] [address] 16587 Hematocrit (Bld) [Volume fraction] 45.6 % Normal 35-[address] [facility] Comment on above: Performed By: #### C BCA #### [facility] ([id number]) [address] [place] [address] 38918 Hemoglobin (Bld) [Mass/Vol] 15.8 g/dL High 11.7-15.[address] [facility] Comment on above: Performed By: #### C BCA #### [facility] ([id number]) [address] [place] [address] 96539 Lymphocytes (Bld) [#/Vol] 1.4 10*3/uL Normal 1.0-3.[address] [facility] Comment on above: Performed By: #### C BCA #### [facility] ([id number]) [address] [place] [address] 60438 Lymphocytes/100 WBC (Bld) 15.4 % Normal [facility] Comment on above: Performed By: #### C BCA #### [facility] ([id number]) [address] [place] [address] 27544 MCH (RBC) [Entitic mass] 31.2 pg Normal 27-[address] [facility] Comment on above: Performed By: #### C BCA #### [facility] ([id number]) [address] [place] [address] 94173 MCHC (RBC) [Mass/Vol] 34.7 g/dL Normal 32-[address] [facility] Comment on above: Performed By: #### C BCA #### [facility] ([id number]) [address] [place] [address] 60245 MCV (RBC) [Entitic vol] 90 fL Normal 80-[address] [facility] Comment on above: Performed By: #### C BCA #### [facility] ([id number]) [address] [place] [address] 04055 Monocytes (Bld) [#/Vol] 0.7 10*3/uL Normal 0-0.[address] [facility] Comment on above: Performed By: #### C BCA #### [facility] ([id number]) [address] [place] [address] 42031 Monocytes/100 WBC (Bld) 8.0 % Normal [facility] Comment on above: Performed By: #### C BCA #### [facility] ([id number]) [address] [place] [address] 82981 Neutrophils/100 WBC (Bld) 69.3 % Normal [facility] Comment on above: Performed By: #### C BCA #### [facility] ([id number]) [address] [place] [address] 72351 Platelet mean volume (Bld) [Entitic vol] 7.9 fL Normal 7-[address] [facility] Comment on above: Performed By: #### C BCA #### [facility] ([id number]) [address] [place] [address] 88952 Platelets (Bld) [#/Vol] 274 10*3/uL Normal 150-[address] [facility] Comment on above: Performed By: #### C BCA #### [facility] ([id number]) [address] [place] [address] 97715 RBC COUNT 5.06 X10E12/L Normal 3.80-5.[address] [facility] Comment on above: Performed By: #### C BCA #### [facility] ([id number]) [address] [place] [address] 57298 WBC (Bld) [#/Vol] 9.1 10*3/uL Normal 4.0-11.[address] [facility] Comment on above: Performed By: #### C BCA #### [facility] ([id number]) [address] [place] [address] 34352 Follow-Upon 09-17-2023 Follow-Up [id number] Mayte Gavin 1945 F Date Provider Department Center 09/17/2023 JARAD ZHU MP ORTHO MPORTHO Family History Family history unknown: Yes Level of Service:41520 [place] OFFICE/OUTPATIENT ESTABLISHED HIGH MDM 40 MIN Reason for Visit and Comments: Follow-up [301480] - ongoing right knee pain for multiple [...] failed to relieve her pain Normal [facility] CBC AND AUTO DIFFon 08-09-19 ABSOLUTE BASOPHIL 0.1 X10E9/L Normal 0.0-0.[address] [facility] Comment on above: Performed By: #### C BCA #### [facility] ([id number]) [address] [place] [address] 61006 ABSOLUTE NEUTROPHIL 5.2 X10E9/L Normal 1.5-6.6 [facility] Comment on above: Performed By: #### C BCA #### [facility] ([id number]) [address] [place] [address] 35027 Basophils/100 WBC (Bld) 1.2 % Normal [facility] Comment on above: Performed By: #### C BCA #### [facility] ([id number]) [address] [place] [address] 44547 Eosinophils (Bld) [#/Vol] 0.5 10*3/uL High 0.0-0.[address] [facility] Comment on above: Performed By: #### C BCA #### [facility] ([id number]) [address] [place] [address] 25246 Eosinophils/100 WBC (Bld) 6.7 % Normal [facility] Comment on above: Performed By: #### C BCA #### [facility] ([id number]) [address] [place] [address] 34189 Erythrocyte distribution width (RBC) [Ratio] 14.6 % Normal 11.5-15.[address] [facility] Comment on above: Performed By: #### C BCA #### [facility] ([id number]) [address] [place] [address] 29713 Hematocrit (Bld) [Volume fraction] 41.1 % Normal 35-[address] [facility] Comment on above: Performed By: #### C BCA #### [facility] ([id number]) [address] [place] [address] 54573 Hemoglobin (Bld) [Mass/Vol] 14.1 g/dL Normal 11.7-15.[address] [facility] Comment on above: Performed By: #### C BCA #### [facility] ([id number]) [address] [place] [address] 24650 Lymphocytes (Bld) [#/Vol] 1.5 10*3/uL Normal 1.0-3.[address] [facility] Comment on above: Performed By: #### C BCA #### [facility] ([id number]) [address] [place] [address] 76211 Lymphocytes/100 WBC (Bld) 19.1 % Normal [facility] Comment on above: Performed By: #### C BCA #### [facility] ([id number]) [address] [place] [address] 60460 MCH (RBC) [Entitic mass] 30.9 pg Normal 27-[address] [facility] Comment on above: Performed By: #### C BCA #### [facility] ([id number]) [address] [place] [address] 96862 MCHC (RBC) [Mass/Vol] 34.2 g/dL Normal 32-[address] [facility] Comment on above: Performed By: #### C BCA #### [facility] ([id number]) [address] [place] [address] 71608 MCV (RBC) [Entitic vol] 90 fL Normal 80-[address] [facility] Comment on above: Performed By: #### C BCA #### [facility] ([id number]) [address] [place] [address] 26509 Monocytes (Bld) [#/Vol] 0.6 10*3/uL Normal 0-0.[address] [facility] Comment on above: Performed By: #### C BCA #### [facility] ([id number]) [address] [place] [address] 63333 Monocytes/100 WBC (Bld) 7.5 % Normal [facility] Comment on above: Performed By: #### C BCA #### [facility] ([id number]) [address] [place] [address] 20026 Neutrophils/100 WBC (Bld) 65.5 % Normal [facility] Comment on above: Performed By: #### C BCA #### [facility] ([id number]) [address] [place] [address] 32377 Platelet mean volume (Bld) [Entitic vol] 7.9 fL Normal 7-[address] [facility] Comment on above: Performed By: #### C BCA #### [facility] ([id number]) [address] [place] [address] 77547 Platelets (Bld) [#/Vol] 277 10*3/uL Normal 150-[address] [facility] Comment on above: Performed By: #### C BCA #### [facility] ([id number]) [address] [place] [address] 41464 RBC COUNT 4.55 X10E12/L Normal 3.80-5.[address] [facility] Comment on above: Performed By: #### C BCA #### [facility] ([id number]) [address] [place] [address] 44897 WBC (Bld) [#/Vol] 8.0 10*3/uL Normal 4.0-11.0 [facility] Comment on above: Performed By: #### C SAILAJA #### [facility] ([id number]) [address] [place] [address] 60365 CBC auto differentialon 07-16 Basophils (Bld) [#/Vol] 0.1 10*3/uL [facility] Basophils/100 WBC (Bld) 1.2 % [facility] Eosinophils (Bld) [#/Vol] 0.5 10*3/uL High [facility] Eosinophils/100 WBC (Bld) 6.7 % [facility] Erythrocyte distribution width (RBC) [Ratio] 14.6 % 11.5 - 15.0 % [facility] Hematocrit (Bld) [Volume fraction] 41.1 % 35 - 47 % [facility] Hemoglobin (Bld) [Mass/Vol] 14.1 g/dL 11.7 - 15.5 g/dL [facility] Interpretation and review of laboratory results Abnormal [facility] Lymphocytes (Bld) [#/Vol] 1.5 10*3/uL [facility] Lymphocytes/100 WBC (Bld) 19.1 % [facility] MCH (RBC) [Entitic mass] 30.9 pg 27 - 34 pg [facility] MCHC (RBC) [Mass/Vol] 34.2 g/dL 32 - 36 g/dL [facility] MCV (RBC) [Entitic vol] 90 fL 80 - 100 fL [facility] Monocytes (Bld) [#/Vol] 0.6 10*3/uL [facility] Monocytes/100 WBC (Bld) 7.5 % [facility] Neutrophils (Bld) [#/Vol] 5.2 10*3/uL [facility] Neutrophils/100 WBC (Bld) 65.5 % [facility] Platelet mean volume (Bld) [Entitic vol] 7.9 fL 7 - 12 fL [facility] Platelets (Bld) [#/Vol] 277 10*3/uL [facility] RBC (Bld) [#/Vol] 4.55 10*6/uL [facility] WBC corrected for nucl RBC Auto (Bld) [#/Vol] 8.0 [facility] Office Visiton 07-19-2023 Follow-up visit [id number] Mayte Gavin 1945 F Date Provider Department Center 07/19/2023 AMADOU ALFARO MP ORTHO MPORTHO Family History Family history unknown: Yes Level of Service:56109 AR OFFICE/OUTPATIENT NEW LOW MDM 30 MINUTES Reason for Visit and Comments: Pain [136] Normal [facility] CBC AND AUTO DIFFon 06-11-19 24 ABSOLUTE BASOPHIL 0.0 X10E9/L Normal 0.0-0.[address] [facility] Comment on above: Performed By: #### C BCA #### [facility] ([id number]) [address] [place] [address] 58632 ABSOLUTE NEUTROPHIL 5.1 X10E9/L Normal 1.5-6.6 [facility] Comment on above: Performed By: #### C BCA #### [facility] ([id number]) [address] [place] [address] 84041 Basophils/100 WBC (Bld) 0.2 % Normal [facility] Comment on above: Performed By: #### C BCA #### [facility] ([id number]) [address] [place] [address] 53106 Eosinophils (Bld) [#/Vol] 0.5 10*3/uL High 0.0-0.[address] [facility] Comment on above: Performed By: #### C BCA #### [facility] ([id number]) [address] [place] [address] 55981 Eosinophils/100 WBC (Bld) 6.9 % Normal [facility] Comment on above: Performed By: #### C BCA #### [facility] ([id number]) [address] [place] [address] 19653 Erythrocyte distribution width (RBC) [Ratio] 14.2 % Normal 11.5-15.[address] [facility] Comment on above: Performed By: #### C BCA #### [facility] ([id number]) [address] [place] [address] 11956 Hematocrit (Bld) [Volume fraction] 40.8 % Normal 35-[address] [facility] Comment on above: Performed By: #### C BCA #### [facility] ([id number]) [address] [place] [address] 99156 Hemoglobin (Bld) [Mass/Vol] 14.0 g/dL Normal 11.7-15.[address] [facility] Comment on above: Performed By: #### C BCA #### [facility] ([id number]) [address] [place] [address] 34273 Lymphocytes (Bld) [#/Vol] 1.2 10*3/uL Normal 1.0-3.[address] [facility] Comment on above: Performed By: #### C BCA #### [facility] ([id number]) [address] [place] [address] 58142 Lymphocytes/100 WBC (Bld) 16.5 % Normal [facility] Comment on above: Performed By: #### C BCA #### [facility] ([id number]) [address] [place] [address] 92223 MCH (RBC) [Entitic mass] 31.2 pg Normal 27-[address] [facility] Comment on above: Performed By: #### C BCA #### [facility] ([id number]) [address] [place] [address] 15936 MCHC (RBC) [Mass/Vol] 34.3 g/dL Normal 32-[address] [facility] Comment on above: Performed By: #### C BCA #### [facility] ([id number]) [address] [place] [address] 32141 MCV (RBC) [Entitic vol] 91 fL Normal 80-[address] [facility] Comment on above: Performed By: #### C BCA #### [facility] ([id number]) [address] [place] [address] 97162 Monocytes (Bld) [#/Vol] 0.6 10*3/uL Normal 0-0.[address] [facility] Comment on above: Performed By: #### C BCA #### [facility] ([id number]) [address] [place] [address] 22456 Monocytes/100 WBC (Bld) 8.0 % Normal [facility] Comment on above: Performed By: #### C BCA #### [facility] ([id number]) [address] [place] [address] 07216 Neutrophils/100 WBC (Bld) 68.4 % Normal [facility] Comment on above: Performed By: #### C BCA #### [facility] ([id number]) [address] [place] [address] 23568 Platelet mean volume (Bld) [Entitic vol] 8.3 fL Normal 7-[address] [facility] Comment on above: Performed By: #### C BCA #### [facility] ([id number]) [address] [place] [address] 38606 Platelets (Bld) [#/Vol] 258 10*3/uL Normal 150-[address] [facility] Comment on above: Performed By: #### C BCA #### [facility] ([id number]) [address] [place] [address] 32953 RBC COUNT 4.49 X10E12/L Normal 3.80-5.[address] [facility] Comment on above: Performed By: #### C BCA #### [facility] ([id number]) [address] [place] [address] WBC (Bld) [#/Vol] 7.4 10*3/uL Normal 4.0-11.[address] [facility] Comment on above: Performed By: #### C BCA #### [facility] ([id number]) [address] [place] [address] CBC auto differentialon 05-18 Basophils (Bld) [#/Vol] 0.0 10*3/uL [facility] Basophils/100 WBC (Bld) 0.2 % [facility] Eosinophils (Bld) [#/Vol] 0.5 10*3/uL High [facility] Eosinophils/100 WBC (Bld) 6.9 % [facility] Erythrocyte distribution width (RBC) [Ratio] 14.2 % 11.5 - 15.0 % [facility] Hematocrit (Bld) [Volume fraction] 40.8 % 35 - 47 % [facility] Hemoglobin (Bld) [Mass/Vol] 14.0 g/dL 11.7 - 15.5 g/dL [facility] Interpretation and review of laboratory results Abnormal [facility] Lymphocytes (Bld) [#/Vol] 1.2 10*3/uL [facility] Lymphocytes/100 WBC (Bld) 16.5 % [facility] MCH (RBC) [Entitic mass] 31.2 pg 27 - 34 pg [facility] MCHC (RBC) [Mass/Vol] 34.3 g/dL 32 - 36 g/dL [facility] MCV (RBC) [Entitic vol] 91 fL 80 - 100 fL [facility] Monocytes (Bld) [#/Vol] 0.6 10*3/uL [facility] Monocytes/100 WBC (Bld) 8.0 % [facility] Neutrophils (Bld) [#/Vol] 5.1 10*3/uL [facility] Neutrophils/100 WBC (Bld) 68.4 % [facility] Platelet mean volume (Bld) [Entitic vol] 8.3 fL 7 - 12 fL [facility] Platelets (Bld) [#/Vol] 258 10*3/uL [facility] RBC (Bld) [#/Vol] 4.49 10*6/uL [facility] WBC corrected for nucl RBC Auto (Bld) [#/Vol] 7.4 [facility] BNPon 08-07-2022 Natriuretic peptide B (Bld) [Mass/Vol] 124.0 pg/mL Normal <=1,800.0 [facility] Comment on above: Performed By: #### T SH, BNP, CREA, ELEC, BUN ####[facility] Shvuacbc[address] [place], [place] [address]Dr. [facility] BUNon 08-07-2022 Urea nitrogen [Mass/Vol] 13.0 mg/dL Normal 7.0-18.0 [facility] Comment on above: Performed By: #### T SH, BNP, CREA, ELEC, BUN ####[facility] Vmgesil[address] [place], [place] [address]Dr. [facility] CREATININEon 08-07-2022 Creatinine [Mass/Vol] 0.60 mg/dL Normal 0.55-1.02 [facility] Comment on above: Performed By: #### T SH, BNP, CREA, ELEC, BUN ####[facility] V[address]ws[address] [place], [place] [address]Dr. [facility] EGFR-AF LITHUANIAN >60 Normal >=60 [facility] Comment on above: Performed By: #### T SH, BNP, CREA, ELEC, BUN ####[facility] Sod[address] [place], [place] [address]Dr. [facility] EGFR-NON AF LITHUANIAN >60 Normal >=60 [facility] Comment on above: Performed By: #### T SH, BNP, CREA, ELEC, BUN ####[facility] Afvunhi[address] [place], [place] [address]Dr. [facility] ELECTROLYTESon 08-07-2022 Anion gap [Moles/Vol] 14.0 mmol/L Normal [facility] Comment on above: Performed By: #### T SH, BNP, CREA, ELEC, BUN ####[facility] [address] [place] [address]Dr. Miranda Duffy Chloride [Moles/Vol] 106 mmol/L Normal 98-107 [facility] Comment on above: Performed By: #### T SH, BNP, CREA, ELEC, BUN ####[facility] [address] [address]Dr. Miranda Duffy CO2 [Moles/Vol] 28.3 mmol/L Normal 21.0-32.0 [facility] Comment on above: Performed By: #### T SH, BNP, CREA, ELEC, BUN ####[facility] [address] [place] [address]Dr. Miranda Duffy Potassium [Moles/Vol] 4.3 mmol/L Normal 3.5-5.1 [facility] Comment on above: Performed By: #### T SH, BNP, CREA, ELEC, BUN ####[facility] [address] [address]Dr. Miranda Duffy Sodium [Moles/Vol] 144 mmol/L Normal 136-145 [facility] Comment on above: Performed By: #### T SH, BNP, CREA, ELEC, BUN ####[facility] [address] [address]Dr. Miranda Duffy TSHon 08-07-2022 TSH 3.287 uIU/mL Normal 0.358-3.740 [facility] Comment on above: Performed By: #### T SH, BNP, CREA, ELEC, BUN ####[facility] [address] [address]Dr. Miranda Duffy BNPon 08-04-2022 Natriuretic peptide B (Bld) [Mass/Vol] 70.0 pg/mL Normal <=1,800.0 [facility] Comment on above: Performed By: #### B COPPER ETCHER, BMP #### [facility] Laboratory [address] [address] [address] Miranda Duffy CBC AUTO DIFFon 08-04-2022 BASO # 0.1 103/ul Normal 0.0-0.1 [facility] Comment on above: Performed By: #### C BC #### [facility] Laboratory [address] [place] [address] Dr. Miranda Duffy Basophils/100 WBC (Bld) 0.9 % Normal 0.2-2.0 [facility] Comment on above: Performed By: #### C BC #### [facility] [address] [place] [address] Dr. Miranda Duffy EO # 0.5 103/ul Normal 0.0-0.7 [facility] Comment on above: Performed By: #### C BC #### [facility] [address] [place] [address] Dr. Miranda Duffy Eosinophils/100 WBC (Bld) 9.0 % Critically high 0.9-7.0 [facility] Comment on above: Performed By: #### C BC #### [facility] [address] [place] [address] Dr. Miranda Duffy Erythrocyte distribution width (RBC) [Ratio] 15.0 % Normal 11.0-15.0 [facility] Comment on above: Performed By: #### C BC #### [facility] [address] [place] [address] Dr. Miranda Duffy Hematocrit (Bld) [Volume fraction] 34.2 % Critically low 36.0-48.0 [facility] Comment on above: Performed By: #### C BC #### [facility] [address] [place] [address] Dr. Miranda Duffy Hemoglobin (Bld) [Mass/Vol] 10.9 g/dL Critically low 12.0-16.0 [facility] Comment on above: Performed By: #### C BC #### [facility] [address] [place] [address] Dr. Miranda Duffy IG # 0.04 10e3/ul Critically high 0.00-0.03 [facility] Comment on above: Performed By: #### C BC #### [facility] [address] [place] [address] Dr. Miranda Duffy IG % 0.7 % Critically high 0.0-0.5 [facility] Comment on above: Performed By: #### C BC #### [facility] [address] [place] [address] Dr. Miranda Duffy LYMPH # 1.1 103/ul Critically low 1.2-3.8 [facility] Comment on above: Performed By: #### C BC #### [facility] [address] [place] [address] Dr. Miranda Duffy Lymphocytes/100 WBC (Bld) 20.1 % Critically low 20.5-60.0 [facility] Comment on above: Performed By: #### C BC #### [facility] [address] [place] [address] Dr. Miranda Duffy MANUAL DIFF REQ NO Normal [facility] Comment on above: Performed By: #### C BC #### [facility] [address] [place] [address] Dr. Miranda Duffy MCH (RBC) [Entitic mass] 30.4 pg Normal 26.7-34.0 [facility] Comment on above: Performed By: #### C BC #### [facility] [address] [place] [address] Dr. Miranda Duffy MCHC (RBC) [Mass/Vol] 31.9 g/dL Normal 29.9-35.2 [facility] Comment on above: Performed By: #### C BC #### [facility] [address] [place] [address] Dr. Miranda Duffy MCV (RBC) [Entitic vol] 95.3 fL Normal 81.0-99.0 [facility] Comment on above: Performed By: #### C BC #### [facility] [address] [place] [address] Dr. Miranda Duffy MONO # 0.5 103/ul Normal 0.3-0.8 [facility] Comment on above: Performed By: #### C BC #### [facility] [address] [place] [address] Dr. Miranda Duffy Monocytes/100 WBC (Bld) 7.9 % Normal 1.7-12.0 [facility] Comment on above: Performed By: #### C BC #### [facility] [address] [address] [address] Miranda Duffy NEUT # 3.5 103/ul Normal 1.4-6.5 [facility] Comment on above: Performed By: #### C BC #### [facility] [address] [address] [address] Miranda Duffy Neutrophils/100 WBC (Bld) 61.4 % Normal 43.0-75.0 [facility] Comment on above: Performed By: #### C BC #### [facility] [address] [address] [address] Miranda Duffy Platelet mean volume (Bld) [Entitic vol] 8.7 fL Critically low 9.5-13.5 [facility] Comment on above: Performed By: #### C BC #### [facility] [address] [address] [address] Miranda Duffy PLT 433 103/ul Normal 150-450 [facility] Comment on above: Performed By: #### C BC #### [facility] [address] [address] [address] Miranda Duffy RBC 3.59 106/ul Critically low 4.20-5.40 [facility] Comment on above: Performed By: #### C BC #### [facility] [address] [address] [address] Miranda Duffy WBC 5.7 103/ul Normal 4.0-11.0 [facility] Comment on above: Performed By: #### C BC #### [facility] [address] [address] [address] Miranda Duffy GLYCOHEMOGLOBIN A1Con 2022 ADA RECOMMENDATION SEE BELOW Normal [facility] Comment on above: Result Comment: ADA RECOMMENDED LIMIT 4.0 - 6.0 ADA THERAPEUTIC TARGET < 7.0 ACTION SUGGESTED > 7.0 Performed By: #### A 1C ####[facility] [address] [address]Dr. Miranda Duffy Glucose [Mass/Vol] 100 mg/dL Normal [facility] Comment on above: Performed By: #### A 1C ####[facility] [address] [address]Dr. Miranda Duffy HbA1c (Bld) [Mass fraction] 5.1 % Normal 4.5-6.2 [facility] Comment on above: Performed By: #### A 1C ####[facility] [address] [address]Dr. Miranda Duffy PROF CHEM 8 (BAS METB)on Anion gap [Moles/Vol] 7.0 mmol/L Normal [facility] Comment on above: Performed By: #### B COPPER ETCHER, BMP #### [facility] [address] [place] [address] Dr. Miranda Duffy Calcium [Mass/Vol] 8.4 mg/dL Critically low 8.5-10.1 [facility] Comment on above: Performed By: #### B COPPER ETCHER, BMP #### [facility] [address] [place] [address] Dr. Miranda Duffy Chloride [Moles/Vol] 107 mmol/L Normal 98-107 [facility] Comment on above: Performed By: #### B COPPER ETCHER, BMP #### [facility] [address] [place] [address] Dr. Miranda Duffy CO2 [Moles/Vol] 30.5 mmol/L Normal 21.0-32.0 [facility] Comment on above: Performed By: #### B COPPER ETCHER, BMP #### [facility] [address] [place] [address] Dr. Miranda Duffy Creatinine [Mass/Vol] 0.59 mg/dL Normal 0.55-1.02 [facility] Comment on above: Performed By: #### B COPPER ETCHER, BMP #### [facility] [address] [place] [address] Dr. Miranda Duffy EGFR-AF LITHUANIAN >60 Normal >=60 [facility] Comment on above: Performed By: #### B COPPER ETCHER, BMP #### [facility] [address] [place] [address] Dr. Miranda Duffy EGFR-NON AF LITHUANIAN >60 Normal >=60 [facility] Comment on above: Performed By: #### B COPPER ETCHER, BMP #### [facility] [address] [place] [address] Dr. Miranda Duffy Glucose [Mass/Vol] 85 mg/dL Normal 74-106 [facility] Comment on above: Performed By: #### B COPPER ETCHER, BMP #### [facility] [address] [place] [address] Dr. Miranda Duffy Potassium [Moles/Vol] 3.5 mmol/L Normal 3.5-5.1 [facility] Comment on above: Performed By: #### B COPPER ETCHER, BMP #### [facility] [address] [place] [address] Dr. Miranda Duffy Sodium [Moles/Vol] 141 mmol/L Normal 136-145 [facility] Comment on above: Performed By: #### B COPPER ETCHER, BMP #### [facility] [address] [place] [address] Dr. Miranda Duffy Urea nitrogen [Mass/Vol] 17.0 mg/dL Normal 7.0-18.0 [facility] Comment on above: Performed By: #### B COPPER ETCHER, BMP #### [facility] [address] [place] [address] Dr. Miranda Duffy Urea nitrogen/Creatinine [Mass ratio] 28.8 mg/mg Normal [facility] Comment on above: Performed By: #### B COPPER ETCHER, BMP #### [facility] [address] [place] [address] Dr. Miranda Duffy UA (CLEAN/CATCH) PROGRAM CONSULTANT/MICRO I F IND.on 08-04-2022 Bilirubin Ql (U) Negative Normal NEGATIVE [facility] Comment on above: Performed By: #### U ACSIND #### [facility] [address] [place] [address] Dr. Miranda Duffy Clarity (U) SL CLOUDY Abnormal CLEAR [facility] Comment on above: Performed By: #### U ACSIND #### [facility] [address] [place] [address] Dr. Miranda Duffy Color (U) YELLOW Normal YELLOW [facility] Comment on above: Performed By: #### U ACSIND #### [facility] [address] [address] [address] Miranda Duffy Glucose Ql (U) Negative Normal NEGATIVE [facility] Comment on above: Performed By: #### U ACSIND #### [facility] [address] [address] [address] Miranda Duffy Hemoglobin Ql (U) Negative Normal NEGATIVE [facility] Comment on above: Performed By: #### U ACSIND #### [facility] [address] [address] [address] Miranda Duffy Ketones Ql (U) Negative Normal NEGATIVE [facility] Comment on above: Performed By: #### U ACSIND #### [facility] [address] [place] [address] Dr. Miranda Duffy LEUKOCYTES Negative Normal NEGATIVE [facility] Comment on above: Performed By: #### U ACSIND #### [facility] [address] [place] [address] Dr. Miranda Duffy Nitrite Ql (U) Negative Normal NEGATIVE [facility] Comment on above: Performed By: #### U ACSIND #### [facility] [address] [address] [address] Miranda Duffy pH (U) 5.5 [pH] Normal 5-9 [facility] Comment on above: Performed By: #### U ACSIND #### [facility] [address] [place] [address] Dr. Miranda Duffy SPEC GRAVITY 1.030 Abnormal 1.005-<=1.025 [facility] Comment on above: Performed By: #### U ACSIND #### [facility] [address] [address] [address] Miranda Duffy UA PROTEIN Negative Normal NEGATIVE/ TRACE [facility] Comment on above: Performed By: #### U ACSIND #### [facility] [address] [place] [address] Dr. Miranda Duffy UR MICRO IND NOT INDICATED Normal [facility] Comment on above: Performed By: #### U ACSIND #### [facility] [address] [address] [address] Miranda Dfufy Urobilinogen Qn (U) 0.2 {Alondra'U}/dL Normal 0.2 - 1. 0 [facility] Comment on above: Performed By: #### U ACSIND #### [facility] [address] [address] [address] Miranda Duffy CULTURE URINEon 04-07-2022 CULTURE [...] F Trimethoprim/Sulfamet hoxazole <=20 S F Normal [facility] Comment on above: Performed By: #### U RCX ####[facility] [address] [address]Dr. Miranda Duffy CARDIAC TUTU 3-6on 2 CK [Catalytic activity/Vol] 134 U/L Normal 26-192 [facility] Comment on above: Performed By: #### C MREP #### [facility] [address] [address] [address] Miranda Duffy CK.MB [Mass/Vol] 3.51 ng/mL Normal <=3.60 [facility] Comment on above: Performed By: #### C MREP #### [facility] [address] [place] [address] Dr. Miranda Duffy HSTROP 7.8 pg/mL Normal 4.0-51.3 [facility] Comment on above: Result Comment: CUT- OFF POINTS HAVE BEEN ESTABLISHED BASED ON THE FOURTH UNIVERSAL DEFINITIONS OF MYOCARDIAL INFARCTION. THE UPPER REFERENCE LIMIT (URL) OF TROPONIN, DEFINED THE 99TH PERCENTILE OF cTnI DISTRIBUTION IN A REFERENCE POPULATION, HAS BEEN CONFIRMED THE DECISION THRESHOLD FOR [place] DIAGNOSIS. Performed By: #### C BRIP #### [facility] [address] [place] [address] Dr. Miranda Duffy CARDIAC TUTU ADMITon 022 CK [Catalytic activity/Vol] 90 U/L Normal 26-192 [facility] Comment on above: Performed By: #### B DUSTIN ERICKSON #### [facility] [address] [address] [address] Miranda Duffy CK.MB [Mass/Vol] 1.95 ng/mL Normal <=3.60 [facility] Comment on above: Performed By: #### DUSTIN Velazco MP #### [facility] [address] [place] [address] Dr. Miranda Duffy HSTROP 7.7 pg/mL Normal 4.0-51.3 [facility] Comment on above: Result Comment: CUT- OFF POINTS HAVE BEEN ESTABLISHED BASED ON THE FOURTH UNIVERSAL DEFINITIONS OF MYOCARDIAL INFARCTION. THE UPPER REFERENCE LIMIT (URL) OF TROPONIN, DEFINED THE 99TH PERCENTILE OF cTnI DISTRIBUTION IN A REFERENCE POPULATION, HAS BEEN CONFIRMED THE DECISION THRESHOLD FOR [place] DIAGNOSIS. Performed By: #### DUSTIN Velazco MP #### [facility] [address] [place] [address] Dr. Miranda Duffy SHELBY 426 ng/mL Critically high 9-82 [facility] Comment on above: Performed By: #### DUSTIN Velazco MP #### [facility] [address] [address] [address] Miranda Duffy CBC AUTO DIFFon 04-05-2022 BASO # 0.1 103/ul Normal 0.0-0.1 [facility] Comment on above: Performed By: #### C BC ####[facility] [address] [address]Dr. Miranda Duffy Basophils/100 WBC (Bld) 0.7 % Normal 0.2-2.0 [facility] Comment on above: Performed By: #### C BC ####[facility] [address] [address]Dr. Miranda Duffy EO # 0.7 103/ul Normal 0.0-0.7 [facility] Comment on above: Performed By: #### C BC ####[facility] [address] [place], [place] [address]Dr. Miranda Duffy Eosinophils/100 WBC (Bld) 6.3 % Normal 0.9-7.0 [facility] Comment on above: Performed By: #### C BC ####[facility] [address] [place], [place] [address]Dr. Miranda Duffy Erythrocyte distribution width (RBC) [Ratio] 14.4 % Normal 11.0-15.0 [facility] Comment on above: Performed By: #### C BC ####[facility] [address] [place], [place] [address]Dr. Miranda Duffy Hematocrit (Bld) [Volume fraction] 43.7 % Normal 36.0-48.0 [facility] Comment on above: Performed By: #### C BC ####[facility] [address] [place], [place] [address]Dr. Miranda Duffy Hemoglobin (Bld) [Mass/Vol] 14.8 g/dL Normal 12.0-16.0 [facility] Comment on above: Performed By: #### C BC ####[facility] [address] [place], [place] [address]Dr. Miranda Duffy IG # 0.06 10e3/ul Critically high 0.00-0.03 [facility] Comment on above: Performed By: #### C BC ####[facility] [address] [place], [place] [address]Dr. Miranda Duffy IG % 0.5 % Normal 0.0-0.5 [facility] Comment on above: Performed By: #### C BC ####[facility] [address] [place], [place] [address]Dr. Miranda Duffy LYMPH # 1.7 103/ul Normal 1.2-3.8 [facility] Comment on above: Performed By: #### C BC ####[facility] [address] [address]Dr. Miranda Clive Lymphocytes/100 WBC (Bld) 14.7 % Critically low 20.5-60.0 [facility] Comment on above: Performed By: #### C BC ####[facility] [address] [address]Dr. Cherellealex Duffy MANUAL DIFF REQ NO Normal [facility] Comment on above: Performed By: #### C BC ####[facility] [address] [address]Dr. Miranda Clive MCH (RBC) [Entitic mass] 31.1 pg Normal 26.7-34.0 [facility] Comment on above: Performed By: #### C BC ####[facility] [address] [place], [place] [address]Dr. Miranda Duffy MCHC (RBC) [Mass/Vol] 33.9 g/dL Normal 29.9-35.2 [facility] Comment on above: Performed By: #### C BC ####[facility] [address] [place], [place] [address]Dr. Miranda Duffy MCV (RBC) [Entitic vol] 91.8 fL Normal 81.0-99.0 [facility] Comment on above: Performed By: #### C BC ####[facility] [address] [place], [place] [address]Dr. Miranda Duffy MONO # 0.9 103/ul Critically high 0.3-0.8 [facility] Comment on above: Performed By: #### C BC ####[facility] [address] [place], [place] [address]Dr. Miranda Duffy Monocytes/100 WBC (Bld) 8.2 % Normal 1.7-12.0 [facility] Comment on above: Performed By: #### C BC ####[facility] [address] [place], [place] [address]Dr. Miranda Duffy NEUT # 7.8 103/ul Critically high 1.4-6.5 [facility] Comment on above: Performed By: #### C BC ####[facility] [address] [place], [place] [address]Go. Miranda Duffy Neutrophils/100 WBC (Bld) 69.6 % Normal 43.0-75.0 [facility] Comment on above: Performed By: #### C BC ####[facility] [address] [place], [place] [address]Gg. Miranda Duffy Platelet mean volume (Bld) [Entitic vol] 9.0 fL Critically low 9.5-13.5 [facility] Comment on above: Performed By: #### C BC ####[facility] [address] [place], [place] [address]Mb. Miranda Duffy PLT 248 103/ul Normal 150-450 [facility] Comment on above: Performed By: #### C BC ####[facility] [address] [place], [place] [address]Dq. Miranda Duffy RBC 4.76 106/ul Normal 4.20-5.40 [facility] Comment on above: Performed By: #### C BC ####[facility] [address] [place], [place] [address]Yx. Miranda Duffy WBC 11.2 103/ul Critically high 4.0-11.0 [facility] Comment on above: Performed By: #### C BC ####[facility] [id number] Miranda Duffy CT CSPINE WO CONon CT [...] DAVID ALONSO Date: 2022-04-05 01:16 Normal [facility] CT FACIAL BONES WO HETALon CT [...] HARVEY BERG Date: 2022-04-04 23:53 Normal [facility] ER URINE PROFILEon 2 Bilirubin Ql (U) Negative Normal NEGATIVE [facility] Comment on above: Performed By: #### Patel AGUILA SUJEYRO ####[facility] [address] [address]Dr. Miranda Duffy Clarity (U) CLEAR Normal CLEAR [facility] Comment on above: Performed By: #### Patel AGUILA ICRO ####[facility] [address] [place] [id number]. Miranda Duffy Color (U) LT. YELLOW Normal YELLOW [facility] Comment on above: Performed By: #### Patel AGUILA UMICRO ####[facility] [address] [place] [phone]. Miranda Duffy ERUAHD A micrscopic examination will be performed if indicated. Normal [facility] Comment on above: Performed By: #### ANANT GREGGRO ####[facility] [address] [place] [phone]. Miranda Duffy Glucose Ql (U) Negative Normal NEGATIVE [facility] Comment on above: Performed By: #### ANANT GREGGRO ####[facility] [address] [place] [address]Dr. Miranda Duffy Hemoglobin Ql (U) Negative Normal NEGATIVE [facility] Comment on above: Performed By: #### LEGIHA GREGG ####[facility] [address] [place], [place] [address]Dr. Miranda Duffy Ketones Ql (U) 15 mg/dl Abnormal NEGATIVE [facility] Comment on above: Performed By: #### LEIGHA GREGG ####[facility] Q[address] [place], [place] [address]Dr. Miranda Duffy LEUKOCYTES SMALL Abnormal NEGATIVE [facility] Comment on above: Performed By: #### LEIGHA GREGG ####[facility] Trkuhrrm[address] [place], [place] [address]Dr. Miranda Duffy Nitrite Ql (U) Positive Abnormal NEGATIVE [facility] Comment on above: Performed By: #### LEIGHA GREGG ####[facility] Yfu[address] [place], [place] [address]Dr. Miranda Duffy pH (U) 5.5 [pH] Normal 5-9 [facility] Comment on above: Performed By: #### LEIGHA GREGG ####[facility] Z[address] [place], [place] [address]Dr. Miranda Duffy SPEC GRAVITY 1.015 Normal 1.005-<=1.025 The [facility] Comment on above: Performed By: #### LEIGHA GREGG ####[facility] Ifvsfs[address]fdz[address] [place], [place] [address]Dr. Miranda Duffy UA PROTEIN Negative Normal NEGATIVE/ TRACE [facility] Comment on above: Performed By: #### LEIGHA GREGG ####[facility] Gptfbavi[address] [place], [place] [address]Dr. Miranda Duffy UR MICRO IND INDICATED Normal [facility] Comment on above: Performed By: #### LEIGHA GREGG ####[facility] [address] [place], [place] [address]Dr. Miranda Duffy Urobilinogen Qn (U) 1.0 {Alondra'U}/dL Normal 0.2 - 1. 0 [facility] Comment on above: Performed By: #### E LEIGHA AGUILA ####[facility] [address] [place] [address]Dr. Miranda Duffy PROF CHEM 8 (BAS METB)on Anion gap [Moles/Vol] 8.2 mmol/L Normal [facility] Comment on above: Performed By: #### B GEORGINA, CMADM #### [facility] [address] [address] [address] Miranda Duffy Calcium [Mass/Vol] 9.2 mg/dL Normal 8.5-10.1 [facility] Comment on above: Performed By: #### B GEORGINA, CMADM #### [facility] [address] [address] [address] Miranda Duffy Chloride [Moles/Vol] 103 mmol/L Normal 98-107 [facility] Comment on above: Performed By: #### B GEORGINA, CMADM #### [facility] [address] [address] [address] Miranda Duffy CO2 [Moles/Vol] 30.7 mmol/L Normal 21.0-32.0 [facility] Comment on above: Performed By: #### B GEORGINA, CMADM #### [facility] [address] [address] [address] Miranda Duffy Creatinine [Mass/Vol] 0.73 mg/dL Normal 0.55-1.02 [facility] Comment on above: Performed By: #### B GEORGINA, CMADM #### [facility] [address] [address] [address] Miranda Duffy EGFR-AF LITHUANIAN >60 Normal >=60 [facility] Comment on above: Performed By: #### B GEORGINA, CMADM #### [facility] [address] [address] [address] Miranda Duffy EGFR-NON AF LITHUANIAN >60 Normal >=60 [facility] Comment on above: Performed By: #### B GEORGINA, CMADM #### [facility] [address] [address] [address] Miranda Duffy Glucose [Mass/Vol] 116 mg/dL Critically high 74-106 T [facility] Comment on above: Performed By: #### B GEORGINA, DUSTIN #### [facility] [address] [address] [address] Miranda Duffy Potassium [Moles/Vol] 3.9 mmol/L Normal 3.5-5.1 [facility] Comment on above: Performed By: #### B GEORGINA, ESTRELLITADM #### [facility] [address] [address] [address] Miranda Duffy Sodium [Moles/Vol] 138 mmol/L Normal 136-145 [facility] Comment on above: Performed By: #### B GEORGINA, DUSTIN #### [facility] [address] [address] [address] Miranda Duffy Urea nitrogen [Mass/Vol] 22.0 mg/dL Critically high 7.0-18.0 [facility] Comment on above: Performed By: #### B GEORGINA, DUSTIN #### [facility] [address] [address] [address] Miranda Duffy Urea nitrogen/Creatinine [Mass ratio] 30.1 mg/mg Normal [facility] Comment on above: Performed By: #### B GEORGINA, ESTRELLITADM #### [facility] [address] [address] [address] Miranda Duffy URINE MICROSCOPIC ONLYon BACTERIA LARGE Abnormal NONE SEEN [facility] Comment on above: Performed By: #### ANANT GREGGRO ####[facility] [address] [place] [id number] Duffy Bacteria identified Cx Nom (U) INDICATED Normal [facility] Comment on above: Performed By: #### ANANT GREGGRO ####[facility] [address] [place] [id number] Duffy CAST NONE SEEN Normal NONE SEEN [facility] Comment on above: Performed By: #### ANANT GREGGRO ####[facility] [address] [place] [address]Dr. Miranda Duffy Crystals LM Nom (Urine sed) NONE SEEN Normal NONE SEEN [facility] Comment on above: Performed By: #### LEIGHA GREGG ####[facility] [address] [place] [address]Dr. Miranda Duffy Epithelial cells LM Ql (Urine sed) FEW Abnormal NONE SEEN /RARE [facility] Comment on above: Performed By: #### LEIGHA GREGG ####[facility] [address] [place] [address]Dr. Miranda Duffy MUCOUS NONE SEEN Normal NONE SEEN [facility] Comment on above: Performed By: #### LEIGHA GREGG ####[facility] [address] [place] [address]Dr. Miranda Duffy RBC 0-2 Normal 0-2 [facility] Comment on above: Performed By: #### LEIGHA GREGG ####[facility] [address] [place] [address]Dr. Miranda Duffy WBC 5-10 Abnormal NONE SEEN [facility] Comment on above: Performed By: #### LEIGHA GREGG ####[facility] [address] [place], [place] [address]Dr. Miranda Duffy XR HIP LT 2 3V [...] DAVID ALONSO Date: 2022-04-05 00:12 Normal [facility] Vital Signs Date Time Vital Sign Value Performing Clinician Facility 12-13-2023 14:57-0400 Body mass index (BMI) [Ratio] 35 kg/m2 Clive Vogt MD Work Phone: [facility] 12-13-2023 14:57-0400 Body temperature 97.59 [degF] Clive Vogt MD Work Phone: [facility] 12-13-2023 14:57-0400 Body weight 92.53 kg Clive Vogt MD Work Phone: [facility] 12-13-2023 14:57-0400 Diastolic blood pressure 85 mm[Hg] Clive Vogt MD Work Phone: [facility] 12-13-2023 14:57-0400 Heart rate 102 /min Clive Vogt MD Work Phone: [facility] 12-13-2023 14:57-0400 Respiratory rate 16 /min Clive Vogt MD Work Phone: [facility] 12-13-2023 14:57-0400 SaO2% (BldA) [Mass fraction] 94 % Clive Vogt MD Work Phone: [facility] 12-13-2023 14:57-0400 Systolic blood pressure 121 mm[Hg] Clive Vogt MD Work Phone: [facility] [employer] Encounters Encounter Date Encounter Type Care Provider Facility Start: 06-09-2024 End: 06-09-2024 ambulatory Pfo Infusion Chair 1 Lashon Lody [facility] Comment on above: Polycythemia (Primar y Dx) Start: 05-16-2024 End: 05-16-2024 ambulatory [facility] Start: 04-14-2024 End: 04-14-2024 ambulatory [facility] Start: 02-28-2024 End: 02-28-2024 ambulatory [facility] Start: 02-07-2024 End: 02-07-2024 ambulatory Pfo Infusion Chair 1 Lashon Loyd [facility] Comment on above: Polycythemia (Primar y Dx) Start: 01-22-2024 End: 01-22-2024 Bamboo flowsheet Manohar Miller DO Work Phone: [facility] Start: 01-22-2024 End: 01-22-2024 Bamboo flowsheet Manohar Miller DO Work Phone: [facility] Start: 01-22-2024 End: 01-22-2024 Office outpatient new 45 minutes Manohar Miller DO Work Phone: [facility] Comment on above: Chronic pain of righ t knee; Primary osteoarthritis of right knee Start: 01-22-2024 End: 01-22-2024 ambulatory MANOHAR MILLER Not Available Start: 12-13-2023 End: 12-13-2023 Office outpatient visit 25 minutes Clive Vogt MD Work Phone: Lashon Loyd [facility] Comment on above: Polycythemia (Primar y Dx); Acute deep vein thrombosis (DVT) of distal vein of right lower extremity ([facility]) Start: 12-13-2023 End: 12-13-2023 ambulatory Pfo Infusion Chair 1 Lashon Loyd [facility] Comment on above: Polycythemia (Primar y Dx) Start: 12-13-2023 End: 12-13-2023 Documentation procedure Morenita Loyd [facility] Start: 10-11-2023 End: 10-11-2023 ambulatory Pfo Infusion Chair 1 Lashon Loyd [facility] Comment on above: Polycythemia (Primar y Dx) Start: 10-11-2023 End: 10-15-2023 ambulatory [facility] Start: 09-17-2023 ambulatory [facility] Start: 08-09-2023 End: 08-09-2023 ambulatory Pfo Infusion Chair 1 Lashon Loyd [facility] Comment on above: Polycythemia (Primar y Dx) Start: 08-09-2023 End: 08-15-2023 ambulatory [facility] Start: 07-19-2023 End: 07-19-2023 ambulatory [facility] Start: 06-11-2023 End: 06-11-2023 ambulatory Pfo Infusion Chair 1 Lashon Loyd [facility] Comment on above: Polycythemia (Primar y Dx) Start: 08-09-2022 End: 08-09-[address] ELIEZER PLASCENCIA Facility:[facility] Start: 08-07-2022 End: 08-07-[address] ELIEZER PLASCENCIA Facility:[facility] Start: 08-04-2022 End: 08-04-[address] ELIEZER PLASCENCIA Facility:[facility] Start: 04-05-2022 End: 04-05-2022 ambulatory HALLIE ELIZONDO Facility:[facility] Procedures Date Procedure Procedure Detail Performing Clinician Start: 02-07-2024 Blood count complete auto&auto difrntl wbc Clive Vogt MD Work Phone: Start: 12-13-2023 Blood count complete auto&auto difrntl wbc Clive Vogt MD Work Phone: Start: 12-13-2023 Follow-up visit Follow-up [facility] Start: 08-09-2023 Blood count complete auto&auto difrntl wbc Clive Vogt MD Work Phone: Start: 06-11-2023 Blood count complete auto&auto difrntl wbc Clive Vogt MD Work Phone: Plan of Treatment Date Care Activity Detail Author Start: 08-02-2027 DTaP,Tdap and Td Vaccines (2 - Td or Tdap) DTaP,Tdap and Td Vaccines (2 - Td or Tdap) [facility] Start: 12-12-2024 Adult BMI Screening Adult BMI Screen ing [facility] Start: 12-12-2024 Tobacco Screening Tobacco Screening [facility] Start: 08-04-2024 End: 08-04-2024 ambulatory 08/04/2024 2:00 PM EDT Infusion Lashon Loyd [facility] [address] [place] [phone] Lashon Loyd [facility] Start: 06-16-2024 End: 06-16-2024 Patient encounter procedure 06/16/2024 1:30 PM EST Office Visit Lashon Loyd [facility] [address] [place] [address] Sondra Morrison APRN-CNP [address] [facility], [address] [place] [id number] Lashon Loyd [facility] Start: 06-12-2024 End: 06-12-2024 Patient encounter procedure 06/12/2024 1:00 PM EST Office Visit Lashon Loyd [facility] [address] [place] [phone] Clive Vogt MD [address] [facility] [address] [place] [address] Lashon Loyd [facility] Start: 04-14-2024 End: 04-14-2024 ambulatory 04/14/2024 2:00 PM EST Infusion Lashon Loyd [facility] [address] [place] [phone] Lashontanmay Loyd [facility] Start: 02-07-2024 End: 02-07-2024 ambulatory 02/07/2024 2:00 PM EDT Infusion Lashontanmay Loyd [facility] [address] [place] [phone] Lashon L Juab [facility] Start: 01-22-2024 End: 01-22-2024 Patient encounter procedure 01/22/2024 10:45 AM EDT Office Visit [facility] [address] [facility] [address] [place] [address] Manohar Miller, [address] [facility] [address] [place] [address] Chronic pain of right knee; Primary osteoarthritis of right knee [facility] Comment on above: Chronic pain of righ t knee; Primary osteoarthritis of right knee Start: 12-16-2023 COVID-19 Vaccine ( season) COVID-19 Vaccine () [facility] Start: 12-16-2023 COVID-19 Vaccine ( season) COVID-19 Vaccine () [facility] Start: 12-16-2023 Influenza vaccination [facility] Start: 12-13-2023 End: 12-13-2023 Patient encounter procedure 12/13/2023 3:15 PM EDT Office Visit Lashon Loyd [facility] [address] [place] [phone] Clive Vogt MD [address] [place], [place] [phone] Lashon Loyd [facility] Start: 12-13-2023 End: 12-13-2023 ambulatory 12/13/2023 3:00 PM EDT Infusion Lashon Loyd [facility] [address] [place] [phone] Lashon Loyd [facility] Start: 10-13-2023 Adult BMI Screening Adult BMI Screen ing [facility] Start: 10-13-2023 Tobacco Screening Tobacco Screening [facility] Start: 10-11-2023 End: 10-11-2023 Patient encounter procedure 10/11/2023 2:15 PM EDT Office Visit Lashon Loyd [facility] [address] [place] [phone] Clive Vogt MD [address] [place] [address] Lashon Loyd [facility] Start: 10-11-2023 End: 10-11-2023 ambulatory 10/11/2023 2:00 PM EDT Infusion Lashon Loyd [facility] [address] [place] [phone] Lashon Loyd [facility] Start: 08-09-2023 End: 08-09-2023 Patient encounter procedure 08/09/2023 2:15 PM EDT Office Visit Lashon Loyd [facility] [address] [place] [address] Clive Vogt MD [address] [facility] [address] [place], [place] [id number] Lashon Loyd [facility] Start: 12-15-2022 Influenza vaccination Influenza Vacc ine [facility] Start: 09-02-2021 Fall Risk Screening Fall Risk Screen ing [facility] Start: 2011 Fall Risk Screening Fall Risk Screen ing [facility] Start: 2011 Pneumococcal Vaccine : 65+ Years (1 of 1 - PCV) Pneumococcal Vaccine: 65+ Years (1 of 1 - PCV) [facility] Start: 1996 Administration of varicella zoster vaccine Zoster (Shingles) Vaccine (1 of 2) [facility] Start: 1964 Adult BMI Follow Up Plan Adult BMI Follow Up Plan [facility] [employer] [facility] Start: 1958 Depression Screening Depression Scre ening [facility] Start: 1946 Medicare Annual Well ness Visit Medicare Annual Wellness Visit [facility] Immunizations Immunization Date Immunization Notes Care Provider Fa cili 02-08-2022 SARS-COV-2 (COVID-19 ) vaccine, mRNA, spike protein, LNP, bivalent, preservative free, 30 mcg/0.3 mL dose, jacinto-sucrose formulation Manohar Kowalskiston DO Work Phone: [facility] 01-25-2022 Influenza, High-dose Seasonal, Quadrivalent, Preservative Free Manohar Miller DO Work Phone: [facility] 01-25-2022 influenza virus vacc ine, unspecified formulation Manohar Miller DO Work Phone: [facility] 02-28-2021 Pfizer Purple Cap SARS-CoV-2 Vaccination Manohar Kowalskiston DO Work Phone: [facility] 05-25-2020 Pfizer Purple Cap SARS-CoV-2 Vaccination Manohar Miller DO Work Phone: [facility] 05-04-2020 Pfizer Purple Cap SARS-CoV-2 Vaccination Manohar Miller DO Work Phone: [facility] Payers Date Payer Category Payer Medicaid [id number] 2022 Medicaid [id number] 2001 Medicare [id number] 2001 Medicare [id number] 1959 Unknown [id number] 1946 Unknown [id number] 2.16.84 [id number] 1946 Unknown [id number] 2.16.84 [id number] 1946 Unknown [id number] 2.16.84 [id number] 1946 Unknown [id number] 2.16.84 0.1.516459.3.579.2.593 1946 Unknown [id number] 2.16.84 0.1.002787.3.579.2.1259 1946 Unknown [id number] 2.16. 840.1.294293.3.579.2.1286 1946 Unknown [id number] 2.16. [id number] 1946 Unknown [id number] 2.16.8 40.1.824436.3.579.2.1286 1946 Unknown [id number] 2.16.8 40.1.871375.3.579.2.1286 1946 Unknown [id number] 2.16.8 40.1.003416.3.579.2.1286 1946 Unknown [id number] 2.16.8 40.1.009961.3.579.2.1286 1946 Unknown [id number] 2.16.8 40.1.150667.3.579.2.1286 1946 Unknown [id number] 2.16.8 40.1.045011.3.579.2.1286 1946 Unknown [id number] 2.16.8 40.1.420864.3.579.2.1286 1946 Unknown [id number] 2.16.8 40.1.918748.3.579.2.1286 Social History Date Type Detail Facility Tobacco smoking stat [facility] Tobacco smoking consumption unknown [facility] Start: 1945 Sex assigned at Not on file [facility] Start: 05-06-2020 End: 10-12-2022 Gender identity Not on file [facility] Start: 07-24-2022 Tobacco smoking stat [facility] Never smoked tobacco [facility] Start: 07-24-2022 Tobacco use and exposure Smokeless tobacco non-user [facility] Start: 10-12-2022 End: 12-13-2023 Alcoholic beverage intake Current non-drinker of alcohol (finding) [facility] Start: 05-06-2020 End: 10-12-2022 History of Social function [facility] Are you worried or concerned that in the next two months you may not have stable housing that you own, rent or stay in as a part of a household? No [facility] Start: 08-17-2017 Sex Female (finding) [facility] Medical Equipment Procedure Code Equipment Code Equipment Origin al Text Equipment Identifier Dates Stem Fem 6 2 Tpr Flt [place] Mectagrip Hip Lateralize - [id number] - [id number] Start: 07-24-2022 Head Bp 42mm 22m m Hip - [id number] - [id number] Start: 07-24-2022 Head Fem 22mm +2 .5mm 12/14 Sm Qd Cocr Hip - [id number] - [id number] Start: 07-24-2022 Goals Date Patient Goal Desired Activity /State Personal health goal Comment on above: Formatting of this n ote might be different from the original. Evaluation of progress towards goal: Short stay at SNF and return [place] apt[place] Clinical Notes 06-11-2023 to 05-16-2024 Rebecca Marcial RN - 02/07/2024 2:00 PM Angela Miller, - 01/22/2024 10:45 AM Sal Amezcua RN - 12/13/2023 3:18 PM Elan Vogt MD - 12/13/2023 3:15 PM EDTPatient Instructions Note Date & Type Note Facility 05-16-2024 Note [facility] Reason for cardiology visit: This visit was scheduled for preop clearance for knee replacement however the patient was recently considered not candidate for it. Follow-up with cardiology HPI: Mayte Gavin is a 79 y.o. female with history of hypertension, hypothyroidism, type 2 diabetes mellitus and obesity. Patient resides in a alf. She is here by herself. She states that she walks in the alf with a walker. She states that her right knee is better after the injection but still hurting. She reports occasional chest wall pain when she put pressure on the walker while she is walking. She admits occasional shortness of breath with exertion. She denies orthopnea or paroxysmal nocturnal dyspnea or dizziness or palpitations or legs edema. Review of systems All systems were reviewed and they were negative except for the positive findings noted above in the history Past Medical History She has a past medical history of Diabetes mellitus (CMS/[facility]ER[facility]), Fracture of hip (CMS/FORMERLY [facility]), and Hypertension. Surgical History She has a past surgical history that includes Total hip arthroplasty (Left). Social History She reports that she has never smoked. She has never used smokeless tobacco. She reports that she does not drink alcohol. No history on file for drug use. Family History Family History Family history unknown: Yes Allergies Iodinated contrast media, Penicillins, and Sulfa (sulfonamide antibiotics) Medications Current Outpatient Medications: acetaminophen (Tylenol) 500 mg tablet, Take 500 mg by mouth every 8 (eight) hours if needed., Disp: , Rfl: albuterol 90 mcg/actuation inhaler, Inhale if needed each day., Disp: , Rfl: ARIPiprazole (Abilify) 5 mg tablet, , Disp: , Rfl: aspirin 81 mg EC tablet, Take 81 mg by mouth in the morning., Disp: , Rfl: busPIRone (Buspar) 5 mg tablet, Take 5 mg by mouth two times daily., Disp: , Rfl: carvedilol (Coreg) 6.25 mg tablet, Take 6.25 mg by mouth with breakfast and with evening meal., Disp: , Rfl: cetirizine (ZyrTEC) 10 mg tablet, Take 10 mg by mouth if needed each day., Disp: , Rfl: cholecalciferol (D3-5) 5,000 Units tablet, Take 5,000 Units by mouth in the morning., Disp: , Rfl: dextromethorphan-guaifenesin (Robitussin DM) 10-100 mg/5 mL syrup, Take 10 mL by mouth every 4 (four) hours if needed., Disp: , Rfl: diclofenac (Voltaren) 1 % topical gel, Apply 4 g topically twice a day., Disp: , Rfl: DULoxetine (Cymbalta) [address] capsule, , Disp: , Rfl: famotidine (Pepcid) 40 mg tablet, Take 20 mg by mouth in the morning., Disp: , Rfl: furosemide (Lasix) 40 mg tablet, Take 40 mg by mouth 3 (three) times a week., Disp: , Rfl: gabapentin (Neurontin) 100 mg capsule, , Disp: , Rfl: hydrocortisone 1 % cream, Apply 1 Application topically if needed each day., Disp: , Rfl: ipratropium (Atrovent) 0.02 % nebulizer solution, Inhale 0.5 mg 4 times a day., Disp: , Rfl: levothyroxine (Synthroid, Levoxyl) 100 mcg tablet, Take 100 mcg by mouth in the morning., Disp: , Rfl: levothyroxine (Synthroid, Levoxyl) 50 mcg tablet, , Disp: , Rfl: Myrbetriq 50 mg tablet extended release 24 hr, , Disp: , Rfl: Prolia 60 mg/mL syringe, , Disp: , Rfl: Xarelto 10 mg tablet, Take 10 mg by mouth once daily as directed., Disp: , Rfl: Last Recorded Vitals Visit Vitals Pulse 88 Ht 1.626 m (5' 4 ) Wt 96.6 kg (213 lb) SpO2 95% BMI 36.56 kg/m??? Smoking Status Never BSA 2.09 m??? Physical Examination: GENERAL: alert and oriented x3, well developed, in no acute distress. HEAD: atraumatic, normocephalic. EYES: PATRICIA, EOMI. NECK: trachea midline, no JVD present, no carotid bruits present. CARDIAC: S1, S2 present. RRR. No murmur, rubs, or gallops. RESPIRATORY: CTAB, no increased effort of breathing, no rales, rhonchi, or wheezing. ABDOMEN: soft, nontender, nondistended. EXTREMITIES: no lower extremity edema. No rash/skin discoloration present. NEURO: strength/sensation equal and symmetric in bilateral upper and lower extremities. PSYCH: appropriate mood, affect, and judgement. Labs: 12/19/2023 White blood count 6, hemoglobin 14.5, hematocrit 45, platelets 171 Sodium 137, potassium 3.6, glucose 105 HbA1c 5.3% Total bilirubin 0.5, ALT 48, alk phos 121, total protein 5.8, albumin 2.6 proBNP 73 Triglyceride 203, cholesterol 207, LDL 133, HDL 34 Last Images: EKG today 05/16/2024 showed normal sinus rhythm, heart rate 84 bpm, 1 PVC, possible old anterior infarct, no significant changes in comparison to prior EKG 09/15/2022 EKG 09/15/2022 showed sinus rhythm, heart rate 100 bpm, possible old anterior infarct, no significant T or ST changes Cardiac catheterization 11/15/2017 at [facility] ??? Normal LV systolic function ??? Angiographically no significant coronary artery disease identified Recommendations: medical therapy risk factor modification Coronary Findings Diagnostic (more content not included)... [facility] 02-28-2024 Note Cardiology Clinic No te Chief Complaint: No chief complaint on file. HPI: Mayte Gavin is a 78 y.o. female who [...] a past medical history of Diabetes mellitus ([facility]), Fracture of hip ([facility]), and Hypertension. Surgical History She has a [...] fracture or dislo (more content not included)... [facility] 02-07-2024 History of Present illness Narrative Port draw completed per protocol. documented in this encounter [facility] 01-22-2024 History of Present illness Narrative Images from the original note were not included. HISTORY OF PRESENT ILLNESS: Mayte Gavin is an 78 y.o. @ female. Chief complaint RT knee pain New patient: RT knee Prior treatment by Dr Mason at [facility] 01/01/24 pain clinic and [facility] orthopedics 09/17/23 RT knee pain x [...] treatment: cortisone injection 2016 Dr. Turner in [place], walker, elevation, physical therapy, X-rays [facility] 2018, [facility] pain clinic, [facility] orthopedics, injx by Dr Mason. Here with aid from [facility] I reviewed notes from the [facility] orthopedics dated September 17, 2023. Patient was [...] History: Diagnosis Date Anxiety Arthritis Diabetes mellitus ([facility]) Dvt femoral (deep venous thrombosis) ([facility] 2018 Hypertension ([facility]) Hypothyroid ([facility]) Osteoporosis ([facility]) Polycythemia ALLERGIES: Allergies Allergen Reactions Iodinated Contrast Media Iodine Nitrofurantoin GI intolerance Penicillins Sulfa Antibiotics VITALS: There were no vitals taken for this visit. PHYSICAL EXAM: Ortho Exam RIGHT KNEE Very limited ROM Edema/swelling RT leg Planovalgus flat feet In wheelchair IMAGING: I reviewed x-rays of the right knee dated November 14, [address] [facility]. There was marked cortical irregularity with [...] She has been treated with provider at [facility] who is willing to proceed. With the patient's multiple medical comorbid conditions I think the patient would be better served at a tertiary care center and I would suggest that if she desires to proceed that she should follow up at [facility]. Follow up as needed, any issues/concerns follow up sooner. Dr. Miller obtained history and examined the patient, I am acting as scribe for Dr. Miller/nancy Miller D.O. documented in this encounter [facility] 12-13-2023 History of Present illness Narrative Patient is here in follow up for polycythemia with Dr. Vogt. Orders received for: Check CBC and port flush today. Continue CBC and port flush every 8 weeks. Hold iron supplement. F/u in 6 months. Follow up scheduled for 06/12/24. Next port draw scheduled for 02/07/24. Will call to schedule phlebotomy if indicated based on today's lab results. Instructions and treatment calendar provided to facility. Patient discharged in stable condition with belongings to facility staff. documented in this encounter [facility] [employer] [facility] 12-13-2023 History of Present illness Narrative Images from the original note were not included. [facility] 12/13/23 Mayte Gavin is a 78 y.o. year old female seen today in the oncology clinic. Chief Complaint Patient presents with Follow-up History of Present Illness: Mrs. Gavin is a 78 y.o. 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 She reported to have left lower extremity blood clots, and on Xarelto since July 2017. Patient has a history of inguinal lymphadenopathy, recent CT 07/2017 did not show any inguinal or intra-abdominal lymphadenopathy. PET scan 05/2019 for weight loss: No suspicious intrathoracic or intra-abdominal FDG uptake. Interval history: The patient continue to stay in [facility]. The patient recently had a fall, fractured her left hip. According to patient's record, she has been on iron supplement since 10/04/23. She complains about fatigue after phlebotomy. Usually the fatigue last for few days. Continue Xarelto daily. Appetite is good. The patient's seems to be less talkative than before. Past Medical History: Diagnosis Date Anxiety Arthritis Blood clot in vein Cataract Diabetes mellitus type 2, controlled ([facility]) Hypertension Hypothyroid Osteoporosis Past Surgical History: Procedure Laterality Date CARDIAC CATHETERIZATION Cardiac catheterization [facility] N/A 11/15/2017 Performed by Ayo Tolentino MD at [facility] CARDIAC CATH LABS Coronary angiogram and left ventricular gram/pressure N/A 11/15/2017 Performed by Ayo Tolentino MD at [facility] CARDIAC CATH LABS REPLACEMENT TOTAL JOINT HIP ANTERIOR SUPINE INTERMUSCULAR Left 07/24/2022 Performed by Filemon Jensen MD at [facility] TOTAL KNEE Left TONSILLECTOMY Family History Problem Relation Age of Onset No Known Problems Mother Heart disease Father Breast cancer Maternal Aunt Social History Socioeconomic History Marital status: Tobacco Use Smoking status: Never Smokeless tobacco: Never Vaping Use Vaping status: Never Used Substance and Sexual Activity Alcohol use: No Drug use: No Sexual activity: Never Other Topics Concern Caffeine Use Yes Social Determinants of Health Food Insecurity: No Food Insecurity (07/24/2022) Hunger Screening Food Insecurity - Worry: Never True Food Insecurity - Inability: Never True Interpersonal Safety: Unknown (09/17/2023) Received from [facility] Humiliation, Afraid, Rape, and Kick questionnaire Fear of Current or Ex-Partner: No Housing Instability: Low Risk (07/24/2022) Housing Instability Housing Instability: No Allergies Allergen Reactions Iodinated Contrast Media Macrobid [Nitrofurantoin Monohyd/M-Cryst] GI Disturbance Penicillins Sulfa (Sulfonamide Antibiotics) Medication List Accurate as of December 13, 2023 3:09 PM. If you have any questions, ask your nurse or doctor. Medications Continued This Visit acetaminophen 500 mg tablet Refills: 0 Dose: 500 mg Commonly known as: TYLENOL EXTRA STRENGTH albuterol 90 mcg/actuation inhaler Refills: 0 Commonly known as: PROVENTIL HFA;VENTOLIN HFA * ARIPiprazole 5 mg tablet Refills: 0 Dose: 5 mg Commonly known as: ABILIFY * ARIPiprazole 2 mg tablet Refills: 0 Dose: 2 mg Commonly known as: ABILIFY aspirin 81 mg Refills: 0 Dose: 81 mg BIOFREEZE (MENTHOL) 4 % gel Refills: 0 Dose: 1 application. Generic drug: menthol carvediloL 6.25 mg tablet Quantity: 60 tablet Refills: 0 Dose: 6.25 mg Signed by: SOUMYA Monique 6.25 mg, oral, 2 times daily with meals Commonly known as: COREG cetirizine 10 mg tablet Refills: 0 Dose: 10 mg Commonly known as: ZyrTEC denosumab 60 mg/mL syringe injection Refills: 0 Dose: 60 mg Commonly known as: PROLIA dextromethorphan-guaiFENesin 10-100 mg/5 mL liquid Refills: 0 Dose: 10 mL Commonly known as: ROBITUSSIN-DM diclofenac sodium 1 % gel Refills: 0 Dose: 4 g Commonly known as: VOLTAREN DULoxetine 20 mg capsule Refills: 0 Dose: 60 mg Commonly known as: CYMBALTA famotidine 40 mg tablet Refills: 0 Dose: 20 mg Commonly known as: PEPCID ferrous sulfate 325 (65 FE) mg tablet Quantity: 60 tablet Refills: 0 Dose: 325 mg Signed by: SOUMYA Monique 325 mg, oral, 2 times daily with meals furosemide 40 mg tablet Refills: 0 Dose: 40 mg Commonly known as: LASIX gabapentin 100 mg capsule Quantity: 90 capsule Refills: 0 Doctor's comments: 30 Day Supply For diagnoses: Closed fracture of neck of left femur, initial encounter ([facility]) Dose: 100 mg Signed by: DARBY MoniqueHAZMAT CDL DRIVER 100 mg, oral, 3 times daily Commonly known as: NEURONTIN hydrocortisone 1 % cream Refills: 0 Dose: 1 application. Commonly known as: HYTONE * hydrOXYzine 50 mg capsule Refills: 0 Dose: 50 mg Commonly known as: VISTARIL * hydrOXYzine 50 mg capsule Refills: 0 Dose: 50 mg Commonly known as: VISTARIL * hydrOXYzine 25 mg capsule Refills: 0 Dose: 25 mg Commonly known as: VISTARIL ipratropium 0.02 % nebulizer solution Refills: 0 Dose: 0.5 mg Commonly known as: ATROVENT * levothyroxine 100 MCG tablet Refills: 0 Dose: 100 mcg Commonly known as: SYNTHROID, LEVOTHROID * levothyroxine 50 MCG tablet Refills: 0 Dose: 50 mcg Commonly known as: SYNTHROID, LEVOTHROID MYRBETRIQ 50 mg tablet extended release 24 hr Refills: 0 Dose: 50 mg Generic drug: mirabegron * nystatin cream Refills: 0 Dose: 1 Application Commonly known as: MYCOSTATIN * nystatin powder Refills: 0 Dose: 1 Application Commonly known as: MYCOSTATIN ondansetron 4 mg tablet Refills: 0 Dose: 4 mg Commonly known as: ZOFRAN polyethylene glycol 17 gram packet Refills: 0 Dose: 17 g Commonly known as: GLYCOLAX rivaroxaban 10 mg tablet Quantity: 30 tablet Refills: 0 Dose: 10 mg Signed by: SOUMYA Monique 10 mg, oral, Daily Commonly known as: XARELTO TESSALON PERLES 100 mg capsule Refills: 0 Dose: 100 mg Generic drug: benzonatate VITAMIN D3 5,000 units tablet Refills: 0 Dose: 5,000 Units Generic drug: cholecalciferol (vitamin D3) * This list has 9 medication(s) that are the same as other medications prescribed for you. Read the directions carefully, and ask your doctor or other care provider to review them with you. Review of Symptoms: Review of Systems Constitutional: Positive for appetite change and fatigue. Negative for chills, fever and unexpected weight change. HENT: Negative. Negative for hearing loss, mouth sores, sore throat and tinnitus (RINGING IN EARS). Eyes: Negative. Negative for visual disturbance. Respiratory: Positive for cough and shortness of breath. Negative for wheezing. Cardiovascular: Positive for leg swelling. Negative for chest pain and palpitations. Gastrointestinal: Negative. Negative for blood in stool, constipation, diarrhea, nausea and vomiting. Endocrine: Negative. Genitourinary: Negative. Negative for decreased urine volume, difficulty urinating, dysuria, frequency, hematuria and urgency. Musculoskeletal: Positive for joint swelling. Negative for arthralgias and back pain. Skin: Negative. Negative for rash and wound. Allergic/Immunologic: Negative. Neurological: Negative for dizziness, tremors, seizures, weakness, numbness and headaches. Hematological: Does not bruise/bleed easily. Psychiatric/Behavioral: Negative for agitation, confusion, decreased concentration and sleep disturbance. The patient is nervous/anxious. All other systems reviewed and are negative. ECO- Symptomatic; fully ambulatory Physical Exam: General: Well appearing, in no acute distress. Vitals: BP 121/85 Pulse 102 Temp 36.4 C (97.6 F) Resp 16 Wt 92.5 kg (204 lb) SpO2 94% BMI 35.00 kg/m Body mass index is 35 kg/m . Eyes: No icterus, no conjuctival erythema Lymph nodes: No palpable adenopathy in cervical supraclavicular and bilateral axillary area. Neck: Supple. There were no masses, tenderness. Trachea was midline. Respiratory: Respirations were non-labored. Lungs were clear to auscultation. There was no dullness to percussion. Cardiac: Regular rate and rhythm, S1 and S2 sounds were normal. There were no rubs or gallops. Abdomen: Soft, non-tender, Nondistended. Bowel sounds audible in all four quadrants. No hepatosplenomegaly. Extremities: There was no clubbing, Cyanosis, edema. Skin: There was no obvious rashes, bruising or ecchymosis. Back exam: No palpable tenderness was appreciated. Neurologic: There was no unilateral weakness. Mood and affect: Normal. Breast exam: No palpable mass, Karly infection. Recent Imaging: Ct Abdomen And Pelvis With Contrast Result Date: 08/28/2017 Narrative: History: Lymphadenopathy. Shortness of breath. Technique: Contiguous axial images through the abdomen pelvis were obtained following the intravenous administration of 125 mL Omnipaque 300 and the oral administration of oral Omnipaque. Automated exposure control was utilized. Comparison: None Findings: There are multiple gallstones in the gallbladder. No ductal dilatation is seen. There is no evidence of any hepatic, splenic, adrenal, renal, or pancreatic abnormalities. No abdominal or retroperitoneal masses or adenopathy are seen. No pelvic masses, adenopathy, or fluid collections are identified. Limited images through the lung bases are unremarkable. Impression: 1. Cholelithiasis 2. Otherwise normal CT abdomen and pelvis. All CT scans at this facility use dose modulation, iterative reconstruction, and/or weight based dosing when appropriate to reduce radiation dose to as low as reasonably achievable. Finalized by Massimo Reeves MD on 08/28/2017 8:[address] Angiogram Chest Result Date: 08/28/2017 Narrative: History: Lymphadenopathy. Shortness of breath. Exam/Technique: Imaging is performed with bolus IV contrast with 3-D and multiplanar reconstructions provided. 100 ml Omnipaque 350 was administered intravenously. . Automatic dose exposure reduction technique utilized. Comparison: None. Findings: Thyroid gland is enlarged and inhomogenous likely containing multiple nodules. This should be assessed on a nonemergent basis with ultrasound. There is no evidence of pulmonary emboli. The thoracic aorta displays ectasia. This is particularly seen in the ascending aorta which measures around 38 mm in maximum dimension. There is atherosclerotic disease in a patchy distribution descending aorta. No hilar or mediastinal mass lesions or other significant mediastinal abnormalities are displayed There is no evidence of infiltrates, noncalcified nodules, or other active pulmonary disease. No pleural abnormalities are demonstrated. Breathing artifact is identified which compromises the examination. Areas of atelectasis are noted for example in the apical region of the right upper lobe and the left lower lobe along the chest wall. Degenerative changes identified in the humeral heads cysts formation. Some of this may be due to rotator cuff related pathology. IMPRESSION: There is breathing artifact. 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 There are no focal abnormality identified. There are no features of lymphadenopathy. The thyroid gland is heterogenous and enlarged and should be evaluated with ultrasound on nonemergent basis All CT scans at this facility use dose modulation, iterative reconstruction, and/or weight based dosing when appropriate to reduce radiation dose to as low as reasonably achievable. Finalized by Wilber Young MD on 08/28/2017 9:02 AM Lower extremity Doppler 07/2017 Acute left popliteal vein DVT. Recent Labs: No results found for this or any previous visit (from the past 336 hour(s)). Diagnosis Problem list: Problem List Items Addressed This Visit None Impression: History of polycythemia required episodic phlebotomy History of DVT in left lower extremity on Xarelto 07/2017- Lung nodule, no FDG uptake 05/2019 Plan: Patient has history of lymphadenopathy of the repeat CT scan in 2017 showed no evidence of lymphoma. PET scan May of 2019 reviewed, the previously seen right upper lung lobe partly calcified density is not FDG avid, compatible with granulomatous/infectious process. Diffuse increased FDG activity in the thyroid gland, this is most compatible with thyroiditis including autoimmune thyroiditis. Proceed with phlebotomy for hematocrit = or >47. I reviewed the patient's list of medication she is currently taking oral iron supplements since 10/04/23. Given history of polycythemia, oral iron supplement she will be avoided. Note sent to the alf. Check CBC and port flush today. Continue CBC and port flush every 8 weeks. Hold iron supplement. F/u in 6 months. Previous Doppler showed acute DVT in July 2017. Given history of polycythemia and acute DVT, continue Xarelto 10 mg for lifelong. Follow-up in 12 months. Clive Vogt MD Please note that portions of this note were generated using voice recognition [employer] dictation software. Although every effort was made to ensure the accuracy of this automated grade school teacher, some errors in grade school teacher may have occurred. CC: Patient Care Team: Lizbet Justice MD as PCP - General (Family Medicine) Clive Vogt MD as Consulting Physician (Hematology) PCP:Lizbet Justice Referring MD: Lizbet Justice MD documented in this encounter [facility] 12-13-2023 Instructions Clive Vogt MD - 12/13/2023 3:15 PM EDT Check CBC and port flush today. Continue CBC and port flush every 8 weeks. Hold iron supplement. F/u in 6 months. documented in this encounter [facility] 12-13-2023 History of Present illness Narrative Port draw completed per protocol. documented in this encounter [facility] 10-11-2023 History of Present illness Narrative Labs drawn peripherally. documented in this encounter [facility] 09-17-2023 Note Orthopedic Surgery Subjective Chief complaint: [...] injections failed to relieve her pain 09/17/23 Mayte Gavin is a 78 y.o. year old [...] a recent hip fracture needing been at [facility] by Filemon Jensen MD. She is a borderline diabetic. Patient History Past Surgical History: Procedure Laterality Date TOTAL HIP ARTHROPLASTY Left Past Medical History: Diagnosis Date Diabetes mellitus ([facility]) Fracture of hip ([facility]) Hypertension Objective General: Body mass index is [...] were not available to be seen. Assessment/Plan Mayte Gavin is a 78 y.o. year old [...] injury, resid (more content not included)... [facility] 07-19-2023 Note Chief complaint: Rig ht knee [...] at this time Refer to Dr Ross [facility] 07-19-2023 Note Chief Complaint: Rig ht Knee Pain HPI: 78 y.o [facility] 06-11-2023 History of Present illness Narrative Port draw completed per protocol. Patient tolerated well. Site covered with band aid. documented in this encounter [facility] Evaluation note Diagnosis Chronic pain of right knee Primary osteoarthritis of right knee documented in this encounter [facility] HealthcareEvaluation note* Diagnosis Polycythemia- Primary Polycythemia, secondary [facility] Diagnosis Polycythemia- Primary Polycythemia, secondary documented in this encounter [facility]* Diagnosis Polycythemia- Primary Polycythemia, secondary [facility]* Diagnosis Polycythemia- Primary Polycythemia, secondary Acute deep vein thrombosis (DVT) of distal vein of right lower extremity ([facility]) documented in this encounter [facility]* Diagnosis Polycythemia- Primary Polycythemia, secondary documented in this encounter [facility]* Diagnosis Polycythemia- Primary Polycythemia, secondary [facility] on filedocumented in this encounter [facility] filedocumented in this [facility] filedocumented in this [facility]ocumented in this [facility] on filedocumented in this encounter [facility] System[facility]ructionsNot on filedocumented in this encounter [facility] Summary Purpose Family History No Family History Records FoundNo Family History Records FoundNo Family History Records FoundNo Family History Records Found Advance Directives No Advanced Directives Records FoundDocuments on File Type Date Recorded Patient Planner/Scheduler Expl anation Durable Power of Laboratory Development Technician Advance Directive 07/22/2022 7:59 PM DNR Date Activated Date Inactivated Comments 07/26/2022 8:13 AM 07/26/2022 7:08 PM Date Activated Date Inactivated Comments 07/24/2022 5:16 PM 07/26/2022 8:13 AM Date Activated Date Inactivated Comments 07/23/2022 8:40 AM 07/24/2022 5:16 PM Date Activated Date Inactivated Comments 07/22/2022 8:42 PM 07/23/2022 8:40 AM Latest Code Status on File Code Status Date Activated Date Inactivated Comments DNR Comfort Care Arrest (DNR-CCA) [place] 07/26/2022 8:13 AM 07/26/2022 7:08 PM Code Status History Code Status Date Activated Date Inactivated Comments Full Code 07/24/2022 5:16 PM 07/26/2022 8:13 AM DNR Comfort Care Arrest (DNR-CCA) [place] 07/23/2022 8:40 A M 07/24/2022 5:16 PM Full Code 07/22/2022 8:42 PM 07/23/2022 8:40 AM Additional Source Comments INFORMATION SOURCE (unrecogn ized section and content) DATE CREATED AUTHOR 08/12/2022 [facility] DATE CREATED AUTHOR AUTHOR'S ORGANIZ ATION 01/23/2024 [facility] EPIC DATE CREATED AUTHOR AUTHOR'S ORGANIZ ATION 05/18/2024 [facility] DATE CREATED AUTHOR AUTHOR'S ORGANIZ ATION 06/10/2024 [facility] Care Teams (unrecognized sec tion and content) Public Affairs Director Relationship Specialty Start Date End Date Eliezer Plascencia MD [address] [place] [address] [phone] PCP - General Internal Medicine 01/22/24 Public Affairs Director Relationship Specialty Start Date End Date Eliezer Plascencia MD [address] [place] [address] [id number] PCP - General Internal Medicine 01/22/24 Public Affairs Director Relationship Specialty Start [place] [address] [place], [place] [address] [address] PCP - General Family Medicine 09/07/17 Public Affairs Director Relationship Specialty Start Date End Date Lizbet Justice MD [address] [place], [place] [id number] PCP - General Family Medicine 09/07/17 Public Affairs Director Relationship Specialty Start Date End Date Lizbet Justice MD [address] [place], [place] [id number] PCP - General Family Medicine 09/07/17 Public Affairs Director Relationship Specialty Start Date End Date Lizbet Justice MD [address] [place] [address] PCP - General Family Medicine 09/07/17 Public Affairs Director Relationship Specialty Start Date End Date Lizbet Justice MD [address] [place] [id number] PCP - General Family Medicine 09/07/17 Reason for Visit (unrecogniz ed section and content) Reason Comments Pain Reason Comments Port/VAD Care Reason Comments Follow-up Reason Comments Port/VAD Care Port draw Reason Comments Port/VAD Care CBC FOR RECORDS PERTAINING TO PATIENTS WHO ARE [...] BE BASED ON THE PRIMARY CLINICAL RECORDS. [facility] [email or web address] [facility]. provides no warranty or guarantee of the accuracy or completeness of information in this document.
[2024-06-14 08:37] LABS: Basophils Absolute Auto 0.1 10^3/uL (0.0-0.1); Basophils Percent Auto 1.1 % (0.2-2.0); Eosinophils Absolute Auto 0.5 10^3/uL (0.0-0.7); Hematocrit 44.5 % (36.0-48.0); Hemoglobin 14.4 g/dL (12.0-16.0); Immature Granulocytes Abs Auto 0.01 10^3/uL (0.00-0.03); Immature Granulocytes Pct Auto 0.2 % (0.0-0.5); Lymphocytes Absolute Auto 1.1 10^3/uL (1.2-3.8); Lymphocytes Percent Auto 15.9 % (20.5-60.0); Mean Corpuscular HGB Conc 32.4 g/dL (29.9-35.2); Mean Corpuscular Hemoglobin 30.8 pg (26.7-34.0); Mean Corpuscular Volume 95.3 fL (81.0-99.0); Mean Platelet Volume 9.6 fL (9.5-13.5); Monocytes Absolute Auto 0.4 10^3/uL (0.3-0.8); Monocytes Percent Auto 6.2 % (1.7-12.0); Neutrophils Absolute Auto 4.5 10^3/uL (1.4-6.5); Neutrophils Percent Auto 68.6 % (43.0-75.0); Platelet Count 247 10^3/uL (150-450); Red Blood Count 4.67 10^6/uL (4.20-5.40); White Blood Count 6.6 10^3/uL (4.0-11.0)
== END 2024-06-14 08:20 | disposition home or self-care (01) ==
LOC: LAB 08:19
PROVIDERS: Visit Provider Internal Medicine
DX: D45 Polycythemia vera (principal); I10 Essential (primary) hypertension
CPT/HCPCS: 36415; 85025

== ENCOUNTER 2024-11-20 12:26 | Outpatient (OUT) | payer MEDICARE, MEDICAID, SELFPAY ==
--- NOTE | 2024-11-20 12:33 | XR_ITS ---
[facility] [place] [id number] Patient Name: WILLARD STOVER MRN: [id number] date: 1945 Sex: F Assigned Patient Location: [facility] Current Patient Location: [facility] Accession/Order Number: [id number] Exam Date: 11/20/2024 13:34 Report Date: 11/20/2024 13:35 At the request of: JOSÉ MANUEL CAPPS MD Procedure: XR chest 2V Chest 2 views CLINICAL HISTORY: Subacute cough R05.2 COMPARISON: None FINDINGS: Left-sided port tip in the SVC. Heart is at the limits normal in size. Left lower lobe airspace disease. This is best seen on the lateral view. No pneumothorax, large pleural effusion or free air. XR/XR chest 2V IMPRESSION: LEFT LOWER LOBE AIRSPACE DISEASE. Impression dictated by: Devin Jordan Jr., DLadanOLadan 11/20/2024 1:35 PM Dictation Location[facility] Electronically authenticated by: [id number] Y Date: 11/20/2024 13:35
== END 2024-11-20 12:27 | disposition home or self-care (01) ==
PROVIDERS: Visit Provider Internal Medicine Cardiovascular Disease
DX: R05.2 Subacute cough (principal); J84.9 Interstitial pulmonary disease, unspecified
CPT/HCPCS: 71046